=== PATIENT | male | born 1965 | race Caucasian/White ===

== ENCOUNTER 2017-04-18 09:23 | Emergency (ER) | payer MEDICARE, MEDICAID ==
--- NOTE | 2017-04-18 09:51 | EDM.PDOC ---
ED HPI GENERAL MEDICAL PROBLEM - General Chief Complaint: Back Pain or Injury Stated Complaint: BACK PAIN,CHILLS Time Seen by Provider: 04/18/17 09:51 Source of Information: Reports: Patient History Limitations: Reports: No Limitations - History of Present Illness INITIAL COMMENTS - FREE TEXT/NARRATIVE: 51-year-old male presents to the ED with a 2 day history of illness with fever chills and diffuse abdominal and low back pain. No injuries to his low back. Associated intermittent nausea and vomiting. He had 3 emesis was yesterday which contain no blood. He has not vomited today he is experiencing more dry heaves. No diarrhea. Has a history of recurrent pancreatitis since having his gallbladder out. Does not drink alcohol. Certain fatty foods seem to produce pancreatitis. He has fever chills and some rigors especially last night. Hasn't been able to eat for 24 hours as nothing would stay down. He is an insulin- dependent diabetic. He does feel some slight dysuria with voiding. No history of urinary tract infection. Blood sugar this morning was 177 and he did take his Levemir 38 units subcutaneous. Onset: Gradual Onset Date: 04/17/17 (Started to feel unwell last night and has progressed overnight to fever chills) Duration: Hour(s): Location: Reports: Abdomen (Diffuse low back pain, pain.), Back Quality: Reports: Ache Severity: Moderate Improves with: Reports: None Worsens with: Reports: Other (Trying to drink fluids) Associated Symptoms: Reports: Fever/Chills, Loss of Appetite, Malaise, Nausea/ Vomiting, Weakness. Denies: Confusion, Chest Pain, Cough, cough w sputum, Diaphoresis, Headaches, Rash, Seizure, Shortness of Breath, Syncope Treatments ACETYLENE CUTTER: Reports: Other (see below) (Has taking nothing for fever. As he can keep it down) Lower Back Pain Score (Numeric/FACES): 10 Right Upper Abdominal Pain Score (Numeric/FACES): 10 - Related Data Allergies Allergy/AdvReac Type Severity Reaction Status Date / Time ketorolac tromethamine Allergy Anxiety Verified 04/18/17 11:05 [From Toradol] methylphenidate HCl Allergy Anxiety Verified 04/18/17 11:05 [From Ritalin] metoclopramide HCl Allergy Anxiety Verified 04/18/17 11:05 [From Reglan] Home Meds: Home Meds Insulin Detemir [Levemir] 38 unit SUBCUT DAILY 07/28/14 [History] metFORMIN [Glucophage] 2,000 mg PO BID 07/28/14 [History] Metoprolol Succinate [Toprol XL] 25 mg PO DAILY 08/18/14 [History] risperiDONE [Risperdal] 0.5 mg PO DAILY 12/17/14 [History] Sertraline [Zoloft] 150 mg PO BEDTIME 05/25/15 [History] ClonazePAM [KlonoPIN] 0.5 mg PO BEDTIME 07/24/16 [History] Lisinopril [Zestril] 10 mg PO DAILY 07/24/16 [History] Dicyclomine [Bentyl] 20 mg PO Q6H PRN #5 tablet 04/18/17 [Rx] Ezetimibe [Zetia] 10 mg PO DAILY 04/18/17 [History] Fenofibrate Nanocrystallized [Tricor] 0 mg PO DAILY 04/18/17 [History] Ondansetron [Zofran ODT] 4 mg PO Q6H #5 tab.dis 04/18/17 [Rx] risperiDONE [Risperdal] 1.5 mg PO BEDTIME 04/18/17 [History] Past Medical History HEENT History: Reports: Impaired Vision Cardiovascular History: Reports: High Cholesterol, Hypertension Gastrointestinal History: Reports: GERD Musculoskeletal History: Reports: Back Pain, Chronic, RA Other Musculoskeletal History: knee pain and shoulder pain, Psychiatric History: Reports: Anxiety, Bipolar, Depression, Schizophrenia Endocrine/Metabolic History: Reports: Diabetes, Type II - Past Surgical History Musculoskeletal Surgical History: Reports: Shoulder Surgery Social & Family History - Tobacco Use Smoking Status *Q: Current Every Day Smoker Years of Tobacco use: 12 Packs/Tins Daily: 0.2 Used Tobacco, but Quit: Yes Month Tobacco Last Used: july Second Hand Smoke Exposure: Yes - Caffeine Use Caffeine Use: Reports: Soda Other Caffeine Use: 2-3 pop daily - Alcohol Use Days Per Week of Alcohol Use: 0 Number of Drinks Per Day: 2 Total Drinks Per Week: 0 - Recreational Drug Use Recreational Drug Use: No Drug Use in Last 12 Months: No Recreational Drug Type: Reports: Marijuana/Hashish - Living Situation & Occupation Living situation: Reports: Single, Other Occupation: Disabled ED ROS GENERAL - Review of Systems Review Of Systems: See Below Constitutional: Reports: Fever, Chills, Malaise, Weakness, Fatigue HEENT: Reports: No Symptoms Respiratory: Reports: Cough Cardiovascular: Reports: No Symptoms Endocrine: Reports: Fatigue GI/Abdominal: Reports: Abdominal Pain, Diarrhea, Nausea, Vomiting : Reports: No Symptoms Musculoskeletal: Reports: Back Pain (Complains of marked increase in type low back pain.) Skin: Reports: No Symptoms Neurological: Reports: Dizziness, Headache Psychiatric: Reports: No Symptoms Hematologic/Lymphatic: Reports: No Symptoms Immunologic: Reports: No Symptoms ED EXAM,LOWER BACK PAIN/INJURY - Physical Exam Exam: See Below Exam Limited By: No Limitations General Appearance: Alert, Mild Distress, Other (He is very warm to palpation indicating fever even though nurses got temperature 36.1. He definitely is febrile.) Eye Exam: Bilateral Eye: Normal Inspection Ears: Normal TMs Nose: Normal Inspection Throat/Mouth: Normal Inspection, Normal Lips, Normal Oropharynx, Other Head: Atraumatic, Normocephalic Neck: Normal Inspection (Tongue is mildly dry and coated), Supple, Non-Tender, Full Range of Motion. No: Lymphadenopathy (L), Lymphadenopathy (R) Respiratory/Chest: No Respiratory Distress, Lungs Clear, Normal Breath Sounds, No Accessory Muscle Use Cardiovascular: Normal Peripheral Pulses, Regular Rate, Rhythm, No Edema, No Murmur, Bradycardia GI/Abdominal: Normal Bowel Sounds, Soft, Non-Tender, No Organomegaly, Abnormal Bowel Sounds (Hyperactive bowel sounds) Back Exam: Normal Inspection, Full Range of Motion. No: CVA Tenderness (L), CVA Tenderness (R) Extremities: Normal Inspection, Normal Range of Motion, Non-Tender, Normal Capillary Refill Neurological: Alert, Normal Mood/Affect, Normal Dorsiflexion, CN II-XII Intact Psychiatric: Normal Affect, Normal Mood Skin Exam: Warm, Dry, Intact, Normal Color, No Rash EKG INTERPRETATION EKG Date: 04/18/17 Time: 09:55 Rhythm: Other (Sinus bradycardia) Rate (Beats/Min): 46 B[place]roft: LAD-Left Bancroft Deviation (-35) P-Wave: Present QRS: Normal ST-T: Normal QT: Prolonged (Moderately prolonged) Course - Vital Signs Last Recorded V/S: Last Vital Signs Temp 37.1 C 04/18/17 11:02 Pulse 51 L 04/18/17 13:00 Resp 18 04/18/17 13:00 BP 130/95 H 04/18/17 13:00 Pulse Ox 100 04/18/17 13:00 - Orders/Labs/Meds Orders: Active Orders 24 hr Category Date Time Status EKG Documentation Completion [RC] STAT Care 04/18/17 10:11 Active CULTURE BLOOD [BC] Stat Lab 04/18/17 10:35 Received CULTURE BLOOD [BC] Stat Lab 04/18/17 10:45 Received Blood Culture x2 Reflex Set [OM.PC] Stat Oth 04/18/17 10:11 Ordered Labs: Laboratory Tests 04/18/17 04/18/17 04/18/17 Range/Units 09:30 10:00 10:00 WBC 6.33 (4.23-9.07) K/mm3 RBC 5.22 (4.63-6.08) M/mm3 Hgb 16.4 (13.7-17.5) gm/L Hct 45.6 (40.1-51.0) % MCV 87.4 (79.0-92.2) fl MCH 31.4 (25.7-32.2) pg MCHC 36.0 H (32.2-35.5) g/dl RDW Std Deviation 40.3 (35.1-43.9) fL Plt Count 271 (163-337) K/mm3 MPV 10.4 (9.4-12.3) fl Neutrophils % (Manual) 52 (40-60) % Band Neutrophils % 0 (0-10) % Lymphocytes % (Manual) 39 (20-40) % Atypical Lymphs % 0 % Monocytes % (Manual) 6 (2-10) % Eosinophils % (Manual) 2 (0.8-7.0) % Basophils % (Manual) 1 (0.2-1.2) Platelet Estimate Adequate Plt Morphology Comment Normal RBC Morph Comment Normal PT 11.9 (8.0-13.0) SECONDS INR 1.09 APTT 27 (22-36) SECONDS Sodium (136-145) mEq/L Potassium (3.5-5.1) mEq/L Chloride (98-107) mEq/L Carbon Dioxide (21-32) mEq/L Anion Gap (5-15) BUN (7-18) mg/dL Creatinine (0.7-1.3) mg/dL Est Cr Clr Drug Dosing mL/min Estimated GFR (MDRD) (>60) mL/min BUN/Creatinine Ratio (14-18) Glucose (74-106) mg/dL POC Glucose (70-105) mg/dL Lactic Acid (0.4-2.0) mmol/L Calcium (8.5-10.1) mg/dL Total Bilirubin (0.2-1.0) mg/dL GGT (15-85) U/L AST (15-37) U/L ALT (16-63) U/L Alkaline Phosphatase (46-116) U/L Troponin I (0.00-0.056) ng/mL C-Reactive Protein (<1.0) mg/dL Total Protein (6.4-8.2) g/dl Albumin (3.4-5.0) g/dl Globulin gm/dL Albumin/Globulin Ratio (1-2) Triglycerides (<150) mg/dL Lipase (73-393) U/L Urine Color Light yellow (Yellow) Urine Appearance Clear (Clear) Urine pH 6.5 (5.0-8.0) Ur Specific Franklin 1.010 (1.005-1.030) Urine Protein Negative (Negative) Urine Glucose (UA) Negative (Negative) Urine Ketones Negative (Negative) Urine Occult Blood Negative (Negative) Urine Nitrite Negative (Negative) Urine Bilirubin Negative (Negative) Urine Urobilinogen 0.2 (0.2-1.0) Ur Leukocyte Esterase Negative (Negative) Urine RBC Not seen (0-5) /hpf Urine WBC 0-5 (0-5) /hpf Ur Epithelial Cells Not seen (0-5) /hpf Urine Bacteria Not seen (FEW) /hpf Urine Mucus Few (FEW) /hpf 04/18/17 04/18/17 04/18/17 Range/Units 10:00 10:04 10:35 WBC (4.23-9.07) K/mm3 RBC (4.63-6.08) M/mm3 Hgb (13.7-17.5) gm/L Hct (40.1-51.0) % MCV (79.0-92.2) fl MCH (25.7-32.2) pg MCHC (32.2-35.5) g/dl RDW Std Deviation (35.1-43.9) fL Plt Count (163-337) K/mm3 MPV (9.4-12.3) fl Neutrophils % (Manual) (40-60) % Band Neutrophils % (0-10) % Lymphocytes % (Manual) (20-40) % Atypical Lymphs % % Monocytes % (Manual) (2-10) % Eosinophils % (Manual) (0.8-7.0) % Basophils % (Manual) (0.2-1.2) Platelet Estimate Plt Morphology Comment RBC Morph Comment PT (8.0-13.0) SECONDS INR APTT (22-36) SECONDS Sodium 126 L (136-145) mEq/L Potassium 4.6 (3.5-5.1) mEq/L Chloride 92 L (98-107) mEq/L Carbon Dioxide 27 (21-32) mEq/L Anion Gap 11.6 (5-15) BUN 8 (7-18) mg/dL Creatinine 1.1 (0.7-1.3) mg/dL Est Cr Clr Drug Dosing 63.94 mL/min Estimated GFR (MDRD) > 60 (>60) mL/min BUN/Creatinine Ratio 7.3 L (14-18) Glucose 121 H (74-106) mg/dL POC Glucose 126 H (70-105) mg/dL Lactic Acid 1.1 (0.4-2.0) mmol/L Calcium 9.2 (8.5-10.1) mg/dL Total Bilirubin 0.5 (0.2-1.0) mg/dL GGT 32 (15-85) U/L AST 27 (15-37) U/L ALT 44 (16-63) U/L Alkaline Phosphatase 71 (46-116) U/L Troponin I < 0.017 (0.00-0.056) ng/mL C-Reactive Protein < 0.2 (<1.0) mg/dL Total Protein 8.0 (6.4-8.2) g/dl Albumin 4.8 (3.4-5.0) g/dl Globulin 3.2 gm/dL Albumin/Globulin Ratio 1.5 (1-2) Triglycerides 99 (<150) mg/dL Lipase 258 (73-393) U/L Urine Color (Yellow) Urine Appearance (Clear) Urine pH (5.0-8.0) Ur Specific Franklin (1.005-1.030) Urine Protein (Negative) Urine Glucose (UA) (Negative) Urine Ketones (Negative) Urine Occult Blood (Negative) Urine Nitrite (Negative) Urine Bilirubin (Negative) Urine Urobilinogen (0.2-1.0) Ur Leukocyte Esterase (Negative) Urine RBC (0-5) /hpf Urine WBC (0-5) /hpf Ur Epithelial Cells (0-5) /hpf Urine Bacteria (FEW) /hpf Urine Mucus (FEW) /hpf Meds: Medications Discontinued Medications Generic Name Dose Route Start Last Admin Trade Name Andrew PRN Reason Stop Dose Admin Acetaminophen 975 mg 04/18/17 10:07 04/18/17 10:51 Tylenol PO 04/18/17 10:08 975 mg NOW ONE Administration Hydromorphone HCl 0.5 mg 04/18/17 10:09 04/18/17 10:48 Dilaudid IVPUSH 04/18/17 10:10 0.5 mg ONETIME ONE Administration Sodium Chloride 1,000 mls @ 999 mls/hr 04/18/17 10:07 04/18/17 10:13 Normal Saline IV 04/18/17 11:07 999 mls/hr ONETIME ONE Administration Ondansetron HCl 4 mg 04/18/17 10:07 04/18/17 10:46 Zofran IVPUSH 04/18/17 10:08 4 mg ONETIME ONE Administration - Radiology Interpretation Free Text/Narrative:: 51-year-old male arrives in the ED with history of nausea vomiting and severe low back pain. Of note he is not insulin-dependent diabetic and did take his insulin this morning. Sugar was slightly elevated at 177 compared to his norm. His chief complaint is recurrent nausea vomiting and inability to keep down fluids. Use low back pain of unclear etiology with no known trauma. History of recurrent pancreatitis since having his gallbladder removed. Plan IV fluid resuscitation. Given Dilaudid 0.5 mg IV with Zofran 4mg mg IV for pain relief. Routine labs to be done as well as blood cultures 2 as he is febrile on exam. Chest x-ray to be done as well as a KUB. L-spine AP and lateral to be done as well. - Re-Assessments/Exams Free Text/Narrative Re-Assessment/Exam: 04/18/17 11:00 labs reveal a white count of 6.33. Differential pending hemoglobin is slightly elevated at 16.4 hematocrit 45.6. Platelets 271,000. Sodium was quite low at 126. Potassium is 4.6. Chloride 92 bicarbonate 27. Anion gap is 11.6. Glucose is 121 lipase is 258 normal. Urinalysis is pending. 04/18/17 11:06 chest x-ray is essentially within normal limits per portable technique. He is slightly underinflated. Visualized lung donahue appear clear however. X-ray of the abdomen shows nonspecific loops of small bowel in the mid left lower quadrant. There is some mildly increased stool throughout the right hemicolon and transverse colon on the right side. No obstruction is evident. 04/18/17 11:47 L-spine x-rays reveal no other maladies within the lumbar spine. They do show degenerative disc disease between T11 and T12 and T10 and T11 with near absence of the disc spaces. 04/18/17 12:26 still feels a little warm to palpation. He does still appreciate some right upper quadrant abdominal tenderness. Repeat abdominal examination shows benign abdomen. He's had previous cholecystectomy and his lab tests regarding liver function do not suggest any biliary tree obstruction. As increased stool in that area on x-ray in his colon. I'm going to discharge him home on clear fluids such as Gatorade Powerade to restore his sodium sodium levels. He is advised to limit his water intake for the next few days. No apple juice or grape juice until the stools are formed backup or dairy products. Then under the tongue 4 mg every 4-6 hours for nausea relief. Continue Motrin 600 mg every 6 hours for fever relief. If not better or still running a fever in the next 24-36 hours he is to return to medical Departure - Departure Time of Disposition: 12:28 Disposition: Home, Self-Care 01 Condition: Fair Clinical Impression: Gastroenteritis, Hyponatremia Degenerative joint disease of thoracic spine Qualifiers: Spinal osteoarthritis complication: without myelopathy or radiculopathy Qualified Code(s): M47.814 - Spondylosis without myelopathy or radiculopathy, thoracic region - Discharge Information Prescriptions: Dicyclomine [Bentyl] 20 mg PO Q6H PRN #5 tablet PRN Reason: Abdominal cramps/diarrhea Ondansetron [Zofran ODT] 4 mg PO Q6H #5 tab.dis Instructions: Viral Gastroenteritis, Adult, [id number], Hyponatremia, Degenerative Disk Disease Referrals: Bontia Patterson, HEADER OPERATOR [Primary Care Provider] - Forms: ED Department Discharge Additional Instructions: Evaluation the emergency room today in regards to development of fever chills and associated nausea vomiting and diarrhea over the last day and a half. Possibility of foodborne illness exists. White count was normal at 6.3 suggesting a viral etiology or perhaps a toxin causing your diarrhea and vomiting. No evidence of pancreatitis or liver dysfunction today. Serum sodium level was low in your blood and 126 and this is from drinking just pure water over the last day or 2 without adequate salt intake. Therefore you should only drink juices and/or Gatorade Powerade over the next few days to restore your sodium level back to normal. Suggest clear fluid diet and when hungry try soda crackers and advance to soup off or turkey rice turkey noodle soup etc. Stay away from all dairy products and no apple juice or grape juice until stools are formed back up. Continue Motrin 600 mg every 6 hours as needed for relief of fever or chills. Zofran 4 mg under the tongue every 4-6 hours necessary for nausea or vomiting relief. If still running a fever in 24-36 hours time you need to return to the hospital for further investigations. In regards to low back pain think is aggravated by the fever. X-rays show the true lumbar spine to be normal. There is evidence of previous trauma to the lower thoracic spine with degenerative disc disease particularly between number T10 and T11 and T11- T12 vertebra. Negative this is arthritis in the spine - My Orders Last 24 Hours: My Active Orders 04/18/17 10:11 EKG Documentation Completion [RC] STAT Blood Culture x2 Reflex Set [OM.PC] Stat 04/18/17 10:35 CULTURE BLOOD [BC] Stat 04/18/17 10:45 CULTURE BLOOD [BC] Stat - Assessment/Plan Last 24 Hours: My Active Orders 04/18/17 10:11 EKG Documentation Completion [RC] STAT Blood Culture x2 Reflex Set [OM.PC] Stat 04/18/17 10:35 CULTURE BLOOD [BC] Stat 04/18/17 10:45 CULTURE BLOOD [BC] Stat
[2017-04-18] MEDS ORDERED: Sodium Chloride 0.9% 1,000 ML IV ONE (10:07)
[2017-04-18] MEDS ORDERED: Acetaminophen 325 MG Tab PO ONE (10:07)
[2017-04-18] MEDS ORDERED: Ondansetron 4 MG/2 ML SDV IVPUSH ONE (10:07)
[2017-04-18] MEDS ORDERED: HYDROmorphone 0.5 MG/0.5 ML Syringe IVPUSH ONE (10:09)
--- NOTE | 2017-04-18 12:57 | CR ---
Abdomen: Supine view of the abdomen was obtained. Comparison: Previous abdominal x-ray of 04/11/14. Surgical clips are seen within the upper right abdomen. Scattered gas within small bowel and colon is seen which appears unremarkable. Calcification within the left side of the pelvis most likely due to phlebolith. Bony structures are within normal limits for the patient's age. Impression: 1. Incidental findings as noted above. No significant change from previous exam. Diagnostic code #2
--- NOTE | 2017-04-18 12:57 | CR ---
Lumbar spine: AP and lateral views of the lumbar spine were obtained. Comparison: Previous lumbar spine exam of 10/14/12. Slight posterior disc space narrowing noted at T12-L1 and L1-L2. Other discs are maintained. Vertebral body heights are maintained. Minimal scattered endplate osteophytes are seen. Pedicles as well as transverse and spinous processes are intact. No subluxation or fracture is seen. Sacroiliac joints are within normal limits. Impression: 1. Slight scattered endplate osteophytes. Minimal disc space narrowing. 2. Two-view lumbar spine study is otherwise unremarkable. No significant change is seen from prior lumbar spine exam. Diagnostic code #2
--- NOTE | 2017-04-18 12:57 | CR ---
Chest: Frontal view of the chest was obtained. Comparison: Previous chest x-ray of 08/18/14. Heart size and mediastinum are normal. Lungs are clear. Bony structures are grossly intact. Surgical clips seen from previous cholecystectomy. Impression: 1. Nothing acute is appreciated on frontal chest x-ray. Diagnostic code #2
[2017-04-18 13:15] VITALS: BP 130/95
== END 2017-04-18 13:00 | disposition home or self-care (01) ==
LOC: JD.ED 09:23
DX: K52.9 Noninfective gastroenteritis and colitis, unspecified (principal); E87.1 Hypo-osmolality and hyponatremia; M47.814 Spondylosis without myelopathy or radiculopathy, thoracic region; F17.210 Nicotine dependence, cigarettes, uncomplicated; I10 Essential (primary) hypertension; E78.00 Pure hypercholesterolemia, unspecified; K21.9 Gastro-esophageal reflux disease without esophagitis; F31.9 Bipolar disorder, unspecified; E11.9 Type 2 diabetes mellitus without complications; Z98.890 Other specified postprocedural states; Z79.4 Long term (current) use of insulin; Z79.899 Other long term (current) drug therapy; Z88.6 Allergy status to analgesic agent; Z88.8 Allergy status to other drugs, medicaments and biological substances
CPT/HCPCS: 36415; 71010; 72100; 74000; 80053; 81001; 82962; 82977; 83605; 83690; 84478; 84484; 85025; 85610; 85730; 86140; 87040; 93005; 96361; 96374; 96375; 99284; A9270; J1170; J2405; J7040

== ENCOUNTER 2017-05-26 16:49 | Emergency (ER) | payer MEDICARE, MEDICAID ==
[2017-05-26] MEDS ORDERED: HYDROmorphone 1 MG/ML Syringe IM ONE (18:20)
--- NOTE | 2017-05-26 18:21 | EDM.PDOC ---
ED HPI GENERAL MEDICAL PROBLEM - General Chief Complaint: Lower Extremity Injury/Pain Stated Complaint: Foot pain Time Seen by Provider: 05/26/17 17:45 Source of Information: Reports: Patient, RN Notes Reviewed History Limitations: Reports: No Limitations - History of Present Illness INITIAL COMMENTS - FREE TEXT/NARRATIVE: 51 year old male presents to the ED with with right great toe pain. He had surgery a few weeks ago with Dr. Philip. He was doing well until the last few day. He reports running out of his Idalou about 1 week ago. He is on antibiotics prescribed by Dr. Philip but cannot tell me the name of it. He has been elevating the foot with minimal relief. He is here for pain management today. He has a dressing in place that was applied by Dr. Philip 2-3 days ago. The patient is not driving. He denies fever, chills, or sweats. Treatments AGRONOMY MANAGER: Reports: Acetaminophen, NSAIDS Right Feet Pain Score (Numeric/FACES): 9 - Related Data Allergies Allergy/AdvReac Type Severity Reaction Status Date / Time ketorolac tromethamine Allergy Anxiety Verified 05/26/17 17:10 [From Toradol] methylphenidate HCl Allergy Anxiety Verified 05/26/17 17:10 [From Ritalin] metoclopramide HCl Allergy Anxiety Verified 05/26/17 17:10 [From Reglan] Home Meds: Home Meds Insulin Detemir [Levemir] 38 unit SUBCUT DAILY 07/28/14 [History] metFORMIN [Glucophage] 2,000 mg PO BID 07/28/14 [History] Metoprolol Succinate [Toprol XL] 25 mg PO DAILY 08/18/14 [History] risperiDONE [Risperdal] 0.5 mg PO DAILY 12/17/14 [History] Sertraline [Zoloft] 150 mg PO BEDTIME 05/25/15 [History] ClonazePAM [KlonoPIN] 0.5 mg PO BEDTIME 07/24/16 [History] Lisinopril [Zestril] 10 mg PO DAILY 07/24/16 [History] Ezetimibe [Zetia] 10 mg PO DAILY 04/18/17 [History] Fenofibrate Nanocrystallized [Tricor] 48 mg PO DAILY 04/18/17 [History] Ondansetron [Zofran ODT] 4 mg PO Q6H #5 tab.dis 04/18/17 [Rx] risperiDONE [Risperdal] 1.5 mg PO BEDTIME 04/18/17 [History] Acetaminophen/HYDROcodone [Idalou 325-5 MG] 1 - 2 tab PO Q6H PRN #10 tablet 05/26 [Rx] Past Medical History HEENT History: Reports: Impaired Vision Other HEENT History: wears eyeglasses Cardiovascular History: Reports: High Cholesterol, Hypertension Gastrointestinal History: Reports: GERD Musculoskeletal History: Reports: Back Pain, Chronic, RA Other Musculoskeletal History: knee pain and shoulder pain, Psychiatric History: Reports: Anxiety, Bipolar, Depression, Schizophrenia Endocrine/Metabolic History: Reports: Diabetes, Type II Hematologic History: Reports: Anemia, Iron Deficiency - Infectious Disease History Infectious Disease History: Reports: Chicken Pox, Measles - Past Surgical History Musculoskeletal Surgical History: Reports: Shoulder Surgery Social & Family History - Tobacco Use Smoking Status *Q: Current Every Day Smoker Years of Tobacco use: 34 Packs/Tins Daily: 0.2 Used Tobacco, but Quit: Yes Month Tobacco Last Used: july Second Hand Smoke Exposure: Yes - Caffeine Use Caffeine Use: Reports: None Other Caffeine Use: 2-3 pop daily - Alcohol Use Days Per Week of Alcohol Use: 0 Number of Drinks Per Day: 2 Total Drinks Per Week: 0 - Recreational Drug Use Recreational Drug Use: No Drug Use in Last 12 Months: No Recreational Drug Type: Reports: Marijuana/Hashish - Living Situation & Occupation Living situation: Reports: Single, Other Occupation: Disabled Review of Systems - Review of Systems Review Of Systems: See Below Constitutional: Reports: No Symptoms. Denies: Chills, Fever Musculoskeletal: Reports: Foot Pain Skin: Reports: Wound Neurological: Reports: No Symptoms. Denies: Numbness, Tingling, Weakness ED EXAM, GENERAL - Physical Exam Exam: See Below Exam Limited By: No Limitations General Appearance: Alert, WD/WN, No Apparent Distress Respiratory/Chest: No Respiratory Distress, Lungs Clear Cardiovascular: Regular Rate, Rhythm Extremities: Other (Dressing removed from right foot. Patient has an open wound to the right great toe with pin visible. There is yellow drainage from the wound. The great toe is red and edematous. ) Neurological: Alert, Oriented, Normal Cognition Skin Exam: Warm, Dry, Other (see musculoskeletal exam ) Course - Vital Signs Last Recorded V/S: Last Vital Signs Temp 96.5 F 09/17/17 17:15 Pulse 71 05/26/17 17:15 Resp 18 05/26/17 17:15 BP 125/86 05/26/17 17:15 Pulse Ox 99 05/26/17 17:15 - Orders/Labs/Meds Meds: Medications Discontinued Medications Generic Name Dose Route Start Last Admin Trade Name Rejiq PRN Reason Stop Dose Admin Hydromorphone HCl 1 mg 05/26/17 18:20 05/26/17 18:27 Dilaudid IM 05/26/17 18:21 1 mg ONETIME ONE Administration - Re-Assessments/Exams Free Text/Narrative Re-Assessment/Exam: Wound was re-dressed with non-adherent dressing, gauze, and coban. Patients pain was managed and he was discharged home to f/u with his surgeon tomorrow. Departure - Departure Time of Disposition: 18:50 Disposition: Home, Self-Care 01 Condition: Fair Clinical Impression: Post-operative pain - Discharge Information Prescriptions: Acetaminophen/HYDROcodone [Idalou 325-5 MG] 1 - 2 tab PO Q6H PRN #10 tablet PRN Reason: Pain Referrals: PCP,None [Primary Care Provider] - Forms: ED Department Discharge Additional Instructions: Rest, ice and elevate Continue with your post-operative instructions Call Dr. Goodman's clinic tomorrow to update him and to get a refill of your pain medication Idalou 1-2 tabs every 6 hours as needed forpain
[2017-05-26 19:01] VITALS: BP 116/78
== END 2017-05-26 19:15 | disposition home or self-care (01) ==
LOC: JD.ED 16:49
DX: G89.18 Other acute postprocedural pain (principal); M79.674 Pain in right toe(s); E78.00 Pure hypercholesterolemia, unspecified; I10 Essential (primary) hypertension; F17.210 Nicotine dependence, cigarettes, uncomplicated; K21.9 Gastro-esophageal reflux disease without esophagitis; E11.9 Type 2 diabetes mellitus without complications; Z88.6 Allergy status to analgesic agent; Z88.8 Allergy status to other drugs, medicaments and biological substances; Z79.4 Long term (current) use of insulin; Z79.84 Long term (current) use of oral hypoglycemic drugs; Z79.899 Other long term (current) drug therapy; Z86.2 Personal history of diseases of the blood and blood-forming organs and certain disorders involving the immune mechanism
CPT/HCPCS: 96372; 99283; J1170

== ENCOUNTER 2017-07-11 13:16 | Emergency (ER) | payer MEDICARE, MEDICAID ==
[2017-07-11 13:45] VITALS: BP 161/99
[2017-07-11] MEDS ORDERED: LORazepam 1 MG Tab PO ONE (14:00)
--- NOTE | 2017-07-11 14:02 | EDM.PDOCBH ---
ED HPI GENERAL MEDICAL PROBLEM - General Chief Complaint: Behavioral/Psych Stated Complaint: Suicidal ideation Time Seen by Provider: 07/11/17 13:45 Source of Information: Reports: Patient, RN Notes Reviewed History Limitations: Reports: No Limitations - History of Present Illness INITIAL COMMENTS - FREE TEXT/NARRATIVE: 52 year old male presents to the ED with complaints of auditory hallucinations and suicidal ideation. He say she has been off his psych meds for about two weeks because his primary care provider is no longer willing to fill his medications. He was told to see his Psychiatrist Dr. Herring. He has been unable to reach his psychiatrist and now realizes he may have had the wrong number. He says he is hearing persistent voices and that the voices are telling him to kill himself. He says he has considered killing himself to stop the voices. His plan is to cut his wrists. He's attempted to hang himself in the past, this was several years ago. He has a history of paranoid schizophrenia. He denies alcohol or drug use. He says a friend gave him some Marijuana about two weeks ago. He tried it but says he didn't like how it made him feel. He denies fever, chills, sweats, chest pain, cough, shortness of breath, nausea, vomiting, abdominal pain. Right Abdominal Pain Score (Numeric/FACES): 10 - Related Data Allergies Allergy/AdvReac Type Severity Reaction Status Date / Time ketorolac tromethamine Allergy Anxiety Verified 07/11/17 13:45 [From Toradol] methylphenidate HCl Allergy Anxiety Verified 07/11/17 13:45 [From Ritalin] metoclopramide HCl Allergy Anxiety Verified 07/11/17 13:45 [From Reglan] Home Meds: Home Meds Insulin Detemir [Levemir] 38 unit SUBCUT DAILY 07/28/14 [History] metFORMIN [Glucophage] 2,000 mg PO BID 07/28/14 [History] Metoprolol Succinate [Toprol XL] 25 mg PO DAILY 08/18/14 [History] risperiDONE [Risperdal] 0.5 mg PO DAILY 12/17/14 [History] Sertraline [Zoloft] 150 mg PO BEDTIME 05/25/15 [History] ClonazePAM [KlonoPIN] 0.5 mg PO BEDTIME 07/24/16 [History] Lisinopril [Zestril] 10 mg PO DAILY 07/24/16 [History] Ezetimibe [Zetia] 10 mg PO DAILY 04/18/17 [History] Fenofibrate Nanocrystallized [Tricor] 48 mg PO DAILY 04/18/17 [History] Ondansetron [Zofran ODT] 4 mg PO Q6H #5 tab.dis 04/18/17 [Rx] risperiDONE [Risperdal] 1.5 mg PO BEDTIME 04/18/17 [History] Acetaminophen/HYDROcodone [[place] 325-5 MG] 1 - 2 tab PO Q6H PRN #10 tablet 05/26 [Rx] Past Medical History HEENT History: Reports: Impaired Vision Other HEENT History: wears eyeglasses Cardiovascular History: Reports: High Cholesterol, Hypertension Gastrointestinal History: Reports: GERD Musculoskeletal History: Reports: Back Pain, Chronic, RA Other Musculoskeletal History: knee pain and shoulder pain, Psychiatric History: Reports: Anxiety, Bipolar, Depression, Schizophrenia Endocrine/Metabolic History: Reports: Diabetes, Type II Hematologic History: Reports: Anemia, Iron Deficiency - Infectious Disease History Infectious Disease History: Reports: Chicken Pox, Measles - Past Surgical History Musculoskeletal Surgical History: Reports: Shoulder Surgery, Other (See Below) Other Musculoskeletal Surgeries/Procedures:: bunionectomy Social & Family History - Tobacco Use Smoking Status *Q: Current Some Day Smoker Years of Tobacco use: 28 Packs/Tins Daily: 0.1 Used Tobacco, but Quit: Yes Month Tobacco Last Used: july Second Hand Smoke Exposure: Yes - Caffeine Use Caffeine Use: Reports: None Other Caffeine Use: 2-3 pop daily - Alcohol Use Days Per Week of Alcohol Use: 0 Number of Drinks Per Day: 2 Total Drinks Per Week: 0 - Recreational Drug Use Recreational Drug Use: Yes Drug Use in Last 12 Months: No Recreational Drug Type: Reports: Marijuana/Hashish Other Recreational Drug Type: unsure if pt has used weed in the past year - Living Situation & Occupation Living situation: Reports: Single, Other Occupation: Disabled ED ROS GENERAL - Review of Systems Review Of Systems: See Below Constitutional: Reports: No Symptoms. Denies: Fever, Chills, Diaphoresis Respiratory: Reports: No Symptoms. Denies: Shortness of Breath Cardiovascular: Reports: No Symptoms. Denies: Chest Pain GI/Abdominal: Reports: No Symptoms. Denies: Abdominal Pain, Diarrhea, Nausea, Vomiting Neurological: Reports: No Symptoms. Denies: Headache Psychiatric: Reports: Anxiety, Hallucinations, Suicidal Ideation ED EXAM, BEHAVIORAL HEALTH - Physical Exam Exam: See Below Exam Limited By: No Limitations General Appearance: Alert, WD/WN, Anxious Respiratory/Chest: No Respiratory Distress, Lungs Clear, Normal Breath Sounds, No Accessory Muscle Use, Chest Non-Tender Cardiovascular: Regular Rate, Rhythm, No Murmur GI/Abdominal: Normal Bowel Sounds, Soft, Non-Tender, No Distention Neurological: Alert, Normal Mood/Affect, Normal Cognition, Oriented x 3 Psychiatric: Alert, Oriented, Tearful, Suicidal Plan, Suicidal Thoughts, Other ( patient is anxious. Openly talks about his symptoms. He makes eye contact and is cooperative. ). No: Grandiose Thoughts, Paranoid Thoughts, Threatening Behavior Skin Exam: Warm, Dry, Intact COURSE, BEHAVIORAL HEALTH COMP - Course Vital Signs: Last Vital Signs Temp 98.6 F 07/11/17 13:39 Pulse 65 07/11/17 13:39 Resp 18 07/11/17 13:39 BP 161/99 H 07/11/17 13:39 Pulse Ox 100 07/11/17 13:39 Orders, Labs, Meds: Laboratory Tests 07/11/17 07/11/17 07/11/17 Range/Units 14:10 14:10 14:28 WBC 7.40 (4.23-9.07) K/mm3 RBC 4.95 (4.63-6.08) M/mm3 Hgb 15.2 (13.7-17.5) gm/L Hct 43.3 (40.1-51.0) % MCV 87.5 (79.0-92.2) fl MCH 30.7 (25.7-32.2) pg MCHC 35.1 (32.2-35.5) g/dl RDW Std Deviation 41.5 (35.1-43.9) fL Plt Count 251 (163-337) K/mm3 MPV 10.5 (9.4-12.3) fl Neut % (Auto) 58.1 (34.0-67.9) % Lymph % (Auto) 32.2 (21.8-53.1) % [place] % (Auto) 7.0 (5.3-12.2) % Eos % (Auto) 1.6 (0.8-7.0) Baso % (Auto) 0.7 (0.1-1.2) % Neut # (Auto) 4.30 (1.78-5.38) K/mm3 Lymph # (Auto) 2.38 (1.32-3.57) K/mm3 [place] # (Auto) 0.52 (0.30-0.82) K/mm3 Eos # (Auto) 0.12 (0.04-0.54) K/mm3 Baso # (Auto) 0.05 (0.01-0.08) K/mm3 Sodium 134 L (136-145) mEq/L Potassium 4.0 (3.5-5.1) mEq/L Chloride 99 (98-107) mEq/L Carbon Dioxide 24 (21-32) mEq/L Anion Gap 15.0 (5-15) BUN 10 (7-18) mg/dL Creatinine 1.0 (0.7-1.3) mg/dL Est Cr Clr Drug Dosing 69.54 mL/min Estimated GFR (MDRD) > 60 (>60) mL/min BUN/Creatinine Ratio 10.0 L (14-18) Glucose 172 H (74-106) mg/dL Calcium 8.8 (8.5-10.1) mg/dL Total Bilirubin 0.5 (0.2-1.0) mg/dL AST 32 (15-37) U/L ALT 56 (16-63) U/L Alkaline Phosphatase 88 (46-116) U/L Total Protein 7.6 (6.4-8.2) g/dl Albumin 4.2 (3.4-5.0) g/dl Globulin 3.4 gm/dL Albumin/Globulin Ratio 1.2 (1-2) TSH 3rd Generation 0.934 (0.358-3.74) uIU/mL Urine Color (Yellow) Urine Appearance (Clear) Urine pH (5.0-8.0) Ur Specific [place] (1.005-1.030) Urine Protein (Negative) Urine Glucose (UA) (Negative) Urine Ketones (Negative) Urine Occult Blood (Negative) Urine Nitrite (Negative) Urine Bilirubin (Negative) Urine Urobilinogen (0.2-1.0) Ur Leukocyte Esterase (Negative) Urine RBC (0-5) /hpf Urine WBC (0-5) /hpf Ur Epithelial Cells (0-5) /hpf Urine Bacteria (FEW) /hpf Urine Mucus (FEW) /hpf Urine Opiates Screen Negative (NEGATIVE) Ur Buprenorphine Scrn Negative (NEGATIVE) Ur Oxycodone Screen Negative (NEGATIVE) Urine Methadone Screen Negative (NEGATIVE) Ur Propoxyphene Screen Negative (NEGATIVE) Ur Barbiturates Screen Negative (NEGATIVE) Ur Tricyclics Screen Negative (NEGATIVE) Ur Phencyclidine Scrn Negative (NEGATIVE) Ur Amphetamine Screen Negative (NEGATIVE) U Methamphetamines Scrn Negative (NEGATIVE) U Benzodiazepines Scrn Negative (NEGATIVE) U Cocaine Metab Screen Negative (NEGATIVE) U Marijuana (THC) Screen Negative (NEGATIVE) Ethyl Alcohol 0.00 (0.00) gm% 07/11/17 Range/Units 14:28 WBC (4.23-9.07) K/mm3 RBC (4.63-6.08) M/mm3 Hgb (13.7-17.5) gm/L Hct (40.1-51.0) % MCV (79.0-92.2) fl MCH (25.7-32.2) pg MCHC (32.2-35.5) g/dl RDW Std Deviation (35.1-43.9) fL Plt Count (163-337) K/mm3 MPV (9.4-12.3) fl Neut % (Auto) (34.0-67.9) % Lymph % (Auto) (21.8-53.1) % [place] % (Auto) (5.3-12.2) % Eos % (Auto) (0.8-7.0) Baso % (Auto) (0.1-1.2) % Neut # (Auto) (1.78-5.38) K/mm3 Lymph # (Auto) (1.32-3.57) K/mm3 [place] # (Auto) (0.30-0.82) K/mm3 Eos # (Auto) (0.04-0.54) K/mm3 Baso # (Auto) (0.01-0.08) K/mm3 Sodium (136-145) mEq/L Potassium (3.5-5.1) mEq/L Chloride (98-107) mEq/L Carbon Dioxide (21-32) mEq/L Anion Gap (5-15) BUN (7-18) mg/dL Creatinine (0.7-1.3) mg/dL Est Cr Clr Drug Dosing mL/min Estimated GFR (MDRD) (>60) mL/min BUN/Creatinine Ratio (14-18) Glucose (74-106) mg/dL Calcium (8.5-10.1) mg/dL Total Bilirubin (0.2-1.0) mg/dL AST (15-37) U/L ALT (16-63) U/L Alkaline Phosphatase (46-116) U/L Total Protein (6.4-8.2) g/dl Albumin (3.4-5.0) g/dl Globulin gm/dL Albumin/Globulin Ratio (1-2) TSH 3rd Generation (0.358-3.74) uIU/mL Urine Color Light yellow (Yellow) Urine Appearance Clear (Clear) Urine pH 6.5 (5.0-8.0) Ur Specific [place] 1.010 (1.005-1.030) Urine Protein Negative (Negative) Urine Glucose (UA) Negative (Negative) Urine Ketones Negative (Negative) Urine Occult Blood Trace-lysed H (Negative) Urine Nitrite Negative (Negative) Urine Bilirubin Negative (Negative) Urine Urobilinogen 0.2 (0.2-1.0) Ur Leukocyte Esterase Negative (Negative) Urine RBC 0-5 (0-5) /hpf Urine WBC 0-5 (0-5) /hpf Ur Epithelial Cells Not seen (0-5) /hpf Urine Bacteria Rare (FEW) /hpf Urine Mucus Not seen (FEW) /hpf Urine Opiates Screen (NEGATIVE) Ur Buprenorphine Scrn (NEGATIVE) Ur Oxycodone Screen (NEGATIVE) Urine Methadone Screen (NEGATIVE) Ur Propoxyphene Screen (NEGATIVE) Ur Barbiturates Screen (NEGATIVE) Ur Tricyclics Screen (NEGATIVE) Ur Phencyclidine Scrn (NEGATIVE) Ur Amphetamine Screen (NEGATIVE) U Methamphetamines Scrn (NEGATIVE) U Benzodiazepines Scrn (NEGATIVE) U Cocaine Metab Screen (NEGATIVE) U Marijuana (THC) Screen (NEGATIVE) Ethyl Alcohol (0.00) gm% Medications Discontinued Medications Generic Name Dose Route Start Last Admin Trade Name Freq PRN Reason Stop Dose Admin Lorazepam 1 mg 07/11/17 14:00 07/11/17 14:25 Ativan PO 11/02/17 14:01 1 mg ONETIME ONE Administration Re-Assessment/Re-Exam: Workup today is normal. Patient is medically cleared. He was given Ativan 1mg PO x1 which helped alleviate his anxiety symptoms. He has remained calm and cooperative. 1530 Myself and nursing staff attempted to call several inpatient psych facilities within the [facility]. [facility], [facility] and [facility] are all at capacity and are unable to accept Vincrosalio. I spoke to [facility] and was connected to Psychiatry environmental professional, Dr. Mireles who has accepted care of the patient. He will be transported via law enforcement. [facility]30 [facility]. Patient was notified of plan of care. Departure - Departure Time of Disposition: 16:41 Disposition: DC/Tfer to Psych Hosp/Unit 65 Condition: Good Clinical Impression: Suicidal ideation, Paranoid schizophrenia - Discharge Information Referrals: Bonita Patterson, PANTOGRAPHER [Primary Care Provider] - Forms: ED Department Discharge
[2017-07-11] MEDS ORDERED: LORazepam 1 MG Tab ONE (14:26)
== END 2017-07-11 17:09 ==
LOC: JD.ED 13:16
DX: F20.0 Paranoid schizophrenia (principal); R45.851 Suicidal ideations; F17.210 Nicotine dependence, cigarettes, uncomplicated; Z88.6 Allergy status to analgesic agent; Z88.8 Allergy status to other drugs, medicaments and biological substances; Z79.4 Long term (current) use of insulin; Z79.84 Long term (current) use of oral hypoglycemic drugs; Z79.899 Other long term (current) drug therapy
CPT/HCPCS: 36415; 80053; 80306; 81001; 84443; 85025; 93005; 99285; A9270; G0480

== ENCOUNTER 2017-10-12 15:51 | Emergency (ER) | payer MEDICARE, MEDICAID ==
[2017-10-12 16:06] VITALS: BP 154/92
--- NOTE | 2017-10-12 16:19 | EDM.PDOC ---
ED HPI GENERAL MEDICAL PROBLEM - General Chief Complaint: Back Pain or Injury Stated Complaint: LOWER BACK PAIN Time Seen by Provider: 10/12/17 16:18 - History of Present Illness INITIAL COMMENTS - FREE TEXT/NARRATIVE: 52-year-old male presents emergency room with worsening low back pain. This is been getting worse over the last several days. Patient denies any recent trauma. Patient has not had any loss of bowel or bladder control. He has no pain extending into his legs no weakness or numbness going into his legs. His pain seems to be localized to his low back. He has no burning or frequency with urination Treatments LUMP MAKER: Reports: Other (see below) Other Treatments LUMP MAKER: motrin 600 mg Back Pain Score (Numeric/FACES): 10 - Related Data Allergies Allergy/AdvReac Type Severity Reaction Status Date / Time ketorolac tromethamine AdvReac Anxiety Verified 07/12/17 11:07 [From Toradol] methylphenidate HCl AdvReac Anxiety Verified 07/12/17 11:07 [From Ritalin] metoclopramide HCl AdvReac Anxiety Verified 07/12/17 11:07 [From Reglan] Home Meds: Home Meds Insulin Detemir [Levemir] 38 unit SUBCUT DAILY 07/28/14 [History] metFORMIN [Glucophage] 2,000 mg PO BID 07/28/14 [History] Metoprolol Succinate [Toprol XL] 25 mg PO DAILY 08/18/14 [History] risperiDONE [Risperdal] 0.5 mg PO DAILY 12/17/14 [History] Sertraline [Zoloft] 150 mg PO BEDTIME 05/25/15 [History] ClonazePAM [KlonoPIN] 0.5 mg PO BEDTIME PRN 07/24/16 [History] Lisinopril [Zestril] 10 mg PO DAILY 07/24/16 [History] Ezetimibe [Zetia] 10 mg PO DAILY 04/18/17 [History] Fenofibrate Nanocrystallized [Tricor] 48 mg PO DAILY 04/18/17 [History] risperiDONE [Risperdal] 1.5 mg PO BEDTIME 04/18/17 [History] Cyclobenzaprine [Flexeril] 10 mg PO BEDTIME #7 tab 10/12/17 [Rx] Past Medical History HEENT History: Reports: Impaired Vision Other HEENT History: wears eyeglasses Cardiovascular History: Reports: High Cholesterol, Hypertension Gastrointestinal History: Reports: GERD Musculoskeletal History: Reports: Back Pain, Chronic, RA Other Musculoskeletal History: knee pain and shoulder pain, Psychiatric History: Reports: Anxiety, Bipolar, Depression, Schizophrenia Endocrine/Metabolic History: Reports: Diabetes, Type II Hematologic History: Reports: Anemia, Iron Deficiency - Infectious Disease History Infectious Disease History: Reports: Chicken Pox, Measles - Past Surgical History Musculoskeletal Surgical History: Reports: Shoulder Surgery, Other (See Below) Other Musculoskeletal Surgeries/Procedures:: bunionectomy Social & Family History - Tobacco Use Smoking Status *Q: Current Every Day Smoker Years of Tobacco use: 30 Packs/Tins Daily: 0.2 Used Tobacco, but Quit: Yes Month Tobacco Last Used: july Second Hand Smoke Exposure: Yes - Caffeine Use Caffeine Use: Reports: Coffee, Soda, Tea Other Caffeine Use: 2-3 pop daily - Alcohol Use Days Per Week of Alcohol Use: 0 Number of Drinks Per Day: 2 Total Drinks Per Week: 0 - Recreational Drug Use Recreational Drug Use: No Drug Use in Last 12 Months: No Recreational Drug Type: Reports: Marijuana/Hashish Other Recreational Drug Type: unsure if pt has used weed in the past year - Living Situation & Occupation Living situation: Reports: Single, Other Occupation: Disabled ED ROS GENERAL - Review of Systems Review Of Systems: See Below Constitutional: Reports: No Symptoms Respiratory: Reports: No Symptoms Cardiovascular: Reports: No Symptoms GI/Abdominal: Reports: No Symptoms : Reports: No Symptoms Neurological: Reports: No Symptoms ED EXAM,LOWER BACK PAIN/INJURY - Physical Exam Exam: See Below Exam Limited By: No Limitations General Appearance: Alert, No Apparent Distress Head: Atraumatic, Normocephalic Neck: Normal Inspection, Supple, Non-Tender, Full Range of Motion Respiratory/Chest: No Respiratory Distress, Lungs Clear, Normal Breath Sounds Cardiovascular: Regular Rate, Rhythm, No Edema, No Murmur GI/Abdominal: Normal Bowel Sounds, Soft, Non-Tender Back Exam: Normal Inspection, Muscle Spasm (She seems to have bilateral muscle spasm in the lumbar region this improves in the lower thoracic area. He has no bony discomfort no spinous process discomfort), Other (Distracted straight leg raises are entirely normal. ). No: Vertebral Tenderness Psychiatric: Normal Affect, Normal Mood Course - Vital Signs Last Recorded V/S: Last Vital Signs Temp 36.6 C 10/12/17 16:05 Pulse 59 L 10/12/17 16:05 Resp 20 10/12/17 16:05 BP 154/92 H 10/12/17 16:05 Pulse Ox 98 10/12/17 16:05 Departure - Departure Time of Disposition: 17:07 Disposition: Home, Self-Care 01 Clinical Impression: Low back strain - Discharge Information Prescriptions: Cyclobenzaprine [Flexeril] 10 mg PO BEDTIME #7 tab Referrals: PCP,None [Primary Care Provider] - Forms: ED Department Discharge Additional Instructions: Return to emergency room if any questions problems worsening symptoms. Follow-up with your regular provider early this next week. You been started on Flexeril this is a muscle relaxant take it one at bedtime. Use your ibuprofen 600 mg every 6-8 hours as needed take with food
== END 2017-10-12 17:42 | disposition home or self-care (01) ==
LOC: JD.ED 15:51
DX: S39.012A Strain of muscle, fascia and tendon of lower back, initial encounter (principal); I10 Essential (primary) hypertension; E78.00 Pure hypercholesterolemia, unspecified; K21.9 Gastro-esophageal reflux disease without esophagitis; F31.9 Bipolar disorder, unspecified; E11.9 Type 2 diabetes mellitus without complications; F17.210 Nicotine dependence, cigarettes, uncomplicated; Z79.899 Other long term (current) drug therapy; Z79.4 Long term (current) use of insulin; Z88.6 Allergy status to analgesic agent; Z88.8 Allergy status to other drugs, medicaments and biological substances; X58.XXXA Exposure to other specified factors, initial encounter
CPT/HCPCS: 99283

== ENCOUNTER 2018-04-14 12:42 | Emergency (ER) | payer MEDICARE, MEDICAID ==
[2018-04-14 12:54] VITALS: BP 160/104
[2018-04-14] MEDS ORDERED: Ondansetron 4 MG/2 ML SDV IVPUSH ONE (13:28)
[2018-04-14] MEDS ORDERED: HYDROmorphone 0.5 MG/0.5 ML SYRINGE IVPUSH ONE (13:28)
[2018-04-14] MEDS ORDERED: Sodium Chloride 0.9% 10 ML Syringe FLUSH PRN (13:28)
[2018-04-14] MEDS ORDERED: Sodium Chloride 0.9% 1,000 ML IV ONE (13:28)
--- NOTE | 2018-04-14 14:03 | CR ---
Chest: Portable view of the chest was obtained. Comparison: Chest x-ray of 04/18/17. Heart size and mediastinum are normal. Lungs are clear. Bony structures are grossly intact. Impression: 1. Nothing acute is seen on portable chest x-ray. Diagnostic code #1
--- NOTE | 2018-04-14 15:19 | EDM.PDOC ---
ED HPI GENERAL MEDICAL PROBLEM - General Chief Complaint: Abdominal Pain Stated Complaint: STAPPING PAIN IN LIVER AND KIDNEYS Time Seen by Provider: 04/14/18 13:05 Source of Information: Reports: Patient History Limitations: Reports: No Limitations - History of Present Illness INITIAL COMMENTS - FREE TEXT/NARRATIVE: 52-year-old male presents for evaluation and treatment of pain to the right upper quadrant and back. He states that he is having sharp stabbing pains in his liver and kidneys. Reports that the pain started last night. He reports associated symptoms of nausea, vomiting, chills, diaphoresis, chest pain and shortness of breath. He has a history of pancreatitis, states he was diagnosed with pancreatitis last month. This was managed as an outpatient with pain medication. He was not hospitalized for this. Reports that he ate some fatty food last night. States that this will trigger his abdominal discomfort. He denies any alcohol use. Reports he had a laprascopic cholecystectomy done in [place] a few years ago. Primary care provider was Nancy Patterson. Right Upper Abdomen Pain Score (Numeric/FACES): 8 - Related Data Allergies Allergy/AdvReac Type Severity Reaction Status Date / Time ketorolac tromethamine AdvReac Anxiety Verified 04/14/18 12:54 [From Toradol] methylphenidate HCl AdvReac Anxiety Verified 04/14/18 12:54 [From Ritalin] metoclopramide HCl AdvReac Anxiety Verified 04/14/18 12:54 [From Reglan] Home Meds: Home Meds Insulin Detemir [Levemir] 38 unit SUBCUT DAILY 07/28/14 [History] metFORMIN [Glucophage] 2,000 mg PO BID 07/28/14 [History] Metoprolol Succinate [Toprol XL] 25 mg PO DAILY 08/18/14 [History] risperiDONE [Risperdal] 0.5 mg PO DAILY 12/17/14 [History] Sertraline [Zoloft] 150 mg PO BEDTIME 05/25/15 [History] ClonazePAM [KlonoPIN] 0.5 mg PO BEDTIME PRN 07/24/16 [History] Ezetimibe [Zetia] 10 mg PO DAILY 04/18/17 [History] Fenofibrate Nanocrystallized [Tricor] 48 mg PO DAILY 04/18/17 [History] risperiDONE [Risperdal] 1.5 mg PO BEDTIME 04/18/17 [History] Past Medical History HEENT History: Reports: Impaired Vision Other HEENT History: wears eyeglasses Cardiovascular History: Reports: High Cholesterol, Hypertension Gastrointestinal History: Reports: GERD, Pancreatitis Musculoskeletal History: Reports: Back Pain, Chronic, RA Other Musculoskeletal History: knee pain and shoulder pain, Psychiatric History: Reports: Anxiety, Bipolar, Depression, Schizophrenia Endocrine/Metabolic History: Reports: Diabetes, Type II Hematologic History: Reports: Anemia, Iron Deficiency - Infectious Disease History Infectious Disease History: Reports: Chicken Pox, Measles - Past Surgical History GI Surgical History: Reports: Cholecystectomy Musculoskeletal Surgical History: Reports: Shoulder Surgery, Other (See Below) Other Musculoskeletal Surgeries/Procedures:: bunionectomy Social & Family History - Tobacco Use Smoking Status *Q: Current Some Day Smoker Years of Tobacco use: 25 Packs/Tins Daily: 0.1 - Caffeine Use Caffeine Use: Reports: Soda Other Caffeine Use: 2-3 pop daily - Recreational Drug Use Recreational Drug Use: No - Living Situation & Occupation Living situation: Reports: Single, Other Occupation: Disabled ED ROS GENERAL - Review of Systems Review Of Systems: See Below Constitutional: Reports: Chills, Malaise, Diaphoresis. Denies: Fever GI/Abdominal: Reports: Abdominal Pain, Nausea, Vomiting : Reports: No Symptoms Musculoskeletal: Reports: Back Pain ED EXAM, GI/ABD - Physical Exam Exam: See Below Exam Limited By: No Limitations General Appearance: Alert, WD/WN, No Apparent Distress Respiratory/Chest: No Respiratory Distress, Lungs Clear, Normal Breath Sounds Cardiovascular: Normal Peripheral Pulses, Regular Rate, Rhythm, No Murmur GI/Abdominal Exam: Normal Bowel Sounds, Soft, No Organomegaly, No Distention, Tender (RUQ) Back Exam: Normal Inspection. No: CVA Tenderness (L), CVA Tenderness (R) Neurological: Alert, Oriented, Normal Cognition Psychiatric: Normal Affect, Normal Mood Skin Exam: Warm, Dry, Normal Color EKG INTERPRETATION EKG Date: 04/14/18 Time: 13:40 Rhythm: NSR Rate (Beats/Min): 59 [place]: Normal P-Wave: Present QRS: Normal ST-T: Normal QT: Normal EKG Interpretation Comments: NSR at 59 bpm. No signs of ischemia. Reviewed by myself and Dr. Alda Varela. Course - Vital Signs Last Recorded V/S: Last Vital Signs Temp 97.1 F 04/14/18 12:51 Pulse 66 04/14/18 12:51 Resp 16 04/14/18 12:51 BP 160/104 H 04/14/18 12:51 Pulse Ox 99 04/14/18 12:51 - Orders/Labs/Meds Labs: Laboratory Tests 04/14/18 04/14/18 04/14/18 Range/Units 13:25 13:25 13:25 WBC 9.61 H (4.23-9.07) K/mm3 RBC 5.50 (4.63-6.08) M/mm3 Hgb 16.5 (13.7-17.5) gm/L Hct 47.4 (40.1-51.0) % MCV 86.2 (79.0-92.2) fl MCH 30.0 (25.7-32.2) pg MCHC 34.8 (32.2-35.5) g/dl RDW Std Deviation 43.0 (35.1-43.9) fL Plt Count 289 (163-337) K/mm3 MPV 9.8 (9.4-12.3) fl Neutrophils % (Manual) 60 (40-60) % Band Neutrophils % 3 (0-10) % Lymphocytes % (Manual) 33 (20-40) % Atypical Lymphs % 0 % Monocytes % (Manual) 3 (2-10) % Eosinophils % (Manual) 1 (0.8-7.0) % Basophils % (Manual) 0 L (0.2-1.2) Hypersegmented Neuts Rare Platelet Estimate Adequate RBC Morph Comment Normal Sodium 129 L (136-145) mEq/L Potassium 3.8 (3.5-5.1) mEq/L Chloride 96 L (98-107) mEq/L Carbon Dioxide 21 (21-32) mEq/L Anion Gap 15.8 H (5-15) BUN 10 (7-18) mg/dL Creatinine 1.0 (0.7-1.3) mg/dL Est Cr Clr Drug Dosing 69.54 mL/min Estimated GFR (MDRD) > 60 (>60) mL/min BUN/Creatinine Ratio 10.0 L (14-18) Glucose 149 H (74-106) mg/dL Calcium 8.5 (8.5-10.1) mg/dL Total Bilirubin 0.2 (0.2-1.0) mg/dL AST 12 L (15-37) U/L ALT 32 (16-63) U/L Alkaline Phosphatase 86 (46-116) U/L Troponin I < 0.017 (0.00-0.056) ng/mL C-Reactive Protein 0.3 (<1.0) mg/dL Total Protein 7.8 (6.4-8.2) g/dl Albumin 4.0 (3.4-5.0) g/dl Globulin 3.8 gm/dL Albumin/Globulin Ratio 1.1 (1-2) Lipase 332 (73-393) U/L Urine Color Light yellow (Yellow) Urine Appearance Clear (Clear) Urine pH 6.5 (5.0-8.0) Ur Specific [place] 1.010 (1.005-1.030) Urine Protein Negative (Negative) Urine Glucose (UA) 2+ H (Negative) Urine Ketones Negative (Negative) Urine Occult Blood Negative (Negative) Urine Nitrite Negative (Negative) Urine Bilirubin Negative (Negative) Urine Urobilinogen 0.2 (0.2-1.0) Ur Leukocyte Esterase Negative (Negative) Urine RBC 0-5 (0-5) /hpf Urine WBC 0-5 (0-5) /hpf Ur Epithelial Cells 0-5 (0-5) /hpf Urine Bacteria Rare (FEW) /hpf Urine Mucus Not seen (FEW) /hpf Meds: Medications Discontinued Medications Generic Name Dose Route Start Last Admin Trade Name Freq PRN Reason Stop Dose Admin Hydromorphone HCl 0.5 mg 04/14/18 13:28 04/14/18 13:53 Dilaudid IVPUSH 04/14/18 13:29 0.5 mg ONETIME ONE Administration Sodium Chloride 1,000 mls @ 999 mls/hr 04/14/18 13:28 04/14/18 13:55 Normal Saline IV 04/14/18 14:28 999 mls/hr ONETIME ONE Administration Ondansetron HCl 4 mg 04/14/18 13:28 04/14/18 13:50 Zofran IVPUSH 04/14/18 13:29 4 mg ONETIME ONE Administration Sodium Chloride 10 ml 04/14/18 13:28 04/14/18 13:53 Saline Flush FLUSH 10 ml ASDIRECTED PRN Administration Keep Vein Open - Radiology Interpretation Free Text/Narrative:: Chest: Portable view of the chest was obtained. Comparison: Chest x-ray of 04/18/17. Heart size and mediastinum are normal. Lungs are clear. Bony structures are grossly intact. Impression: 1. Nothing acute is seen on portable chest x-ray. - Re-Assessments/Exams Free Text/Narrative Re-Assessment/Exam: 04/14/18 15:13 I reviewed the labs, ekg and imaging with the patient. Feels greatly improved after pain medication. No indication for further imaging at this time. Will have him follow-up in the clinic. Patient is requesting pain medication to go home with. Recommend OTC medications , contact PCP if needing pain management. Recommend increasing salt intake as sodium and chloride were slightly low today. Discharge instructions as documented. Departure - Departure Time of Disposition: 15:15 Disposition: Home, Self-Care 01 Condition: Good Clinical Impression: Abdominal pain - Discharge Information *PRESCRIPTION DRUG MONITORING PROGRAM REVIEWED*: Yes *COPY OF PRESCRIPTION DRUG MONITORING REPORT IN PATIENT HIMA: No Instructions: Abdominal Pain, Adult Referrals: PCP,None [Primary Care Provider] - Morena Tinajero PA-C [Ordering Only Provider] - Forms: ED Department Discharge Additional Instructions: you were given medication in the ER that can affect your ability to drive and operate machinery. Do not drive or operate machinery within 12 hours of receiving perception narcotic pain medication. Rest. Drink plenty of fluids, gatorade and powerade. May increase your salt intake. Follow-up with PCP within 1 week for a recheck of your symptoms. Please return to the ER should your symptoms change or worsen.
== END 2018-04-14 15:35 | disposition home or self-care (01) ==
LOC: JD.ED 12:42
DX: R10.11 Right upper quadrant pain (principal); F17.210 Nicotine dependence, cigarettes, uncomplicated; E11.9 Type 2 diabetes mellitus without complications; I10 Essential (primary) hypertension; E78.00 Pure hypercholesterolemia, unspecified; K21.9 Gastro-esophageal reflux disease without esophagitis; F31.9 Bipolar disorder, unspecified; F32.9 Major depressive disorder, single episode, unspecified; Z79.4 Long term (current) use of insulin; Z79.899 Other long term (current) drug therapy; Z88.8 Allergy status to other drugs, medicaments and biological substances; Z88.6 Allergy status to analgesic agent
CPT/HCPCS: 36415; 71045; 80053; 81001; 83690; 84484; 85007; 85027; 86140; 87086; 93005; 96361; 96374; 96375; 99284; J1170; J2405; J7040; J7050

== ENCOUNTER 2018-04-28 19:07 | Emergency (ER) | payer MEDICARE, MEDICAID ==
[2018-04-28 19:17] VITALS: BP 130/82
--- NOTE | 2018-04-28 20:08 | EDM.PDOC ---
ED HPI GENERAL MEDICAL PROBLEM - General Chief Complaint: Back Pain or Injury Stated Complaint: EXTREME BACK PAIN LOWER AND MIDDLE Time Seen by Provider: 04/28/18 19:16 Source of Information: Reports: Patient History Limitations: Reports: No Limitations - History of Present Illness INITIAL COMMENTS - FREE TEXT/NARRATIVE: The patient states that he developed bilateral lower back/flank pain that radiates around to his bilateral upper abdomen, last night. It is crampy in character. He states that it is always present, but worse with breathing. He states that he has had nausea, but no emesis, since last night. He states that he felt cold this morning. He reports dysuria, urinary frequency, and urinary urgency, since last night. No recent fever, cough, constipation, or diarrhea. The patient states that he has had similar symptoms perhaps 10 times since 1997 , and states that workup so found he has had "increased kidney numbers". He states that he is treated with a shot of something. The patient has diabetes. He states that he Accu-Cheks twice a day, with normal values 90 to 123. He states that over the last 2 days his blood glucoses have been in the range of 140 to 179. The patient's PCP was Nancy Patterson. He has not found a replacement. mid left abdomen/lower back Pain Score (Numeric/FACES): 9 - Related Data Allergies Allergy/AdvReac Type Severity Reaction Status Date / Time ketorolac tromethamine AdvReac Anxiety Verified 04/28/18 19:17 [From Toradol] methylphenidate HCl AdvReac Anxiety Verified 04/28/18 19:17 [From Ritalin] metoclopramide HCl AdvReac Anxiety Verified 04/28/18 19:17 [From Reglan] Home Meds: Home Meds Insulin Detemir [Levemir] 38 unit SUBCUT DAILY 07/28/14 [History] metFORMIN [Glucophage] 2,000 mg PO BID 07/28/14 [History] Metoprolol Succinate [Toprol XL] 25 mg PO DAILY 08/18/14 [History] risperiDONE [Risperdal] 0.5 mg PO DAILY 12/17/14 [History] Sertraline [Zoloft] 150 mg PO BEDTIME 05/25/15 [History] ClonazePAM [KlonoPIN] 0.5 mg PO BEDTIME PRN 07/24/16 [History] Ezetimibe [Zetia] 10 mg PO DAILY 04/18/17 [History] Fenofibrate Nanocrystallized [Tricor] 48 mg PO DAILY 04/18/17 [History] risperiDONE [Risperdal] 1.5 mg PO BEDTIME 04/18/17 [History] Past Medical History HEENT History: Reports: Impaired Vision Other HEENT History: wears eyeglasses Cardiovascular History: Reports: High Cholesterol, Hypertension Gastrointestinal History: Reports: GERD Musculoskeletal History: Reports: Back Pain, Chronic Psychiatric History: Reports: Anxiety, Bipolar, Depression, Schizophrenia Endocrine/Metabolic History: Reports: Diabetes, Type II Hematologic History: Reports: Anemia, Iron Deficiency - Infectious Disease History Infectious Disease History: Reports: Chicken Pox, Measles - Past Surgical History GI Surgical History: Reports: Cholecystectomy (around 2002) Musculoskeletal Surgical History: Reports: Shoulder Surgery (arthroscopic around 2007) Social & Family History - Family History Family Medical History: Noncontributory - Tobacco Use Smoking Status *Q: Current Every Day Smoker Years of Tobacco use: 35 Packs/Tins Daily: 0.1 Packs/Tins Daily Comment: Down from 09/10 ppd - Caffeine Use Caffeine Use: Reports: Soda Other Caffeine Use: 2-3 pop daily - Alcohol Use Alcohol Use History: Yes Date/Time of Last Drink Comment: Former excessive drinker - quit around 1997 - Recreational Drug Use Recreational Drug Use: Yes Drug Use in Last 12 Months: No Recreational Drug Type: Reports: Marijuana/Hashish (last smoked years ago) - Living Situation & Occupation Living situation: Reports: Single, Other (with his landlord) Occupation: Disabled ED ROS GENERAL - Review of Systems Review Of Systems: ROS reveals no pertinent complaints other than HPI. ED EXAM, GENERAL - Physical Exam Exam: See Below Exam Limited By: No Limitations General Appearance: Alert, WD/WN, No Apparent Distress Eye Exam: Bilateral Eye: EOMI, Normal Inspection Ears: Normal External Exam, Hearing Grossly Normal Nose: Normal Inspection, No Blood Throat/Mouth: Normal Inspection, Normal Lips, Normal Voice, No Airway Compromise Head: Atraumatic, Normocephalic Neck: Normal Inspection, Full Range of Motion Respiratory/Chest: No Respiratory Distress, Lungs Clear, Normal Breath Sounds, No Accessory Muscle Use Cardiovascular: Normal Peripheral Pulses, Regular Rate, Rhythm, No Edema, No Gallop, No JVD, No Murmur, No Rub Peripheral Pulses: 4+: Radial (L), Radial (R) GI/Abdominal: Normal Bowel Sounds, Soft, No Organomegaly, No Distention, No Abnormal Bruit, No Mass, Tender (Patient reports considerable tenderness to entire abdomen - non-focal), Other (Obese) (Male) Exam: Deferred Rectal (Males) Exam: Deferred Back Exam: Normal Inspection, Full Range of Motion, CVA Tenderness (L), CVA Tenderness (R) Extremities: Normal Inspection, Normal Range of Motion, No Pedal Edema, Normal Capillary Refill Neurological: Alert, Oriented, Normal Cognition, No Motor/Sensory Deficits Psychiatric: Normal Affect Skin Exam: Warm, Dry, Intact, Normal Color, No Rash Course - Vital Signs Last Recorded V/S: Last Vital Signs Temp 36.5 C 04/28/18 19:14 Pulse 57 L 04/28/18 19:14 Resp 18 04/28/18 19:14 BP 130/82 04/28/18 19:14 Pulse Ox 99 04/28/18 19:14 - Orders/Labs/Meds Orders: Active Orders 24 hr Category Date Time Status Abdomen 1V Upright [CR] Stat Exams 04/28/18 20:37 Taken Ang Chest [CT] Stat Exams 04/28/18 21:05 Taken Chest 2V [CR] Stat Exams 04/28/18 20:23 Taken Sodium Chloride 0.9% [Normal Saline] 1,000 ml Med 04/28/18 21:15 Active IV ASDIRECTED Medication Orders Sodium Chloride (Normal Saline) 1,000 mls @ 150 mls/hr IV ASDIRECTED NAVJOT Last Admin: 04/28/18 21:16 Dose: 150 mls/hr Labs: Laboratory Tests 04/28/18 04/28/18 04/28/18 Range/Units 19:35 20:20 20:20 WBC 9.41 H (4.23-9.07) K/mm3 RBC 5.31 (4.63-6.08) M/mm3 Hgb 16.4 (13.7-17.5) gm/L Hct 45.6 (40.1-51.0) % MCV 85.9 (79.0-92.2) fl MCH 30.9 (25.7-32.2) pg MCHC 36.0 H (32.2-35.5) g/dl RDW Std Deviation 41.5 (35.1-43.9) fL Plt Count 244 (163-337) K/mm3 MPV 10.6 (9.4-12.3) fl Neutrophils % (Manual) 35 L (40-60) % Band Neutrophils % 0 (0-10) % Lymphocytes % (Manual) 52 H (20-40) % Atypical Lymphs % 0 % Monocytes % (Manual) 4 (2-10) % Eosinophils % (Manual) 6 (0.8-7.0) % Basophils % (Manual) 3 H (0.2-1.2) Platelet Estimate Adequate Plt Morphology Comment Normal RBC Morph Comment Normal D-Dimer, Quantitative (0.19-0.50) mg/L Sodium 131 L (136-145) mEq/L Potassium 4.1 (3.5-5.1) mEq/L Chloride 100 (98-107) mEq/L Carbon Dioxide 20 L (21-32) mEq/L Anion Gap 15.1 H (5-15) BUN 11 (7-18) mg/dL Creatinine 1.0 (0.7-1.3) mg/dL Est Cr Clr Drug Dosing 69.54 mL/min Estimated GFR (MDRD) > 60 (>60) mL/min BUN/Creatinine Ratio 11.0 L (14-18) Glucose 241 H (74-106) mg/dL Calcium 8.7 (8.5-10.1) mg/dL Total Bilirubin 0.4 (0.2-1.0) mg/dL AST 28 (15-37) U/L ALT 46 (16-63) U/L Alkaline Phosphatase 87 (46-116) U/L Total Protein 7.5 (6.4-8.2) g/dl Albumin 3.8 (3.4-5.0) g/dl Globulin 3.7 gm/dL Albumin/Globulin Ratio 1.0 (1-2) Lipase 337 (73-393) U/L Urine Color Yellow (Yellow) Urine Appearance Clear (Clear) Urine pH 6.0 (5.0-8.0) Ur Specific [place] <=1.005 (1.005-1.030) Urine Protein Negative (Negative) Urine Glucose (UA) Negative (Negative) Urine Ketones Negative (Negative) Urine Occult Blood Trace-lysed H (Negative) Urine Nitrite Negative (Negative) Urine Bilirubin Negative (Negative) Urine Urobilinogen 0.2 (0.2-1.0) Ur Leukocyte Esterase Trace H (Negative) Urine RBC 0-5 (0-5) /hpf Urine WBC 0-5 (0-5) /hpf Ur Epithelial Cells 0-5 (0-5) /hpf Urine Bacteria Few (FEW) /hpf Urine Mucus Few (FEW) /hpf 04/28/18 Range/Units 20:20 WBC (4.23-9.07) K/mm3 RBC (4.63-6.08) M/mm3 Hgb (13.7-17.5) gm/L Hct (40.1-51.0) % MCV (79.0-92.2) fl MCH (25.7-32.2) pg MCHC (32.2-35.5) g/dl RDW Std Deviation (35.1-43.9) fL Plt Count (163-337) K/mm3 MPV (9.4-12.3) fl Neutrophils % (Manual) (40-60) % Band Neutrophils % (0-10) % Lymphocytes % (Manual) (20-40) % Atypical Lymphs % % Monocytes % (Manual) (2-10) % Eosinophils % (Manual) (0.8-7.0) % Basophils % (Manual) (0.2-1.2) Platelet Estimate Plt Morphology Comment RBC Morph Comment D-Dimer, Quantitative 1.07 H (0.19-0.50) mg/L Sodium (136-145) mEq/L Potassium (3.5-5.1) mEq/L Chloride (98-107) mEq/L Carbon Dioxide (21-32) mEq/L Anion Gap (5-15) BUN (7-18) mg/dL Creatinine (0.7-1.3) mg/dL Est Cr Clr Drug Dosing mL/min Estimated GFR (MDRD) (>60) mL/min BUN/Creatinine Ratio (14-18) Glucose (74-106) mg/dL Calcium (8.5-10.1) mg/dL Total Bilirubin (0.2-1.0) mg/dL AST (15-37) U/L ALT (16-63) U/L Alkaline Phosphatase (46-116) U/L Total Protein (6.4-8.2) g/dl Albumin (3.4-5.0) g/dl Globulin gm/dL Albumin/Globulin Ratio (1-2) Lipase (73-393) U/L Urine Color (Yellow) Urine Appearance (Clear) Urine pH (5.0-8.0) Ur Specific [place] (1.005-1.030) Urine Protein (Negative) Urine Glucose (UA) (Negative) Urine Ketones (Negative) Urine Occult Blood (Negative) Urine Nitrite (Negative) Urine Bilirubin (Negative) Urine Urobilinogen (0.2-1.0) Ur Leukocyte Esterase (Negative) Urine RBC (0-5) /hpf Urine WBC (0-5) /hpf Ur Epithelial Cells (0-5) /hpf Urine Bacteria (FEW) /hpf Urine Mucus (FEW) /hpf Meds: Medications Generic Name Dose Route Start Last Admin Trade Name Freq PRN Reason Stop Dose Admin Sodium Chloride 1,000 mls @ 150 mls/hr 04/28/18 21:15 04/28/18 21:16 Normal Saline IV 150 mls/hr ASDIRECTED NAVOJT Administration Discontinued Medications Generic Name Dose Route Start Last Admin Trade Name Freq PRN Reason Stop Dose Admin Sodium Chloride 100 mls @ 4 mls/sec 04/28/18 21:33 04/28/18 21:55 Normal Saline IV 04/28/18 21:34 4 mls/sec ONETIME ONE Administration Insulin Human Regular 5 unit 04/28/18 21:06 04/28/18 21:15 Humulin R SUBCUT 04/28/18 21:07 5 unit ONETIME STA Administration Iopamidol 100 ml 04/28/18 21:33 04/28/18 21:55 [id number] (76%) IVPUSH 04/28/18 21:34 100 ml ONETIME ONE Administration - Re-Assessments/Exams Free Text/Narrative Re-Assessment/Exam: 04/28/18 20:07 The patient's urinalysis is normal. I have ordered a CBC, CMP, and lipase, D- dimer, CXR and upright abdominal radiograph, however, I will not order a CT scan of the abdomen and pelvis unless lab abnormalities direct such. 04/28/18 20:54 2-view chest radiograph appears to be grossly normal. Cardiac silhouette is within normal limits. No pulmonary vascular congestion. No pleural effusions. No focal infiltrate. No pneumothorax. Formal read per the Radiologist pending. Upright abdominal radiograph reviewed. There appears to be stool throughout the colon, but no other acute findings. Surgical clips in the right upper quadrant, consistent with cholecystectomy, incidentally noted. Formal read per the Radiologist pending. 04/28/18 21:06 Notified that the patient's D-dimer has returned elevated at 1.07. I have ordered a CT angiogram of the chest to evaluate for a PE, along with NS at 150 mL per hour. The patient's blood glucose has returned elevated at 241. I have ordered 5 units of regular insulin SQ. The patient's sodium has returned low at 131, however, it corrects to 133 with the elevated blood glucose. As above, the patient will receive NS. 04/28/18 22:53 CT angiogram of the chest is read by virtual radiology as: 1. No pulmonary embolism. 2. Evidence for reactive airway disease or bronchitis. As above, the patient expressly stated that he has not been coughing, therefore he does not have bronchitis. Cheryle's workup is remarkable for blood glucose elevated at 241, which was treated with 5 units of insulin, and mild hyponatremia, which was treated with IV fluid. His upright abdominal radiograph found constipation, which may be the cause of his symptoms. I will discharge the patient home with recommendation that he increase fluid intake, and consider taking an oral laxative versus enema , versus both. Departure - Departure Time of Disposition: 22:58 Disposition: Home, Self-Care 01 Condition: Good Clinical Impression: Constipation, Hyponatremia, Hyperglycemia due to type 2 diabetes mellitus - Discharge Information *PRESCRIPTION DRUG MONITORING PROGRAM REVIEWED*: Not Applicable *COPY OF PRESCRIPTION DRUG MONITORING REPORT IN PATIENT HIMA: Not Applicable Referrals: Darcie Vaughan MD [Physician] - Forms: ED Department Discharge Additional Instructions: You were seen in the emergency room for lower back pain on both sides wrapping around to your upper abdomen on both sides, along with nausea and discomfort with urination. Workup in the ER included blood work, a urinalysis, a chest x-ray, and upright abdominal x-ray, and a CT angiogram of your chest. Your workup found that you have constipation, that your sodium was slightly low , and your blood sugar elevated at 241. The remainder of her workup was unremarkable. You do not have pneumonia. You do not have a blood clot in your lungs. You do not have pancreatitis. You do not have a urinary tract infection. We recommend that you consider taking an oral laxative, such as magnesium citrate, or an enema, or both, to relieve her constipation. Going forward, make sure that you stay adequately hydrated. Make sure that you check your blood sugar regularly, and keep good control of it. Follow-up with Socorro Beckman in the clinic at the next available appointment. If any other problems, please do not hesitate to return to the ER. - My Orders Last 24 Hours: My Active Orders 04/28/18 20:23 Chest 2V [CR] Stat 04/28/18 20:37 Abdomen 1V Upright [CR] Stat 04/28/18 21:05 Ang Chest [CT] Stat 04/28/18 21:15 Sodium Chloride 0.9% [Normal Saline] 1,000 ml IV ASDIRECTED - Assessment/Plan Last 24 Hours: My Active Orders 04/28/18 20:23 Chest 2V [CR] Stat 04/28/18 20:37 Abdomen 1V Upright [CR] Stat 04/28/18 21:05 Ang Chest [CT] Stat 04/28/18 21:15 Sodium Chloride 0.9% [Normal Saline] 1,000 ml IV ASDIRECTED
[2018-04-28] MEDS ORDERED: Insulin Regular, Human 100 Units/ML 3 ML Vial SUBCUT STA (21:06)
[2018-04-28] MEDS ORDERED: Sodium Chloride 0.9% 1,000 ML IV SCH (21:15)
[2018-04-28] MEDS ORDERED: Sodium Chloride 0.9% 100 ML IV ONE (21:33)
[2018-04-28] MEDS ORDERED: Iopamidol 755 Mg/ML 100 ML Bottle IVPUSH ONE (21:33)
--- NOTE | 2018-04-30 08:24 | CR ---
Abdomen: Upright view of the abdomen was obtained. Comparison: Previous abdominal x-ray dated 04/11/14. Surgical clips are seen from prior cholecystectomy. Bowel gas pattern appears within normal limits. Hemidiaphragms are not completely included on the study. No other evidence of free air is seen. Bony structures appear within normal limits for the patient's age. Impression: 1. Incidental findings as noted above. Diagnostic code #2
--- NOTE | 2018-04-30 09:37 | CR ---
Chest: Two views of the chest were obtained. Comparison: Prior chest x-ray of 04/14/18. Heart size and mediastinum are within normal limits. Lungs are clear without acute parenchymal change. Bony structures show minimal disc space narrowing within the mid and lower thoracic spine. Impression: 1. Nothing acute is seen on two-view chest x-ray. Diagnostic code #2
--- NOTE | 2018-04-30 09:37 | CT ---
CT chest Technique: Multiple axial sections through the chest were obtained. Intravenous contrast was utilized. Study has been performed as a CT pulmonary angiogram protocol. Findings: Pulmonary arteries are well opacified. No filling defects are seen to indicate pulmonary embolism. No pericardial thickening is seen. Mediastinum and hilar regions show no adenopathy or mass. Small portion of the upper abdominal structures show previous cholecystectomy. Several small subpleural blebs are noted within the right upper chest. Minimal parenchymal density is noted within a subpleural location within the right upper lung most likely due to slight atelectasis or scarring. No alveolar densities are seen. Equivocal bronchial wall thickening is noted. Impression: 1. Equivocal findings for mild bronchitis. Please correlate if any correlating clinical symptoms are present. 2. Other incidental findings. No findings of pulmonary embolism are seen. Diagnostic code #3 I agree with preliminary report from [facility], finalized at 04/28/18, 11:20 PM Central Time
== END 2018-04-28 23:11 | disposition home or self-care (01) ==
LOC: JD.ED 19:07
DX: K59.00 Constipation, unspecified (principal); E87.1 Hypo-osmolality and hyponatremia; E11.65 Type 2 diabetes mellitus with hyperglycemia; I10 Essential (primary) hypertension; K21.9 Gastro-esophageal reflux disease without esophagitis; F17.210 Nicotine dependence, cigarettes, uncomplicated; E78.00 Pure hypercholesterolemia, unspecified; Z88.5 Allergy status to narcotic agent; Z79.4 Long term (current) use of insulin; Z79.899 Other long term (current) drug therapy
CPT/HCPCS: 36415; 71046; 71275; 74018; 80053; 81001; 82962; 83690; 85007; 85027; 85379; 96360; 96361; 96372; 99284; J1815; J7030; J7040; Q9967

== ENCOUNTER 2018-06-14 14:40 | Emergency (ER) | payer MEDICARE, MEDICAID ==
[2018-06-14 14:56] VITALS: BP 114/83
[2018-06-14] MEDS ORDERED: Ondansetron 4 MG/2 ML SDV IVPUSH ONE (16:11)
--- NOTE | 2018-06-14 16:13 | EDM.PDOC ---
ED HPI GENERAL MEDICAL PROBLEM - General Chief Complaint: Gastrointestinal Problem Stated Complaint: VOMITING FOR 7 DAYS Time Seen by Provider: 06/14/18 15:56 Source of Information: Reports: Patient, RN Notes Reviewed History Limitations: Reports: No Limitations - History of Present Illness INITIAL COMMENTS - FREE TEXT/NARRATIVE: The patient states that he has had nausea and vomiting for the past 7 days, and abdominal cramps for the past 3-4 days. He states that he had watery diarrhea twice today. No urinary symptoms. No recent cough, dyspnea, or fever. The patient has not tried any home remedies or hpzw-ffl-zcdvjnd medicines to try to treat his symptoms. No prior similar symptoms. The patient denies similarly ill close contacts. He does not recall eating any bad food recently. He states that he was on antibiotics about 2 weeks ago. No recent travel. The patient saw his PCP, Morena Tinajero, yesterday, for medication refills, but states that he forgot about his symptoms, and did not mention them to her. Abdomen Pain Score (Numeric/FACES): 9 - Related Data Allergies Allergy/AdvReac Type Severity Reaction Status Date / Time ketorolac tromethamine AdvReac Anxiety Verified 04/28/18 19:17 [From Toradol] methylphenidate HCl AdvReac Anxiety Verified 04/28/18 19:17 [From Ritalin] metoclopramide HCl AdvReac Anxiety Verified 04/28/18 19:17 [From Reglan] Home Meds: Home Meds Insulin Detemir [Levemir] 38 unit SUBCUT DAILY 07/28/14 [History] metFORMIN [Glucophage] 2,000 mg PO BID 07/28/14 [History] Metoprolol Succinate [Toprol XL] 25 mg PO DAILY 08/18/14 [History] risperiDONE [Risperdal] 0.5 mg PO DAILY 12/17/14 [History] Sertraline [Zoloft] 150 mg PO BEDTIME 05/25/15 [History] ClonazePAM [KlonoPIN] 0.5 mg PO BEDTIME PRN 07/24/16 [History] Ezetimibe [Zetia] 10 mg PO DAILY 04/18/17 [History] Fenofibrate Nanocrystallized [Tricor] 48 mg PO DAILY 04/18/17 [History] risperiDONE [Risperdal] 1.5 mg PO BEDTIME 04/18/17 [History] Dicyclomine [Bentyl] 1 tab PO Q6H PRN #20 tab 06/14/18 [Rx] Ondansetron [Zofran ODT] 1 tab PO Q8H PRN #10 tab.dis 06/14/18 [Rx] Past Medical History HEENT History: Reports: Impaired Vision Other HEENT History: wears eyeglasses Cardiovascular History: Reports: High Cholesterol, Hypertension Gastrointestinal History: Reports: GERD Musculoskeletal History: Reports: Back Pain, Chronic Psychiatric History: Reports: Anxiety, Bipolar, Depression, Schizophrenia Endocrine/Metabolic History: Reports: Diabetes, Type II Hematologic History: Reports: Anemia, Iron Deficiency - Infectious Disease History Infectious Disease History: Reports: Chicken Pox, Measles - Past Surgical History GI Surgical History: Reports: Cholecystectomy (around 2002) Musculoskeletal Surgical History: Reports: Shoulder Surgery (right, arthroscopic , around 2007) Social & Family History - Family History Family Medical History: Noncontributory - Tobacco Use Smoking Status *Q: Current Every Day Smoker Years of Tobacco use: 35 Packs/Tins Daily: 0.3 Packs/Tins Daily Comment: Down from 09/10 ppd - Caffeine Use Caffeine Use: Reports: Soda Other Caffeine Use: 2-3 pop daily - Alcohol Use Date/Time of Last Drink Comment: Alcoholic, in recovery since 1997 - Recreational Drug Use Recreational Drug Use: No - Living Situation & Occupation Living situation: Reports: Single, Other (with his landlord) Occupation: Disabled ED ROS GENERAL - Review of Systems Review Of Systems: ROS reveals no pertinent complaints other than HPI. ED EXAM, GI/ABD - Physical Exam Exam: See Below Exam Limited By: No Limitations General Appearance: Alert, WD/WN, No Apparent Distress Eyes: Bilateral: Normal Appearance, EOMI Ears: Normal External Exam, Hearing Grossly Normal Nose: Normal Inspection Throat/Mouth: Normal Inspection, Normal Lips, Normal Voice, No Airway Compromise Head: Atraumatic, Normocephalic Neck: Normal Inspection, Full Range of Motion Respiratory/Chest: No Respiratory Distress, Lungs Clear, Normal Breath Sounds, No Accessory Muscle Use Cardiovascular: Normal Peripheral Pulses, Regular Rate, Rhythm, No Gallop, No JVD, No Murmur, No Rub GI/Abdominal Exam: Normal Bowel Sounds, Soft, No Organomegaly, No Distention, No Abnormal Bruit, No Mass, Tender (mild, generalized, non-focal) (Male) Exam: Deferred Rectal (Males) Exam: Deferred Back Exam: Normal Inspection, Full Range of Motion. No: CVA Tenderness (L), CVA Tenderness (R) Extremities: Normal Inspection, Normal Range of Motion, No Pedal Edema, Normal Capillary Refill Neurological: Alert, Oriented, Normal Cognition, No Motor/Sensory Deficits Psychiatric: Normal Affect Skin Exam: Warm, Dry, Intact, Normal Color, No Rash Course - Vital Signs Last Recorded V/S: Last Vital Signs Temp 36.4 C 06/14/18 14:54 Pulse 58 L 06/14/18 14:54 Resp 20 06/14/18 14:54 BP 114/83 06/14/18 14:54 Pulse Ox 99 06/14/18 14:54 Orthostatic Blood Pressure [ 110/75 Standing] Orthostatic Blood Pressure [ 110/72 Supine] - Orders/Labs/Meds Orders: Active Orders 24 hr Category Date Time Status Accu Check [Blood Glucose Check, Bedside] [RC] ONETIME Care 06/14/18 16:01 Active Orthostatic Vital Signs [RC] STAT Care 06/14/18 16:11 Active Dicyclomine [Bentyl] Med 06/14/18 17:44 Stat 20 mg PO ONETIME STA Sodium Chloride 0.9% [Normal Saline] 1,000 ml Med 06/14/18 16:15 Active IV ASDIRECTED Medication Orders Sodium Chloride (Normal Saline) 1,000 mls @ 150 mls/hr IV ASDIRECTED NAVJOT Last Admin: 06/14/18 16:24 Dose: 150 mls/hr Labs: Laboratory Tests 06/14/18 06/14/18 06/14/18 Range/Units 16:09 16:24 16:24 WBC 8.52 (4.23-9.07) K/mm3 RBC 5.21 (4.63-6.08) M/mm3 Hgb 15.8 (13.7-17.5) gm/L Hct 45.9 (40.1-51.0) % MCV 88.1 (79.0-92.2) fl MCH 30.3 (25.7-32.2) pg MCHC 34.4 (32.2-35.5) g/dl RDW Std Deviation 46.8 H (35.1-43.9) fL Plt Count 239 (163-337) K/mm3 MPV 9.3 L (9.4-12.3) fl Neutrophils % (Manual) 57 (40-60) % Band Neutrophils % 0 (0-10) % Lymphocytes % (Manual) 40 (20-40) % Atypical Lymphs % 0 % Monocytes % (Manual) 2 (2-10) % Eosinophils % (Manual) 0 L (0.8-7.0) % Basophils % (Manual) 1 (0.2-1.2) Platelet Estimate Adequate Plt Morphology Comment Normal RBC Morph Comment Normal Sodium 132 L (136-145) mEq/L Potassium 3.7 (3.5-5.1) mEq/L Chloride 99 (98-107) mEq/L Carbon Dioxide 21 (21-32) mEq/L Anion Gap 15.7 H (5-15) BUN 9 (7-18) mg/dL Creatinine 0.9 (0.7-1.3) mg/dL Est Cr Clr Drug Dosing 76.39 mL/min Estimated GFR (MDRD) > 60 (>60) mL/min BUN/Creatinine Ratio 10.0 L (14-18) Glucose 112 H (74-106) mg/dL POC Glucose 100 (70-105) mg/dL Calcium 8.5 (8.5-10.1) mg/dL Magnesium 1.8 (1.8-2.4) mg/dl Total Bilirubin 0.3 (0.2-1.0) mg/dL AST 21 (15-37) U/L ALT 33 (16-63) U/L Alkaline Phosphatase 92 (46-116) U/L Total Protein 7.5 (6.4-8.2) g/dl Albumin 3.9 (3.4-5.0) g/dl Globulin 3.6 gm/dL Albumin/Globulin Ratio 1.1 (1-2) Lipase 237 (73-393) U/L Meds: Medications Generic Name Dose Route Start Last Admin Trade Name Freq PRN Reason Stop Dose Admin Sodium Chloride 1,000 mls @ 150 mls/hr 06/14/18 16:15 06/14/18 16:24 Normal Saline IV 150 mls/hr ASDIRECTED NAVJOT Administration Discontinued Medications Generic Name Dose Route Start Last Admin Trade Name Freq PRN Reason Stop Dose Admin Ondansetron HCl 4 mg 06/14/18 16:11 06/14/18 16:24 Zofran IVPUSH 06/14/18 16:12 4 mg ONETIME ONE Administration - Re-Assessments/Exams Free Text/Narrative Re-Assessment/Exam: 06/14/18 16:12 The patient reports 7 days of nausea, vomiting, and 3-4 days of abdominal cramps , but only 2 episodes of watery diarrhea earlier today. Because he was on antibiotics about 2 weeks ago, I would like to check his stool for C. difficile , however, the patient does not feel that he can provide a stool sample for us to evaluate. The patient's Accu-Chek is 100. I have ordered orthostatics, and we will check a CBC, CMP, magnesium level, and lipase level. In the meantime, the patient will receive some IV fluid and IV Zofran. 06/14/18 16:20 The patient is not orthostatic. 06/14/18 17:45 Test results discussed with the patient. Today's workup is grossly unremarkable. He likely has viral gastroenteritis. He does not appear to have suffered any significant fluid oral actually shifts as a result of his nausea and vomiting. The patient is complaining of abdominal bloating. He will receive 29 mg of oral Bentyl prior to discharge home, and I will prescribe Zofran ODT and oral Bentyl. In addition, I am recommending that he take xcgg-sie-pzwaowk loperamide if he redevelops diarrhea, and if his symptoms persist until Saturday, I would like him to follow-up with his PCP. Departure - Departure Time of Disposition: 17:46 Disposition: Home, Self-Care 01 Condition: Fair Clinical Impression: Viral gastroenteritis - Discharge Information *PRESCRIPTION DRUG MONITORING PROGRAM REVIEWED*: Not Applicable *COPY OF PRESCRIPTION DRUG MONITORING REPORT IN PATIENT HIMA: Not Applicable Referrals: Morena Tinajero PA-C [Primary Care Provider] - Forms: ED Department Discharge Additional Instructions: You were seen in the emergency room for 7 days of nausea and vomiting, 3-4 days of abdominal cramps, and 2 episodes of watery diarrhea today. Workup in the ER included an Accu-Chek, bloodwork, and positional blood pressure checks. Your entire workup was unremarkable. You have not suffered any significant fluid or electrolyte shifts as a result of your symptoms. Based on your history, physical examination, and ER workup, you are most likely suffering from viral gastroenteritis. Unfortunately, there are no medicines to get rid of the viral illness - it will have to run its course. You have been started on anti-nausea medicine Zofran, and the anti-cramping medicine Bentyl. Prescriptions for Zofran and Bentyl have been sent to the [facility], located in the [email or web address] store. Dissolve one tablet of Zofran on your tongue up to every 8 hours, as needed for nausea/vomiting. Take one tablet of Bentyl up to every 6 hours, as needed for abdominal cramps. If your diarrhea returns, we recommend that you take bmap-jod-lxwkyxh Imodium ( loperamide). Take 2 tablets upfront, then 1 tablet after each loose bowel movement, to a maximum of 8 tablets within a 24-hour period. Stay adequately hydrated. If your symptoms persist through 06/16/2018, we recommend that you follow -up with your PCP, Morena Tinajero, for further evaluation. If any other problems, please do not hesitate to return to the ER. - My Orders Last 24 Hours: My Active Orders 06/14/18 16:01 Accu Check [Blood Glucose Check, Bedside] [RC] ONETIME 06/14/18 16:11 Orthostatic Vital Signs [RC] STAT 06/14/18 16:15 Sodium Chloride 0.9% [Normal Saline] 1,000 ml IV ASDIRECTED 06/14/18 17:44 Dicyclomine [Bentyl] 20 mg PO ONETIME STA - Assessment/Plan Last 24 Hours: My Active Orders 06/14/18 16:01 Accu Check [Blood Glucose Check, Bedside] [RC] ONETIME 06/14/18 16:11 Orthostatic Vital Signs [RC] STAT 06/14/18 16:15 Sodium Chloride 0.9% [Normal Saline] 1,000 ml IV ASDIRECTED 06/14/18 17:44 Dicyclomine [Bentyl] 20 mg PO ONETIME STA
[2018-06-14] MEDS ORDERED: Sodium Chloride 0.9% 1,000 ML IV SCH (16:15)
[2018-06-14] MEDS ORDERED: Dicyclomine 10 MG Cap PO STA (17:44)
== END 2018-06-14 18:00 | disposition home or self-care (01) ==
LOC: JD.ED 14:40
DX: A08.4 Viral intestinal infection, unspecified (principal); I10 Essential (primary) hypertension; E11.9 Type 2 diabetes mellitus without complications; F17.210 Nicotine dependence, cigarettes, uncomplicated; F31.9 Bipolar disorder, unspecified; Z88.8 Allergy status to other drugs, medicaments and biological substances; Z79.4 Long term (current) use of insulin
CPT/HCPCS: 36415; 80053; 82962; 83690; 83735; 85007; 85027; 96361; 96374; 99284; A9270; J2405; J7040

== ENCOUNTER 2019-02-23 08:33 | Emergency (ER) | payer MEDICARE, MEDICAID ==
--- NOTE | 2019-02-23 09:02 | EDM.PDOC ---
ED HPI GENERAL MEDICAL PROBLEM - General Chief Complaint: Abdominal Pain Stated Complaint: ABD PAIN AND VOMITING X 3 DAYS Time Seen by Provider: 02/23/19 09:02 - History of Present Illness INITIAL COMMENTS - FREE TEXT/NARRATIVE: 53-year-old male presents emergency room with chest pain abdominal pain and nausea and vomiting. This is been going on for the last 3 days. Started out primarily as abdominal discomfort with nausea and vomiting. Denies diarrhea. He's not had any fevers or chills. He's had some a little left-sided associated lower chest pain and pressure. Patient is a diabetic light smoker and has been treated for hyperlipidemia in the past he's currently treated for his diabetes and hypertension. His father of a stroke and [place] at age 75. Patient does not use drugs or alcohol currently. He's never had a history of heart problems in the past no history of lung disease. Abdomen Pain Score (Numeric/FACES): 8 - Related Data Allergies Allergy/AdvReac Type Severity Reaction Status Date / Time ketorolac tromethamine AdvReac Anxiety Verified 02/23/19 08:38 [From Toradol] methylphenidate HCl AdvReac Anxiety Verified 02/23/19 08:38 [From Ritalin] metoclopramide HCl AdvReac Anxiety Verified 02/23/19 08:38 [From Reglan] Home Meds: Home Meds Insulin Detemir [Levemir] 38 unit SUBCUT DAILY 07/28/14 [History] metFORMIN [Glucophage] 2,000 mg PO BID 07/28/14 [History] Metoprolol Succinate [Toprol XL] 25 mg PO DAILY 08/18/14 [History] risperiDONE [Risperdal] 1 mg PO DAILY 12/17/14 [History] Sertraline [Zoloft] 150 mg PO BEDTIME 05/25/15 [History] ClonazePAM [KlonoPIN] 2 tab PO BEDTIME 07/24/16 [History] Ezetimibe [Zetia] 10 mg PO DAILY 04/18/17 [History] Fenofibrate Nanocrystallized [Tricor] 48 mg PO DAILY 04/18/17 [History] risperiDONE [Risperdal] 1.5 mg PO BEDTIME 04/18/17 [History] ClonazePAM [KlonoPIN] 1 tab PO DAILY 07/08/18 [History] Hydrocodone/Acetaminophen [Hydrocodon-Acetaminophen 5-325] 1 - 2 each PO Q6HR PRN #20 tablet 08/15/18 [Rx] Penicillin V Potassium 500 mg PO Q6HR #40 tab 08/15/18 [Rx] Ondansetron [Zofran ODT] 4 mg PO Q6H PRN #6 tab.dis 02/23/19 [Rx] Past Medical History HEENT History: Reports: Impaired Vision Other HEENT History: wears eyeglasses Cardiovascular History: Reports: High Cholesterol, Hypertension Gastrointestinal History: Reports: GERD Other Gastrointestinal History: "liver issues" Musculoskeletal History: Reports: Back Pain, Chronic, Other (See Below) Other Musculoskeletal History: knee pain and shoulder pain, Psychiatric History: Reports: Anxiety, Bipolar, Depression, Schizophrenia Endocrine/Metabolic History: Reports: Diabetes, Type II Hematologic History: Reports: Anemia, Iron Deficiency - Infectious Disease History Infectious Disease History: Reports: Chicken Pox, Measles - Past Surgical History GI Surgical History: Reports: Cholecystectomy Musculoskeletal Surgical History: Reports: Shoulder Surgery Social & Family History - Family History Family Medical History: Noncontributory - Tobacco Use Smoking Status *Q: Current Every Day Smoker Years of Tobacco use: 17 Packs/Tins Daily: 0.1 - Caffeine Use Caffeine Use: Reports: Coffee Other Caffeine Use: 2-3 pop daily - Recreational Drug Use Recreational Drug Use: Yes - Living Situation & Occupation Living situation: Reports: Single, Other (with his landlord) Occupation: Disabled ED ROS GENERAL - Review of Systems Review Of Systems: See Below Constitutional: Reports: No Symptoms HEENT: Reports: No Symptoms Respiratory: Reports: Pleuritic Chest Pain (Discomfort with deep breathing) Cardiovascular: Reports: Chest Pain, Dyspnea on Exertion. Denies: Edema, Palpitations Endocrine: Reports: No Symptoms GI/Abdominal: Reports: Abdominal Pain, Nausea, Vomiting. Denies: Constipation, Diarrhea : Reports: No Symptoms Musculoskeletal: Reports: No Symptoms Skin: Reports: No Symptoms Neurological: Reports: No Symptoms Psychiatric: Reports: No Symptoms ED EXAM, GI/ABD - Physical Exam Exam: See Below Exam Limited By: No Limitations General Appearance: Alert, No Apparent Distress Head: Atraumatic, Normocephalic Neck: Normal Inspection, Supple, Non-Tender, Full Range of Motion Respiratory/Chest: No Respiratory Distress, Lungs Clear, Normal Breath Sounds Cardiovascular: Regular Rate, Rhythm, No Edema, No Murmur GI/Abdominal Exam: Normal Bowel Sounds, Soft, Other (Some vague abdominal discomfort throughout nonlocalizing. No rigidity rebound or guarding appreciated ) Back Exam: Normal Inspection. No: CVA Tenderness (L), CVA Tenderness (R) Extremities: Normal Inspection, No Pedal Edema Neurological: Alert, Oriented, Normal Cognition EKG INTERPRETATION EKG Date: 02/23/19 Rhythm: NSR [place]: LAD-Left [place] Deviation P-Wave: Present QRS: Other (Q waves in leads 2 and 3 undetermined significance) ST-T: Normal QT: Normal Comparison: No Change (EKG is unchanged from June 2018) Course - Vital Signs Text/Narrative:: EKG is unchanged from his last one in June 2018 shows left axis deviation no acute ST-T wave changes borderline Q waves in 2 and 3 unchanged from June 2018 chest x-ray is nondiagnostic laboratory evaluation -3 the patient was given a single nitroglycerin and his chest involvement has completely resolved and his stay gone he still has some mild stomach upset Last Recorded V/S: Last Vital Signs Temp 36.3 C 02/23/19 08:38 Pulse 61 02/23/19 08:38 Resp 19 02/23/19 08:38 BP 106/72 02/23/19 09:15 Pulse Ox 98 02/23/19 08:38 - Orders/Labs/Meds Orders: Active Orders 24 hr Category Date Time Status EKG Documentation Completion [RC] STAT Care 02/23/19 09:13 Active Chest 1V Frontal [CR] Stat Exams 02/23/19 09:12 Taken Nitroglycerin [Nitrostat] Med 02/23/19 09:11 Active 0.4 mg SL Q5M PRN Medication Orders Nitroglycerin (Nitrostat) 0.4 mg SL Q5M PRN PRN Reason: Chest Pain Last Admin: 02/23/19 09:15 Dose: 0.4 mg Labs: Laboratory Tests 02/23/19 02/23/19 02/23/19 Range/Units 07:50 07:50 07:50 WBC 9.89 H (4.23-9.07) K/mm3 RBC 5.07 (4.63-6.08) M/mm3 Hgb 16.1 D (13.7-17.5) gm/L Hct 45.8 (40.1-51.0) % MCV 90.3 (79.0-92.2) fl MCH 31.8 (25.7-32.2) pg MCHC 35.2 (32.2-35.5) g/dl RDW Std Deviation 45.4 H (35.1-43.9) fL Plt Count 258 D (163-337) K/mm3 MPV 9.6 (9.4-12.3) fl Neutrophils % (Manual) 62 H (40-60) % Band Neutrophils % 0 (0-10) % Lymphocytes % (Manual) 28 (20-40) % Atypical Lymphs % 0 % Monocytes % (Manual) 10 (2-10) % Eosinophils % (Manual) 0 L (0.8-7.0) % Basophils % (Manual) 0 L (0.2-1.2) Platelet Estimate Adequate RBC Morph Comment Normal PT 10.9 (9.5-12.1) SECONDS INR 1.00 APTT 30 (24-31) SECONDS Sodium 132 L (136-145) mEq/L Potassium 4.1 (3.5-5.1) mEq/L Chloride 97 L (98-107) mEq/L Carbon Dioxide 26 (21-32) mEq/L Anion Gap 13.1 (5-15) BUN 9 (7-18) mg/dL Creatinine 0.8 (0.7-1.3) mg/dL Est Cr Clr Drug Dosing 82.47 mL/min Estimated GFR (MDRD) > 60 (>60) mL/min BUN/Creatinine Ratio 11.3 L (14-18) Glucose 195 H (74-106) mg/dL Calcium 8.6 (8.5-10.1) mg/dL Total Bilirubin 0.5 (0.2-1.0) mg/dL AST 22 (15-37) U/L ALT 40 (16-63) U/L Alkaline Phosphatase 108 (46-116) U/L Troponin I < 0.017 (0.00-0.056) ng/mL Total Protein 7.5 (6.4-8.2) g/dl Albumin 3.8 (3.4-5.0) g/dl Globulin 3.7 gm/dL Albumin/Globulin Ratio 1.0 (1-2) Meds: Medications Generic Name Dose Route Start Last Admin Trade Name Freq PRN Reason Stop Dose Admin Nitroglycerin 0.4 mg 02/23/19 09:11 02/23/19 09:15 Nitrostat SL 0.4 mg Q5M PRN Administration Chest Pain Discontinued Medications Generic Name Dose Route Start Last Admin Trade Name Andrew PRN Reason Stop Dose Admin Aspirin 324 mg 02/23/19 09:11 02/23/19 09:15 Aspirin PO 02/23/19 09:12 324 mg ONETIME ONE Administration Ondansetron HCl 4 mg 02/23/19 10:27 02/23/19 10:33 Zofran Odt PO 02/23/19 10:28 4 mg ONETIME ONE Administration - Re-Assessments/Exams Free Text/Narrative Re-Assessment/Exam: 02/23/19 11:25 This chest pain stay gone after the single nitroglycerin applied the situation to the heart score he has a heart score of 3, 2 points for risk factors one point for his age his EKG is unchanged from June of this last year and his troponin is negative with 3 days of discomfort. Did discuss the significance of this in the 1.7% chance of major acute coronary event patient would like to go home and agrees to follow-up with his primary provider. Discharge with some Zofran. His abdominal pain is much better with the Zofran nausea gone. He would like to defer any further imaging which is very reasonable and he agrees to return to the emergency room with any questions problems worsening symptoms. Departure - Departure Time of Disposition: 11:27 Disposition: Home, Self-Care 01 Clinical Impression: Chest pain, Nausea & vomiting, Abdominal pain - Discharge Information Prescriptions: Ondansetron [Zofran ODT] 4 mg PO Q6H PRN #6 tab.dis PRN Reason: Nausea/Vomiting Referrals: Jesu Beckford MD [Primary Care Provider] - Forms: ED Department Discharge Additional Instructions: Return to the emergency room with any questions problems worsening symptoms. Start aspirin daily 81 mg enteric-coated. Follow-up with your regular doctor this week and discuss if should have a stress test. You'll be discharged with some Zofran take one every 6 hours as needed for nausea - My Orders Last 24 Hours: My Active Orders 02/23/19 09:11 Nitroglycerin [Nitrostat] 0.4 mg SL Q5M PRN 02/23/19 09:12 Chest 1V Frontal [CR] Stat 02/23/19 09:13 EKG Documentation Completion [RC] STAT - Assessment/Plan Last 24 Hours: My Active Orders 02/23/19 09:11 Nitroglycerin [Nitrostat] 0.4 mg SL Q5M PRN 02/23/19 09:12 Chest 1V Frontal [CR] Stat 02/23/19 09:13 EKG Documentation Completion [RC] STAT
[2019-02-23] MEDS ORDERED: Aspirin 81 MG Tab.Chew PO ONE (09:11)
[2019-02-23] MEDS ORDERED: Nitroglycerin 0.4 MG Tab.SL SL PRN (09:11)
[2019-02-23 09:23] VITALS: BP 106/72
[2019-02-23] MEDS ORDERED: Ondansetron 4 MG Tab.DIS PO ONE (10:27)
--- NOTE | 2019-02-23 11:48 | CR ---
Chest: Portable view of the chest was obtained. Comparison: Prior chest x-ray of 07/08/18. Heart size and mediastinum are normal. Lungs are clear. Bony structures are grossly intact. Impression: 1. Nothing acute is seen on portable chest x-ray. Diagnostic code #1
== END 2019-02-23 11:40 | disposition home or self-care (01) ==
LOC: JD.ED 08:33
DX: R07.89 Other chest pain (principal); R10.9 Unspecified abdominal pain; R11.2 Nausea with vomiting, unspecified; I10 Essential (primary) hypertension; E11.9 Type 2 diabetes mellitus without complications; F41.9 Anxiety disorder, unspecified; F32.9 Major depressive disorder, single episode, unspecified; Z86.2 Personal history of diseases of the blood and blood-forming organs and certain disorders involving the immune mechanism; F17.210 Nicotine dependence, cigarettes, uncomplicated; Z88.6 Allergy status to analgesic agent; Z88.8 Allergy status to other drugs, medicaments and biological substances; Z79.84 Long term (current) use of oral hypoglycemic drugs; Z79.899 Other long term (current) drug therapy; Z90.49 Acquired absence of other specified parts of digestive tract
CPT/HCPCS: 36415; 71045; 80053; 84484; 85007; 85027; 85610; 85730; 93005; 99285; A9270; 93010

== ENCOUNTER 2019-06-23 15:21 | Inpatient (IN) | payer MEDICARE, MEDICAID ==
[2019-06-23] MEDS ORDERED: Sodium Chloride 0.9% 10 ML Syringe FLUSH PRN (15:40)
--- NOTE | 2019-06-23 16:18 | EDM.PDOC ---
<AndraNatalya gilliam - Last Filed: 06/23/19 16:12> ED HPI GENERAL MEDICAL PROBLEM - General Chief Complaint: Chest Pain Stated Complaint: CHEST PAIN Time Seen by Provider: 06/23/19 15:39 Source of Information: Reports: Patient History Limitations: Reports: No Limitations - History of Present Illness INITIAL COMMENTS - FREE TEXT/NARRATIVE: Tripp is a pleasant 54 year old male presenting to the ED today c/o chest pain that is radiating to his back and down his left arm. The chest pain started last night and this morning when he woke up he noticed his arm felt "numb and weak." The pain is described as a sharp shooting pain that is worse with inspiration. He denies any vomiting but states he his nauseous about 2 times a day and that has been going on for as long as he can remember. He is also c/o some RUQ pain. He states his last bowel movement was this morning and everything was normal. He had his gallbladder removed over 10 years ago but still has his appendix. Onset: Gradual Onset Date: 06/22/19 Duration: Hour(s):, Waxing/Waning Location: Reports: Chest, Abdomen, Back, Upper Extremity, Left Quality: Reports: Sharp, Stabbing Severity: Moderate Improves with: Reports: None Worsens with: Reports: None Associated Symptoms: Reports: Chest Pain, Headaches Left Chest Pain Score (Numeric/FACES): 8 - Related Data Allergies Allergy/AdvReac Type Severity Reaction Status Date / Time ketorolac tromethamine AdvReac Anxiety Verified 06/23/19 20:59 [From Toradol] methylphenidate HCl AdvReac Anxiety Verified 06/23/19 20:59 [From Ritalin] metoclopramide HCl AdvReac Anxiety Verified 06/23/19 20:59 [From Reglan] Home Meds: Home Meds Insulin Detemir [Levemir] 40 unit SUBCUT QPM 07/28/14 [History] metFORMIN [Glucophage] 2,000 mg PO BID 07/28/14 [History] Metoprolol Succinate [Toprol XL] 25 mg PO DAILY 08/18/14 [History] Sertraline [Zoloft] 150 mg PO BEDTIME 05/25/15 [History] Ezetimibe [Zetia] 10 mg PO DAILY 04/18/17 [History] ClonazePAM [KlonoPIN] 0.5 mg PO ASDIRECTED PRN 07/08/18 [History] Lansoprazole [Prevacid] 30 mg PO Q24H PRN 06/23/19 [History] Past Medical History HEENT History: Reports: Impaired Vision Other HEENT History: wears eyeglasses Cardiovascular History: Reports: High Cholesterol, Hypertension Gastrointestinal History: Reports: GERD Other Gastrointestinal History: "liver issues" Musculoskeletal History: Reports: Back Pain, Chronic, Other (See Below) Other Musculoskeletal History: knee pain and shoulder pain, Psychiatric History: Reports: Anxiety, Bipolar, Depression, Schizophrenia Endocrine/Metabolic History: Reports: Diabetes, Type II Hematologic History: Reports: Anemia, Iron Deficiency - Infectious Disease History Infectious Disease History: Reports: Chicken Pox, Measles - Past Surgical History GI Surgical History: Reports: Cholecystectomy Musculoskeletal Surgical History: Reports: Shoulder Surgery Social & Family History - Family History Family Medical History: Noncontributory - Tobacco Use Smoking Status *Q: Current Every Day Smoker Years of Tobacco use: 40 Packs/Tins Daily: 0.1 - Caffeine Use Caffeine Use: Reports: Soda Other Caffeine Use: 2-3 pop daily - Recreational Drug Use Recreational Drug Use: No - Living Situation & Occupation Living situation: Reports: Single, Other (with his landlord) Occupation: Disabled ED ROS GENERAL - Review of Systems Review Of Systems: See Below Constitutional: Reports: No Symptoms HEENT: Reports: No Symptoms Respiratory: Reports: Pleuritic Chest Pain Cardiovascular: Reports: Chest Pain Endocrine: Reports: No Symptoms GI/Abdominal: Reports: Abdominal Pain : Reports: No Symptoms Musculoskeletal: Reports: Back Pain Skin: Reports: No Symptoms Neurological: Reports: No Symptoms Psychiatric: Reports: No Symptoms Hematologic/Lymphatic: Reports: No Symptoms Immunologic: Reports: No Symptoms ED EXAM, GENERAL - Physical Exam Exam Limited By: No Limitations General Appearance: Alert, WD/WN, No Apparent Distress Respiratory/Chest: No Respiratory Distress, Lungs Clear, Normal Breath Sounds, No Accessory Muscle Use, Chest Non-Tender Cardiovascular: Normal Peripheral Pulses Back Exam: Normal Inspection, Full Range of Motion, NT Extremities: Normal Inspection, Normal Range of Motion, Non-Tender, No Pedal Edema, Normal Capillary Refill Neurological: Alert, Oriented Psychiatric: Normal Affect Skin Exam: Warm, Dry, Intact, Normal Color, No Rash Course - Vital Signs Last Recorded V/S: Last Vital Signs Temp 98.0 F 06/23/19 15:31 Pulse 70 06/23/19 20:15 Resp 14 06/23/19 20:15 BP 128/83 06/23/19 20:15 Pulse Ox 94 L 06/23/19 20:15 - Orders/Labs/Meds Orders: Active Orders 24 hr Category Date Time Status Admission Status [Patient Status] [ADT] Routine ADT 06/23/19 18:19 Active EKG Documentation Completion [RC] ASDIRECTED Care 06/23/19 15:33 Active Peripheral IV Care [RC] . DIRECTED Care 06/23/19 15:40 Active Chest 1V Frontal [CR] Stat Exams 06/23/19 15:40 Taken KUB [Abdomen 1V Flat] [CR] Stat Exams 06/23/19 16:11 Taken Sodium Chloride 0.9% [Saline Flush] Med 06/23/19 15:40 Active 10 ml FLUSH ASDIRECTED PRN Peripheral IV Insertion Adult [OM.PC] Stat Oth 06/23/19 15:40 Ordered EKG 12 Lead [EK] Stat Ther 06/23/19 15:33 Ordered Medication Orders Clonazepam (Klonopin) 0.5 mg PO ASDIRECTED PRN PRN Reason: Anxiety Ezetimibe (Zetia) 10 mg PO DAILY [facility] Insulin Glargine (Lantus) 30 unit SUBCUT QPM [facility] Insulin Human Lispro (Humalog) 0 unit SUBCUT QIDACANDBED [facility]; Protocol Metoprolol Succinate (Toprol Xl) 25 mg PO DAILY [facility] Pantoprazole Sodium (Protonix) 40 mg PO Q24H PRN PRN Reason: [facility] Sertraline HCl (Zoloft) 150 mg PO BEDTIME [facility] Sodium Chloride (Saline Flush) 10 ml FLUSH ASDIRECTED PRN PRN Reason: Keep Vein Open Last Admin: 06/23/19 17:28 Dose: 10 ml Labs: Laboratory Tests 06/23/19 06/23/19 06/23/19 Range/Units 15:51 15:55 15:55 WBC 14.75 H (4.23-9.07) K/mm3 RBC 4.44 L (4.63-6.08) M/mm3 Hgb 13.8 (13.7-17.5) gm/dl Hct 38.9 L (40.1-51.0) % MCV 87.6 (79.0-92.2) fl MCH 31.1 (25.7-32.2) pg MCHC 35.5 (32.2-35.5) g/dl RDW Std Deviation 39.8 (35.1-43.9) fL Plt Count 247 (163-337) K/mm3 MPV 9.5 (9.4-12.3) fl Neutrophils % (Manual) 65 H (40-60) % Band Neutrophils % 2 (0-10) % Lymphocytes % (Manual) 31 (20-40) % Atypical Lymphs % 0 % Monocytes % (Manual) 1 L (2-10) % Eosinophils % (Manual) 1 (0.8-7.0) % Basophils % (Manual) 0 L (0.2-1.2) Platelet Estimate Adequate RBC Morph Comment Normal PT 10.9 (9.7-12.0) SECONDS INR 1.00 APTT 27 (22-31) SECONDS Sodium (136-145) mEq/L Potassium (3.5-5.1) mEq/L Chloride (98-107) mEq/L Carbon Dioxide (21-32) mEq/L Anion Gap (5-15) BUN (7-18) mg/dL Creatinine (0.7-1.3) mg/dL Est Cr Clr Drug Dosing mL/min Estimated GFR (MDRD) (>60) mL/min BUN/Creatinine Ratio (14-18) Glucose (74-106) mg/dL Serum Osmolality 167 L (280-300) mosm/kg Calcium (8.5-10.1) mg/dL Magnesium (1.8-2.4) mg/dl Total Bilirubin (0.2-1.0) mg/dL AST (15-37) U/L ALT (16-63) U/L Alkaline Phosphatase (46-116) U/L Troponin I (0.00-0.056) ng/mL NT-Pro-B Natriuret Pep (0-125) pg/mL Total Protein (6.4-8.2) g/dl Albumin (3.4-5.0) g/dl Globulin gm/dL Albumin/Globulin Ratio (1-2) 06/23/19 06/23/19 Range/Units 15:55 15:55 WBC (4.23-9.07) K/mm3 RBC (4.63-6.08) M/mm3 Hgb (13.7-17.5) gm/dl Hct (40.1-51.0) % MCV (79.0-92.2) fl MCH (25.7-32.2) pg MCHC (32.2-35.5) g/dl RDW Std Deviation (35.1-43.9) fL Plt Count (163-337) K/mm3 MPV (9.4-12.3) fl Neutrophils % (Manual) (40-60) % Band Neutrophils % (0-10) % Lymphocytes % (Manual) (20-40) % Atypical Lymphs % % Monocytes % (Manual) (2-10) % Eosinophils % (Manual) (0.8-7.0) % Basophils % (Manual) (0.2-1.2) Platelet Estimate RBC Morph Comment PT (9.7-12.0) SECONDS INR APTT (22-31) SECONDS Sodium 122 L (136-145) mEq/L Potassium 3.4 L (3.5-5.1) mEq/L Chloride 91 L (98-107) mEq/L Carbon Dioxide 20 L (21-32) mEq/L Anion Gap 14.4 (5-15) BUN 7 (7-18) mg/dL Creatinine 0.8 (0.7-1.3) mg/dL Est Cr Clr Drug Dosing 81.52 mL/min Estimated GFR (MDRD) > 60 (>60) mL/min BUN/Creatinine Ratio 8.8 L (14-18) Glucose 250 H (74-106) mg/dL Serum Osmolality (280-300) mosm/kg Calcium 7.8 L (8.5-10.1) mg/dL Magnesium 1.1 L (1.8-2.4) mg/dl Total Bilirubin 0.2 (0.2-1.0) mg/dL AST 27 (15-37) U/L ALT 40 (16-63) U/L Alkaline Phosphatase 89 (46-116) U/L Troponin I < 0.017 (0.00-0.056) ng/mL NT-Pro-B Natriuret Pep 8 (0-125) pg/mL Total Protein 6.6 (6.4-8.2) g/dl Albumin 3.2 L (3.4-5.0) g/dl Globulin 3.4 gm/dL Albumin/Globulin Ratio 0.9 L (1-2) Meds: Medications Generic Name Dose Route Start Last Admin Trade Name Freq PRN Reason Stop Dose Admin Clonazepam 0.5 mg 06/23/19 20:11 Klonopin PO ASDIRECTED PRN Anxiety Ezetimibe 10 mg 06/24/19 09:00 Zetia PO DAILY [facility] Insulin Glargine 30 unit 06/23/19 21:00 Lantus SUBCUT QPM [facility] Insulin Human Lispro 0 unit 06/23/19 22:00 Humalog SUBCUT QIDACANDBED [facility] Protocol Metoprolol Succinate 25 mg 06/24/19 09:00 Toprol Xl PO DAILY [facility] Pantoprazole Sodium 40 mg 06/23/19 20:15 Protonix PO Q24H PRN [facility] Sertraline HCl 150 mg 06/23/19 21:00 Zoloft PO BEDTIME [facility] Sodium Chloride 10 ml 06/23/19 15:40 06/23/19 17:28 Saline Flush FLUSH 10 ml ASDIRECTED PRN Administration Keep Vein Open Discontinued Medications Generic Name Dose Route Start Last Admin Trade Name Freq PRN Reason Stop Dose Admin Hydromorphone HCl 0.5 mg 06/23/19 16:37 06/23/19 17:10 Dilaudid IM 06/23/19 16:38 Not Given ONETIME ONE Hydromorphone HCl 0.5 mg 06/23/19 17:09 06/23/19 17:17 Dilaudid IVPUSH 06/23/19 17:10 0.5 mg ONETIME ONE Administration Hydromorphone HCl 0.5 mg 06/23/19 19:45 06/23/19 20:00 Dilaudid IVPUSH 06/23/19 19:46 0.5 mg ONETIME ONE Administration Sodium Chloride 1,000 mls @ 999 mls/hr 06/23/19 16:43 06/23/19 17:22 Normal Saline IV 06/23/19 17:43 999 mls/hr ONETIME ONE Administration Magnesium Sulfate/Dextrose 1 100 mls @ 100 mls/hr 06/23/19 17:15 06/23/19 19: 48 gm/ Premix IV 06/23/19 21:14 100 mls/hr Q1H [facility] Administration Sodium Chloride 1,000 mls @ 250 mls/hr 06/23/19 17:07 06/23/19 18:31 Normal Saline IV 06/23/19 21:06 250 mls/hr ONETIME ONE Administration Departure - Departure Disposition: Admitted As Inpatient 66 Clinical Impression: Hyponatremia with decreased serum osmolality - My Orders Last 24 Hours: My Active Orders 06/23/19 15:33 EKG Documentation Completion [RC] ASDIRECTED EKG 12 Lead [EK] Stat 06/23/19 15:40 Peripheral IV Care [RC] . DIRECTED Chest 1V Frontal [CR] Stat Sodium Chloride 0.9% [Saline Flush] 10 ml FLUSH ASDIRECTED PRN Peripheral IV Insertion Adult [OM.PC] Stat 06/23/19 16:11 KUB [Abdomen 1V Flat] [CR] Stat 06/23/19 18:19 Admission Status [Patient Status] [ADT] Routine - Assessment/Plan Last 24 Hours: My Active Orders 06/23/19 15:33 EKG Documentation Completion [RC] ASDIRECTED EKG 12 Lead [EK] Stat 06/23/19 15:40 Peripheral IV Care [RC] . DIRECTED Chest 1V Frontal [CR] Stat Sodium Chloride 0.9% [Saline Flush] 10 ml FLUSH ASDIRECTED PRN Peripheral IV Insertion Adult [OM.PC] Stat 06/23/19 16:11 KUB [Abdomen 1V Flat] [CR] Stat 06/23/19 18:19 Admission Status [Patient Status] [ADT] Routine <Sandra Scott - Last Filed: 06/23/19 21:35> ED HPI GENERAL MEDICAL PROBLEM - History of Present Illness INITIAL COMMENTS - FREE TEXT/NARRATIVE: I have read and reviewed the student's HPI and examined the patient and agree with CHANDNI Gaspar-student. ED EXAM, GENERAL - Physical Exam Exam: See Below EKG INTERPRETATION EKG Date: 06/23/19 Time: 15:34 Rhythm: NSR Rate (Beats/Min): 67 Coleman: LAD-Left Coleman Deviation (-39) P-Wave: Present QRS: Normal ST-T: Normal QT: Normal Comparison: NA - No Prior EKG EKG Interpretation Comments: Early R-wave transition. Nonspecific intraventricular conduction delay, T-wave flattening in aVF. This was reviewed by Dr. Locke and myself. Course - Radiology Interpretation Free Text/Narrative:: Chest: Portable view of the chest was obtained. Comparison: Prior chest x-ray at 05/11/19. Heart size and mediastinum are within normal limits. Lungs are clear with no acute parenchymal change. Very slight atelectasis is incidentally noted within the mid to lower left lung. Bony structures are grossly intact. Surgical clips are noted from prior cholecystectomy. Impression: 1. Findings which are felt to be incidental. 2. Nothing acute is appreciated. Abdomen: Supine view of the abdomen was obtained. Comparison: Prior CT abdomen and pelvis exam of 04/19/19 and prior abdominal x- ray 04/28/18. Surgical clips are seen from prior cholecystectomy. Bowel gas pattern is normal. No abnormal calcifications or soft tissue abnormality is seen. Bony structures are unremarkable. Impression: 1. Nothing acute is seen on supine abdominal x-ray. - Re-Assessments/Exams Free Text/Narrative Re-Assessment/Exam: 06/23/19 15:45 Patient presents to the ED for evaluation of chest pain, did order EKG, chest x- ray, and cardiac labs to evaluate any possible cardiac etiology that the gentleman may be having. 06/23/19 17:32 Patient's labs have been completed, and her impressive for hyponatremia at 122, hypomagnesemia and 1.1, potassium was mildly low at 3.4, CBC is elevated at 14, 000. Did order IV magnesium to be given, with some IV normal saline for initial management. Patient will need admission to the hospital regarding his electrolyte abnormalities. 06/23/19 18:00 Patient's case was discussed with Dr. Cleary, our hospitalist, and he is going to evaluate the patient, but tentatively agrees to hospital admission at this time. Departure - Departure Time of Disposition: 18:00 Condition: Fair
[2019-06-23] MEDS ORDERED: HYDROmorphone 0.5 MG/0.5 ML Syringe IM ONE (16:37)
[2019-06-23] MEDS ORDERED: Sodium Chloride 0.9% 1,000 ML IV ONE ×2 (16:43→17:07)
[2019-06-23] MEDS ORDERED: HYDROmorphone 0.5 MG/0.5 ML Syringe IVPUSH ONE ×2 (17:09→19:45)
[2019-06-23] MEDS ORDERED: ClonazePAM 1 MG Tab PO PRN (20:11)
[2019-06-23] MEDS ORDERED: Pantoprazole 40 MG Tab.CR PO PRN (20:15)
[2019-06-23] MEDS ORDERED: Sertraline 50 MG Tab PO SCH (21:00)
[2019-06-23] MEDS ORDERED: Insulin Glarg,Human.Rec.Analog 100 UNIT/ML ML SUBCUT SCH (21:00)
[2019-06-23] MEDS ORDERED: Ondansetron 4 MG/2 ML SDV IV PRN (22:05)
[2019-06-23] MEDS ORDERED: Acetaminophen 325 MG Tab PO PRN (22:05)
--- NOTE | 2019-06-23 22:18 | PCM.HP.2 ---
H&P History of Present Illness - General Date of Service: 06/23/19 Admit Problem/Dx: Admission Diagnosis/Problem Admission Diagnosis/Problem Hyponatremia with decreased serum osmolality - History of Present Illness Initial Comments - Free Text/Narative: 54-year-old male who presented to the emergency room complaints of left-sided chest pain that started last night and worsened over the day. He states that the pain is worse with activity, deep breathing, is sharp in nature, is improved when he leans forward, and is associated with left arm numbness. Pain radiates to his back and as stated above down his left arm. Patient complains of nausea without vomiting and right upper quadrant pain. This is long- standing. Last bowel movement was this morning and had a cholecystectomy 10 years ago. Patient also states that he had a respiratory infection approximately 3-4 weeks ago. He required antibiotics and he still has some cough and congestion. Patient also states he drinks 6 - 40 ounce cups of water a day. He has been on Zoloft since 1996 secondary depression after his mother . He has a history of hypertension and diabetes. In the emergency room patient was found to have a sodium of 122. 3 BC 14.75, hemoglobin 13.8, platelets 247, potassium 3.4, carbon dioxide 20, glucose 250, serum osmolality 167, magnesium 1.1. Chest x-ray showed no significant findings. Abdominal films showed normal bowel gas pattern with stool in the left colon. ECG showed sinus rhythm with ventricular rate of 67 bpm. Left axis deviation and poor R-wave progression. Patient was given 1 L bolus of normal saline and another liter over 4 hours. He was given Dilaudid for pain. Left Chest Pain Score (Numeric/FACES): 8 - Related Data Allergies/Adverse Reactions: Allergies Allergy/AdvReac Type Severity Reaction Status Date / Time ketorolac tromethamine AdvReac Anxiety Verified 06/23/19 20:59 [From Toradol] methylphenidate HCl AdvReac Anxiety Verified 06/23/19 20:59 [From Ritalin] metoclopramide HCl AdvReac Anxiety Verified 06/23/19 20:59 [From Reglan] Home Medications: Home Meds Insulin Detemir [Levemir] 40 unit SUBCUT QPM 07/28/14 [History] metFORMIN [Glucophage] 2,000 mg PO BID 11/19/14 [History] Metoprolol Succinate [Toprol XL] 25 mg PO DAILY 08/18/14 [History] Sertraline [Zoloft] 150 mg PO BEDTIME 05/25/15 [History] Ezetimibe [Zetia] 10 mg PO DAILY 04/18/17 [History] ClonazePAM [KlonoPIN] 0.5 mg PO ASDIRECTED PRN 07/08/18 [History] Lansoprazole [Prevacid] 30 mg PO Q24H PRN 06/23/19 [History] Past Medical History HEENT History: Reports: Impaired Vision Other HEENT History: wears eyeglasses Cardiovascular History: Reports: High Cholesterol, Hypertension Gastrointestinal History: Reports: GERD Other Gastrointestinal History: "liver issues" Musculoskeletal History: Reports: Back Pain, Chronic, Other (See Below) Other Musculoskeletal History: knee pain and shoulder pain, Psychiatric History: Reports: Anxiety, Bipolar, Depression, Schizophrenia Endocrine/Metabolic History: Reports: Diabetes, Type II, Obesity/BMI 30+ Hematologic History: Reports: Anemia, Iron Deficiency - Infectious Disease History Infectious Disease History: Reports: Chicken Pox, Measles, Other (See Below) Other Infectious Disease History: questionable hepatitis C - Past Surgical History GI Surgical History: Reports: Cholecystectomy Musculoskeletal Surgical History: Reports: Shoulder Surgery Social & Family History - Family History Family Medical History: Noncontributory - Tobacco Use Smoking Status *Q: Current Some Day Smoker Years of Tobacco use: 35 Packs/Tins Daily: 0 Used Tobacco, but Quit: No Second Hand Smoke Exposure: No - Caffeine Use Caffeine Use: Reports: None Other Caffeine Use: 2-3 pop daily - Recreational Drug Use Recreational Drug Use: No - Living Situation & Occupation Living situation: Reports: Single, Other (with his landlord) Occupation: Disabled H&P Review of Systems - Review of Systems: Review Of Systems: ROS reveals no pertinent complaints other than HPI. Exam - Exam Exam: See Below - Vital Signs Vital Signs: Last Vital Signs Temp 98.0 F 06/23/19 15:31 Pulse 70 06/23/19 20:15 Resp 14 06/23/19 20:15 BP 128/83 06/23/19 20:15 Pulse Ox 94 L 06/23/19 20:15 Weight: 164 lb 12.8 oz - Exam Quality Assessment: No: Supplemental Oxygen General: Alert, Oriented HEENT: Conjunctiva Clear, EOMI, Hearing Intact, Mucosa Moist & [place] Neck: Supple, Trachea Midline, 2 Lungs: Other (regular respiratory rate. Initial breath sounds were obstructed with upper airway until he coughed and breath sounds cleared.) GI/Abdominal Exam: Normal Bowel Sounds, Soft, Non-Tender, No Organomegaly, No Distention, No Abnormal Bruit, No Mass Rectal (Males) Exam: Deferred Back Exam: Normal Inspection Extremities: Normal Inspection, Normal Range of Motion, Non-Tender, No Pedal Edema, Normal Capillary Refill Skin: Warm, Dry, Intact Neuro Extensive - Mental Status: Alert, Oriented x3, Normal Mood/Affect, Normal Cognition Neuro Extensive - Motor, Sensory, Reflexes: CN II-XII Intact Psychiatric: Alert, Normal Affect, Normal Mood - Patient Data Lab Results Last 24 hrs: Laboratory Results - last 24 hr 06/23/19 06/23/19 06/23/19 Range/Units 15:51 15:55 15:55 WBC 14.75 H (4.23-9.07) K/mm3 RBC 4.44 L (4.63-6.08) M/mm3 Hgb 13.8 (13.7-17.5) gm/dl Hct 38.9 L (40.1-51.0) % MCV 87.6 (79.0-92.2) fl MCH 31.1 (25.7-32.2) pg MCHC 35.5 (32.2-35.5) g/dl RDW Std Deviation 39.8 (35.1-43.9) fL Plt Count 247 (163-337) K/mm3 MPV 9.5 (9.4-12.3) fl Neutrophils % (Manual) 65 H (40-60) % Band Neutrophils % 2 (0-10) % Lymphocytes % (Manual) 31 (20-40) % Atypical Lymphs % 0 % Monocytes % (Manual) 1 L (2-10) % Eosinophils % (Manual) 1 (0.8-7.0) % Basophils % (Manual) 0 L (0.2-1.2) Platelet Estimate Adequate RBC Morph Comment Normal PT 10.9 (9.7-12.0) SECONDS INR 1.00 APTT 27 (22-31) SECONDS Sodium (136-145) mEq/L Potassium (3.5-5.1) mEq/L Chloride (98-107) mEq/L Carbon Dioxide (21-32) mEq/L Anion Gap (5-15) BUN (7-18) mg/dL Creatinine (0.7-1.3) mg/dL Est Cr Clr Drug Dosing mL/min Estimated GFR (MDRD) (>60) mL/min BUN/Creatinine Ratio (14-18) Glucose (74-106) mg/dL Serum Osmolality 167 L (280-300) mosm/kg Calcium (8.5-10.1) mg/dL Magnesium (1.8-2.4) mg/dl Total Bilirubin (0.2-1.0) mg/dL AST (15-37) U/L ALT (16-63) U/L Alkaline Phosphatase (46-116) U/L Troponin I (0.00-0.056) ng/mL NT-Pro-B Natriuret Pep (0-125) pg/mL Total Protein (6.4-8.2) g/dl Albumin (3.4-5.0) g/dl Globulin gm/dL Albumin/Globulin Ratio (1-2) Urine Osmolality (400-1100) mosm/kg Ur Random Sodium (40-220) mEq/L 06/23/19 06/23/19 06/23/19 Range/Units 15:55 15:55 20:26 WBC (4.23-9.07) K/mm3 RBC (4.63-6.08) M/mm3 Hgb (13.7-17.5) gm/dl Hct (40.1-51.0) % MCV (79.0-92.2) fl MCH (25.7-32.2) pg MCHC (32.2-35.5) g/dl RDW Std Deviation (35.1-43.9) fL Plt Count (163-337) K/mm3 MPV (9.4-12.3) fl Neutrophils % (Manual) (40-60) % Band Neutrophils % (0-10) % Lymphocytes % (Manual) (20-40) % Atypical Lymphs % % Monocytes % (Manual) (2-10) % Eosinophils % (Manual) (0.8-7.0) % Basophils % (Manual) (0.2-1.2) Platelet Estimate RBC Morph Comment PT (9.7-12.0) SECONDS INR APTT (22-31) SECONDS Sodium 122 L 133 L D (136-145) mEq/L Potassium 3.4 L 4.1 (3.5-5.1) mEq/L Chloride 91 L 101 (98-107) mEq/L Carbon Dioxide 20 L 23 (21-32) mEq/L Anion Gap 14.4 13.1 (5-15) BUN 7 6 L (7-18) mg/dL Creatinine 0.8 0.8 (0.7-1.3) mg/dL Est Cr Clr Drug Dosing 81.52 81.52 mL/min Estimated GFR (MDRD) > 60 > 60 (>60) mL/min BUN/Creatinine Ratio 8.8 L 7.5 L (14-18) Glucose 250 H 227 H (74-106) mg/dL Serum Osmolality (280-300) mosm/kg Calcium 7.8 L 7.5 L (8.5-10.1) mg/dL Magnesium 1.1 L (1.8-2.4) mg/dl Total Bilirubin 0.2 (0.2-1.0) mg/dL AST 27 (15-37) U/L ALT 40 (16-63) U/L Alkaline Phosphatase 89 (46-116) U/L Troponin I < 0.017 (0.00-0.056) ng/mL NT-Pro-B Natriuret Pep 8 (0-125) pg/mL Total Protein 6.6 (6.4-8.2) g/dl Albumin 3.2 L (3.4-5.0) g/dl Globulin 3.4 gm/dL Albumin/Globulin Ratio 0.9 L (1-2) Urine Osmolality (400-1100) mosm/kg Ur Random Sodium (40-220) mEq/L 06/23/19 06/23/19 Range/Units 21:00 21:00 WBC (4.23-9.07) K/mm3 RBC (4.63-6.08) M/mm3 Hgb (13.7-17.5) gm/dl Hct (40.1-51.0) % MCV (79.0-92.2) fl MCH (25.7-32.2) pg MCHC (32.2-35.5) g/dl RDW Std Deviation (35.1-43.9) fL Plt Count (163-337) K/mm3 MPV (9.4-12.3) fl Neutrophils % (Manual) (40-60) % Band Neutrophils % (0-10) % Lymphocytes % (Manual) (20-40) % Atypical Lymphs % % Monocytes % (Manual) (2-10) % Eosinophils % (Manual) (0.8-7.0) % Basophils % (Manual) (0.2-1.2) Platelet Estimate RBC Morph Comment PT (9.7-12.0) SECONDS INR APTT (22-31) SECONDS Sodium (136-145) mEq/L Potassium (3.5-5.1) mEq/L Chloride (98-107) mEq/L Carbon Dioxide (21-32) mEq/L Anion Gap (5-15) BUN (7-18) mg/dL Creatinine (0.7-1.3) mg/dL Est Cr Clr Drug Dosing mL/min Estimated GFR (MDRD) (>60) mL/min BUN/Creatinine Ratio (14-18) Glucose (74-106) mg/dL Serum Osmolality (280-300) mosm/kg Calcium (8.5-10.1) mg/dL Magnesium (1.8-2.4) mg/dl Total Bilirubin (0.2-1.0) mg/dL AST (15-37) U/L ALT (16-63) U/L Alkaline Phosphatase (46-116) U/L Troponin I (0.00-0.056) ng/mL NT-Pro-B Natriuret Pep (0-125) pg/mL Total Protein (6.4-8.2) g/dl Albumin (3.4-5.0) g/dl Globulin gm/dL Albumin/Globulin Ratio (1-2) Urine Osmolality 60 L (400-1100) mosm/kg Ur Random Sodium 20 L (40-220) mEq/L Result Diagrams: 06/23/19 15:55 06/23/19 20:26 Problem List Initiated/Reviewed/Updated: Yes Orders Last 24hrs: Active Orders 24 hr Category Date Time Status Admission Status [Patient Status] [ADT] Routine ADT 06/23/19 18:19 Active Blood Glucose Check, Bedside [RC] QIDACANDBED Care 06/23/19 20:10 Active EKG Documentation Completion [RC] ASDIRECTED Care 06/23/19 15:33 Active Oxygen Therapy [RC] PRN Care 06/23/19 22:05 Ordered Peripheral IV Care [RC] . DIRECTED Care 06/23/19 15:40 Active Up ad Malaika [RC] ASDIRECTED Care 06/23/19 22:05 Ordered VTE/DVT Education [RC] PER UNIT ROUTINE Care 06/23/19 22:05 Ordered Vital Signs [RC] Q4H Care 06/23/19 22:05 Ordered Fluid Restriction [DIET] Diet 06/24/19 Breakfast Active Regular Diet [DIET] Diet 06/24/19 Breakfast Ordered Chest 1V Frontal [CR] Stat Exams 06/23/19 15:40 Taken KUB [Abdomen 1V Flat] [CR] Stat Exams 06/23/19 16:11 Taken CBC WITH AUTO DIFF [HEME] AM Lab 06/24/19 05:11 Ordered COMPREHENSIVE METABOLIC PN,CMP [CHEM] AM Lab 06/24/19 05:11 Ordered MAGNESIUM [CHEM] AM Lab 06/24/19 05:11 Ordered Acetaminophen [Tylenol] Med 06/23/19 22:05 Ordered 650 mg PO Q4H PRN Acetaminophen/HYDROcodone [[place] 325-5 MG] Med 06/23/19 22:05 Ordered 1 tab PO Q4H PRN ClonazePAM [KlonoPIN] Med 06/23/19 20:11 Pending 0.5 mg PO ASDIRECTED PRN Enoxaparin [Lovenox] Med 06/24/19 09:00 Ordered 40 mg SUBCUT DAILY Ezetimibe [Zetia] Med 06/24/19 09:00 Active 10 mg PO DAILY Insulin Glarg,Human.Rec.Analog [LantUS] Med 06/23/19 21:00 Active 30 unit SUBCUT QPM Insulin Lispro [HumaLOG] Med 06/23/19 22:00 Active See Protocol SUBCUT QIDACANDBED Metoprolol Succinate [Toprol XL] Med 06/24/19 09:00 Active 25 mg PO DAILY Ondansetron [Zofran] Med 06/23/19 22:05 Ordered 4 mg IV Q4H PRN Pantoprazole [ProTONIX] Med 06/23/19 20:15 Active 40 mg PO Q24H PRN Sertraline [Zoloft] Med 06/23/19 21:00 Active 150 mg PO BEDTIME Sodium Chloride 0.9% [Saline Flush] Med 06/23/19 15:40 Active 10 ml FLUSH ASDIRECTED PRN Peripheral IV Insertion Adult [OM.PC] Stat Oth 06/23/19 15:40 Ordered Resuscitation Status Routine Resus Stat 06/23/19 22:05 Ordered EKG 12 Lead [EK] Stat Ther 06/23/19 15:33 Ordered Medication Orders Acetaminophen (Tylenol) 650 mg PO Q4H PRN PRN Reason: Pain (Mild 1-3)/fever Hydrocodone Bitart/Acetaminophen ([place] 325-5 Mg) 1 tab PO Q4H PRN PRN Reason: Pain (moderate 4-6) Clonazepam (Klonopin) 0.5 mg PO ASDIRECTED PRN PRN Reason: Anxiety Ezetimibe (Zetia) 10 mg PO DAILY [facility] Enoxaparin Sodium (Lovenox) 40 mg SUBCUT DAILY [facility] Insulin Glargine (Lantus) 30 unit SUBCUT QPM [facility] Insulin Human Lispro (Humalog) 0 unit SUBCUT QIDACANDBED [facility]; Protocol Metoprolol Succinate (Toprol Xl) 25 mg PO DAILY [facility] Ondansetron HCl (Zofran) 4 mg IV Q4H PRN PRN Reason: Nausea/Vomiting Pantoprazole Sodium (Protonix) 40 mg PO Q24H PRN PRN Reason: HEARTBURN Sertraline HCl (Zoloft) 150 mg PO BEDTIME [place] Sodium Chloride (Saline Flush) 10 ml FLUSH ASDIRECTED PRN PRN Reason: Keep Vein Open Last Admin: 06/23/19 17:28 Dose: 10 ml Assessment/Plan Comment:: Assessment * 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 * Repeat sodium 133 * Urine osmolality 60 - unfortunately this was obtained after his first liter of saline * Urine sodium 20 - also obtained after his first liter of saline * Pleuritic chest pain * Hypomagnesemia * Recent respiratory infection likely bronchitis * Depression on Zoloft * Diabetes and hypertension Plan * Refer to medical floor for observation * Fluid restriction of 1500 mL per day * Stop IV fluids * Repeat CBC, CMP, and magnesium the morning * Tylenol and hydrocodone for pain - consider NSAIDs if sodium is corrected in the morning * restart home insulin at 75% of home dose * Sliding-scale insulin * VTE prophylaxis with apparent * CODE STATUS full code - Mortality Measure Prognosis:: Good
[2019-06-23] MEDS: Insulin Lispro 100 Units/ML 3 ML Vial SUBCUT SCH (22:51)
[2019-06-23] MEDS: guaiFENesin 600 MG Tab.ER PO SCH (22:54)
[2019-06-23] MEDS: Acetaminophen/HYDROcodone 325-5 MG Tab PO PRN (23:01)
[2019-06-24] MEDS: Acetaminophen/HYDROcodone 325-5 MG Tab PO PRN ×2 (05:31→10:38)
--- NOTE | 2019-06-24 08:09 | PCM.DCSUM1 ---
Discharge Summary - Hospital Course HPI Initial Comments: 54-year-old male who presented to the emergency room complaints of left-sided chest pain that started last night and worsened over the day. He states that the pain is worse with activity, deep breathing, is sharp in nature, is improved when he leans forward, and is associated with left arm numbness. Pain radiates to his back and as stated above down his left arm. Patient complains of nausea without vomiting and right upper quadrant pain. This is long- standing. Last bowel movement was this morning and had a cholecystectomy 10 years ago. Patient also states that he had a respiratory infection approximately 3-4 weeks ago. He required antibiotics and he still has some cough and congestion. Patient also states he drinks 6 - 40 ounce cups of water a day. He has been on Zoloft since 1996 secondary depression after his mother . He has a history of hypertension and diabetes. In the emergency room patient was found to have a sodium of 122. 3 BC 14.75, hemoglobin 13.8, platelets 247, potassium 3.4, carbon dioxide 20, glucose 250, serum osmolality 167, magnesium 1.1. Chest x-ray showed no significant findings. Abdominal films showed normal bowel gas pattern with stool in the left colon. ECG showed sinus rhythm with ventricular rate of 67 bpm. Left axis deviation and poor R-wave progression. Patient was given 1 L bolus of normal saline and another liter over 4 hours. He was given Dilaudid for pain. - Discharge Data Discharge Date: 06/24/19 Discharge Disposition: Home, Self-Care 01 Condition: Good - Referral to Home Health Primary Care Physician: Jesu Beckford MD - Patient Summary/Data Hospital Course: Patient had a remarkable recovery of his sodium. Within 4 hours of his first sodium level his sodium went from 122-133 (corrected sodium 126-136). He was only given just under 2 L normal saline. I stopped his IV fluids and put him on a fluid restriction and this morning patient's sodium is 140 (corrected 142). Magnesium increased from 1.1 to 2.7 with only 4 g of mag sulfate. Patient's chest pain appears to have improved with the improving sodium level. Review of his old records demonstrates a chronic hyponatremia and it appears it his chest pain be related more to his hyponatremia than anything else. Patient was told to limit his fluid intake to approximately 80-120 ounces a day of water. He'll need a recheck of his sodium with his primary care provider in the next couple of days. - Discharge Plan *PRESCRIPTION DRUG MONITORING PROGRAM REVIEWED*: No *COPY OF PRESCRIPTION DRUG MONITORING REPORT IN PATIENT HIMA: No Home Medications: Home Meds Insulin Detemir [Levemir] 40 unit SUBCUT QPM 07/28/14 [History] metFORMIN [Glucophage] 2,000 mg PO BID 07/28/14 [History] Metoprolol Succinate [Toprol XL] 25 mg PO DAILY 08/18/14 [History] Sertraline [Zoloft] 150 mg PO BEDTIME 05/25/15 [History] Ezetimibe [Zetia] 10 mg PO DAILY 04/18/17 [History] ClonazePAM [KlonoPIN] 0.5 mg PO ASDIRECTED PRN 07/08/18 [History] Lansoprazole [Prevacid] 30 mg PO Q24H PRN 06/23/19 [History] Oxygen Therapy Mode: Room Air Patient Handouts: Hyponatremia, Pleurisy, Steps to Quit Smoking Forms: ED Department Discharge Referrals: Jesu Beckford MD [Primary Care Provider] - - Discharge Summary/Plan Comment DC Time >30 min.: Yes (35 min) Discharge Summary/Plan Comment: Patient be discharged home with instructions to limit total water to no more than 120 ounces a day. Recheck sodium level with primary care provider in the next 2 days. - General Info Date of Service: 06/24/19 Admission Dx/Problem (Free Text: Admission Diagnosis/Problem Admission Diagnosis/Problem Hyponatremia with decreased serum osmolality Subjective Update: patient is doing much better this morning. Currently has no complaints. Functional Status: Reports: Pain Controlled - Review of Systems General: Reports: No Symptoms HEENT: Reports: No Symptoms Pulmonary: Reports: No Symptoms Gastrointestinal: Reports: No Symptoms - Patient Data Vitals - Most Recent: Last Vital Signs Temp 97.9 F 06/23/19 23:07 Pulse 58 L 06/23/19 23:07 Resp 20 06/23/19 23:07 BP 136/95 H 06/23/19 23:07 Pulse Ox 92 L 06/23/19 23:07 Weight - Most Recent: 165 lb 4.8 oz I&O - Last 24 hours: Intake & Output 06/23/19 06/24/19 06/24/19 22:59 06:59 14:59 Intake Total 400 Balance 400 Lab Results - Last 24 hrs: Laboratory Results - last 24 hr 06/23/19 06/23/19 06/23/19 Range/Units 15:51 15:55 15:55 WBC 14.75 H (4.23-9.07) K/mm3 RBC 4.44 L (4.63-6.08) M/mm3 Hgb 13.8 (13.7-17.5) gm/dl Hct 38.9 L (40.1-51.0) % MCV 87.6 (79.0-92.2) fl MCH 31.1 (25.7-32.2) pg MCHC 35.5 (32.2-35.5) g/dl RDW Std Deviation 39.8 (35.1-43.9) fL Plt Count 247 (163-337) K/mm3 MPV 9.5 (9.4-12.3) fl Neut % (Auto) (34.0-67.9) % Lymph % (Auto) (21.8-53.1) % [place] % (Auto) (5.3-12.2) % Eos % (Auto) (0.8-7.0) Baso % (Auto) (0.1-1.2) % Neut # (Auto) (1.78-5.38) K/mm3 Lymph # (Auto) (1.32-3.57) K/mm3 [place] # (Auto) (0.30-0.82) K/mm3 Eos # (Auto) (0.04-0.54) K/mm3 Baso # (Auto) (0.01-0.08) K/mm3 Neutrophils % (Manual) 65 H (40-60) % Band Neutrophils % 2 (0-10) % Lymphocytes % (Manual) 31 (20-40) % Atypical Lymphs % 0 % Monocytes % (Manual) 1 L (2-10) % Eosinophils % (Manual) 1 (0.8-7.0) % Basophils % (Manual) 0 L (0.2-1.2) Platelet Estimate Adequate RBC Morph Comment Normal PT 10.9 (9.7-12.0) SECONDS INR 1.00 APTT 27 (22-31) SECONDS Sodium (136-145) mEq/L Potassium (3.5-5.1) mEq/L Chloride (98-107) mEq/L Carbon Dioxide (21-32) mEq/L Anion Gap (5-15) BUN (7-18) mg/dL Creatinine (0.7-1.3) mg/dL Est Cr Clr Drug Dosing mL/min Estimated GFR (MDRD) (>60) mL/min BUN/Creatinine Ratio (14-18) Glucose (74-106) mg/dL POC Glucose (70-105) mg/dL Serum Osmolality 167 L (280-300) mosm/kg Calcium (8.5-10.1) mg/dL Magnesium (1.8-2.4) mg/dl Total Bilirubin (0.2-1.0) mg/dL AST (15-37) U/L ALT (16-63) U/L Alkaline Phosphatase (46-116) U/L Troponin I (0.00-0.056) ng/mL NT-Pro-B Natriuret Pep (0-125) pg/mL Total Protein (6.4-8.2) g/dl Albumin (3.4-5.0) g/dl Globulin gm/dL Albumin/Globulin Ratio (1-2) Urine Osmolality (400-1100) mosm/kg Ur Random Sodium (40-220) mEq/L 06/23/19 06/23/19 06/23/19 Range/Units 15:55 15:55 20:26 WBC (4.23-9.07) K/mm3 RBC (4.63-6.08) M/mm3 Hgb (13.7-17.5) gm/dl Hct (40.1-51.0) % MCV (79.0-92.2) fl MCH (25.7-32.2) pg MCHC (32.2-35.5) g/dl RDW Std Deviation (35.1-43.9) fL Plt Count (163-337) K/mm3 MPV (9.4-12.3) fl Neut % (Auto) (34.0-67.9) % Lymph % (Auto) (21.8-53.1) % [place] % (Auto) (5.3-12.2) % Eos % (Auto) (0.8-7.0) Baso % (Auto) (0.1-1.2) % Neut # (Auto) (1.78-5.38) K/mm3 Lymph # (Auto) (1.32-3.57) K/mm3 [place] # (Auto) (0.30-0.82) K/mm3 Eos # (Auto) (0.04-0.54) K/mm3 Baso # (Auto) (0.01-0.08) K/mm3 Neutrophils % (Manual) (40-60) % Band Neutrophils % (0-10) % Lymphocytes % (Manual) (20-40) % Atypical Lymphs % % Monocytes % (Manual) (2-10) % Eosinophils % (Manual) (0.8-7.0) % Basophils % (Manual) (0.2-1.2) Platelet Estimate RBC Morph Comment PT (9.7-12.0) SECONDS INR APTT (22-31) SECONDS Sodium 122 L 133 L D (136-145) mEq/L Potassium 3.4 L 4.1 (3.5-5.1) mEq/L Chloride 91 L 101 (98-107) mEq/L Carbon Dioxide 20 L 23 (21-32) mEq/L Anion Gap 14.4 13.1 (5-15) BUN 7 6 L (7-18) mg/dL Creatinine 0.8 0.8 (0.7-1.3) mg/dL Est Cr Clr Drug Dosing 81.52 81.52 mL/min Estimated GFR (MDRD) > 60 > 60 (>60) mL/min BUN/Creatinine Ratio 8.8 L 7.5 L (14-18) Glucose 250 H 227 H (74-106) mg/dL POC Glucose (70-105) mg/dL Serum Osmolality (280-300) mosm/kg Calcium 7.8 L 7.5 L (8.5-10.1) mg/dL Magnesium 1.1 L (1.8-2.4) mg/dl Total Bilirubin 0.2 (0.2-1.0) mg/dL AST 27 (15-37) U/L ALT 40 (16-63) U/L Alkaline Phosphatase 89 (46-116) U/L Troponin I < 0.017 (0.00-0.056) ng/mL NT-Pro-B Natriuret Pep 8 (0-125) pg/mL Total Protein 6.6 (6.4-8.2) g/dl Albumin 3.2 L (3.4-5.0) g/dl Globulin 3.4 gm/dL Albumin/Globulin Ratio 0.9 L (1-2) Urine Osmolality (400-1100) mosm/kg Ur Random Sodium (40-220) mEq/L 06/23/19 06/23/19 06/23/19 Range/Units 21:00 21:00 22:36 WBC (4.23-9.07) K/mm3 RBC (4.63-6.08) M/mm3 Hgb (13.7-17.5) gm/dl Hct (40.1-51.0) % MCV (79.0-92.2) fl MCH (25.7-32.2) pg MCHC (32.2-35.5) g/dl RDW Std Deviation (35.1-43.9) fL Plt Count (163-337) K/mm3 MPV (9.4-12.3) fl Neut % (Auto) (34.0-67.9) % Lymph % (Auto) (21.8-53.1) % [place] % (Auto) (5.3-12.2) % Eos % (Auto) (0.8-7.0) Baso % (Auto) (0.1-1.2) % Neut # (Auto) (1.78-5.38) K/mm3 Lymph # (Auto) (1.32-3.57) K/mm3 [place] # (Auto) (0.30-0.82) K/mm3 Eos # (Auto) (0.04-0.54) K/mm3 Baso # (Auto) (0.01-0.08) K/mm3 Neutrophils % (Manual) (40-60) % Band Neutrophils % (0-10) % Lymphocytes % (Manual) (20-40) % Atypical Lymphs % % Monocytes % (Manual) (2-10) % Eosinophils % (Manual) (0.8-7.0) % Basophils % (Manual) (0.2-1.2) Platelet Estimate RBC Morph Comment PT (9.7-12.0) SECONDS INR APTT (22-31) SECONDS Sodium (136-145) mEq/L Potassium (3.5-5.1) mEq/L Chloride (98-107) mEq/L Carbon Dioxide (21-32) mEq/L Anion Gap (5-15) BUN (7-18) mg/dL Creatinine (0.7-1.3) mg/dL Est Cr Clr Drug Dosing mL/min Estimated GFR (MDRD) (>60) mL/min BUN/Creatinine Ratio (14-18) Glucose (74-106) mg/dL POC Glucose 180 H (70-105) mg/dL Serum Osmolality (280-300) mosm/kg Calcium (8.5-10.1) mg/dL Magnesium (1.8-2.4) mg/dl Total Bilirubin (0.2-1.0) mg/dL AST (15-37) U/L ALT (16-63) U/L Alkaline Phosphatase (46-116) U/L Troponin I (0.00-0.056) ng/mL NT-Pro-B Natriuret Pep (0-125) pg/mL Total Protein (6.4-8.2) g/dl Albumin (3.4-5.0) g/dl Globulin gm/dL Albumin/Globulin Ratio (1-2) Urine Osmolality 60 L (400-1100) mosm/kg Ur Random Sodium 20 L (40-220) mEq/L 06/24/19 06/24/19 06/24/19 Range/Units 05:28 05:28 05:36 WBC 8.05 (4.23-9.07) K/mm3 RBC 4.81 (4.63-6.08) M/mm3 Hgb 14.9 (13.7-17.5) gm/dl Hct 43.3 (40.1-51.0) % MCV 90.0 (79.0-92.2) fl MCH 31.0 (25.7-32.2) pg MCHC 34.4 (32.2-35.5) g/dl RDW Std Deviation 42.7 (35.1-43.9) fL Plt Count 272 (163-337) K/mm3 MPV 10.0 (9.4-12.3) fl Neut % (Auto) 61.3 (34.0-67.9) % Lymph % (Auto) 26.2 (21.8-53.1) % [place] % (Auto) 6.7 (5.3-12.2) % Eos % (Auto) 4.8 (0.8-7.0) Baso % (Auto) 0.5 (0.1-1.2) % Neut # (Auto) 4.93 (1.78-5.38) K/mm3 Lymph # (Auto) 2.11 (1.32-3.57) K/mm3 [place] # (Auto) 0.54 (0.30-0.82) K/mm3 Eos # (Auto) 0.39 (0.04-0.54) K/mm3 Baso # (Auto) 0.04 (0.01-0.08) K/mm3 Neutrophils % (Manual) (40-60) % Band Neutrophils % (0-10) % Lymphocytes % (Manual) (20-40) % Atypical Lymphs % % Monocytes % (Manual) (2-10) % Eosinophils % (Manual) (0.8-7.0) % Basophils % (Manual) (0.2-1.2) Platelet Estimate RBC Morph Comment PT (9.7-12.0) SECONDS INR APTT (22-31) SECONDS Sodium 140 (136-145) mEq/L Potassium 4.4 (3.5-5.1) mEq/L Chloride 107 (98-107) mEq/L Carbon Dioxide 24 (21-32) mEq/L Anion Gap 13.4 (5-15) BUN 7 (7-18) mg/dL Creatinine 0.8 (0.7-1.3) mg/dL Est Cr Clr Drug Dosing 81.52 mL/min Estimated GFR (MDRD) > 60 (>60) mL/min BUN/Creatinine Ratio 8.8 L (14-18) Glucose 170 H (74-106) mg/dL POC Glucose 150 H (70-105) mg/dL Serum Osmolality (280-300) mosm/kg Calcium 8.0 L (8.5-10.1) mg/dL Magnesium 2.7 H (1.8-2.4) mg/dl Total Bilirubin 0.4 (0.2-1.0) mg/dL AST 34 (15-37) U/L ALT 46 (16-63) U/L Alkaline Phosphatase 89 (46-116) U/L Troponin I (0.00-0.056) ng/mL NT-Pro-B Natriuret Pep (0-125) pg/mL Total Protein 6.9 (6.4-8.2) g/dl Albumin 3.3 L (3.4-5.0) g/dl Globulin 3.6 gm/dL Albumin/Globulin Ratio 0.9 L (1-2) Urine Osmolality (400-1100) mosm/kg Ur Random Sodium (40-220) mEq/L Med Orders - Current: Current Medications Acetaminophen (Tylenol) 650 mg PO Q4H PRN PRN Reason: Pain (Mild 1-3)/fever Hydrocodone Bitart/Acetaminophen ([place] 325-5 Mg) 1 tab PO Q4H PRN PRN Reason: Pain (moderate 4-6) Last Admin: 06/24/19 05:31 Dose: 1 tab Clonazepam (Klonopin) 1.5 mg PO BEDTIME PRN PRN Reason: Anxiety Ezetimibe (Zetia) 10 mg PO DAILY [facility] Enoxaparin Sodium (Lovenox) 40 mg SUBCUT DAILY [facility] Guaifenesin (Mucinex) 600 mg PO BID [facility] Last Admin: 06/23/19 22:54 Dose: 600 mg Insulin Glargine (Lantus) 30 unit SUBCUT QPM [facility] [place] Last Admin: 06/23/19 22:52 Dose: 30 units Insulin Human Lispro (Humalog) 0 unit SUBCUT QIDACANDBED [facility]; Protocol Last Admin: 06/23/19 22:51 Dose: 2 units Metoprolol Succinate (Toprol Xl) 25 mg PO DAILY [facility] [place] Ondansetron HCl (Zofran) 4 mg IV Q4H PRN PRN Reason: Nausea/Vomiting Pantoprazole Sodium (Protonix) 40 mg PO Q24H PRN PRN Reason: HEARTBURN Sertraline HCl (Zoloft) 150 mg PO BEDTIME [facility] [place] Last Admin: 06/23/19 22:54 Dose: 150 mg Sodium Chloride (Saline Flush) 10 ml FLUSH ASDIRECTED PRN PRN Reason: Keep Vein Open Last Admin: 06/23/19 17:28 Dose: 10 ml Discontinued Medications Hydromorphone HCl (Dilaudid) 0.5 mg IM ONETIME ONE Stop: 06/23/19 16:38 Last Admin: 06/23/19 17:10 Dose: Not Given Hydromorphone HCl (Dilaudid) 0.5 mg IVPUSH ONETIME ONE Stop: 06/23/19 17:10 Last Admin: 06/23/19 17:17 Dose: 0.5 mg Hydromorphone HCl (Dilaudid) 0.5 mg IVPUSH ONETIME ONE Stop: 06/23/19 19:46 Last Admin: 06/23/19 20:00 Dose: 0.5 mg Sodium Chloride (Normal Saline) 1,000 mls @ 999 mls/hr IV ONETIME ONE Stop: 06/23/19 17:43 Last Admin: 06/23/19 17:22 Dose: 999 mls/hr Magnesium Sulfate/Dextrose 1 (gm/ Premix) 100 mls @ 100 mls/hr IV Q1H NAVJOT Stop: 06/23/19 21:14 Last Admin: 06/23/19 22:55 Dose: 100 mls/hr Sodium Chloride (Normal Saline) 1,000 mls @ 250 mls/hr IV ONETIME ONE Stop: 06/23/19 21:06 Last Admin: 06/23/19 18:31 Dose: 250 mls/hr - Exam General: Reports: Alert, Oriented HEENT: Reports: Pupils Equal, Pupils Reactive, EOMI, Mucous Membr. Moist/[place] Neck: Reports: Supple Lungs: Reports: Clear to Auscultation, Normal Respiratory Effort Cardiovascular: Reports: Regular Rate, Regular Rhythm GI/Abdominal Exam: Normal Bowel Sounds, Soft, Non-Tender, No Organomegaly, No Distention, No Abnormal Bruit, No Mass Extremities: Normal Inspection, Normal Range of Motion, Non-Tender, No Pedal Edema, Normal Capillary Refill Psy/Mental Status: Reports: Alert, Normal Affect, Normal Mood
[2019-06-24] MEDS: guaiFENesin 600 MG Tab.ER PO SCH (08:14)
[2019-06-24 08:15] VITALS: BP 111/87; PULSE 79
[2019-06-24] MEDS: Insulin Lispro 100 Units/ML 3 ML Vial SUBCUT SCH (08:15)
--- NOTE | 2019-06-24 08:24 | CR ---
Chest: Portable view of the chest was obtained. Comparison: Prior chest x-ray of 05/11/19. Heart size and mediastinum are within normal limits. Lungs are clear with no acute parenchymal change. Very slight atelectasis is incidentally noted within the mid to lower left lung. Bony structures are grossly intact. Surgical clips are noted from prior cholecystectomy. Impression: 1. Findings which are felt to be incidental. 2. Nothing acute is appreciated. Diagnostic code #2
--- NOTE | 2019-06-24 08:24 | CR ---
Abdomen: Supine view of the abdomen was obtained. Comparison: Prior CT abdomen and pelvis exam of 04/19/19 and prior abdominal x-ray of 04/28/18. Surgical clips are seen from prior cholecystectomy. Bowel gas pattern is normal. No abnormal calcifications or soft tissue abnormality is seen. Bony structures are unremarkable. Impression: 1. Nothing acute is seen on supine abdominal x-ray. Diagnostic code #2
[2019-06-24] MEDS ORDERED: Enoxaparin 40 MG/0.4 ML Syringe SUBCUT SCH (09:00)
[2019-06-24] MEDS ORDERED: Ezetimibe 10 MG Tab PO SCH (09:00)
[2019-06-24] MEDS ORDERED: Metoprolol Succinate 25 MG Tab.ER PO SCH (09:00)
[2019-06-24] MEDS ORDERED: Insulin Glarg,Human.Rec.Analog 100 UNIT/ML ML SUBCUT SCH (21:00)
== END 2019-06-24 10:55 | disposition home or self-care (01) | DRG 641 ==
LOC: JD.ED 15:21 → JD.MS 18:39
PROVIDERS: ADMIT Family Medicine; ATTEND Family Medicine
DX: E87.1 Hypo-osmolality and hyponatremia (principal); J98.8 Other specified respiratory disorders; R07.89 Other chest pain; R11.0 Nausea; R10.11 Right upper quadrant pain; I10 Essential (primary) hypertension; E11.9 Type 2 diabetes mellitus without complications; G89.29 Other chronic pain; K21.9 Gastro-esophageal reflux disease without esophagitis; M54.9 Dorsalgia, unspecified; F31.9 Bipolar disorder, unspecified; F41.9 Anxiety disorder, unspecified; F20.9 Schizophrenia, unspecified; Z79.84 Long term (current) use of oral hypoglycemic drugs; E66.9 Obesity, unspecified; R63.1 Polydipsia; F17.200 Nicotine dependence, unspecified, uncomplicated; E83.42 Hypomagnesemia; E78.00 Pure hypercholesterolemia, unspecified; D50.9 Iron deficiency anemia, unspecified; Z90.49 Acquired absence of other specified parts of digestive tract; Z88.5 Allergy status to narcotic agent; Z79.4 Long term (current) use of insulin; Z79.899 Other long term (current) drug therapy; Z68.30 Body mass index [BMI] 30.0-30.9, adult
CPT/HCPCS: 36415; 71045; 74018; 80053; 83735; 83880; 83930; 84484; 85007; 85027; 85610; 85730; 93005; 96365; 96375; 99285; J1170; J3475 ×2; J7040 ×2; 80048; 82962; 83935; 84300; 85025; 93010; A9270-GY; J1650; J1815-GY

== ENCOUNTER 2019-07-19 14:41 | Emergency (ER) | payer MEDICARE, MEDICAID ==
[2019-07-19 14:59] VITALS: BP 145/67; PULSE 62
--- NOTE | 2019-07-19 15:07 | EDM.PDOC ---
ED HPI GENERAL MEDICAL PROBLEM - General Chief Complaint: General Stated Complaint: COUGH Time Seen by Provider: 07/19/19 15:01 Source of Information: Reports: Patient History Limitations: Reports: No Limitations - History of Present Illness INITIAL COMMENTS - FREE TEXT/NARRATIVE: 54-year-old male [place] descent presents to the ED with a paroxysmal productive productive cough for the last 3-4 days. Denies any hemoptysis. States sputum is dark green in color. It's one of his sons is sick at home. He had fever chills last evening and diaphoresis. Of note he is a type II diabetic controlled with oral meds. He is a nonsmoker. His upper chest hurts quite badly to cough and even to swallow a bit. Throat is also raw and sore from coughing. Paroxysmal cough to the point of near syncope last night and again this morning. Onset: Gradual Onset Date: 07/16/19 Duration: Day(s):, Getting Worse Location: Reports: Chest Quality: Reports: Ache, Burning (Upper anterior chest worse with coughing), Other Severity: Moderate (Paroxysmal productive cough) Improves with: Reports: Rest Worsens with: Reports: Other Context: Reports: Sick Contact. Denies: Activity (Air outside.), Exercise, Lifting, Trauma, Other (Son.) Associated Symptoms: Reports: Chest Pain, Cough, cough w sputum, Diaphoresis, Fever/Chills, Loss of Appetite, Malaise, Shortness of Breath, Weakness. 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 Generalized Pain Score (Numeric/FACES): 2 - Related Data Allergies Allergy/AdvReac Type Severity Reaction Status Date / Time ketorolac tromethamine AdvReac Anxiety Verified 07/19/19 15:00 [From Toradol] methylphenidate HCl AdvReac Anxiety Verified 07/19/19 15:00 [From Ritalin] metoclopramide HCl AdvReac Anxiety Verified 07/19/19 15:00 [From Reglan] Home Meds: Home Meds Insulin Detemir [Levemir] 40 unit SUBCUT QPM 07/28/14 [History] metFORMIN [Glucophage] 2,000 mg PO BID 11/19/14 [History] Metoprolol Succinate [Toprol XL] 25 mg PO DAILY 08/18/14 [History] Sertraline [Zoloft] 150 mg PO BEDTIME 05/25/15 [History] Ezetimibe [Zetia] 10 mg PO DAILY 04/18/17 [History] ClonazePAM [KlonoPIN] 0.5 mg PO ASDIRECTED PRN 07/08/18 [History] Lansoprazole [Prevacid] 30 mg PO Q24H PRN 06/23/19 [History] Doxycycline [Vibramycin] 100 mg PO BID #20 cap 07/19/19 [Rx] Hydrocodone/Chlorphen P-Stirex [Hydrocodone-Chlorphen ER Susp] 5 ml PO DAILY PRN #50 ml 07/19/19 [Rx] Past Medical History HEENT History: Reports: Impaired Vision Other HEENT History: wears eyeglasses Cardiovascular History: Reports: High Cholesterol, Hypertension Gastrointestinal History: Reports: GERD Other Gastrointestinal History: "liver issues" Musculoskeletal History: Reports: Back Pain, Chronic, Other (See Below) Other Musculoskeletal History: knee pain and shoulder pain, Psychiatric History: Reports: Anxiety, Bipolar, Depression, Schizophrenia Endocrine/Metabolic History: Reports: Diabetes, Type II, Obesity/BMI 30+ Hematologic History: Reports: Anemia, Iron Deficiency - Infectious Disease History Infectious Disease History: Reports: Chicken Pox, Measles, Other (See Below) Other Infectious Disease History: questionable hepatitis C - Past Surgical History GI Surgical History: Reports: Cholecystectomy Musculoskeletal Surgical History: Reports: Shoulder Surgery Social & Family History - Family History Family Medical History: Noncontributory - Caffeine Use Caffeine Use: Reports: None Other Caffeine Use: 2-3 pop daily - Living Situation & Occupation Living situation: Reports: Single, Other (with his landlord) Occupation: Disabled ED [employer] [facility] - Review of Systems Review Of Systems: See Below Constitutional: Reports: Chills, Malaise, Weakness, Fatigue, Decreased Appetite HEENT: Reports: Throat Pain (From coughing.) Respiratory: Reports: Shortness of Breath, Wheezing, Cough, Sputum. Denies: Pleuritic Chest Pain, Hemoptysis (Green in color) Cardiovascular: Reports: Chest Pain (Upper anterior chest pain related to coughing.), Blood Pressure Problem, Dyspnea on Exertion, Lightheadedness. Denies: Claudication, Edema (Near cough syncope 2 today.), Orthopnea Endocrine: Reports: Fatigue GI/Abdominal: Reports: Decreased Appetite : Reports: No Symptoms Musculoskeletal: Reports: No Symptoms Skin: Reports: No Symptoms Neurological: Reports: No Symptoms Psychiatric: Reports: No Symptoms ED EXAM, GENERAL - Physical Exam Exam: See Below Exam Limited By: No Limitations General Appearance: Alert, WD/WN, No Apparent Distress, Other (Temperatures 36.7. Heart rate is 62 and sinus. Respiratory rate is 19 with O2 sats 100% on room air. BP mildly elevated 1 4567.) Eye Exam: Bilateral Eye: Normal Inspection Ears: Normal TMs Throat/Mouth: Normal Inspection, Normal Lips, Normal Oropharynx Head: Atraumatic, Normocephalic Neck: Normal Inspection, Supple, Non-Tender, Full Range of Motion. No: Lymphadenopathy (L), Lymphadenopathy (R) Respiratory/Chest: No Respiratory Distress, No Accessory Muscle Use, Chest Non- Tender, Rhonchi (Rhonchi upper anterior chest.), Wheezing Cardiovascular: Normal Peripheral Pulses, Regular Rate, Rhythm, No Edema, No Gallop, No Murmur, No Rub Peripheral Pulses: 2+: Posterior Tibial (L), Posterior Tibial (R), Dorsalis Pedis (L), Dorsalis Pedis (R) GI/Abdominal: Normal Bowel Sounds, Soft, Non-Tender, No Organomegaly, No Mass, Pelvis Stable, Rebound Extremities: Normal Inspection, Normal Range of Motion, Non-Tender Neurological: Alert, Oriented, CN II-XII Intact, Normal Cognition Psychiatric: Normal Mood, Anxious Skin Exam: Warm, Dry, Intact, Normal Color, No Rash Course - Vital Signs Last Recorded V/S: Last Vital Signs Temp 36.7 C 07/19/19 14:56 Pulse 62 07/19/19 14:56 Resp 19 07/19/19 14:56 BP 145/67 H 07/19/19 14:56 Pulse Ox 100 07/19/19 14:56 - Radiology Interpretation Free Text/Narrative:: 54-year-old male presents to the ED with severe paroxysmal cough for 3-4 days. Sputum is dark green in color. Associated diaphoresis and near cough syncope 2 so far today. Of note he is a type II diabetic controlled with diet and oral medications. Exam reveals occasional wheezing from both lower lung bases. Harsh paroxysmal cough. Plan 1 view chest x-ray will be performed. - Re-Assessments/Exams Free Text/Narrative Re-Assessment/Exam: 07/19/19 15:30 portable chest x-ray reveals no evidence of pneumonia. Does have some mild chronic scarring right upper lobe which was present on previous films. Headache silhouette is otherwise normal. No signs of congestive failure. Patient be treated with doxycycline 100 mg twice daily for the next 10 days to clear up bronchitis. Will receive Pentuss cough syrup 5 mils about an hour before bed to help with his severe paroxysmal cough. Departure - Departure Time of Disposition: 15:33 Disposition: Home, Self-Care 01 Condition: Fair Clinical Impression: Acute bronchitis Qualifiers: Bronchitis organism: other organism Qualified Code(s): J20.8 - Acute bronchitis due to other specified organisms - Discharge Information *PRESCRIPTION DRUG MONITORING PROGRAM REVIEWED*: No *COPY OF PRESCRIPTION DRUG MONITORING REPORT IN PATIENT HIMA: No Prescriptions: Doxycycline [Vibramycin] 100 mg PO BID #20 cap Hydrocodone/Chlorphen P-Stirex [Hydrocodone-Chlorphen ER Susp] 5 ml PO DAILY PRN #50 ml PRN Reason: cough relief Instructions: Acute Bronchitis, Adult, [id number] Referrals: Jesu Beckford MD [Primary Care Provider] - Forms: ED Department Discharge Additional Instructions: Evaluation the emergency room today in regards to severe paroxysmal cough to the point of near syncope or passing out from coughing so hard. Reported sputum to be greenish in color. Chest x-ray does not reveal any signs of pneumonia at this time. Therefore diagnosis is infection of the bronchial tubes call bronchitis. This leads to pneumonia not treated. He is to be antibiotic DrHenri second 100 mg twice daily with food for the next 10 days. Syrup is to be taken about an hour before planning to go to bed. 5 mils once daily at bedtime to help suppress cough overnight to aid sleep. Expect gradual improvement over the next 3 days.
--- NOTE | 2019-07-19 16:00 | CR ---
Chest: Portable view of the chest was obtained. Comparison: Prior chest x-ray of 06/23/19. Slight increasing perihilar change is seen which is felt compatible with bronchitis. Lungs otherwise are clear. No alveolar type densities are seen. Heart size and mediastinum are normal. Bony structures are grossly intact. Impression: 1. Slight increasing interstitial change which is felt compatible with mild bronchitis. 2. No pneumonia or other abnormality is appreciated. Diagnostic code #3
== END 2019-07-19 15:43 | disposition home or self-care (01) ==
LOC: JD.ED 14:41
DX: J20.8 Acute bronchitis due to other specified organisms (principal); I10 Essential (primary) hypertension; E78.00 Pure hypercholesterolemia, unspecified; F31.9 Bipolar disorder, unspecified; F41.9 Anxiety disorder, unspecified; E11.9 Type 2 diabetes mellitus without complications; E66.9 Obesity, unspecified; Z68.30 Body mass index [BMI] 30.0-30.9, adult; Z79.4 Long term (current) use of insulin; Z79.899 Other long term (current) drug therapy; Z88.6 Allergy status to analgesic agent; Z88.8 Allergy status to other drugs, medicaments and biological substances
CPT/HCPCS: 71045; 71045-26; 99283; 99284-25

== ENCOUNTER 2019-07-20 11:03 | Emergency (ER) | payer MEDICARE, MEDICAID ==
[2019-07-20 11:18] VITALS: BP 162/97; PULSE 55
[2019-07-20] MEDS ORDERED: Azithromycin 250 MG Tab PO ONE (11:56)
[2019-07-20] MEDS ORDERED: Albuterol 6.7 GM Inhaler INH ONE (11:57)
[2019-07-20] MEDS ORDERED: Codeine/Promethazine 10-6.25 MG/5 ML Syrup 5 ML UD Cup PO ONE (11:58)
--- NOTE | 2019-07-20 12:05 | EDM.PDOC ---
ED HPI GENERAL MEDICAL PROBLEM - General Chief Complaint: Respiratory Problem Stated Complaint: SOB,COUGH,SORE THROAT Time Seen by Provider: 07/20/19 11:16 Source of Information: Reports: Patient History Limitations: Reports: No Limitations - History of Present Illness INITIAL COMMENTS - FREE TEXT/NARRATIVE: The patient presents with a cough, congestion, runny nose, fever, chills and shortness of breath. He also has some chest pain with deep breathing. He was seen here yesterday and diagnosed with bronchitis. He was given a prescription for doxycycline and something for cough medicine. Onset: Gradual Duration: Day(s): Location: Reports: Chest Quality: Reports: Sharp Severity: Moderate Improves with: Reports: Immobilization Worsens with: Reports: Breathing Associated Symptoms: Reports: No Other Symptoms Chest Pain Score (Numeric/FACES): 10 - Related Data Allergies Allergy/AdvReac Type Severity Reaction Status Date / Time ketorolac tromethamine AdvReac Anxiety Verified 07/20/19 11:18 [From Toradol] methylphenidate HCl AdvReac Anxiety Verified 07/20/19 11:18 [From Ritalin] metoclopramide HCl AdvReac Anxiety Verified 07/20/19 11:18 [From Reglan] Home Meds: Home Meds Insulin Detemir [Levemir] 40 unit SUBCUT QPM 07/28/14 [History] metFORMIN [Glucophage] 2,000 mg PO BID 07/28/14 [History] Metoprolol Succinate [Toprol XL] 25 mg PO DAILY 08/18/14 [History] Sertraline [Zoloft] 150 mg PO BEDTIME 05/25/15 [History] Ezetimibe [Zetia] 10 mg PO DAILY 04/18/17 [History] ClonazePAM [KlonoPIN] 0.5 mg PO ASDIRECTED PRN 07/08/18 [History] Lansoprazole [Prevacid] 30 mg PO Q24H PRN 06/23/19 [History] Azithromycin [Zithromax] 250 mg PO DAILY #4 tab 07/20/19 [Rx] Codeine/Promethazine [Phenergan with Codeine] 5 - 10 ml PO Q6HR PRN #300 ml 07/28 [Rx] Past Medical History HEENT History: Reports: Impaired Vision Other HEENT History: wears eyeglasses Cardiovascular History: Reports: High Cholesterol, Hypertension Gastrointestinal History: Reports: GERD Other Gastrointestinal History: "liver issues" Musculoskeletal History: Reports: Back Pain, Chronic, Other (See Below) Other Musculoskeletal History: knee pain and shoulder pain, Psychiatric History: Reports: Anxiety, Bipolar, Depression, Schizophrenia Endocrine/Metabolic History: Reports: Diabetes, Type II, Obesity/BMI 30+ Hematologic History: Reports: Anemia, Iron Deficiency - Infectious Disease History Infectious Disease History: Reports: Chicken Pox, Measles, Other (See Below) Other Infectious Disease History: questionable hepatitis C - Past Surgical History GI Surgical History: Reports: Cholecystectomy Musculoskeletal Surgical History: Reports: Shoulder Surgery Social & Family History - Family History Family Medical History: Noncontributory - Tobacco Use Smoking Status *Q: Current Every Day Smoker Years of Tobacco use: 25 Packs/Tins Daily: 0.1 - Caffeine Use Caffeine Use: Reports: None Other Caffeine Use: 2-3 pop daily - Living Situation & Occupation Living situation: Reports: Single, Other (with his landlord) Occupation: Disabled ED ROS GENERAL - Review of Systems Review Of Systems: See Below Constitutional: Reports: No Symptoms HEENT: Reports: No Symptoms Respiratory: Reports: Cough. Denies: Shortness of Breath Cardiovascular: Reports: Chest Pain Endocrine: Reports: No Symptoms GI/Abdominal: Reports: No Symptoms : Reports: No Symptoms Musculoskeletal: Reports: No Symptoms ED EXAM, GENERAL - Physical Exam Exam: See Below Exam Limited By: No Limitations General Appearance: Alert, No Apparent Distress Ears: Normal External Exam Nose: Normal Inspection Head: Atraumatic, Normocephalic Neck: Normal Inspection Respiratory/Chest: No Respiratory Distress, Lungs Clear, Normal Breath Sounds Cardiovascular: Regular Rate, Rhythm, No Edema, No Murmur GI/Abdominal: Soft, Non-Tender, No Organomegaly, No Mass Back Exam: Normal Inspection Extremities: Normal Inspection Neurological: Alert, Oriented, No Motor/Sensory Deficits Course - Vital Signs Last Recorded V/S: Last Vital Signs Temp 98.4 F 07/20/19 11:14 Pulse 55 L 07/20/19 11:14 Resp 16 07/20/19 11:14 BP 162/97 H 07/20/19 11:14 Pulse Ox 100 07/20/19 11:14 - Orders/Labs/Meds Orders: Active Orders 24 hr Category Date Time Status RT Post Treatment Assessment [RC] Click to Edit Care 07/20/19 11:58 Ordered RT Pre-Treatment Assessment [RC] Click to Edit Care 07/20/19 11:58 Ordered Albuterol [Proventil HFA] Med 07/20/19 11:57 Once See Dose Instructions INH ONETIME ONE Azithromycin [Zithromax] Med 07/20/19 11:56 Once 500 mg PO ONETIME ONE Codeine/Promethazine [Phenergan with Codeine] Med 07/20/19 11:58 Once 10 ml PO ONETIME ONE - Re-Assessments/Exams Free Text/Narrative Re-Assessment/Exam: 07/20/19 12:02 I ordered azithromycin, albuterol and phenergan with codeine. Departure - Departure Time of Disposition: 12:05 Disposition: Home, Self-Care 01 Condition: Good Clinical Impression: Acute bronchitis Qualifiers: Bronchitis organism: other organism Qualified Code(s): J20.8 - Acute bronchitis due to other specified organisms - Discharge Information *PRESCRIPTION DRUG MONITORING PROGRAM REVIEWED*: No *COPY OF PRESCRIPTION DRUG MONITORING REPORT IN PATIENT HIMA: No Prescriptions: Codeine/Promethazine [Phenergan with Codeine] 5 - 10 ml PO Q6HR PRN #300 ml PRN Reason: Cough Azithromycin [Zithromax] 250 mg PO DAILY #4 tab Referrals: Jesu Beckford MD [Primary Care Provider] - 1 Week Additional Instructions: Take the zithromax daily starting tomorrow. Use the inhaler 2 puffs every 6 hours as needed for shortness of breath. Take the phenergan with codeine every 6 hours as needed for cough. Please return if you are worse. - My Orders Last 24 Hours: My Active Orders 07/20/19 11:56 Azithromycin [Zithromax] 500 mg PO ONETIME ONE 07/20/19 11:57 Albuterol [Proventil HFA] See Dose Instructions INH ONETIME ONE 07/20/19 11:58 RT Post Treatment Assessment [RC] Click to Edit RT Pre-Treatment Assessment [RC] Click to Edit Codeine/Promethazine [Phenergan with Codeine] 10 ml PO ONETIME ONE - Assessment/Plan Last 24 Hours: My Active Orders 07/20/19 11:56 Azithromycin [Zithromax] 500 mg PO ONETIME ONE 07/20/19 11:57 Albuterol [Proventil HFA] See Dose Instructions INH ONETIME ONE 07/20/19 11:58 RT Post Treatment Assessment [RC] Click to Edit RT Pre-Treatment Assessment [RC] Click to Edit Codeine/Promethazine [Phenergan with Codeine] 10 ml PO ONETIME ONE
== END 2019-07-20 12:20 | disposition home or self-care (01) ==
LOC: JD.ED 11:03
DX: J20.8 Acute bronchitis due to other specified organisms (principal); I10 Essential (primary) hypertension; E11.9 Type 2 diabetes mellitus without complications; E66.9 Obesity, unspecified; E78.00 Pure hypercholesterolemia, unspecified; F41.9 Anxiety disorder, unspecified; F32.9 Major depressive disorder, single episode, unspecified; F17.210 Nicotine dependence, cigarettes, uncomplicated; Z68.30 Body mass index [BMI] 30.0-30.9, adult; Z88.8 Allergy status to other drugs, medicaments and biological substances; Z79.4 Long term (current) use of insulin; Z79.899 Other long term (current) drug therapy
CPT/HCPCS: 94640; 99283; A9270; 99282

== ENCOUNTER 2019-09-21 12:07 | Emergency (ER) | payer MEDICARE, MEDICAID ==
[2019-09-21 12:41] VITALS: BP 120/88; PULSE 59
--- NOTE | 2019-09-21 13:04 | EDM.PDOC ---
ED HPI GENERAL MEDICAL PROBLEM - General Chief Complaint: Lower Extremity Injury/Pain Stated Complaint: FALL,SLIPPED ON ICE Time Seen by Provider: 09/21/19 12:57 Source of Information: Reports: Patient History Limitations: Reports: No Limitations - History of Present Illness INITIAL COMMENTS - FREE TEXT/NARRATIVE: Patient is a 54-year-old male who presents with complaints of right hip pain after slipping on the ice approximately 3 hours prior to arrival. He states that he was taking out the garbage and slipped on ice landing directly on his right hip. He did not hit his head. No history of surgery or prosthetics to that hip. He has been able to bear weight since the injury, however he states it is painful. Right Hip Pain Score (Numeric/FACES): 9 - Related Data Allergies Allergy/AdvReac Type Severity Reaction Status Date / Time ketorolac tromethamine AdvReac Anxiety Verified 09/21/19 12:41 [From Toradol] methylphenidate HCl AdvReac Anxiety Verified 09/21/19 12:41 [From Ritalin] metoclopramide HCl AdvReac Anxiety Verified 09/21/19 12:41 [From Reglan] Home Meds: Home Meds Insulin Detemir [Levemir] 40 unit SUBCUT QPM 07/28/14 [History] metFORMIN [Glucophage] 2,000 mg PO BID 07/28/14 [History] Metoprolol Succinate [Toprol XL] 25 mg PO DAILY 08/18/14 [History] Sertraline [Zoloft] 150 mg PO BEDTIME 05/25/15 [History] Ezetimibe [Zetia] 10 mg PO DAILY 04/18/17 [History] ClonazePAM [KlonoPIN] 0.5 mg PO ASDIRECTED PRN 07/08/18 [History] Past Medical History HEENT History: Reports: Impaired Vision Other HEENT History: wears eyeglasses Cardiovascular History: Reports: High Cholesterol, Hypertension Respiratory History: Reports: Bronchitis, Recurrent Gastrointestinal History: Reports: GERD Other Gastrointestinal History: "liver issues" Musculoskeletal History: Reports: Back Pain, Chronic, Other (See Below) Other Musculoskeletal History: knee pain and shoulder pain, Psychiatric History: Reports: Anxiety, Bipolar, Depression, Schizophrenia Endocrine/Metabolic History: Reports: Diabetes, Type II, Obesity/BMI 30+ Hematologic History: Reports: Anemia, Iron Deficiency - Infectious Disease History Infectious Disease History: Reports: Chicken Pox, Measles, Other (See Below) Other Infectious Disease History: questionable hepatitis C - Past Surgical History GI Surgical History: Reports: Cholecystectomy Musculoskeletal Surgical History: Reports: Shoulder Surgery Social & Family History - Family History Family Medical History: Noncontributory - Tobacco Use Smoking Status *Q: Current Every Day Smoker Years of Tobacco use: 28 Packs/Tins Daily: 0.5 - Caffeine Use Caffeine Use: Reports: Tea Other Caffeine Use: 2-3 pop daily - Living Situation & Occupation Living situation: Reports: Single, Other (with his landlord) Occupation: Disabled Review of Systems - Review of Systems Review Of Systems: Comprehensive ROS is negative, except as noted in HPI. ED EXAM, GENERAL - Physical Exam Exam: See Below Exam Limited By: No Limitations General Appearance: Alert, WD/WN, No Apparent Distress Respiratory/Chest: No Respiratory Distress, Lungs Clear, Normal Breath Sounds, No Accessory Muscle Use, Chest Non-Tender Cardiovascular: Normal Peripheral Pulses, Regular Rate, Rhythm, No Edema, No Murmur Extremities: Normal Inspection, Other (tenderness to palpation over the greater trochanter of the right femur. No obvious deformity, ecchymosis, or swelling. Patient is able to stand and ambulate without difficulty.) Psychiatric: Normal Affect, Normal Mood Skin Exam: Warm, Dry, Intact, Normal Color, No Rash Lymphatic: No Adenopathy Course - Vital Signs Last Recorded V/S: Last Vital Signs Temp 97.5 F 09/21/19 12:38 Pulse 59 L 09/21/19 12:38 Resp 18 09/21/19 12:38 BP 120/88 09/21/19 12:38 Pulse Ox 100 09/21/19 12:38 - Orders/Labs/Meds Meds: Medications Discontinued Medications Generic Name Dose Route Start Last Admin Trade Name Freq PRN Reason Stop Dose Admin Acetaminophen 975 mg 09/21/19 13:36 09/21/19 13:46 Tylenol PO 09/21/19 13:37 975 mg NOW ONE Administration - Re-Assessments/Exams Free Text/Narrative Re-Assessment/Exam: 09/21/19 13:36 x-rays of the right hip are negative for any fracture. Discharge instructions as noted. Departure - Departure Time of Disposition: 13:36 Disposition: Home, Self-Care 01 Condition: Fair Clinical Impression: Contusion of hip - Discharge Information *PRESCRIPTION DRUG MONITORING PROGRAM REVIEWED*: No *COPY OF PRESCRIPTION DRUG MONITORING REPORT IN PATIENT HIMA: No Instructions: Contusion, [id number] Referrals: Melissa Uriostegui PA-C [Primary Care Provider] - Forms: ED Department Discharge Additional Instructions: You were seen in the emergency department today for right hip pain after slipping and falling on the ice. There is no fracture to the area of injury. You have a contusion (bruise) of the right hip. Recommend applying ice for 20 minutes every couple hours for the next couple days. You may use over-the- counter Tylenol as needed for any pain. If you experience any new or worsening symptoms, please do not hesitate to return to the emergency department. Sepsis Event Note - Evaluation Sepsis Screening Result: No Definite Risk - Focused Exam Vital Signs: Vital Signs Temp Pulse Resp BP Pulse Ox 09/21/19 12:38 97.5 F 59 L 18 120/88 100 Date Exam was Performed: 09/21/19 Time Exam was Performed: 18:43
[2019-09-21] MEDS ORDERED: Acetaminophen 325 MG Tab PO ONE (13:36)
--- NOTE | 2019-09-21 15:03 | CR ---
Pelvis and right hip: AP view of the pelvis was obtained as well as AP and frog-leg lateral views of the right hip. Comparison: No prior pelvis or hip study is available. Joint spaces within both hips are maintained. Sacroiliac joints are slightly narrowed on the right side. No acute fracture or other abnormality is seen. Impression: 1. Slight joint space narrowing within the right sacroiliac joint. 2. Nothing acute is appreciated on AP pelvis or on two-view right hip exam. Diagnostic code #2 This report was dictated in [place] Standard Time
== END 2019-09-21 13:46 | disposition home or self-care (01) ==
LOC: JD.ED 12:07
DX: S70.01XA Contusion of right hip, initial encounter (principal); I10 Essential (primary) hypertension; E11.9 Type 2 diabetes mellitus without complications; F41.9 Anxiety disorder, unspecified; F32.9 Major depressive disorder, single episode, unspecified; E66.9 Obesity, unspecified; Z68.30 Body mass index [BMI] 30.0-30.9, adult; F17.210 Nicotine dependence, cigarettes, uncomplicated; Z88.8 Allergy status to other drugs, medicaments and biological substances; Z79.4 Long term (current) use of insulin; Z79.899 Other long term (current) drug therapy; W00.0XXA Fall on same level due to ice and snow, initial encounter
CPT/HCPCS: 73502; 99283; A9270; 99282

== ENCOUNTER 2019-09-26 17:22 | Emergency (ER) | payer MEDICARE, MEDICAID ==
[2019-09-26 17:52] VITALS: BP 152/92; PULSE 71
--- NOTE | 2019-09-26 17:58 | EDM.PDOC ---
ED HPI GENERAL MEDICAL PROBLEM - General Chief Complaint: Back Pain or Injury Stated Complaint: R HIP PAIN Time Seen by Provider: 09/26/19 17:48 Source of Information: Reports: Patient History Limitations: Reports: No Limitations - History of Present Illness INITIAL COMMENTS - FREE TEXT/NARRATIVE: Patient's unfortunate 54-year-old male who presents emergent department today with complaint of right hip pain. Patient reports he was in his normal state of health until 5 days ago when he was shoveling snow on a ramp and fell and reports that both his feet went out from under him any landed on his right hip. Patient reports she was seen here in the ER at that time had an x-ray of his hip which was "negative". Patient reports that since that times continued to have pain is right hip pain is worse with ambulation or palpation improves with rest does not alleviate. He reports she's been taking over-the- counter analgesics with no improvement and pains reports again to the emergency Department today for reevaluation Right Hip Pain Score (Numeric/FACES): 10 - Related Data Allergies Allergy/AdvReac Type Severity Reaction Status Date / Time ketorolac tromethamine AdvReac Anxiety Verified 09/21/19 12:41 [From Toradol] methylphenidate HCl AdvReac Anxiety Verified 09/21/19 12:41 [From Ritalin] metoclopramide HCl AdvReac Anxiety Verified 09/21/19 12:41 [From Reglan] Home Meds: Home Meds Insulin Detemir [Levemir] 40 unit SUBCUT QPM 07/28/14 [History] metFORMIN [Glucophage] 2,000 mg PO BID 07/28/14 [History] Metoprolol Succinate [Toprol XL] 25 mg PO DAILY 08/18/14 [History] Sertraline [Zoloft] 150 mg PO BEDTIME 05/25/15 [History] Ezetimibe [Zetia] 10 mg PO DAILY 04/18/17 [History] ClonazePAM [KlonoPIN] 0.5 mg PO ASDIRECTED PRN 07/08/18 [History] Chlorzoxazone [Parafon Forte Dsc] 500 mg PO Q12H PRN #12 tablet 09/26/19 [Rx] Past Medical History HEENT History: Reports: Impaired Vision Other HEENT History: wears eyeglasses Cardiovascular History: Reports: High Cholesterol, Hypertension Respiratory History: Reports: Bronchitis, Recurrent Gastrointestinal History: Reports: GERD Other Gastrointestinal History: "liver issues" Musculoskeletal History: Reports: Back Pain, Chronic, Other (See Below) Other Musculoskeletal History: knee pain and shoulder pain, Psychiatric History: Reports: Anxiety, Bipolar, Depression, Schizophrenia Endocrine/Metabolic History: Reports: Diabetes, Type II, Obesity/BMI 30+ Hematologic History: Reports: Anemia, Iron Deficiency - Infectious Disease History Infectious Disease History: Reports: Chicken Pox, Measles, Other (See Below) Other Infectious Disease History: questionable hepatitis C - Past Surgical History GI Surgical History: Reports: Cholecystectomy Musculoskeletal Surgical History: Reports: Shoulder Surgery Social & Family History - Family History Family Medical History: Noncontributory - Caffeine Use Caffeine Use: Reports: Tea Other Caffeine Use: 2-3 pop daily - Living Situation & Occupation Living situation: Reports: Single, Other (with his landlord) Occupation: Disabled Review of Systems - Review of Systems Review Of Systems: See Below Constitutional: Denies: Chills, Fever Musculoskeletal: Reports: Joint Pain ED EXAM, GENERAL - Physical Exam Exam: See Below Exam Limited By: No Limitations General Appearance: Alert, WD/WN, Mild Distress Neck: Normal Inspection, Supple, Non-Tender, Full Range of Motion Respiratory/Chest: No Respiratory Distress, Lungs Clear, Normal Breath Sounds, No Accessory Muscle Use, Chest Non-Tender Cardiovascular: Normal Peripheral Pulses, Regular Rate, Rhythm, No Edema, No Gallop, No JVD, No Murmur, No Rub GI/Abdominal: Normal Bowel Sounds, Soft, Non-Tender, No Organomegaly, No Distention, No Abnormal Bruit, No Mass Back Exam: Normal Inspection, Full Range of Motion, NT Extremities: Other (Patient was tenderness to right hip to palpation over the lateral aspect of the hip distal neurovascular is intact no evidence of swelling or ecchymosis) Neurological: Alert, Oriented Skin Exam: Warm, Dry, Intact Course - Vital Signs Last Recorded V/S: Last Vital Signs Temp 96.8 F 09/26/19 17:50 Pulse 71 09/26/19 17:50 Resp 20 09/26/19 17:50 BP 152/92 H 09/26/19 17:50 Pulse Ox 97 09/26/19 17:50 - Orders/Labs/Meds Orders: Active Orders 24 hr Category Date Time Status Hip wo Cont Rt [CT] Stat Exams 09/26/19 17:56 Taken Meds: Medications Discontinued Medications Generic Name Dose Route Start Last Admin Trade Name Rejiq PRN Reason Stop Dose Admin Methocarbamol 500 mg 09/26/19 19:11 Robaxin PO 09/26/19 19:12 ONETIME ONE - Re-Assessments/Exams Free Text/Narrative Re-Assessment/Exam: 09/26/19 19:20 The patient was offered analgesic medication and refused said analgesic medication Free Text/Narrative Re-Assessment/Exam: 09/26/19 19:22 The patient has a very disconcerting prescription monitoring program report alludes 62 total prescriptions from 8 different prescribers and 4 different pharmacies he has recently been given clonazepam and has multiple history of oxycodone and hydrocodone in the past Free Text/Narrative Re-Assessment/Exam: 09/26/19 19:27 CT report shows no acute process with the right hip. Discharge patient to home Departure - Departure Time of Disposition: 19:28 Disposition: Home, Self-Care 01 Clinical Impression: Contusion Qualifiers: Encounter type: subsequent encounter Contusion area: hip Laterality: right Qualified Code(s): S70.01XD - Contusion of right hip, subsequent encounter - Discharge Information Prescriptions: Chlorzoxazone [Parafon Forte Dsc] 500 mg PO Q12H PRN #12 tablet PRN Reason: Pain Referrals: Melissa Uriostegui PA-C [Primary Care Provider] - Forms: ED Department Discharge Additional Instructions: Home, rest, ice 20 minutes at a time 3-4 times daily, return as needed for worsening condition Sepsis Event Note - Evaluation Sepsis Screening Result: No Definite Risk - Focused Exam Vital Signs: Vital Signs Temp Pulse Resp BP Pulse Ox 09/26/19 17:50 96.8 F 71 20 152/92 H 97 Date Exam was Performed: 09/26/19 Time Exam was Performed: 19:28 - My Orders Last 24 Hours: My Active Orders 09/26/19 17:56 Hip wo Cont Rt [CT] Stat - Assessment/Plan Last 24 Hours: My Active Orders 09/26/19 17:56 Hip wo Cont Rt [CT] Stat
[2019-09-26] MEDS ORDERED: Methocarbamol 500 MG Tab PO ONE (19:11)
--- NOTE | 2019-09-28 09:58 | CT ---
CT right hip Technique: Multiple axial sections through the right hip were obtained. Reconstructed coronal and sagittal images were obtained. Findings: No fracture is seen within the acetabulum or within the right hip. No adjacent muscle abnormality is appreciated on this noncontrast study. Impression: 1. Nothing acute is seen on CT study of the right hip. Diagnostic code #1 This report was dictated in [place] Standard Time MTDD
== END 2019-09-26 19:36 | disposition home or self-care (01) ==
LOC: JD.ED 17:22
DX: S70.01XD Contusion of right hip, subsequent encounter (principal); I10 Essential (primary) hypertension; F41.9 Anxiety disorder, unspecified; F32.9 Major depressive disorder, single episode, unspecified; E11.9 Type 2 diabetes mellitus without complications; E66.9 Obesity, unspecified; Z79.4 Long term (current) use of insulin; Z90.49 Acquired absence of other specified parts of digestive tract; Z79.899 Other long term (current) drug therapy; W00.0XXD Fall on same level due to ice and snow, subsequent encounter
CPT/HCPCS: 73700-26-RT; 73700-RT; 99283; 99283-25

== ENCOUNTER 2019-11-23 05:17 | Emergency (ER) | payer MEDICARE, MEDICAID ==
[2019-11-23 05:59] VITALS: BP 168/92; PULSE 92
[2019-11-23] MEDS ORDERED: HYDROmorphone 1 MG/ML Syringe IM ONE (07:02)
--- NOTE | 2019-11-23 07:07 | EDM.PDOC ---
ED HPI GENERAL MEDICAL PROBLEM - General Chief Complaint: Back Pain or Injury Stated Complaint: pain shooting in lower disk right leg giving out Time Seen by Provider: 11/23/19 06:53 Source of Information: Reports: Patient History Limitations: Reports: No Limitations - History of Present Illness INITIAL COMMENTS - FREE TEXT/NARRATIVE: The patient presents with low back pain. He fell 4 days ago. He has some numbness and weakness to the right leg. He is scheduled for an MRI today. He has no bowel or bladder problems. Onset: Sudden Duration: Day(s): (4) Location: Reports: Back (lower) Quality: Reports: Sharp Severity: Severe Improves with: Reports: Immobilization Worsens with: Reports: Movement Context: Reports: Trauma (fall) Associated Symptoms: Reports: No Other Symptoms Lower Back Pain Score (Numeric/FACES): 10 - Related Data Allergies Allergy/AdvReac Type Severity Reaction Status Date / Time ketorolac tromethamine AdvReac Anxiety Verified 11/23/19 05:58 [From Toradol] methylphenidate HCl AdvReac Anxiety Verified 11/23/19 05:58 [From Ritalin] metoclopramide HCl AdvReac Anxiety Verified 11/23/19 05:58 [From Reglan] Home Meds: Home Meds Insulin Detemir [Levemir] 40 unit SUBCUT QPM 07/28/14 [History] metFORMIN [Glucophage] 2,000 mg PO BID 07/28/14 [History] Metoprolol Succinate [Toprol XL] 25 mg PO DAILY 08/18/14 [History] Sertraline [Zoloft] 150 mg PO BEDTIME 05/25/15 [History] Ezetimibe [Zetia] 10 mg PO DAILY 04/18/17 [History] ClonazePAM [KlonoPIN] 0.5 mg PO ASDIRECTED PRN 07/08/18 [History] Chlorzoxazone [Parafon Forte Dsc] 500 mg PO Q12H PRN #12 tablet 09/26/19 [Rx] Hydrocodone/Acetaminophen [Hydrocodon-Acetaminophen 5-325] 1 - 2 each PO Q6HR PRN #15 tablet 11/23/19 [Rx] Past Medical History HEENT History: Reports: Impaired Vision Other HEENT History: wears eyeglasses Cardiovascular History: Reports: High Cholesterol, Hypertension Respiratory History: Reports: Bronchitis, Recurrent Gastrointestinal History: Reports: GERD Other Gastrointestinal History: "liver issues" Musculoskeletal History: Reports: Back Pain, Chronic, Other (See Below) Other Musculoskeletal History: knee pain and shoulder pain, Psychiatric History: Reports: Anxiety, Bipolar, Depression, Schizophrenia Endocrine/Metabolic History: Reports: Diabetes, Type II, Obesity/BMI 30+ Hematologic History: Reports: Anemia, Iron Deficiency - Infectious Disease History Infectious Disease History: Reports: Chicken Pox, Measles, Other (See Below) Other Infectious Disease History: questionable hepatitis C - Past Surgical History GI Surgical History: Reports: Cholecystectomy Musculoskeletal Surgical History: Reports: Shoulder Surgery Social & Family History - Family History Family Medical History: Noncontributory - Tobacco Use Smoking Status *Q: Unknown Ever Smoked - Caffeine Use Caffeine Use: Reports: Tea Other Caffeine Use: 2-3 pop daily - Living Situation & Occupation Living situation: Reports: Single, Other (with his landlord) Occupation: Disabled ED ROS GENERAL - Review of Systems Review Of Systems: See Below Constitutional: Reports: No Symptoms HEENT: Reports: No Symptoms Respiratory: Reports: No Symptoms Cardiovascular: Reports: No Symptoms Endocrine: Reports: No Symptoms GI/Abdominal: Reports: No Symptoms : Reports: No Symptoms Musculoskeletal: Reports: Back Pain (low) ED EXAM,LOWER BACK PAIN/INJURY - Physical Exam Exam: See Below Exam Limited By: No Limitations General Appearance: Alert, No Apparent Distress Ears: Normal External Exam Nose: Normal Inspection Head: Atraumatic, Normocephalic Neck: Normal Inspection Respiratory/Chest: No Respiratory Distress, Lungs Clear, Normal Breath Sounds Cardiovascular: Regular Rate, Rhythm, No Edema, No Murmur GI/Abdominal: Soft, Non-Tender, No Organomegaly, No Mass Back Exam: Other (Pain upon palpation to the lower lumbar spine) Extremities: Normal Inspection Neurological: Alert, No Motor/Sensory Deficits, Oriented x 3 Course - Vital Signs Last Recorded V/S: Last Vital Signs Temp 98.2 F 11/23/19 05:56 Pulse 92 11/23/19 05:56 Resp 16 11/23/19 05:56 BP 168/92 H 11/23/19 05:56 Pulse Ox 98 11/23/19 05:56 - Orders/Labs/Meds Orders: Active Orders 24 hr Category Date Time Status Lumbar Spine 2 or 3V [CR] Stat Exams 11/23/19 07:02 Taken Meds: Medications Discontinued Medications Generic Name Dose Route Start Last Admin Trade Name Andrew PRN Reason Stop Dose Admin Hydromorphone HCl 1 mg 11/23/19 07:02 11/23/19 07:32 Dilaudid IM 11/23/19 07:03 1 mg ONETIME ONE Administration - Re-Assessments/Exams Free Text/Narrative Re-Assessment/Exam: 11/23/19 07:06 I ordered an x-ray of his lumbar spine and dilaudid 1mkg IM. 11/23/19 07:35 His x-ray looks good. I will give him a few pain meds until his MRI is back. Departure - Departure Time of Disposition: 07:40 Disposition: Home, Self-Care 01 Condition: Good Clinical Impression: Fall Qualifiers: Encounter type: initial encounter Qualified Code(s): W19.XXXA - Unspecified fall, initial encounter Low back pain Qualifiers: Chronicity: chronic Back pain laterality: right Sciatica presence: with sciatica Sciatica laterality: sciatica of right side Qualified Code(s): M54.41 - Lumbago with sciatica, right side; G89.29 - Other chronic pain - Discharge Information *PRESCRIPTION DRUG MONITORING PROGRAM REVIEWED*: No *COPY OF PRESCRIPTION DRUG MONITORING REPORT IN PATIENT HIMA: No Prescriptions: Hydrocodone/Acetaminophen [Hydrocodon-Acetaminophen 5-325] 1 - 2 each PO Q6HR PRN #15 tablet PRN Reason: Pain Referrals: Melissa Uriostegui PA-C [Primary Care Provider] - 1 Week Forms: ED Department Discharge Additional Instructions: Take your medication as prescribed. Get your MRI done today and follow up with Trudy Uriostegui. Sepsis Event Note - Evaluation Sepsis Screening Result: No Definite Risk - Focused Exam Vital Signs: Vital Signs Temp Pulse Resp BP Pulse Ox 11/23/19 05:56 98.2 F 92 16 168/92 H 98 Date Exam was Performed: 11/23/19 Time Exam was Performed: 07:35 - My Orders Last 24 Hours: My Active Orders 11/23/19 07:02 Lumbar Spine 2 or 3V [CR] Stat - Assessment/Plan Last 24 Hours: My Active Orders 11/23/19 07:02 Lumbar Spine 2 or 3V [CR] Stat
--- NOTE | 2019-11-23 08:39 | CR ---
Lumbar spine: AP and lateral views of the lumbar spine were obtained. Comparison: Prior lumbar spine study of 04/18/17. Moderate disc space narrowing at L5-S1 is seen which has progressed from previous exam. Posterior disc space narrowing is noted throughout other levels of the lumbar spine. Vertebral body heights are maintained. Mild scattered anterior endplate osteophytes are seen. Pedicles are intact. Visualized transverse and spinous processes are intact. Sacroiliac joints appear within normal limits. Surgical clips are seen from prior cholecystectomy. Impression: 1. Degenerative change as noted above. 2. Disc space narrowing at L5-S1 has progressed from previous lumbar spine imaging. 3. Nothing acute is definitely appreciated on two-view lumbar spine study. Diagnostic code #2 This report was dictated in MDT
== END 2019-11-23 07:48 | disposition home or self-care (01) ==
LOC: JD.ED 05:17
DX: M54.41 Lumbago with sciatica, right side (principal); I10 Essential (primary) hypertension; E11.9 Type 2 diabetes mellitus without complications; E78.00 Pure hypercholesterolemia, unspecified; K21.9 Gastro-esophageal reflux disease without esophagitis; F41.9 Anxiety disorder, unspecified; F32.9 Major depressive disorder, single episode, unspecified; E66.9 Obesity, unspecified; Z90.49 Acquired absence of other specified parts of digestive tract; Z79.4 Long term (current) use of insulin; Z79.899 Other long term (current) drug therapy; Z88.8 Allergy status to other drugs, medicaments and biological substances; W19.XXXA Unspecified fall, initial encounter
CPT/HCPCS: 72100; 96372; 99283; J1170

== ENCOUNTER 2019-12-10 05:21 | Emergency (ER) | payer MEDICARE, MEDICAID ==
[2019-12-10 05:35] VITALS: BP 145/92; PULSE 61
[2019-12-10] MEDS ORDERED: HYDROmorphone 1 MG/ML Syringe IM ONE (05:48)
--- NOTE | 2019-12-10 05:50 | EDM.PDOC ---
ED HPI GENERAL MEDICAL PROBLEM - General Chief Complaint: Back Pain or Injury Stated Complaint: fell on ice Time Seen by Provider: 12/10/19 05:42 Source of Information: Reports: Patient History Limitations: Reports: No Limitations - History of Present Illness INITIAL COMMENTS - FREE TEXT/NARRATIVE: The patient presents with low back pain. This has been a chronic issue. He had an MRI and it looked good. He says he is following up with someone in 3 days. He has pain to the right lower back that shoots down his leg. He has no numbness, weakness, bowel or bladder problems. Onset: Gradual Duration: Week(s): Location: Reports: Back Quality: Reports: Sharp Severity: Severe Improves with: Reports: Immobilization Worsens with: Reports: Movement Associated Symptoms: Reports: No Other Symptoms - Related Data Allergies Allergy/AdvReac Type Severity Reaction Status Date / Time ketorolac tromethamine AdvReac Anxiety Verified 12/10/19 05:32 [From Toradol] methylphenidate HCl AdvReac Anxiety Verified 12/10/19 05:32 [From Ritalin] metoclopramide HCl AdvReac Anxiety Verified 12/10/19 05:32 [From Reglan] Home Meds: Home Meds Insulin Detemir [Levemir] 40 unit SUBCUT QPM 07/28/14 [History] metFORMIN [Glucophage] 2,000 mg PO BID 07/28/14 [History] Metoprolol Succinate [Toprol XL] 25 mg PO DAILY 08/18/14 [History] Sertraline [Zoloft] 150 mg PO BEDTIME 05/25/15 [History] Ezetimibe [Zetia] 10 mg PO DAILY 04/18/17 [History] ClonazePAM [KlonoPIN] 0.5 mg PO ASDIRECTED PRN 07/08/18 [History] Chlorzoxazone [Parafon Forte Dsc] 500 mg PO Q12H PRN #12 tablet 09/26/19 [Rx] Hydrocodone/Acetaminophen [Hydrocodon-Acetaminophen 5-325] 1 - 2 each PO Q6HR PRN #15 tablet 11/23/19 [Rx] Past Medical History HEENT History: Reports: Impaired Vision Other HEENT History: wears eyeglasses Cardiovascular History: Reports: High Cholesterol, Hypertension Respiratory History: Reports: Bronchitis, Recurrent Gastrointestinal History: Reports: GERD Other Gastrointestinal History: "liver issues" Musculoskeletal History: Reports: Arthritis, Back Pain, Chronic, Other (See Below) Other Musculoskeletal History: knee pain and shoulder pain, Psychiatric History: Reports: Anxiety, Bipolar, Depression, Schizophrenia Endocrine/Metabolic History: Reports: Diabetes, Type II, Obesity/BMI 30+ Hematologic History: Reports: Anemia, Iron Deficiency - Infectious Disease History Infectious Disease History: Reports: Chicken Pox, Measles, Other (See Below) Other Infectious Disease History: questionable hepatitis C - Past Surgical History GI Surgical History: Reports: Cholecystectomy Musculoskeletal Surgical History: Reports: Shoulder Surgery Social & Family History - Family History Family Medical History: Noncontributory - Tobacco Use Smoking Status *Q: Current Every Day Smoker Years of Tobacco use: 34 Packs/Tins Daily: 0.1 - Caffeine Use Caffeine Use: Reports: Tea Other Caffeine Use: 2-3 pop daily - Recreational Drug Use Recreational Drug Use: No - Living Situation & Occupation Living situation: Reports: Single, Other (with his landlord) Occupation: Disabled ED ROS GENERAL - Review of Systems Review Of Systems: See Below Constitutional: Reports: No Symptoms HEENT: Reports: No Symptoms Respiratory: Reports: No Symptoms Cardiovascular: Reports: No Symptoms Endocrine: Reports: No Symptoms GI/Abdominal: Reports: No Symptoms : Reports: No Symptoms Musculoskeletal: Reports: Back Pain ED EXAM,LOWER BACK PAIN/INJURY - Physical Exam Exam: See Below Exam Limited By: No Limitations General Appearance: Alert, No Apparent Distress Ears: Normal External Exam Nose: Normal Inspection Head: Atraumatic, Normocephalic Neck: Normal Inspection Respiratory/Chest: No Respiratory Distress, Lungs Clear, Normal Breath Sounds Cardiovascular: Regular Rate, Rhythm, No Edema, No Murmur GI/Abdominal: Soft, Non-Tender, No Organomegaly, No Mass Back Exam: Other (Pain upon palpation to the right lower back. ) Neurological: Alert, No Motor/Sensory Deficits, Oriented x 3 Course - Vital Signs Last Recorded V/S: Last Vital Signs Temp 96.7 F L 12/10/19 05:32 Pulse 61 12/10/19 05:32 Resp 19 12/10/19 05:32 BP 145/92 H 12/10/19 05:32 Pulse Ox 98 12/10/19 05:32 - Re-Assessments/Exams Free Text/Narrative Re-Assessment/Exam: 12/10/19 05:49 I will give him a shot of dilaudid and discharge him. Departure - Departure Time of Disposition: 05:50 Disposition: Home, Self-Care 01 Condition: Good Clinical Impression: Low back pain Qualifiers: Chronicity: chronic Back pain laterality: right Sciatica presence: with sciatica Sciatica laterality: sciatica of right side Qualified Code(s): M54.41 - Lumbago with sciatica, right side; G89.29 - Other chronic pain - Discharge Information *PRESCRIPTION DRUG MONITORING PROGRAM REVIEWED*: Not Applicable *COPY OF PRESCRIPTION DRUG MONITORING REPORT IN PATIENT HIMA: Not Applicable Referrals: Melissa Uriostegui PA-C [Primary Care Provider] - 1 Week Additional Instructions: Follow up with your doctor. Sepsis Event Note - Evaluation Sepsis Screening Result: No Definite Risk - Focused Exam Vital Signs: Vital Signs Temp Pulse Resp BP Pulse Ox 12/10/19 05:32 96.7 F L 61 19 145/92 H 98 Date Exam was Performed: 12/10/19 Time Exam was Performed: 05:46
== END 2019-12-10 05:58 | disposition home or self-care (01) ==
LOC: JD.ED 05:21
DX: M54.41 Lumbago with sciatica, right side (principal); G89.29 Other chronic pain; I10 Essential (primary) hypertension; F17.210 Nicotine dependence, cigarettes, uncomplicated; Z88.8 Allergy status to other drugs, medicaments and biological substances; Z79.4 Long term (current) use of insulin
CPT/HCPCS: 96372; 99283; J1170; 99284

== ENCOUNTER 2019-12-10 20:01 | Emergency (ER) | payer MEDICARE, MEDICAID ==
[2019-12-10] MEDS ORDERED: Dexamethasone 10 MG/ML SDV IM ONE (20:20)
[2019-12-10] MEDS ORDERED: HYDROmorphone 1 MG/ML Syringe IM ONE (20:20)
[2019-12-10] MEDS ORDERED: Ondansetron 4 MG Tab.DIS PO ONE (20:22)
--- NOTE | 2019-12-10 20:26 | EDM.PDOC ---
ED HPI GENERAL MEDICAL PROBLEM - General Chief Complaint: Back Pain or Injury Stated Complaint: BACK AND LEG PAIN Time Seen by Provider: 12/10/19 20:14 Source of Information: Reports: Patient, RN Notes Reviewed History Limitations: Reports: No Limitations - History of Present Illness INITIAL COMMENTS - FREE TEXT/NARRATIVE: Patient is a 54-year-old male who presents to the ED for the evaluation of his lower back pain that radiates to his right leg. Patient was seen this morning by Dr. Mccartney, given a shot of Dilaudid, and sent home. Patient has a history of chronic arthritis, with chronic back pain. Patient states that the pain did worsen today again, so he came back to the ER due to the pain. He has nothing at home per his report to take for the pain. Patient notes that he does have an appointment with [facility] in [place] tomorrow for further evaluation of his back pain. Right Lower Back Pain Score (Numeric/FACES): 10 - Related Data Allergies Allergy/AdvReac Type Severity Reaction Status Date / Time ketorolac tromethamine AdvReac Anxiety Verified 12/10/19 20:10 [From Toradol] methylphenidate HCl AdvReac Anxiety Verified 12/10/19 20:10 [From Ritalin] metoclopramide HCl AdvReac Anxiety Verified 12/10/19 20:10 [From Reglan] Home Meds: Home Meds Insulin Detemir [Levemir] 40 unit SUBCUT QPM 07/28/14 [History] metFORMIN [Glucophage] 2,000 mg PO BID 07/28/14 [History] Metoprolol Succinate [Toprol XL] 25 mg PO DAILY 08/18/14 [History] Sertraline [Zoloft] 150 mg PO BEDTIME 05/25/15 [History] Ezetimibe [Zetia] 10 mg PO DAILY 04/18/17 [History] ClonazePAM [KlonoPIN] 0.5 mg PO ASDIRECTED PRN 07/08/18 [History] Chlorzoxazone [Parafon Forte Dsc] 500 mg PO Q12H PRN #12 tablet 09/26/19 [Rx] Hydrocodone/Acetaminophen [Hydrocodon-Acetaminophen 5-325] 1 - 2 each PO Q6HR PRN #15 tablet 11/23/19 [Rx] Past Medical History HEENT History: Reports: Impaired Vision Other HEENT History: wears eyeglasses Cardiovascular History: Reports: High Cholesterol, Hypertension Respiratory History: Reports: Bronchitis, Recurrent Gastrointestinal History: Reports: GERD Other Gastrointestinal History: "liver issues" Genitourinary History: Reports: None Musculoskeletal History: Reports: Arthritis, Back Pain, Chronic, Other (See Below) Other Musculoskeletal History: knee pain and shoulder pain, Neurological History: Reports: None Psychiatric History: Reports: Anxiety, Bipolar, Depression, Schizophrenia Endocrine/Metabolic History: Reports: Diabetes, Type II, Obesity/BMI 30+ Hematologic History: Reports: Anemia, Iron Deficiency Immunologic History: Reports: None Oncologic (Cancer) History: Reports: None Dermatologic History: Reports: None - Infectious Disease History Infectious Disease History: Reports: Chicken Pox, Measles, Other (See Below) Other Infectious Disease History: questionable hepatitis C - Past Surgical History GI Surgical History: Reports: Cholecystectomy Musculoskeletal Surgical History: Reports: Shoulder Surgery Social & Family History - Family History Family Medical History: Noncontributory - Tobacco Use Smoking Status *Q: Current Every Day Smoker Years of Tobacco use: 24 Packs/Tins Daily: 0.2 - Caffeine Use Caffeine Use: Reports: None Other Caffeine Use: 2-3 pop daily - Recreational Drug Use Recreational Drug Use: No - Living Situation & Occupation Living situation: Reports: Single, Other (with his landlord) Occupation: Disabled ED ROS GENERAL - Review of Systems Review Of Systems: See Below Constitutional: Denies: Fever, Chills Respiratory: Denies: Shortness of Breath, Cough Cardiovascular: Denies: Chest Pain GI/Abdominal: Reports: Nausea. Denies: Abdominal Pain, Constipation, Diarrhea, Vomiting Musculoskeletal: Reports: Back Pain (with radiation to R leg) ED EXAM,LOWER BACK PAIN/INJURY - Physical Exam Exam: See Below Exam Limited By: No Limitations General Appearance: Alert, WD/WN, No Apparent Distress Eye Exam: Bilateral Eye: EOMI, Normal Inspection, PERRL Ears: Normal External Exam Nose: Normal Inspection Throat/Mouth: Normal Inspection, Normal Lips, Normal Teeth, Normal Gums, Normal Oropharynx, Normal Voice, No Airway Compromise Head: Atraumatic, Normocephalic Neck: Normal Inspection Respiratory/Chest: No Respiratory Distress, Lungs Clear, Normal Breath Sounds, No Accessory Muscle Use, Chest Non-Tender Cardiovascular: Normal Peripheral Pulses, Regular Rate, Rhythm, No Murmur GI/Abdominal: Normal Bowel Sounds, Soft, Non-Tender, No Distention, No Mass Extremities: Normal Inspection, Normal Capillary Refill Neurological: Alert, Normal Mood/Affect, Normal Dorsiflexion, CN II-XII Intact ( grossly), Normal Plantar Flexion, No Motor/Sensory Deficits, Straight Leg Raise (R). No: Straight Leg Raise (L), Saddle Anesthesia Psychiatric: Normal Affect, Normal Mood Skin Exam: Warm, Dry, Intact, Normal Color, No Rash Course - Vital Signs Last Recorded V/S: Last Vital Signs Temp 96.4 F L 12/10/19 20:07 Pulse 74 12/10/19 20:07 Resp 16 12/10/19 20:07 BP 163/100 H 12/10/19 20:07 Pulse Ox 100 12/10/19 20:07 - Orders/Labs/Meds Meds: Medications Discontinued Medications Generic Name Dose Route Start Last Admin Trade Name Andrew PRN Reason Stop Dose Admin Dexamethasone 10 mg 12/10/19 20:20 12/10/19 20:30 Dexamethasone IM 12/10/19 20:21 10 mg ONETIME ONE Administration Hydromorphone HCl 1 mg 12/10/19 20:20 12/10/19 20:30 Dilaudid IM 12/10/19 20:21 1 mg ONETIME ONE Administration Ondansetron HCl 4 mg 12/10/19 20:22 12/10/19 20:29 Zofran Odt PO 12/10/19 20:23 4 mg ONETIME ONE Administration - Re-Assessments/Exams Free Text/Narrative Re-Assessment/Exam: 12/10/19 20:27 Patient presents to the ED for his ongoing back pain I have ordered 1mg Dilaudid and 10mg IM dexamethasone for management and will discharge the patient home at this time. Departure - Departure Time of Disposition: 20:52 Disposition: Home, Self-Care 01 Condition: Fair Clinical Impression: Right sciatic nerve pain - Discharge Information *PRESCRIPTION DRUG MONITORING PROGRAM REVIEWED*: No *COPY OF PRESCRIPTION DRUG MONITORING REPORT IN PATIENT HIMA: No Instructions: Sciatica, [id number] Referrals: Melissa Uriostegui PA-C [Primary Care Provider] - Forms: ED Department Discharge Additional Instructions: You were evaluated in the ER today regarding your chronic back pain. You were given 1 mg Dilaudid, and a 10 mg dose of dexamethasone, The dexamethasone is a steroid, and should provide an anti-inflammatory effect, and around 4 to 6 hours. Please keep your appointment with [facility], tomorrow or the next day for further evaluation of your back pain. Please return to the ER at any time if symptoms change or worsen. Sepsis Event Note - Evaluation Sepsis Screening Result: No Definite Risk - Focused Exam Vital Signs: Vital Signs Temp Pulse Resp BP Pulse Ox 12/10/19 20:07 96.4 F L 74 16 163/100 H 100 Date Exam was Performed: 12/10/19 Time Exam was Performed: 20:52
[2019-12-10 22:01] VITALS: BP 152/102; PULSE 85
== END 2019-12-10 21:01 | disposition home or self-care (01) ==
LOC: JD.ED 20:01
DX: M54.41 Lumbago with sciatica, right side (principal); E11.9 Type 2 diabetes mellitus without complications; I10 Essential (primary) hypertension; F17.210 Nicotine dependence, cigarettes, uncomplicated; Z88.8 Allergy status to other drugs, medicaments and biological substances; Z79.84 Long term (current) use of oral hypoglycemic drugs; G89.29 Other chronic pain
CPT/HCPCS: 96372; 99283; A9270; J1100; J1170; 99284

== ENCOUNTER 2019-12-11 11:28 | Emergency (ER) | payer MEDICARE, MEDICAID ==
[2019-12-11 11:41] VITALS: PULSE 84
[2019-12-11 11:42] VITALS: BP 161/96
--- NOTE | 2019-12-11 11:57 | EDM.PDOC ---
ED HPI GENERAL MEDICAL PROBLEM - General Chief Complaint: Back Pain or Injury Stated Complaint: BACK PAIN Time Seen by Provider: 12/11/19 11:38 Source of Information: Reports: Patient History Limitations: Reports: No Limitations - History of Present Illness INITIAL COMMENTS - FREE TEXT/NARRATIVE: Patient is a 54 year old male who presents to the emergency department with complaints of chronic low back pain. He was seen in the ER 2 times yesterday for similar complaints. Patient states he had an appointment with [facility] today and was told that he needs to see a pain specialist. They are in the process of referring him to his pain specialist. He states that the bone and joint physician told him to come to ER for pain management as needed. He has not scheduled a follow-up appointment with his primary care provider, Trudy Sewell. He denies any acute injury to his low back and has had no bowel or bladder dysfunction. - Related Data Allergies Allergy/AdvReac Type Severity Reaction Status Date / Time ketorolac tromethamine AdvReac Anxiety Verified 12/11/19 11:40 [From Toradol] methylphenidate HCl AdvReac Anxiety Verified 12/11/19 11:40 [From Ritalin] metoclopramide HCl AdvReac Anxiety Verified 12/11/19 11:40 [From Reglan] Home Meds: Home Meds Insulin Detemir [Levemir] 40 unit SUBCUT QPM 07/28/14 [History] metFORMIN [Glucophage] 2,000 mg PO BID 07/28/14 [History] Metoprolol Succinate [Toprol XL] 25 mg PO DAILY 08/18/14 [History] Sertraline [Zoloft] 150 mg PO BEDTIME 05/25/15 [History] Ezetimibe [Zetia] 10 mg PO DAILY 04/18/17 [History] ClonazePAM [KlonoPIN] 0.5 mg PO ASDIRECTED PRN 07/08/18 [History] Chlorzoxazone [Parafon Forte Dsc] 500 mg PO Q12H PRN #12 tablet 09/26/19 [Rx] Hydrocodone/Acetaminophen [Hydrocodon-Acetaminophen 5-325] 1 - 2 each PO Q6HR PRN #15 tablet 11/23/19 [Rx] Acetaminophen/HYDROcodone [[place] 325-5 MG] 1 tab PO Q4H PRN #10 tablet 12/11/19 [Rx] Past Medical History HEENT History: Reports: Impaired Vision Other HEENT History: wears eyeglasses Cardiovascular History: Reports: High Cholesterol, Hypertension Respiratory History: Reports: Bronchitis, Recurrent Gastrointestinal History: Reports: GERD Other Gastrointestinal History: "liver issues" Genitourinary History: Reports: None Musculoskeletal History: Reports: Arthritis, Back Pain, Chronic, Other (See Below) Other Musculoskeletal History: knee pain and shoulder pain, Neurological History: Reports: None Psychiatric History: Reports: Anxiety, Bipolar, Depression, Schizophrenia Endocrine/Metabolic History: Reports: Diabetes, Type II, Obesity/BMI 30+ Hematologic History: Reports: Anemia, Iron Deficiency Immunologic History: Reports: None Oncologic (Cancer) History: Reports: None Dermatologic History: Reports: None - Infectious Disease History Infectious Disease History: Reports: Chicken Pox, Measles, Other (See Below) Other Infectious Disease History: questionable hepatitis C - Past Surgical History GI Surgical History: Reports: Cholecystectomy Musculoskeletal Surgical History: Reports: Shoulder Surgery Social & Family History - Family History Family Medical History: Noncontributory - Tobacco Use Smoking Status *Q: Current Every Day Smoker Years of Tobacco use: 1 Packs/Tins Daily: 0.2 - Caffeine Use Caffeine Use: Reports: None Other Caffeine Use: 2-3 pop daily - Recreational Drug Use Recreational Drug Use: No - Living Situation & Occupation Living situation: Reports: Single, Other (with his landlord) Occupation: Disabled ED ROS GENERAL - Review of Systems Review Of Systems: Comprehensive ROS is negative, except as noted in HPI. ED EXAM,LOWER BACK PAIN/INJURY - Physical Exam Exam: See Below Exam Limited By: No Limitations General Appearance: Alert, WD/WN, No Apparent Distress Respiratory/Chest: No Respiratory Distress, Lungs Clear, Normal Breath Sounds, No Accessory Muscle Use, Chest Non-Tender Cardiovascular: Normal Peripheral Pulses, Regular Rate, Rhythm, No Edema, No Gallop, No JVD, No Murmur, No Rub Back Exam: Normal Inspection, Paraspinal Tenderness (right low back) Neurological: Alert, Normal Mood/Affect, Normal Dorsiflexion, CN II-XII Intact, Normal Plantar Flexion, Normal Gait, Normal Reflexes, No Motor/Sensory Deficits , Oriented x 3 Psychiatric: Normal Affect, Normal Mood Skin Exam: Warm, Dry, Intact, Normal Color, No Rash Course - Vital Signs Last Recorded V/S: Last Vital Signs Temp 97.8 F 12/11/19 11:36 Pulse 84 12/11/19 11:36 Resp 16 12/11/19 11:36 BP 161/96 H 12/11/19 11:41 Pulse Ox 96 12/11/19 11:36 - Re-Assessments/Exams Free Text/Narrative Re-Assessment/Exam: 12/11/19 11:59 I had a discussion with the patient that the emergency department does not manage chronic pain. We did call and try to schedule an appoint with his primary care provider, however she is out of the office until Saturday. He does have an appointment scheduled for Saturday at 2:15 PM with Trudy Sewell. I will provide him with 10 [place] to get him to his appointment on Saturday. Discharge instructions as documented. Departure - Departure Time of Disposition: 11:52 Disposition: Home, Self-Care 01 Condition: Fair Clinical Impression: Low back pain Qualifiers: Chronicity: chronic Back pain laterality: unspecified Sciatica presence: with sciatica Sciatica laterality: sciatica laterality unspecified Qualified Code(s) : M54.40 - Lumbago with sciatica, unspecified side - Discharge Information *PRESCRIPTION DRUG MONITORING PROGRAM REVIEWED*: Yes *COPY OF PRESCRIPTION DRUG MONITORING REPORT IN PATIENT HIMA: No Prescriptions: Acetaminophen/HYDROcodone [[place] 325-5 MG] 1 tab PO Q4H PRN #10 tablet PRN Reason: Pain Instructions: What You Need to Know About Chronic Back Pain, Chronic Back Pain , [id number] Referrals: Melissa Uriostegui PA-C [Primary Care Provider] - Forms: ED Department Discharge Additional Instructions: You were seen in the emergency department today for chronic low back pain. As we discussed, the emergency department does not manage chronic pain. An appointment has been scheduled for you with your primary care provider, Trudy Sewell, on SaturdayDecember 13 at 215pm. I have provided you with 10 tablets of [place] to get you until your appointment on Saturday. It is important that you keep this appointment for further management of you chronic pain. Return to ER as needed. Sepsis Event Note - Evaluation Sepsis Screening Result: No Definite Risk - Focused Exam Vital Signs: Vital Signs Temp Pulse Resp BP Pulse Ox 12/11/19 11:41 161/96 H 12/11/19 11:36 97.8 F 84 16 96 Date Exam was Performed: 12/11/19 Time Exam was Performed: 12:04
== END 2019-12-11 12:26 | disposition home or self-care (01) ==
LOC: JD.ED 11:28
DX: M54.41 Lumbago with sciatica, right side (principal); F17.210 Nicotine dependence, cigarettes, uncomplicated; I10 Essential (primary) hypertension; E78.00 Pure hypercholesterolemia, unspecified; K21.9 Gastro-esophageal reflux disease without esophagitis; F31.9 Bipolar disorder, unspecified; F41.9 Anxiety disorder, unspecified; E11.9 Type 2 diabetes mellitus without complications; E66.9 Obesity, unspecified; Z79.899 Other long term (current) drug therapy; Z79.4 Long term (current) use of insulin; Z88.6 Allergy status to analgesic agent
CPT/HCPCS: 99283

== ENCOUNTER 2020-01-14 10:27 | Emergency (ER) | payer MEDICARE, MEDICAID ==
[2020-01-14 10:38] VITALS: PULSE 58
[2020-01-14] MEDS ORDERED: Methocarbamol 500 MG Tab PO ONE (11:17)
--- NOTE | 2020-01-14 11:25 | EDM.PDOC ---
ED HPI GENERAL MEDICAL PROBLEM - General Chief Complaint: Back Pain or Injury Stated Complaint: BACK PAIN Time Seen by Provider: 01/14/20 10:53 Source of Information: Reports: Patient History Limitations: Reports: No Limitations - History of Present Illness INITIAL COMMENTS - FREE TEXT/NARRATIVE: Tripp Wright is a 54 y/o male who presents the emergency room with chief complaints of lower back pain. 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 He reports that he is "scheduled to see a surgeon on the to have his back repaired." He has not taken anything for pain. Reviewing patient's records he was been here multiple times and had a appointment scheduled yesterday but did not go to his PCP CHANDNI Brush. He denies any fever, chills, chest pain, shortness of breath, incontinence of bowel or bladder. No apparent distress at this time. Onset: Today Duration: Getting Worse Location: Reports: Back Quality: Reports: Ache, Dull, Throbbing Severity: Mild Improves with: Reports: None Worsens with: Reports: None Associated Symptoms: Reports: Other (Denies any incontinence of bowel or bladder ). Denies: Chest Pain, Fever/Chills, Nausea/Vomiting, Shortness of Breath, Weakness Lower Back Pain Score (Numeric/FACES): 8 - Related Data Allergies Allergy/AdvReac Type Severity Reaction Status Date / Time ketorolac tromethamine AdvReac Anxiety Verified 12/11/19 11:40 [From Toradol] methylphenidate HCl AdvReac Anxiety Verified 12/11/19 11:40 [From Ritalin] metoclopramide HCl AdvReac Anxiety Verified 12/11/19 11:40 [From Reglan] Home Meds: Home Meds Insulin Detemir [Levemir] 40 unit SUBCUT QPM 07/28/14 [History] metFORMIN [Glucophage] 2,000 mg PO BID 07/28/14 [History] Metoprolol Succinate [Toprol XL] 25 mg PO DAILY 08/18/14 [History] Sertraline [Zoloft] 150 mg PO BEDTIME 05/25/15 [History] Ezetimibe [Zetia] 10 mg PO DAILY 04/18/17 [History] ClonazePAM [KlonoPIN] 0.5 mg PO ASDIRECTED PRN 07/08/18 [History] Etodolac [Lodine] 400 mg PO Q8HR #30 tablet 01/14/20 [Rx] Past Medical History HEENT History: Reports: Impaired Vision Other HEENT History: wears eyeglasses Cardiovascular History: Reports: High Cholesterol, Hypertension Respiratory History: Reports: Bronchitis, Recurrent Gastrointestinal History: Reports: GERD Other Gastrointestinal History: "liver issues" Genitourinary History: Reports: None Musculoskeletal History: Reports: Arthritis, Back Pain, Chronic, Other (See Below) Other Musculoskeletal History: knee pain and shoulder pain, Neurological History: Reports: None Psychiatric History: Reports: Anxiety, Bipolar, Depression, Schizophrenia Endocrine/Metabolic History: Reports: Diabetes, Type II, Obesity/BMI 30+ Hematologic History: Reports: Anemia, Iron Deficiency Immunologic History: Reports: None Oncologic (Cancer) History: Reports: None Dermatologic History: Reports: None - Infectious Disease History Infectious Disease History: Reports: Chicken Pox, Measles, Other (See Below) Other Infectious Disease History: questionable hepatitis C - Past Surgical History GI Surgical History: Reports: Cholecystectomy Musculoskeletal Surgical History: Reports: Shoulder Surgery Social & Family History - Family History Family Medical History: Noncontributory - Tobacco Use Smoking Status *Q: Current Every Day Smoker Years of Tobacco use: 10 Packs/Tins Daily: 0.5 - Caffeine Use Caffeine Use: Reports: None Other Caffeine Use: 2-3 pop daily - Recreational Drug Use Recreational Drug Use: No - Living Situation & Occupation Living situation: Reports: Single, Other (with his landlord) Occupation: Disabled ED ROS GENERAL - Review of Systems Review Of Systems: See Below Constitutional: Denies: Fever, Chills Respiratory: Denies: Shortness of Breath Cardiovascular: Denies: Chest Pain Endocrine: Reports: Fatigue GI/Abdominal: Denies: Abdominal Pain : Reports: No Symptoms Musculoskeletal: Reports: Back Pain (chronic back pain) Skin: Reports: No Symptoms Neurological: Denies: Headache, Weakness Psychiatric: Reports: Other (Paranoid schizophrenia) Hematologic/Lymphatic: Reports: No Symptoms Immunologic: Reports: No Symptoms ED EXAM,LOWER BACK PAIN/INJURY - Physical Exam Exam: See Below Exam Limited By: No Limitations General Appearance: Alert, WD/WN, No Apparent Distress Respiratory/Chest: No Respiratory Distress, Lungs Clear, Normal Breath Sounds, No Accessory Muscle Use, Chest Non-Tender Cardiovascular: Normal Peripheral Pulses, Regular Rate, Rhythm, No Edema, No Gallop, No JVD, No Murmur, No Rub GI/Abdominal: Normal Bowel Sounds, Soft, Non-Tender, No Organomegaly, No Distention, No Abnormal Bruit, No Mass, Pelvis Stable Back Exam: Normal Inspection, Decreased Range of Motion, Other (Patient has decreased range of motion due to pain. Patient is able to bend, stoop, twist and dorsiflex his toes. His skin is intact with normal temperature and sensation.) Extremities: Normal Inspection, Normal Range of Motion, Non-Tender, No Pedal Edema, Normal Capillary Refill Neurological: Alert, Normal Mood/Affect, Normal Dorsiflexion, CN II-XII Intact, Normal Plantar Flexion, Normal Gait, Normal Reflexes, No Motor/Sensory Deficits , Oriented x 3 Course - Vital Signs Text/Narrative:: Tripp Wright a 4-year-old male who presents emergency room chief complaints of lower back pain. Patient has a chronic history of lower back pain, aminal pain , nausea, noncardiac chest pain, gastritis pain, rheumatoid arthritis, degenerative joint disease of thoracic spine, paranoid schizophrenic and right sciatica. Any fever, chills, chest pain, shortness of breath, abdominal pain, incontinence of bowel or bladder. He has not taken anything for symptoms. Patient did have an appointment scheduled yesterday with his PCP which he "did not go to because he was not aware that he had an appointment. He was seen in the emergency room multiple x3 times last month for the same symptoms. Patient received Robaxin for muscle spasms. I will discharge home with [facility] for pain. I instructed patient not to take Motrin, Aleve, ibuprofen or naproxen while taking this medication. I will also sent home with lidocaine patches. I instructed the patient to follow-up with his primary care doctor. Instructed patient to follow-up with "his surgeon as scheduled on January 18." I educated the patient on TENS unit and recommended that he try this for his chronic pain. Patient verbalized understanding this, plan for discharge. Patient is stable at time of discharge. Last Recorded V/S: Last Vital Signs Temp 97.5 F 01/14/20 10:34 Pulse 58 L 01/14/20 10:34 Resp 16 01/14/20 10:34 BP 152/88 H 01/14/20 10:34 Pulse Ox 100 01/14/20 10:34 - Orders/Labs/Meds Meds: Medications Discontinued Medications Generic Name Dose Route Start Last Admin Trade Name Andrew PRN Reason Stop Dose Admin Methocarbamol 1,000 mg 01/14/20 11:17 Robaxin PO 01/14/20 11:18 ONETIME ONE Departure - Departure Time of Disposition: 11:39 Disposition: Home, Self-Care 01 Condition: Good Clinical Impression: Chronic lower back pain Qualifiers: Back pain laterality: midline Sciatica presence: without sciatica Qualified Code(s): M54.5 - Low back pain; G89.29 - Other chronic pain - Discharge Information Prescriptions: Etodolac [Lodine] 400 mg PO Q8HR #30 tablet Instructions: Muscle Strain, [id number], Radicular Pain, Chronic Back Pain, [id number] Referrals: Melissa Uriostegui PA-C [Primary Care Provider] - Additional Instructions: Seen and evaluated today for chronic lower back pain. You have been prescribed Lodine for pain. Do not take Aleve, naproxen, ibuprofen, or ibuprofen while taking this medication. Prescribed lidocaine patches apply this to the area every 12 hours as needed. You may consider purchasing a TENS unit this will help with the chronic pain that you are experiencing. Keep your appointment with your surgeon as scheduled on January 18. Follow-up with your PCP. Return to the emergency room for any new or acute worsening symptoms. Sepsis Event Note - Evaluation Sepsis Screening Result: No Definite Risk - Focused Exam Vital Signs: Vital Signs Temp Pulse Resp BP Pulse Ox 01/14/20 10:34 97.5 F 58 L 16 152/88 H 100 Date Exam was Performed: 01/14/20 Time Exam was Performed: 11:20
[2020-01-14 14:05] VITALS: BP 126/84
== END 2020-01-14 12:00 | disposition home or self-care (01) ==
LOC: JD.ED 10:27
DX: G89.29 Other chronic pain (principal); M54.5 Low back pain; I10 Essential (primary) hypertension; E11.9 Type 2 diabetes mellitus without complications; E66.9 Obesity, unspecified; Z68.28 Body mass index [BMI] 28.0-28.9, adult; F17.210 Nicotine dependence, cigarettes, uncomplicated; F32.9 Major depressive disorder, single episode, unspecified; Z79.4 Long term (current) use of insulin; Z88.6 Allergy status to analgesic agent; Z88.8 Allergy status to other drugs, medicaments and biological substances; Z79.899 Other long term (current) drug therapy
CPT/HCPCS: 99283; A9270

== ENCOUNTER 2020-03-03 18:45 | Emergency (ER) | payer MEDICARE, MEDICAID ==
[2020-03-03] MEDS ORDERED: Sodium Chloride 0.9% 1,000 ML IV ONE (19:07)
[2020-03-03] MEDS ORDERED: Ondansetron 4 MG/2 ML SDV IVPUSH ONE ×2 (19:07→21:10)
[2020-03-03 19:08] VITALS: BP 200/102; PULSE 58
[2020-03-03] MEDS ORDERED: Sodium Chloride 0.9% 10 ML Syringe FLUSH PRN (19:10)
--- NOTE | 2020-03-03 19:10 | EDM.PDOC ---
ED HPI GENERAL MEDICAL PROBLEM - General Chief Complaint: Abdominal Pain Stated Complaint: TEMP 99.3 ABDOMINAL PAIN VOMITING Time Seen by Provider: 03/03/20 19:03 Source of Information: Reports: Patient, RN Notes Reviewed History Limitations: Reports: No Limitations - History of Present Illness INITIAL COMMENTS - FREE TEXT/NARRATIVE: Patient is a 54-year-old male who presents to the ED for the evaluation of his stomach pain, nausea vomiting, and low-grade temperature. Patient notes that he was recently down in [place] for a wedding, and was hospitalized for 3 days for a urinary tract infection. Patient notes that he was discharged yesterday, and made his way home and got back at around 2 AM this morning. He states that everything was going fairly well, but he noted that as the day went on, he began to get increasingly nauseous, is not able to keep anything down for food or fluids. He notes he was on 3 days of antibiotics, and he has finished these now, he cannot recall the name. Patient is having pain in his back and in his mid abdomen. Patient denies any dysuria, or any frequency or urgency. Patient states he does get lightheaded, and has chills at home as well, but denies any cough/shortness of breath, or chest pain. Patient stated he had a diarrhea-like stool yesterday, but has not had a stool today. Patient's primary care provider is Trudy Uriostegui. Upper Abdomen Pain Score (Numeric/FACES): 10 - Related Data Allergies Allergy/AdvReac Type Severity Reaction Status Date / Time ketorolac tromethamine AdvReac Severe Anxiety Verified 03/03/20 19:09 [From Toradol] methylphenidate HCl AdvReac Severe Anxiety Verified 03/03/20 19:09 [From Ritalin] metoclopramide HCl AdvReac Severe Anxiety Verified 03/03/20 19:09 [From Reglan] Home Meds: Home Meds Insulin Detemir [Levemir] 40 unit SUBCUT QPM 07/28/14 [History] metFORMIN [Glucophage] 2,000 mg PO BID 07/28/14 [History] Metoprolol Succinate [Toprol XL] 25 mg PO DAILY 08/18/14 [History] Sertraline [Zoloft] 150 mg PO BEDTIME 05/25/15 [History] Ezetimibe [Zetia] 10 mg PO DAILY 04/18/17 [History] ClonazePAM [KlonoPIN] 0.5 mg PO ASDIRECTED PRN 07/08/18 [History] Etodolac [Lodine] 400 mg PO Q8HR #30 tablet 01/14/20 [Rx] Ondansetron [Zofran Odt] 8 mg PO Q6H PRN #15 tab.rapdis 03/03/20 [Rx] Past Medical History HEENT History: Reports: Impaired Vision Other HEENT History: wears eyeglasses Cardiovascular History: Reports: High Cholesterol, Hypertension Respiratory History: Reports: Bronchitis, Recurrent Gastrointestinal History: Reports: GERD, Other (See Below) Other Gastrointestinal History: "liver issues" Musculoskeletal History: Reports: Arthritis, Back Pain, Chronic, Other (See Below) Other Musculoskeletal History: knee pain and shoulder pain, Psychiatric History: Reports: Anxiety, Bipolar, Depression, Schizophrenia Endocrine/Metabolic History: Reports: Diabetes, Type II, Obesity/BMI 30+ Hematologic History: Reports: Anemia, Iron Deficiency - Infectious Disease History Infectious Disease History: Reports: Chicken Pox, Measles, Other (See Below) Other Infectious Disease History: questionable hepatitis C - Past Surgical History GI Surgical History: Reports: Cholecystectomy Musculoskeletal Surgical History: Reports: Shoulder Surgery Social & Family History - Family History Family Medical History: Noncontributory - Caffeine Use Caffeine Use: Reports: None Other Caffeine Use: 2-3 pop daily - Living Situation & Occupation Living situation: Reports: Single, Other (with his landlord) Occupation: Disabled ED ROS GENERAL - Review of Systems Review Of Systems: Comprehensive ROS is negative, except as noted in HPI. ED EXAM, RENAL/ - Physical Exam Exam: See Below Exam Limited By: No Limitations General Appearance: Alert, WD/WN, No Apparent Distress (pt appears to be in mild amount of pain) Eye Exam: Bilateral Eye: EOMI, Normal Inspection Head: Atraumatic, Normocephalic Neck: Normal Inspection Respiratory/Chest: No Respiratory Distress, Lungs Clear, Normal Breath Sounds, No Accessory Muscle Use, Chest Non-Tender Cardiovascular: Normal Peripheral Pulses, Regular Rate, Rhythm, No Murmur GI/Abdominal: Normal Bowel Sounds, Soft, No Distention, No Mass, Tender (generalized, but also over epigastrium and suprapubic mainly) Extremities: Normal Inspection, Normal Capillary Refill Neurological: Alert, Oriented, Normal Cognition, No Motor/Sensory Deficits Psychiatric: Normal Affect, Normal Mood, Anxious Skin Exam: Warm, Dry, Intact, Normal Color, No Rash Course - Vital Signs Last Recorded V/S: Last Vital Signs Temp 99.3 F 03/03/20 19:06 Pulse 58 L 03/03/20 19:06 Resp 20 03/03/20 19:06 BP 200/102 H 03/03/20 19:06 Pulse Ox 98 03/03/20 19:06 - Orders/Labs/Meds Orders: Active Orders 24 hr Category Date Time Status Oral Fluid Challenge [RC] ASDIRECTED Care 03/03/20 21:07 Ordered Peripheral IV Care [RC] . DIRECTED Care 03/03/20 19:10 Ordered Strain Urine [RC] ASDIRECTED Care 03/03/20 19:07 Ordered Sodium Chloride 0.9% [Saline Flush] Med 03/03/20 19:10 Active 10 ml FLUSH ASDIRECTED PRN Peripheral IV Insertion Adult [OM.PC] Stat Oth 03/03/20 19:10 Ordered Medication Orders Sodium Chloride (Saline Flush) 10 ml FLUSH ASDIRECTED PRN PRN Reason: Keep Vein Open Last Admin: 03/03/20 19:23 Dose: 10 ml Documented by: CRISTINO Labs: Laboratory Tests 03/03/20 03/03/20 03/03/20 Range/Units 19:10 19:10 20:40 WBC 10.20 H (4.23-9.07) K/mm3 RBC 4.46 L (4.63-6.08) M/mm3 Hgb 14.0 (13.7-17.5) gm/dl Hct 40.2 (40.1-51.0) % MCV 90.1 (79.0-92.2) fl MCH 31.4 (25.7-32.2) pg MCHC 34.8 (32.2-35.5) g/dl RDW Std Deviation 42.9 (35.1-43.9) fL Plt Count 281 (163-337) K/mm3 MPV 9.0 L (9.4-12.3) fl Neutrophils % (Manual) 85 H (40-60) % Band Neutrophils % 0 (0-10) % Lymphocytes % (Manual) 12 L (20-40) % Atypical Lymphs % 0 % Monocytes % (Manual) 3 (2-10) % Eosinophils % (Manual) 0 L (0.8-7.0) % Basophils % (Manual) 0 L (0.2-1.2) Platelet Estimate Adequate RBC Morph Comment Normal Sodium 135 L (136-145) mEq/L Potassium 3.8 (3.5-5.1) mEq/L Chloride 101 (98-107) mEq/L Carbon Dioxide 22 (21-32) mEq/L Anion Gap 15.8 H (5-15) BUN 5 L (7-18) mg/dL Creatinine 0.7 (0.7-1.3) mg/dL Est Cr Clr Drug Dosing 93.17 mL/min Estimated GFR (MDRD) > 60 (>60) mL/min BUN/Creatinine Ratio 7.1 L (14-18) Glucose 189 H (74-106) mg/dL Calcium 8.8 (8.5-10.1) mg/dL Magnesium 1.6 L (1.8-2.4) mg/dl Total Bilirubin 0.4 (0.2-1.0) mg/dL AST 12 L (15-37) U/L ALT 22 (16-63) U/L Alkaline Phosphatase 82 (46-116) U/L Total Protein 7.0 (6.4-8.2) g/dl Albumin 3.7 (3.4-5.0) g/dl Globulin 3.3 gm/dL Albumin/Globulin Ratio 1.1 (1-2) Urine Color Light yellow (Yellow) Urine Appearance Clear (Clear) Urine pH 7.0 (5.0-8.0) Ur Specific [place] 1.015 (1.005-1.030) Urine Protein Negative (Negative) Urine Glucose (UA) Negative (Negative) Urine Ketones Negative (Negative) Urine Occult Blood Trace-lysed H (Negative) Urine Nitrite Negative (Negative) Urine Bilirubin Negative (Negative) Urine Urobilinogen 0.2 (0.2-1.0) Ur Leukocyte Esterase Negative (Negative) Urine RBC 0-5 (0-5) /hpf Urine WBC Not seen (0-5) /hpf Ur Squamous Epith Cells 0-5 (0-5) /hpf Urine Bacteria Not seen (FEW) /hpf Urine Mucus Not seen (FEW) /hpf Meds: Medications Generic Name Dose Route Start Last Admin Trade Name Freq PRN Reason Stop Dose Admin Sodium Chloride 10 ml 03/03/20 19:10 03/03/20 19:23 Saline Flush FLUSH 10 ml ASDIRECTED PRN Administration Keep Vein Open Discontinued Medications Generic Name Dose Route Start Last Admin Trade Name Rejiq PRN Reason Stop Dose Admin Al Hydroxide/Mg Hydroxide 30 0 ml 03/03/20 19:26 03/03/20 20:11 ml/ Lidocaine HCl 15 ml PO 03/03/20 19:27 45 ml ONETIME ONE Administration Famotidine 20 mg 03/03/20 21:06 Pepcid IVPUSH 03/03/20 21:07 ONETIME ONE Hydromorphone HCl 1 mg 03/03/20 19:19 03/03/20 19:24 Dilaudid IVPUSH 03/03/20 19:20 1 mg ONETIME ONE Administration Sodium Chloride 1,000 mls @ 999 mls/hr 03/03/20 19:07 03/03/20 19:21 Normal Saline IV 03/03/20 20:07 999 mls/hr ASDIRECTED ONE Administration Ondansetron HCl 4 mg 03/03/20 19:07 03/03/20 19:22 Zofran IVPUSH 03/03/20 19:08 4 mg ONETIME ONE Administration Ondansetron HCl 4 mg 03/03/20 21:10 Zofran IVPUSH 03/03/20 21:11 ONETIME ONE - Re-Assessments/Exams Free Text/Narrative Re-Assessment/Exam: 03/03/20 19:30 Patient presents to the ED for his nausea/vomiting, and abdominal pain. IV will be placed with 4 mg Zofran, 1 mg Dilaudid, GI cocktail when he is not longer nauseous. Urinalysis, CBC, CMP, abdomen pelvis CT without contrast for further evaluation. 03/03/20 20:40 Patient's lab demonstrated mildly elevated white count of 10.20, with 85% neutrophils and no bands. Metabolic panel demonstrates a mildly low sodium at 135, and a mildly low magnesium at 1.6. He is getting a bag of IV fluids so this should help with the sodium, magnesium can likely be supplemented through dietary intake. Patient was able to provide us with a urine sample will await those results before disposition is complete. 03/03/20 21:11 Patient was reassessed at bedside, states that his stomach pain is better, but he is still feeling quite nauseous. He did receive 1 bag of fluids, 4 mg Zofran for initial management he states that the GI cocktail also helped some. I have ordered on 20 mg famotidine, and another 4 mg of Zofran for nausea management. Urine does not show any sign of acute infection as well. There is a trace of lysed blood cells, otherwise unremarkable. I am not entirely sure as to what is causing his nausea. Review of the patient's history, does demonstrate that he has been having some diarrhea with this as well. He could be suffering from more of a viral gastroenteritis in nature. Departure - Departure Time of Disposition: 21:14 Disposition: Home, Self-Care 01 Condition: Good Clinical Impression: Nausea and vomiting in adult patient Abdominal pain Qualifiers: Abdominal location: epigastric Qualified Code(s): R10.13 - Epigastric pain - Discharge Information *PRESCRIPTION DRUG MONITORING PROGRAM REVIEWED*: No *COPY OF PRESCRIPTION DRUG MONITORING REPORT IN PATIENT HIMA: No Prescriptions: Ondansetron [Zofran Odt] 8 mg PO Q6H PRN #15 tab.rapdis PRN Reason: Nausea Instructions: Viral Gastroenteritis, Adult, [id number] Referrals: Melissa Uriostegui PA-C [Primary Care Provider] - Forms: ED Department Discharge Additional Instructions: You have been evaluated in the ED for nausea/vomiting/diarrhea. It is likely that this is caused from a viral gastroenteritis. You have received IV fluid in the ED to help with the dehydration from the vomiting and diarrhea. Laboratory evaluation today demonstrates no acute focal abnormalities. Urinalysis demonstrates no sign of ongoing infection. Your magnesium level is somewhat low, but this can be resolved as you begin to become less nauseous and can eat some green leafy vegetables. Over the next 24-48 hours please try to limit diet to clear liquids and advance as tolerate to a bland diet to alleviate symptoms of nausea/vomiting/diarrhea. Please use the Zofran every 8 hours as needed for nausea. Please return to the ED if your symptoms should change or worsen. Sepsis Event Note (ED) - Evaluation Sepsis Screening Result: No Definite Risk - Focused Exam Vital Signs: Vital Signs Temp Pulse Resp BP Pulse Ox 03/03/20 19:06 99.3 F 58 L 20 200/102 H 98 - My Orders Last 24 Hours: My Active Orders 03/03/20 19:07 Strain Urine [RC] ASDIRECTED 03/03/20 19:10 Peripheral IV Care [RC] . DIRECTED Sodium Chloride 0.9% [Saline Flush] 10 ml FLUSH ASDIRECTED PRN Peripheral IV Insertion Adult [OM.PC] Stat 03/03/20 21:07 Oral Fluid Challenge [RC] ASDIRECTED - Assessment/Plan Last 24 Hours: My Active Orders 03/03/20 19:07 Strain Urine [RC] ASDIRECTED 03/03/20 19:10 Peripheral IV Care [RC] . DIRECTED Sodium Chloride 0.9% [Saline Flush] 10 ml FLUSH ASDIRECTED PRN Peripheral IV Insertion Adult [OM.PC] Stat 03/03/20 21:07 Oral Fluid Challenge [RC] ASDIRECTED
[2020-03-03] MEDS ORDERED: HYDROmorphone 1 MG/ML Syringe IVPUSH ONE (19:19)
[2020-03-03] MEDS ORDERED: Alum Hydrox/Mag Hydrox/Simeth 30 ML, Lidocaine 2% 15 ML PO ONE ×2 (19:26)
--- NOTE | 2020-03-03 20:24 | CT ---
CT abdomen and pelvis Technique: Multiple axial sections were obtained from above the dome of the diaphragm inferiorly through the pubic symphysis. Intravenous and oral contrast was not utilized. Comparison: Prior CT abdomen and pelvis study of 04/19/19. Findings: Kidneys show no abnormal calcifications. No hydronephrosis is seen. No abnormal calcifications are seen along the course of the ureters. No bladder calculi are seen. Visualized lung bases show nothing acute. Liver shows no discrete abnormality. Surgical clips are seen from prior cholecystectomy. Spleen appears within normal limits. Adrenal glands show no nodule. Pancreas shows no discrete abnormality. Aorta shows atherosclerotic calcification which continues into the iliac vessels with no aneurysm. No retroperitoneal adenopathy or mesenteric abnormalities are seen. No pelvic mass or adenopathy is identified. No free fluid or inflammatory change is seen. Appendix is seen which is normal in size. Bone window settings were reviewed which shows no acute osseous finding. Impression: 1. No renal calculi, ureteral dilatation or ureteral stone is seen. 2. Other findings which are believed to be chronic. Nothing acute is identified. Diagnostic code #2 This report was dictated in MDT
[2020-03-03] MEDS ORDERED: Famotidine 20 MG/2 ML SDV IVPUSH ONE (21:06)
== END 2020-03-03 21:45 | disposition home or self-care (01) ==
LOC: JD.ED 18:45
DX: R10.13 Epigastric pain (principal); R11.2 Nausea with vomiting, unspecified; I10 Essential (primary) hypertension; E11.9 Type 2 diabetes mellitus without complications; F41.9 Anxiety disorder, unspecified; F31.9 Bipolar disorder, unspecified; E66.9 Obesity, unspecified; Z68.26 Body mass index [BMI] 26.0-26.9, adult; Z88.8 Allergy status to other drugs, medicaments and biological substances; Z90.49 Acquired absence of other specified parts of digestive tract; Z79.899 Other long term (current) drug therapy; Z79.4 Long term (current) use of insulin
CPT/HCPCS: 36415; 74176; 80053; 81001; 83735; 85007; 85027; 96361; 96374; 96375; 96376; 99284; A9270; J1170; J2405; J3490; J7030

== ENCOUNTER 2020-05-16 12:40 | Emergency (ER) | payer MEDICARE, MEDICAID ==
[2020-05-16 12:52] VITALS: BP 188/90; PULSE 61
[2020-05-16] MEDS ORDERED: HYDROmorphone 1 MG/ML Syringe IM ONE (13:03)
--- NOTE | 2020-05-16 13:31 | EDM.PDOC ---
ED HPI GENERAL MEDICAL PROBLEM - General Chief Complaint: Back Pain or Injury Stated Complaint: BACK PAIN Time Seen by Provider: 05/16/20 12:48 Source of Information: Reports: Patient History Limitations: Reports: No Limitations - History of Present Illness INITIAL COMMENTS - FREE TEXT/NARRATIVE: Patient is a 54-year-old male presenting to the emergency department with complaints of low back pain as well as numbness and weakness in his left lower extremity. This is a chronic problem for this patient. He has been seen in this emergency department numerous times with the same complaints. On previous visits, he had stated that he was due to have surgery on his low back, however he states that he missed the appointment because he was double scheduled for appointments back in January and has not followed up with his neurosurgeon since that time. Review of his primary care provider notes, patient is to follow-up with pain management and neurosurgery for further management. His primary care provider is Trudy Sewell. He is being prescribed tramadol with Tylenol for management of his pain, however he states this is not helping. Patient denies any bowel or bladder dysfunction, however does state that since yesterday he has had some burning with urination and frequency. Denies any urinary or bowel incontinence. Lower Back Pain Score (Numeric/FACES): 10 - Related Data Allergies Allergy/AdvReac Type Severity Reaction Status Date / Time ketorolac tromethamine AdvReac Severe Anxiety Verified 05/16/20 12:50 [From Toradol] methylphenidate HCl AdvReac Severe Anxiety Verified 05/16/20 12:50 [From Ritalin] metoclopramide HCl AdvReac Severe Anxiety Verified 05/16/20 12:50 [From Reglan] Home Meds: Home Meds Insulin Detemir [Levemir] 40 unit SUBCUT QPM 07/28/14 [History] metFORMIN [Glucophage] 2,000 mg PO BID 07/28/14 [History] Metoprolol Succinate [Toprol XL] 25 mg PO DAILY 08/18/14 [History] Sertraline [Zoloft] 150 mg PO BEDTIME 05/25/15 [History] Ezetimibe [Zetia] 10 mg PO DAILY 04/18/17 [History] ClonazePAM [KlonoPIN] 0.5 mg PO ASDIRECTED PRN 07/08/18 [History] Etodolac [Lodine] 400 mg PO Q8HR #30 tablet 01/14/20 [Rx] traMADol [Ultram] 50 mg PO ASDIRECTED PRN 05/16/20 [History] Past Medical History HEENT History: Reports: Impaired Vision Other HEENT History: wears eyeglasses Cardiovascular History: Reports: High Cholesterol, Hypertension Respiratory History: Reports: Bronchitis, Recurrent Gastrointestinal History: Reports: GERD, Other (See Below) Other Gastrointestinal History: "liver issues" Genitourinary History: Reports: None Musculoskeletal History: Reports: Arthritis, Back Pain, Chronic, Other (See Below) Other Musculoskeletal History: knee pain and shoulder pain, Neurological History: Reports: None Psychiatric History: Reports: Anxiety, Bipolar, Depression, Schizophrenia Endocrine/Metabolic History: Reports: Diabetes, Type II, Obesity/BMI 30+ Hematologic History: Reports: Anemia, Iron Deficiency Immunologic History: Reports: None Oncologic (Cancer) History: Reports: None Dermatologic History: Reports: None - Infectious Disease History Infectious Disease History: Reports: Chicken Pox, Measles, Other (See Below) Other Infectious Disease History: questionable hepatitis C - Past Surgical History GI Surgical History: Reports: Cholecystectomy Musculoskeletal Surgical History: Reports: Shoulder Surgery Social & Family History - Family History Family Medical History: Noncontributory - Tobacco Use Smoking Status *Q: Current Every Day Smoker Years of Tobacco use: 1 Packs/Tins Daily: 0.1 - Caffeine Use Caffeine Use: Reports: None Other Caffeine Use: 2-3 pop daily - Recreational Drug Use Recreational Drug Use: No - Living Situation & Occupation Living situation: Reports: Single, Other (with his landlord) Occupation: Disabled ED ROS GENERAL - Review of Systems Review Of Systems: See Below Constitutional: Reports: No Symptoms HEENT: Reports: No Symptoms Respiratory: Reports: No Symptoms Cardiovascular: Reports: No Symptoms Endocrine: Reports: No Symptoms GI/Abdominal: Reports: No Symptoms : Reports: Dysuria, Frequency Musculoskeletal: Reports: Back Pain Skin: Reports: No Symptoms Neurological: Reports: Paresthesia (Right leg) Psychiatric: Reports: No Symptoms Hematologic/Lymphatic: Reports: No Symptoms Immunologic: Reports: No Symptoms ED EXAM,LOWER BACK PAIN/INJURY - Physical Exam Exam: See Below Exam Limited By: No Limitations General Appearance: Alert, WD/WN, No Apparent Distress Respiratory/Chest: No Respiratory Distress, Lungs Clear, Normal Breath Sounds, No Accessory Muscle Use, Chest Non-Tender Cardiovascular: Normal Peripheral Pulses, Regular Rate, Rhythm, No Edema, No Gallop, No JVD, No Murmur, No Rub Back Exam: Normal Inspection, Paraspinal Tenderness (Right lateral to L3 into the right SI joint), Vertebral Tenderness (L3-S1) Extremities: Normal Inspection, Normal Range of Motion, Non-Tender, No Pedal Edema, Normal Capillary Refill Neurological: Alert, Normal Mood/Affect, Normal Dorsiflexion, CN II-XII Intact, Normal Plantar Flexion, Normal Gait, Normal Reflexes, No Motor/Sensory Deficits, Oriented x 3 Psychiatric: Normal Affect, Normal Mood Skin Exam: Warm, Dry, Intact, Normal Color, No Rash Course - Vital Signs Last Recorded V/S: Last Vital Signs Temp 98 F 05/16/20 12:48 Pulse 61 05/16/20 12:48 Resp 16 05/16/20 12:48 BP 188/90 H 05/16/20 12:48 Pulse Ox 99 05/16/20 12:48 - Orders/Labs/Meds Labs: Laboratory Tests 05/16/20 Range/Units 13:08 Urine Color Yellow (Yellow) Urine Appearance Clear (Clear) Urine pH 6.5 (5.0-8.0) Ur Specific [place] 1.015 (1.005-1.030) Urine Protein Negative (Negative) Urine Glucose (UA) Negative (Negative) Urine Ketones Negative (Negative) Urine Occult Blood Negative (Negative) Urine Nitrite Negative (Negative) Urine Bilirubin Negative (Negative) Urine Urobilinogen 0.2 (0.2-1.0) Ur Leukocyte Esterase Negative (Negative) Urine RBC 0-5 (0-5) /hpf Urine WBC 0-5 (0-5) /hpf Ur Squamous Epith Cells 0-5 (0-5) /hpf Urine Bacteria Few (FEW) /hpf Urine Mucus Few (FEW) /hpf Meds: Medications Discontinued Medications Generic Name Dose Route Start Last Admin Trade Name Freq PRN Reason Stop Dose Admin Hydromorphone HCl 1 mg 05/16/20 13:03 05/16/20 13:19 Dilaudid IM 05/16/20 13:04 1 mg ONETIME ONE Administration - Re-Assessments/Exams Free Text/Narrative Re-Assessment/Exam: Patient is a 54-year-old male presenting to the emergency department with complaints of low back pain and numbness and tingling to his right leg. This is a chronic problem for this patient. Discussed with the patient that while it is generally not the policy of the emergency department to treat chronic pain, I would be willing to treat his pain with an injection of Dilaudid 1 mg in the ER; however, I will not be able to change his treatment regimen as prescribed by his primary care provider. He verbalizes understanding of this. I have ordered 1 mg of Dilaudid IM as well as a urinalysis. 05/16/20 13:32 Patient is feeling better. Urinalysis was negative for infection. We will discharge him home with instructions to continue his treatment regimen as prescribed by his primary care provider. Recommend follow-up with primary care provider as well as pain management and neurosurgery. Discharge instructions as documented. Departure - Departure Time of Disposition: 13:32 Disposition: Home, Self-Care 01 Condition: Good Clinical Impression: Chronic lower back pain Qualifiers: Back pain laterality: midline Sciatica presence: without sciatica Qualified Code(s): M54.5 - Low back pain - Discharge Information *PRESCRIPTION DRUG MONITORING PROGRAM REVIEWED*: No *COPY OF PRESCRIPTION DRUG MONITORING REPORT IN PATIENT HIMA: No Instructions: Chronic Back Pain, [id number] Referrals: Melissa Uriostegui PA-C [Primary Care Provider] - Forms: ED Department Discharge Additional Instructions: You were seen in the emergency department today for chronic low back pain with numbness, tingling, weakness of your right leg. While in the ER you received a one-time injection of Dilaudid for pain. This did improve your symptoms. Urinalysis was completed in the ER was negative for infection. Recommend that you contact your primary care provider tomorrow to arrange for follow-up. It is also imperative that you follow-up with pain management and neurosurgery. Return to ER as needed. Sepsis Event Note (ED) - Evaluation Sepsis Screening Result: No Definite Risk - Focused Exam Vital Signs: Vital Signs Temp Pulse Resp BP Pulse Ox 05/16/20 12:48 98 F 61 16 188/90 H 99
== END 2020-05-16 13:42 | disposition home or self-care (01) ==
LOC: JD.ED 12:40
DX: M54.5 Low back pain (principal); I10 Essential (primary) hypertension; E11.9 Type 2 diabetes mellitus without complications; E66.9 Obesity, unspecified; Z68.26 Body mass index [BMI] 26.0-26.9, adult; F32.9 Major depressive disorder, single episode, unspecified; Z88.6 Allergy status to analgesic agent; Z88.8 Allergy status to other drugs, medicaments and biological substances; Z79.4 Long term (current) use of insulin; Z79.899 Other long term (current) drug therapy
CPT/HCPCS: 81001; 96372; 99284; J1170; 99283

== ENCOUNTER 2020-06-04 12:41 | Emergency (ER) | payer MEDICARE, MEDICAID ==
[2020-06-04] MEDS ORDERED: fentaNYL 100 MCG/2 ML SDV IVPUSH ONE (12:47)
[2020-06-04] MEDS ORDERED: Ondansetron 4 MG/2 ML SDV IVPUSH ONE (12:48)
--- NOTE | 2020-06-04 12:58 | EDM.PDOC ---
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 from pain medications. Sepsis Event Note (ED) - Focused Exam Vital Signs: Vital Signs Temp Pulse Resp BP Pulse Ox 06/04/20 14:19 87 16 167/101 H 100 06/04/20 12:58 36.1 C 58 L 20 204/103 H 99 - My Orders Last 24 Hours: My Active Orders 06/04/20 15:46 DME for Discharge [COMM] Stat - Assessment/Plan Last 24 Hours: My Active Orders 06/04/20 15:46 DME for Discharge [COMM] Stat
[2020-06-04] MEDS ORDERED: Sodium Chloride 0.9% 1,000 ML IV SCH (13:00)
[2020-06-04] MEDS ORDERED: Sodium Chloride 0.9% 10 ML Syringe FLUSH PRN (13:13)
[2020-06-04] MEDS ORDERED: Iopamidol 612 MG/ML 50 ML SDV IVPUSH ONE (13:13)
[2020-06-04] MEDS ORDERED: Iopamidol 612 MG/ML 100 ML Bottle IVPUSH ONE (13:13)
--- NOTE | 2020-06-04 13:54 | CT ---
Head CT Technique: Multiple axial sections through the brain were obtained. Intravenous contrast was not utilized. Comparison: Prior head CT study of 07/08/18. Findings: Ventricles along with basal cisterns and sulci over convexities are within normal limits for the patient's age. No abnormal parenchymal densities are seen. No evidence of intracranial hemorrhage. No midline shift or mass-effect is seen. Bone window settings were reviewed. No acute calvarial finding is seen. Visualized mastoid sinuses and visualized paranasal sinuses show nothing acute. Impression: 1. Nothing acute is appreciated on noncontrast head CT exam. Diagnostic code #1 This report was dictated in MDT
--- NOTE | 2020-06-04 13:56 | CR ---
Left femur: AP and lateral views of the left femur were obtained. Comparison: No previous femur exam. No discrete fracture or other bony abnormality is appreciated. Impression: 1. No abnormality is identified on 2 view left femur study. Diagnostic code #1 This report was dictated in MDT
--- NOTE | 2020-06-04 13:59 | CR ---
Left tibia and fibula: AP and lateral views of the left tibia and fibula were obtained. Subcutaneous soft tissue swelling is seen. Equivocal cortical disruption on the lateral view within the distal fibula. This may simply be projectional but if patient has ankle symptoms, recommend formal ankle exam. No acute fracture or other bony abnormality is appreciated. Impression: 1. Soft tissue edema. 2. Equivocal abnormality posteriorly within the distal fibula as noted above. If patient is symptomatic to the ankle, recommend formal ankle exam. 3. No additional bony abnormality is appreciated. Diagnostic code #3 This report was dictated in MDT
[2020-06-04] MEDS ORDERED: HYDROmorphone 0.5 MG/0.5 ML Syringe IVPUSH ONE ×2 (14:17→14:30)
[2020-06-04 14:20] VITALS: BP 167/101; PULSE 87
--- NOTE | 2020-06-04 14:24 | CT ---
CT chest Technique: Multiple axial sections of the chest were obtained. Intravenous contrast was utilized. Comparison: Prior chest CT study of 04/28/18. Aorta shows no abnormality. Minimal coronary artery calcification is seen. No pericardial thickening is noted. Lungs are clear. No pulmonary contusion or pleural effusion is seen. No pneumothorax is appreciated. Equivocal nondisplaced fractures within the anterolateral second and third ribs. No displaced rib fractures are appreciated. Degenerative change is noted within the thoracic spine which appears stable. Lateral reconstructed images of the sternum shows no discrete fracture. Impression: 1. Equivocal nondisplaced fractures within the anterolateral right second and third ribs. Please correlate if patient is symptomatic to this area. 2. Other findings as noted above. Nothing acute is otherwise seen on CT study of the chest. Diagnostic code #3 CT abdomen and pelvis Technique: Multiple axial sections were obtained from above the dome of the diaphragm inferiorly through the pubic symphysis. Intravenous contrast was utilized. No oral contrast has been given. Delayed images were obtained through the bladder. Reconstructed coronal and sagittal images were obtained. [place]: Previous CT abdomen and pelvis study of 03/03/20. Findings: Liver contains no focal abnormality. Spleen appears within normal limits. Adrenal glands show no nodule. Surgical clips are noted from prior cholecystectomy. Kidneys show symmetric contrast enhancement without abnormality. Pancreas shows no focal abnormality. Aorta shows atherosclerotic change without aneurysm. No retroperitoneal adenopathy or mesenteric abnormalities are seen. No pelvic mass or adenopathy is seen. No free fluid or inflammatory change is appreciated. Appendix is not visualized with certainty. Bone window settings were reviewed. Disc space narrowing at L5-S1 with vacuum disc phenomena. No acute osseous finding is seen within the visualized osseous structures. Delayed images shows contrast within both distal ureters and bladder. No contrast extravasation is seen. Impression: 1. Findings as noted above. 2. Nothing acute is appreciated on CT study of the abdomen and pelvis. Diagnostic code #2 This report was dictated in MDT
--- NOTE | 2020-06-04 14:24 | CT ---
CT cervical spine Technique: Multiple axial sections through the cervical spine were obtained from above C1 inferiorly from above C1 inferiorly to the top of T2. Reconstructed sagittal and coronal images were reviewed. Findings: Degenerative change is noted between the dens and anterior arch of C1. Moderate to severe disc space narrowing at C5-6 with posterior osteophytes and anterior osteophytes at C5-6. Degenerative change is noted within the apophyseal joints which is scattered throughout the cervical spine. Fairly severe left-sided neural foraminal stenosis is noted at C5-6. Moderate to severe left-sided neural foraminal stenosis is noted at C3-4. Other neural foramina are patent. No discrete bony central canal stenosis is noted. No fracture is identified. No abnormal subluxation is seen. Impression: 1. Degenerative change as noted above. 2. No acute fracture or abnormal subluxation is appreciated. Diagnostic code #2 This report was dictated in MDT
--- NOTE | 2020-06-04 14:29 | CT ---
CT lumbar spine Technique: Multiple axial sections were obtained through the lumbar spine. Reconstructed sagittal and coronal images were obtained. Findings: T10-11: Disc space narrowing and vacuum phenomena is noted. Minimal posterior osteophyte is noted to the left of midline. No central canal stenosis or neural foraminal stenosis is seen. T11-12: Posterior disc space narrowing is seen. T12-L1: Posterior disc space narrowing is seen. L1-2: Posterior disc space narrowing noted. L2-3: Posterior disc space narrowing is seen. Very slight circumferential disc bulge is seen. No central canal stenosis or neural foraminal stenosis is seen. L3-4: Posterior disc space narrowing is noted. Mild circumferential disc bulge is seen. Posterior disc maintains a minimally concave margin. No central canal stenosis or neural foraminal stenosis is seen. L4-5: Slight circumferential disc bulge is seen. Posterior disc maintains a plantar margin. No central canal stenosis or neural foraminal stenosis is seen. L5-S1: Moderate disc space narrowing is noted with circumferential disc bulge. Neural foramina is slightly narrowed on the right side causing minimal compromise of the exiting right L5 nerve root. Left L5 nerve root appears to exit without definite compromise. No fracture is seen. No abnormal subluxation is appreciated. Impression: 1. Degenerative change as noted above. No acute abnormality is appreciated on CT study of the lumbar spine. Diagnostic code #2 This report was dictated in MDT
== END 2020-06-04 16:09 | disposition home or self-care (01) ==
LOC: JD.ED 12:41
DX: S80.12XA Contusion of left lower leg, initial encounter (principal); M54.5 Low back pain; R00.1 Bradycardia, unspecified; I10 Essential (primary) hypertension; F41.9 Anxiety disorder, unspecified; F31.9 Bipolar disorder, unspecified; E11.9 Type 2 diabetes mellitus without complications; E66.9 Obesity, unspecified; Z68.30 Body mass index [BMI] 30.0-30.9, adult; Z88.8 Allergy status to other drugs, medicaments and biological substances; Z79.4 Long term (current) use of insulin; Z79.899 Other long term (current) drug therapy; W23.0XXA Caught, crushed, jammed, or pinched between moving objects, initial encounter; M54.2 Cervicalgia
CPT/HCPCS: 36415; 70450; 71260; 72125; 72131; 73552; 73590; 74177; 80053; 80306; 80307; 82550; 83735; 85025; 85610; 85730; 86850; 86900; 86901; 93005; 96361; 96374; 96375; 99285; J1170; J2405; J3010; J7030; Q9967; 93010

== ENCOUNTER 2020-06-18 10:37 | Emergency (ER) | payer MEDICARE, MEDICAID ==
[2020-06-18 10:55] VITALS: BP 191/93; PULSE 76
[2020-06-18] MEDS ORDERED: HYDROmorphone 1 MG/ML Syringe IM ONE (11:32)
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
== END 2020-06-18 12:10 | disposition home or self-care (01) ==
LOC: JD.ED 10:37
DX: G89.29 Other chronic pain (principal); M54.5 Low back pain; I10 Essential (primary) hypertension; F41.9 Anxiety disorder, unspecified; F32.9 Major depressive disorder, single episode, unspecified; E11.9 Type 2 diabetes mellitus without complications; F17.210 Nicotine dependence, cigarettes, uncomplicated; E66.9 Obesity, unspecified; Z68.27 Body mass index [BMI] 27.0-27.9, adult; Z88.6 Allergy status to analgesic agent; Z88.8 Allergy status to other drugs, medicaments and biological substances; Z79.4 Long term (current) use of insulin; Z79.899 Other long term (current) drug therapy
CPT/HCPCS: 96372; 99283; J1170

== ENCOUNTER 2020-07-31 05:39 | Emergency (ER) | payer MEDICARE, MEDICAID ==
[2020-07-31 05:48] VITALS: BP 204/110; PULSE 84
[2020-07-31] MEDS ORDERED: HYDROmorphone 0.5 MG/0.5 ML Syringe IM ONE (06:20)
--- NOTE | 2020-07-31 06:21 | EDM.PDOC ---
ED HPI GENERAL MEDICAL PROBLEM - General Chief Complaint: Back Pain or Injury Stated Complaint: LOWER BACK PAIN Time Seen by Provider: 07/31/20 05:59 Source of Information: Reports: Patient History Limitations: Reports: No Limitations - History of Present Illness INITIAL COMMENTS - FREE TEXT/NARRATIVE: Is a 55-year-old male. Apparently he is supposed to have surgery on August 10 in [place] but he does not know who the surgeon is. He has been receiving narcotics for pain control by his local PCP and he got 20 Vicodin on July 26 and he does not have them anymore. He comes to the ER because he wants something for pain. When I indicated we do not provide narcotics for pain he got rather upset and says he is not here for pain medicines. What he wants is a shot. He is allergic to Toradol. He says he has a problem with his lower back disc and that is whether doing the surgery. Indicates occasionally has pain down his leg from his lower back. Lower Back Pain Score (Numeric/FACES): 10 - Related Data Allergies Allergy/AdvReac Type Severity Reaction Status Date / Time ketorolac tromethamine AdvReac Severe Anxiety Verified 07/31/20 05:45 [From Toradol] methylphenidate HCl AdvReac Mild Anxiety Verified 07/31/20 05:45 [From Ritalin] metoclopramide HCl AdvReac Mild Anxiety Verified 07/31/20 05:45 [From Reglan] Home Meds: Home Meds Insulin Detemir [Levemir] 40 unit SUBCUT QPM 07/28/14 [History] metFORMIN [Glucophage] 2,000 mg PO BID 07/28/14 [History] Metoprolol Succinate [Toprol XL] 25 mg PO DAILY 08/18/14 [History] Sertraline [Zoloft] 150 mg PO BEDTIME 05/25/15 [History] Ezetimibe [Zetia] 10 mg PO DAILY 04/18/17 [History] ClonazePAM [KlonoPIN] 0.5 mg PO ASDIRECTED PRN 07/08/18 [History] Etodolac [Lodine] 400 mg PO Q8HR #30 tablet 01/14/20 [Rx] traMADol [Ultram] 50 mg PO ASDIRECTED PRN 05/16/20 [History] oxyCODONE HCl/Acetaminophen [Percocet 5-325 mg Tablet] 1 - 2 each PO Q4H PRN #20 tablet 06/04/20 [Rx] Past Medical History HEENT History: Reports: Impaired Vision Other HEENT History: wears eyeglasses Cardiovascular History: Reports: High Cholesterol, Hypertension Respiratory History: Reports: Bronchitis, Recurrent Gastrointestinal History: Reports: GERD, Other (See Below) Other Gastrointestinal History: "liver issues" Genitourinary History: Reports: None Musculoskeletal History: Reports: Arthritis, Back Pain, Chronic, Other (See Below) Other Musculoskeletal History: knee pain and shoulder pain, Neurological History: Reports: None Psychiatric History: Reports: Anxiety, Bipolar, Depression, Schizophrenia Endocrine/Metabolic History: Reports: Diabetes, Type II, Obesity/BMI 30+ Hematologic History: Reports: Anemia, Iron Deficiency Immunologic History: Reports: None Oncologic (Cancer) History: Reports: None Dermatologic History: Reports: None - Infectious Disease History Infectious Disease History: Reports: Chicken Pox, Measles, Other (See Below) Other Infectious Disease History: questionable hepatitis C - Past Surgical History GI Surgical History: Reports: Cholecystectomy Musculoskeletal Surgical History: Reports: Shoulder Surgery Other Musculoskeletal Surgeries/Procedures:: bunionectomy Social & Family History - Family History Family Medical History: No Pertinent Family History - Tobacco Use Tobacco Use Status *Q: Unknown Ever Used Tobacco - Caffeine Use Caffeine Use: Reports: None Other Caffeine Use: 2-3 pop daily - Living Situation & Occupation Living situation: Reports: Single, Other (with his landlord) Occupation: Disabled ED ROS GENERAL - Review of Systems Review Of Systems: See Below Constitutional: Denies: Fever, Chills HEENT: Reports: No Symptoms Respiratory: Denies: Shortness of Breath, Cough Cardiovascular: Denies: Chest Pain Endocrine: Reports: No Symptoms GI/Abdominal: Reports: No Symptoms : Reports: No Symptoms Musculoskeletal: Reports: Back Pain Skin: Reports: No Symptoms Neurological: Reports: Other (Sciatica) Psychiatric: Reports: No Symptoms Hematologic/Lymphatic: Reports: No Symptoms ED EXAM,LOWER BACK PAIN/INJURY - Physical Exam Exam: See Below Exam Limited By: No Limitations General Appearance: Alert, WD/WN, No Apparent Distress Ears: Normal External Exam Nose: Normal Inspection Throat/Mouth: Normal Lips, Normal Voice, No Airway Compromise Head: Normocephalic Neck: Supple Respiratory/Chest: No Respiratory Distress, Lungs Clear, Normal Breath Sounds Cardiovascular: Regular Rate, Rhythm, No Murmur GI/Abdominal: Other (He denies any tenderness) Back Exam: Normal Inspection, Other (Patient is sitting upright in the bed and when I asked him to show me what was wrong with his back he sat up and leaned forward and twisted to the right side and showed me his left lower back area where he has the pain. He does not appear to be in any discomfort with his movements.) Extremities: Normal Inspection, Normal Range of Motion Neurological: Alert, Oriented x 3 Psychiatric: Normal Affect, Normal Mood Skin Exam: Warm, Dry Course - Vital Signs Last Recorded V/S: Last Vital Signs Temp 98.2 F 07/31/20 05:46 Pulse 84 07/31/20 05:46 Resp 16 07/31/20 05:46 BP 204/110 H 07/31/20 05:46 Pulse Ox 99 07/31/20 05:46 Departure - Departure Time of Disposition: 06:19 Disposition: Home, Self-Care 01 Condition: Fair Clinical Impression: Chronic low back pain Qualifiers: Back pain laterality: unspecified Sciatica presence: with sciatica Sciatica laterality: sciatica laterality unspecified Qualified Code(s): M54.40 - Lumbago with sciatica, unspecified side; G89.29 - Other chronic pain - Discharge Information *PRESCRIPTION DRUG MONITORING PROGRAM REVIEWED*: Not Applicable *COPY OF PRESCRIPTION DRUG MONITORING REPORT IN PATIENT HIMA: Not Applicable Instructions: Chronic Back Pain, [id number] Referrals: Melissa Uriostegui PA-C [Primary Care Provider] - Additional Instructions: Consider heat or ice to your back frequently to help with the pain, follow-up with your PCP here in town for additional Vicodin, gentle activity and do not do anything aggravate your lower back, return to the ER if needed Sepsis Event Note (ED) - Evaluation Sepsis Screening Result: No Definite Risk - Focused Exam Vital Signs: Vital Signs Temp Pulse Resp BP Pulse Ox 07/31/20 05:46 98.2 F 84 16 204/110 H 99
== END 2020-07-31 06:43 | disposition home or self-care (01) ==
LOC: JD.ED 05:39
DX: M54.40 Lumbago with sciatica, unspecified side (principal); I10 Essential (primary) hypertension; Z79.4 Long term (current) use of insulin; Z79.899 Other long term (current) drug therapy; E11.9 Type 2 diabetes mellitus without complications; F32.9 Major depressive disorder, single episode, unspecified; F41.9 Anxiety disorder, unspecified; E66.9 Obesity, unspecified; Z88.6 Allergy status to analgesic agent; Z88.8 Allergy status to other drugs, medicaments and biological substances
CPT/HCPCS: 96372; 99283; J1170

== ENCOUNTER 2020-08-13 13:14 | Emergency (ER) | payer MEDICARE, MEDICAID ==
[2020-08-13 13:58] VITALS: BP 167/99; PULSE 72
--- NOTE | 2020-08-13 14:38 | EDM.PDOC ---
ED HPI GENERAL MEDICAL PROBLEM - General Chief Complaint: Back Pain or Injury Stated Complaint: BACK PAIN Time Seen by Provider: 08/13/20 14:16 Source of Information: Reports: Patient History Limitations: Reports: No Limitations - History of Present Illness INITIAL COMMENTS - FREE TEXT/NARRATIVE: Mr. Wright is a 55-year-old man with chronic lower back pain, frequent visitor to this ED, last seen here on 07/31/2020, requesting a shot of pain medication. The emergency physician explained to the patient that we do not give opioids for chronic pain, and that he would need to see his PCP. The patient now returns to the ED stating that he was supposed to get lower back surgery last week, but that it was canceled for some reason by his PCP. He states that he followed up with her since then, and that she prescribed some pain medication, but that he is out of them, and he is requesting a shot of an opioid. He states that he is allergic to Toradol. Review of the [place] [employer] finds that the patient has 109 prescriptions for opioids over the past 3 years, most recently by his PCP, with his most recent prescription for 20 tablets of Jefferson 5/325 on 08/08/2020. When I explained to the patient that the ED does not provide opioids for chronic pain, and that he will need to get his opioids from his PCP, who is his single provider, the patient got up and left the ED without answering any further questions, allowing a physical exam, or waiting for discharge instructions. The patient's PCP is CHANDNI Urbano. He states that he does not recall the name of his Neurosurgeon. Back Pain Score (Numeric/FACES): 9 - Related Data Allergies Allergy/AdvReac Type Severity Reaction Status Date / Time ketorolac tromethamine AdvReac Severe Anxiety Verified 08/13/20 13:58 [From Toradol] methylphenidate HCl AdvReac Mild Anxiety Verified 08/13/20 13:58 [From Ritalin] metoclopramide HCl AdvReac Mild Anxiety Verified 08/13/20 13:58 [From Reglan] Home Meds: Home Meds Insulin Detemir [Levemir] 40 unit SUBCUT QPM 07/28/14 [History] metFORMIN [Glucophage] 2,000 mg PO BID 07/28/14 [History] Metoprolol Succinate [Toprol XL] 25 mg PO DAILY 08/18/14 [History] Sertraline [Zoloft] 150 mg PO BEDTIME 05/25/15 [History] Ezetimibe [Zetia] 10 mg PO DAILY 04/18/17 [History] ClonazePAM [KlonoPIN] 0.5 mg PO ASDIRECTED PRN 07/08/18 [History] Etodolac [Lodine] 400 mg PO Q8HR #30 tablet 01/14/20 [Rx] traMADol [Ultram] 50 mg PO ASDIRECTED PRN 05/16/20 [History] oxyCODONE HCl/Acetaminophen [Percocet 5-325 mg Tablet] 1 - 2 each PO Q4H PRN #20 tablet 06/04/20 [Rx] Past Medical History HEENT History: Reports: Impaired Vision Other HEENT History: wears eyeglasses Cardiovascular History: Reports: High Cholesterol, Hypertension Respiratory History: Reports: Bronchitis, Recurrent Gastrointestinal History: Reports: GERD, Other (See Below) Other Gastrointestinal History: "liver issues" Genitourinary History: Reports: None Musculoskeletal History: Reports: Arthritis, Back Pain, Chronic, Other (See Below) Other Musculoskeletal History: knee pain and shoulder pain, Neurological History: Reports: None Psychiatric History: Reports: Anxiety, Bipolar, Depression, Schizophrenia Endocrine/Metabolic History: Reports: Diabetes, Type II, Obesity/BMI 30+ Hematologic History: Reports: Anemia, Iron Deficiency Immunologic History: Reports: None Oncologic (Cancer) History: Reports: None Dermatologic History: Reports: None - Infectious Disease History Infectious Disease History: Reports: Chicken Pox, Measles, Other (See Below) Other Infectious Disease History: questionable hepatitis C - Past Surgical History GI Surgical History: Reports: Cholecystectomy Musculoskeletal Surgical History: Reports: Shoulder Surgery Other Musculoskeletal Surgeries/Procedures:: bunionectomy Social & Family History - Family History Family Medical History: No Pertinent Family History - Tobacco Use Tobacco Use Status *Q: Current Some Day Tobacco User Years of Tobacco use: 14 Packs/Tins Daily: 0.1 - Caffeine Use Caffeine Use: Reports: None Other Caffeine Use: 2-3 pop daily - Recreational Drug Use Recreational Drug Use: No - Living Situation & Occupation Living situation: Reports: Single, Other (with his landlord) Occupation: Disabled ED ROS GENERAL - Review of Systems Review Of Systems: Unable To Obtain Reason Not Obtained: Patient refused to answer ED EXAM,LOWER BACK PAIN/INJURY - Physical Exam Exam: Not Obtained Reason Not Obtained: Patient refused Course - Vital Signs Last Recorded V/S: Last Vital Signs Temp 36.8 C 08/13/20 13:55 Pulse 72 08/13/20 13:55 Resp 16 08/13/20 13:55 BP 167/99 H 08/13/20 13:55 Pulse Ox 96 08/13/20 13:55 Departure - Departure Time of Disposition: 14:32 Disposition: Eloped 07 Condition: Good Clinical Impression: Drug-seeking behavior - Discharge Information *PRESCRIPTION DRUG MONITORING PROGRAM REVIEWED*: Not Applicable *COPY OF PRESCRIPTION DRUG MONITORING REPORT IN PATIENT HIMA: Not Applicable Referrals: Melissa Uriostegui PA-C [Primary Care Provider] - Sepsis Event Note (ED) - Evaluation Sepsis Screening Result: No Definite Risk - Focused Exam Vital Signs: Vital Signs Temp Pulse Resp BP Pulse Ox 08/13/20 13:55 36.8 C 72 16 167/99 H 96
== END 2020-08-13 14:41 | disposition left against medical advice (07) ==
LOC: JD.ED 13:14
DX: Z76.5 Malingerer [conscious simulation] (principal); E11.9 Type 2 diabetes mellitus without complications; I10 Essential (primary) hypertension; E66.9 Obesity, unspecified; F41.9 Anxiety disorder, unspecified; F32.9 Major depressive disorder, single episode, unspecified; F17.210 Nicotine dependence, cigarettes, uncomplicated; Z68.28 Body mass index [BMI] 28.0-28.9, adult; Z79.4 Long term (current) use of insulin; Z79.899 Other long term (current) drug therapy; Z88.6 Allergy status to analgesic agent; Z88.8 Allergy status to other drugs, medicaments and biological substances
CPT/HCPCS: 99283

== ENCOUNTER 2021-03-14 12:43 | Emergency (ER) | payer MEDICARE, MEDICAID ==
[2021-03-14 12:56] VITALS: BP 135/85; PULSE 54
[2021-03-14] MEDS ORDERED: Sodium Chloride 0.9% 10 ML Syringe FLUSH PRN ×2 (12:57→14:59)
[2021-03-14] MEDS ORDERED: Sodium Chloride 0.9% 1,000 ML IV STA (13:22)
[2021-03-14] MEDS ORDERED: HYDROmorphone 0.5 MG/0.5 ML Syringe IVPUSH ONE (13:22)
[2021-03-14] MEDS ORDERED: Ondansetron 4 MG/2 ML SDV IVPUSH ONE (13:22)
[2021-03-14] MEDS ORDERED: Iopamidol 612 MG/ML 100 ML Bottle IVPUSH ONE (14:59)
[2021-03-14] MEDS ORDERED: Diatrizoate Meglumine/Diatrizoate Sodium 37% 120 ML Bottle PO ONE (14:59)
--- NOTE | 2021-03-14 15:34 | EDM.PDOC ---
ED HPI GENERAL MEDICAL PROBLEM - General Chief Complaint: Flank Pain Stated Complaint: KIDNEY PAIN Time Seen by Provider: 03/14/21 12:49 Source of Information: Reports: Patient, RN Notes Reviewed History Limitations: Reports: No Limitations - History of Present Illness INITIAL COMMENTS - FREE TEXT/NARRATIVE: Patient is a 55-year-old male presenting to the emergency department with complaints of right-sided abdominal pain as well as bilateral flank pain for the last 4 days. Pain has been progressively worsening over the last 2 days. He denies any blood in his urine but states he does have burning with urination. Denies any fever or chills. He reports vomiting up to 3 times daily but he is able to keep down liquids. Denies diarrhea. He has chronic back pain and had b ack surgery 2-1/2 months ago and reports having ongoing discomfort related to this. He has been using ibuprofen for discomfort with little relief. Primary care provider is Kristy Doan NP. Treatments RETAIL SALESPERSON: Reports: Other Medication(s) Other Treatments RETAIL SALESPERSON: motrin Flank Pain Score (Numeric/FACES): 9 - Related Data Allergies Allergy/AdvReac Type Severity Reaction Status Date / Time ketorolac tromethamine AdvReac Severe Anxiety Verified 08/13/20 13:58 [From Toradol] methylphenidate HCl AdvReac Mild Anxiety Verified 08/13/20 13:58 [From Ritalin] metoclopramide HCl AdvReac Mild Anxiety Verified 08/13/20 13:58 [From Reglan] Home Meds: Home Meds Insulin Detemir [Levemir] 44 unit SUBCUT QPM 07/28/14 [History] metFORMIN [Glucophage] 2,000 mg PO BID 07/28/14 [History] Metoprolol Succinate [Toprol XL] 25 mg PO DAILY 08/18/14 [History] Sertraline [Zoloft] 150 mg PO BEDTIME 05/25/15 [History] ClonazePAM [KlonoPIN] 0.5 mg PO ASDIRECTED PRN 07/08/18 [History] Past Medical History HEENT History: Reports: Impaired Vision Other HEENT History: wears eyeglasses Cardiovascular History: Reports: High Cholesterol, Hypertension Respiratory History: Reports: Bronchitis, Recurrent Gastrointestinal History: Reports: GERD, Other (See Below) Other Gastrointestinal History: "liver issues" Genitourinary History: Reports: None Musculoskeletal History: Reports: Arthritis, Back Pain, Chronic, Other (See Below) Other Musculoskeletal History: knee pain and shoulder pain, Neurological History: Reports: None Psychiatric History: Reports: Anxiety, Bipolar, Depression, Schizophrenia Endocrine/Metabolic History: Reports: Diabetes, Type II Hematologic History: Reports: Anemia, Iron Deficiency Immunologic History: Reports: None Oncologic (Cancer) History: Reports: None Dermatologic History: Reports: None - Infectious Disease History Infectious Disease History: Reports: Chicken Pox, Measles, Other (See Below) Other Infectious Disease History: questionable hepatitis C - Past Surgical History GI Surgical History: Reports: Cholecystectomy Musculoskeletal Surgical History: Reports: Shoulder Surgery, Other (See Below) Other Musculoskeletal Surgeries/Procedures:: bunionectomy. back surgery 2.5 months ago. Social & Family History - Family History Family Medical History: No Pertinent Family History - Tobacco Use Tobacco Use Status *Q: Current Every Day Tobacco User Years of Tobacco use: 40 Packs/Tins Daily: 1 - Caffeine Use Caffeine Use: Reports: Tea Other Caffeine Use: 2-3 pop daily - Recreational Drug Use Recreational Drug Use: No - Living Situation & Occupation Living situation: Reports: Single, Other (with his landlord) Occupation: Disabled ED ROS GENERAL - Review of Systems Review Of Systems: See Below Constitutional: Reports: No Symptoms. Denies: Fever, Chills HEENT: Reports: No Symptoms Respiratory: Reports: No Symptoms Cardiovascular: Reports: No Symptoms Endocrine: Reports: No Symptoms GI/Abdominal: Reports: Abdominal Pain, Nausea, Vomiting : Reports: Dysuria, Flank Pain. Denies: Frequency, Hematuria Musculoskeletal: Reports: Back Pain Skin: Reports: No Symptoms Neurological: Reports: No Symptoms. Denies: Confusion, Dizziness Psychiatric: Reports: No Symptoms Hematologic/Lymphatic: Reports: No Symptoms Immunologic: Reports: No Symptoms ED EXAM, GI/ABD - Physical Exam Exam: See Below Exam Limited By: No Limitations General Appearance: Alert, WD/WN, No Apparent Distress Eyes: Bilateral: Normal Appearance Respiratory/Chest: No Respiratory Distress, Lungs Clear, Normal Breath Sounds, No Accessory Muscle Use, Chest Non-Tender Cardiovascular: Normal Peripheral Pulses, Regular Rate, Rhythm, No Edema, No Gallop, No JVD, No Murmur, No Rub GI/Abdominal Exam: Normal Bowel Sounds, Soft, No Organomegaly, No Distention, No Abnormal Bruit, No Mass, Pelvis Stable, Tender (Right sided abdominal pain. Right lower quadrant worse than right upper quadrant.). No: Guarding, Rigid, Rebound Back Exam: Normal Inspection, Full Range of Motion, CVA Tenderness (L), CVA Tenderness (R) Neurological: Alert, Oriented, CN II-XII Intact, Normal Cognition, Normal Gait, Normal Reflexes, No Motor/Sensory Deficits Psychiatric: Normal Affect, Normal Mood Skin Exam: Warm, Dry, Intact, Normal Color, No Rash Course - Vital Signs Last Recorded V/S: Last Vital Signs Temp 97.4 F 03/14/21 12:54 Pulse 54 L 03/14/21 12:54 Resp 18 03/14/21 12:54 BP 135/85 03/14/21 12:54 Pulse Ox 99 03/14/21 12:54 - Orders/Labs/Meds Orders: Active Orders 24 hr Category Date Time Status Peripheral IV Care [RC] . DIRECTED Care 03/14/21 12:58 Active Abdomen Pelvis w Cont [CT] Stat Exams 03/14/21 13:43 Taken Sodium Chloride 0.9% [Normal Saline] 1,000 ml Med 03/14/21 13:22 Active IV NOW Sodium Chloride 0.9% [Saline Flush] Med 03/14/21 12:57 Active 10 ml FLUSH ASDIRECTED PRN Sodium Chloride 0.9% [Saline Flush] Med 03/14/21 14:59 Active 10 ml FLUSH ONETIME PRN Peripheral IV Insertion Adult [OM.PC] Stat Oth 03/14/21 12:58 Ordered Medication Orders Sodium Chloride (Normal Saline) 1,000 mls @ 150 mls/hr IV NOW STA Stop: 03/14/21 20:01 Last Admin: 03/14/21 13:36 Dose: 150 mls/hr Documented by: MOMOTCON Sodium Chloride (Sodium Chloride 0.9% 10 Ml Syringe) 10 ml FLUSH ASDIRECTED PRN PRN Reason: Keep Vein Open Last Admin: 03/14/21 13:23 Dose: 10 ml Documented by: MOMOTCON Sodium Chloride (Sodium Chloride 0.9% 10 Ml Syringe) 10 ml FLUSH ONETIME PRN PRN Reason: Keep Vein Open Last Admin: 03/14/21 15:03 Dose: 10 ml Documented by: GALLO Labs: Laboratory Tests 03/14/21 03/14/21 03/14/21 Range/Units 12:57 13:00 13:16 WBC 10.65 H (4.23-9.07) K/mm3 RBC 4.56 L (4.63-6.08) M/mm3 Hgb 14.1 (13.7-17.5) gm/dl Hct 40.4 (40.1-51.0) % MCV 88.6 (79.0-92.2) fl MCH 30.9 (25.7-32.2) pg MCHC 34.9 (32.2-35.5) g/dl RDW Std Deviation 41.4 (35.1-43.9) fL Plt Count 265 (163-337) K/mm3 MPV 9.4 (9.4-12.3) fl Neut % (Auto) 68.1 H (34.0-67.9) % Lymph % (Auto) 22.7 (21.8-53.1) % [place] % (Auto) 6.3 (5.3-12.2) % Eos % (Auto) 2.1 (0.8-7.0) Baso % (Auto) 0.3 (0.1-1.2) % Neut # (Auto) 7.26 H (1.78-5.38) K/mm3 Lymph # (Auto) 2.42 (1.32-3.57) K/mm3 [place] # (Auto) 0.67 (0.30-0.82) K/mm3 Eos # (Auto) 0.22 (0.04-0.54) K/mm3 Baso # (Auto) 0.03 (0.01-0.08) K/mm3 Sodium 128 L (136-145) mEq/L Potassium 4.0 (3.5-5.1) mEq/L Chloride 94 L (98-107) mEq/L Carbon Dioxide 23 (21-32) mEq/L Anion Gap 15.0 (5-15) BUN 4 L (7-18) mg/dL Creatinine 0.7 (0.7-1.3) mg/dL Est Cr Clr Drug Dosing 95.96 mL/min Estimated GFR (MDRD) > 60 (>60) mL/min BUN/Creatinine Ratio 5.7 L (14-18) Glucose 107 H (70-99) mg/dL Calcium 8.4 L (8.5-10.1) mg/dL Total Bilirubin 0.4 (0.2-1.0) mg/dL AST 26 (15-37) U/L ALT 34 (16-63) U/L Alkaline Phosphatase 111 (46-116) U/L C-Reactive Protein <0.2 (<1.0) mg/dL Total Protein 6.8 (6.4-8.2) g/dl Albumin 3.6 (3.4-5.0) g/dl Globulin 3.2 gm/dL Albumin/Globulin Ratio 1.1 (1-2) Urine Color Light yellow (Yellow) Urine Appearance Clear (Clear) Urine pH 6.5 (5.0-8.0) Ur Specific Kite 1.010 (1.005-1.030) Urine Protein Negative (Negative) Urine Glucose (UA) Negative (Negative) Urine Ketones Negative (Negative) Urine Occult Blood Negative (Negative) Urine Nitrite Negative (Negative) Urine Bilirubin Negative (Negative) Urine Urobilinogen 0.2 (0.2-1.0) Ur Leukocyte Esterase Negative (Negative) Urine RBC Not seen (0-5) /hpf Urine WBC Not seen (0-5) /hpf Ur Squamous Epith Cells Not seen (0-5) /hpf Urine Bacteria Not seen (FEW) /hpf Urine Mucus Rare (FEW) /hpf Meds: Medications Generic Name Dose Route Start Last Admin Trade Name Freq PRN Reason Stop Dose Admin Sodium Chloride 1,000 mls @ 150 mls/hr 03/14/21 13:22 03/14/21 13:36 Normal Saline IV 03/14/21 20:01 150 mls/hr NOW STA Administration Sodium Chloride 10 ml 03/14/21 12:57 03/14/21 13:23 Sodium Chloride 0.9% 10 Ml Syringe FLUSH 10 ml ASDIRECTED PRN Administration Keep Vein Open Sodium Chloride 10 ml 03/14/21 14:59 03/14/21 15:03 Sodium Chloride 0.9% 10 Ml Syringe FLUSH 10 ml ONETIME PRN Administration Keep Vein Open Discontinued Medications Generic Name Dose Route Start Last Admin Trade Name Freq PRN Reason Stop Dose Admin Diatrizoate Meglum/Diatrizoate Sod 40 ml 03/14/21 14:59 03/14/21 15:03 Diatrizoate Meglumine/Diatrizoate Sodium 37% 120 Ml Bottle PO 03/14/21 15:00 90 ml ONETIME ONE Administration Hydromorphone HCl 0.5 mg 03/14/21 13:22 03/14/21 13:35 Hydromorphone 0.5 Mg/0.5 Ml Syringe IVPUSH 03/14/21 13:23 0.5 mg ONETIME ONE Administration Iopamidol 100 ml 03/14/21 14:59 03/14/21 15:03 Iopamidol 612 Mg/Ml 100 Ml Bottle IVPUSH 03/14/21 15:00 100 ml ONETIME ONE Administration Ondansetron HCl 4 mg 03/14/21 13:22 03/14/21 13:33 Ondansetron 4 Mg/2 Ml Sdv IVPUSH 03/14/21 13:23 4 mg ONETIME ONE Administration - Re-Assessments/Exams Free Text/Narrative Re-Assessment/Exam: Patient is a 55-year-old male presenting to the emergency department with complaints of right-sided abdominal pain for the last 4 days with worsening of symptoms of the last 2 days. Reports pain moves into his back. On exam, patient does have diffuse tenderness of the right lower and right upper quadrants with the right lower quadrant being worse. Bilateral CVA tenderness. Possible that his back pain is related to his chronic low back pain. Vital signs are stable in triage. I have ordered blood work, urinalysis, CT scan of the abdomen pelvis with contrast. I will give IV fluids of NS at 150, Zofran for nausea, and Dilaudid for pain. 03/14/21 15:32 Hematology shows a WBC minimally elevated at 10.65, sodium low at 128. Urinalysis is negative for blood or infection. Review of patient's previous visits, he is chronically hyponatremic. He has no symptoms of hyponatremia including no dizziness or confusion. CT scan of the abdomen pelvis shows a distended urinary bladder as well as a large amount of stool in the colon. There is no other acute findings. Results discussed with patient. I will send him home with a bottle of magnesium citrate, however he may have a bowel movement related to the oral contrast to drink. Advised that if he does not have a large bowel movement by 8 PM this evening, he should drink the bottle of mag citrate. Also discussed that he should decrease his intake of plain water. He reports that he drinks a lot of water. Discussed fluids electrolyte such as Gatorade, Powerade, or propel will help correct his low sodium. He verbalized understanding. Discharge instructions as documented. Departure - Departure Time of Disposition: 15:33 Disposition: Home, Self-Care 01 Condition: Good Clinical Impression: Abdominal pain Qualifiers: Abdominal location: unspecified location Qualified Code(s): R10.9 - Unspecified abdominal pain - Discharge Information *PRESCRIPTION DRUG MONITORING PROGRAM REVIEWED*: No *COPY OF PRESCRIPTION DRUG MONITORING REPORT IN PATIENT HIMA: No Instructions: Abdominal Pain, Adult, [id number] Referrals: Odette Doan NP [Primary Care Provider] - Forms: ED Department Discharge Additional Instructions: You were seen in the emergency department today for right-sided abdominal pain and back pain. Work-up included blood work, urinalysis, and a CT scan the abdomen pelvis. Results of your work-up show that your sodium is low. Recommend that you try to drink less plain water and incorporate fluids rich in electrolytes such as Gatorade, Powerade, or propel into your diet. CT scan of the abdomen pelvis showed a large amount of stool in your colon which is likely the cause of your abdominal pain. You have been sent home with a bottle of magnesium citrate. If you do not have a large bowel movement by 8 PM this evening, recommend drinking this bottle in its entirety. Follow-up with your primary care provider as scheduled. Return to ER for any new or worsening symptoms. Sepsis Event Note (ED) - Evaluation Sepsis Screening Result: No Definite Risk - Focused Exam Vital Signs: Vital Signs Temp Pulse Resp BP Pulse Ox 03/14/21 12:54 97.4 F 54 L 18 135/85 99 - My Orders Last 24 Hours: My Active Orders 03/14/21 12:57 Sodium Chloride 0.9% [Saline Flush] 10 ml FLUSH ASDIRECTED PRN 03/14/21 12:58 Peripheral IV Care [RC] . DIRECTED Peripheral IV Insertion Adult [OM.PC] Stat 03/14/21 13:22 Sodium Chloride 0.9% [Normal Saline] 1,000 ml IV NOW 03/14/21 13:43 Abdomen Pelvis w Cont [CT] Stat 03/14/21 14:59 Sodium Chloride 0.9% [Saline Flush] 10 ml FLUSH ONETIME PRN - Assessment/Plan Last 24 Hours: My Active Orders 03/14/21 12:57 Sodium Chloride 0.9% [Saline Flush] 10 ml FLUSH ASDIRECTED PRN 03/14/21 12:58 Peripheral IV Care [RC] . DIRECTED Peripheral IV Insertion Adult [OM.PC] Stat 03/14/21 13:22 Sodium Chloride 0.9% [Normal Saline] 1,000 ml IV NOW 03/14/21 13:43 Abdomen Pelvis w Cont [CT] Stat 03/14/21 14:59 Sodium Chloride 0.9% [Saline Flush] 10 ml FLUSH ONETIME PRN
[2021-03-14] MEDS ORDERED: Magnesium Citrate Solution 296 ML Bottle ONE (15:49)
[2021-03-14] MEDS ORDERED: Magnesium Citrate Solution 296 ML Bottle PO ONE (15:51)
--- NOTE | 2021-03-14 15:57 | CT ---
CT abdomen and pelvis Technique: Multiple axial sections were obtained from above the dome of the diaphragm inferiorly through the pubic symphysis. Intravenous and oral contrast was utilized. Delayed images were also obtained through the bladder. Reconstructed coronal and sagittal images were obtained. Comparison: Prior CT abdomen and pelvis study of 06/04/20 is available. Findings: Mild increased density within the right lung base is seen. Findings could represent prominent atelectasis as well as an early area of pneumonia. Liver contains no focal parenchymal abnormality. Surgical clips are noted from prior cholecystectomy. Spleen appears within normal limits. Adrenal glands show no nodule. Pancreas shows no discrete abnormality. Kidneys show symmetric contrast enhancement with no hydronephrosis or mass being seen. Abdominal aorta shows mild atherosclerotic change with no aneurysm. No retroperitoneal adenopathy or mesenteric abnormalities are seen. Appendix is seen which is normal in size. Small fat-containing umbilical hernia is noted. No pelvic mass or adenopathy is seen. Delayed images show contrast within the ureters and bladder. Bone window settings were reviewed which show previous surgery at L5-S1. Mild degenerative change is scattered throughout the visualized thoracic lumbar spine. Bladder is somewhat dilated with urine. Impression: 1. Parenchymal density within the right lung base either due to prominent atelectasis or early area of pneumonia. 2. No findings of appendicitis. 3. Slightly dilated bladder with urine. 4. Other findings as noted above which are felt to be incidental. Diagnostic code #3
== END 2021-03-14 15:56 | disposition home or self-care (01) ==
LOC: JD.ED 12:43
DX: R10.31 Right lower quadrant pain (principal); R10.11 Right upper quadrant pain; D72.829 Elevated white blood cell count, unspecified; I10 Essential (primary) hypertension; E11.9 Type 2 diabetes mellitus without complications; M19.90 Unspecified osteoarthritis, unspecified site; Z72.0 Tobacco use; Z88.8 Allergy status to other drugs, medicaments and biological substances; Z88.5 Allergy status to narcotic agent; Z79.4 Long term (current) use of insulin; Z79.899 Other long term (current) drug therapy
CPT/HCPCS: 36415; 74177; 80053; 81001; 85025; 86140; 96374; 96375; 99284; A9270; J1170; J2405; J7030; Q9963; Q9967

== ENCOUNTER 2021-03-15 13:55 | Emergency (ER) | payer MEDICARE, MEDICAID ==
[2021-03-15 14:06] VITALS: BP 156/94; PULSE 58
[2021-03-15] MEDS ORDERED: Sodium Chloride 0.9% 1,000 ML IV STA (14:56)
[2021-03-15] MEDS ORDERED: Ondansetron 4 MG/2 ML SDV IVPUSH ONE (14:56)
[2021-03-15] MEDS ORDERED: HYDROmorphone 0.5 MG/0.5 ML Syringe IVPUSH ONE (14:56)
--- NOTE | 2021-03-15 15:39 | EDM.PDOC ---
ED HPI GENERAL MEDICAL PROBLEM - General Chief Complaint: Abdominal Pain Stated Complaint: THROWING UP AND SPINE PAIN Time Seen by Provider: 03/15/21 14:22 Source of Information: Reports: Patient, RN Notes Reviewed History Limitations: Reports: No Limitations - History of Present Illness INITIAL COMMENTS - FREE TEXT/NARRATIVE: Patient is a 55-year-old male presenting to the emergency department with complaints of back pain as well as nausea with a single episode of vomiting last evening. He was seen in this emergency department yesterday for similar complaints, additionally he had significant right-sided abdominal pain. Work-up was done at that time he was found to have increased stool throughout his colon on CT of the abdomen and pelvis. He was sent home with magnesium citrate which he did take. He reports that he has had a number of bowel movements, some of which have been loose. He has some intermittent abdominal cramping since taking the magnesium citrate. The right-sided abdominal pain that he had complained about previously has resolved. He now reports low back pain as well as some nausea. He states that he had 1 episode of vomiting last evening. He does have a history of chronic back pain and had spinal fusion surgery a number of months back. Denies any new injuries to his back. Denies any fever or chills. Urinalysis completed yesterday was normal. Kidneys on CT were also found to be normal. Abdomen Pain Score (Numeric/FACES): 7 - Related Data Allergies Allergy/AdvReac Type Severity Reaction Status Date / Time ketorolac tromethamine AdvReac Severe Anxiety Verified 03/15/21 14:06 [From Toradol] methylphenidate HCl AdvReac Severe Anxiety Verified 03/15/21 14:06 [From Ritalin] metoclopramide HCl AdvReac Severe Anxiety Verified 03/15/21 14:06 [From Reglan] Home Meds: Home Meds Insulin Detemir [Levemir] 44 unit SUBCUT QPM 07/28/14 [History] metFORMIN [Glucophage] 2,000 mg PO BID 07/28/14 [History] Metoprolol Succinate [Toprol XL] 25 mg PO DAILY 08/18/14 [History] Sertraline [Zoloft] 150 mg PO BEDTIME 05/25/15 [History] ClonazePAM [KlonoPIN] 0.5 mg PO ASDIRECTED PRN 07/08/18 [History] Acetaminophen/oxyCODONE [Percocet 325-5 MG] 1 each PO Q4H PRN #12 tab 03/15/21 [Rx] Ondansetron [Zofran ODT] 4 mg PO Q6H PRN #10 tab.dis 03/15/21 [Rx] Past Medical History HEENT History: Reports: Impaired Vision Other HEENT History: wears eyeglasses Cardiovascular History: Reports: High Cholesterol, Hypertension Respiratory History: Reports: Bronchitis, Recurrent Gastrointestinal History: Reports: GERD, Other (See Below) Other Gastrointestinal History: "liver issues" Genitourinary History: Reports: None Musculoskeletal History: Reports: Arthritis, Back Pain, Chronic, Other (See Below) Other Musculoskeletal History: knee pain and shoulder pain, Neurological History: Reports: None Psychiatric History: Reports: Anxiety, Bipolar, Depression, Schizophrenia Endocrine/Metabolic History: Reports: Diabetes, Type II Hematologic History: Reports: Anemia, Iron Deficiency Immunologic History: Reports: None Oncologic (Cancer) History: Reports: None Dermatologic History: Reports: None - Infectious Disease History Infectious Disease History: Reports: Chicken Pox, Measles, Other (See Below) Other Infectious Disease History: questionable hepatitis C - Past Surgical History GI Surgical History: Reports: Cholecystectomy Musculoskeletal Surgical History: Reports: Shoulder Surgery Other Musculoskeletal Surgeries/Procedures:: bunionectomy Social & Family History - Family History Family Medical History: No Pertinent Family History - Tobacco Use Tobacco Use Status *Q: Current Every Day Tobacco User Years of Tobacco use: 30 Packs/Tins Daily: 0.2 - Caffeine Use Caffeine Use: Reports: None Other Caffeine Use: 2-3 pop daily - Recreational Drug Use Recreational Drug Use: No - Living Situation & Occupation Living situation: Reports: Single, Other (with his landlord) Occupation: Disabled ED ROS GENERAL - Review of Systems Review Of Systems: See Below Constitutional: Reports: No Symptoms. Denies: Fever, Chills HEENT: Reports: No Symptoms Respiratory: Reports: No Symptoms Cardiovascular: Reports: No Symptoms Endocrine: Reports: No Symptoms GI/Abdominal: Reports: Abdominal Pain (Intermittent generalized cramping), Diarrhea, Nausea, Vomiting : Reports: No Symptoms Musculoskeletal: Reports: Back Pain Skin: Reports: No Symptoms Neurological: Reports: No Symptoms Psychiatric: Reports: No Symptoms Hematologic/Lymphatic: Reports: No Symptoms Immunologic: Reports: No Symptoms ED EXAM,LOWER BACK PAIN/INJURY - Physical Exam Exam: See Below General Appearance: Alert, WD/WN, No Apparent Distress Respiratory/Chest: No Respiratory Distress, Lungs Clear, Normal Breath Sounds, No Accessory Muscle Use, Chest Non-Tender Cardiovascular: Normal Peripheral Pulses, Regular Rate, Rhythm, No Edema, No Gallop, No JVD, No Murmur, No Rub GI/Abdominal: Normal Bowel Sounds, Soft, Non-Tender, No Organomegaly, No Distention, No Abnormal Bruit, No Mass Back Exam: Normal Inspection, Other (Generalized tenderness throughout the lower back. No visible injuries.) Neurological: Alert, Normal Mood/Affect, Normal Dorsiflexion, CN II-XII Intact, Normal Plantar Flexion, Normal Gait, Normal Reflexes, No Motor/Sensory Deficits, Oriented x 3 Psychiatric: Normal Affect, Normal Mood Skin Exam: Warm, Dry, Intact, Normal Color, No Rash Course - Vital Signs Last Recorded V/S: Last Vital Signs Temp 96.7 F L 03/15/21 14:04 Pulse 58 L 03/15/21 14:04 Resp 16 03/15/21 14:04 BP 156/94 H 03/15/21 14:04 Pulse Ox 98 03/15/21 14:04 - Orders/Labs/Meds Labs: Laboratory Tests 03/15/21 03/15/21 Range/Units 15:10 15:10 WBC 9.38 H (4.23-9.07) K/mm3 RBC 4.74 (4.63-6.08) M/mm3 Hgb 14.7 (13.7-17.5) gm/dl Hct 41.5 (40.1-51.0) % MCV 87.6 (79.0-92.2) fl MCH 31.0 (25.7-32.2) pg MCHC 35.4 (32.2-35.5) g/dl RDW Std Deviation 40.3 (35.1-43.9) fL Plt Count 272 (163-337) K/mm3 MPV 9.0 L (9.4-12.3) fl Neut % (Auto) 58.9 (34.0-67.9) % Lymph % (Auto) 30.6 (21.8-53.1) % [place] % (Auto) 6.9 (5.3-12.2) % Eos % (Auto) 2.3 (0.8-7.0) Baso % (Auto) 0.4 (0.1-1.2) % Neut # (Auto) 5.52 H (1.78-5.38) K/mm3 Lymph # (Auto) 2.87 (1.32-3.57) K/mm3 [place] # (Auto) 0.65 (0.30-0.82) K/mm3 Eos # (Auto) 0.22 (0.04-0.54) K/mm3 Baso # (Auto) 0.04 (0.01-0.08) K/mm3 Sodium 125 L (136-145) mEq/L Potassium 3.7 (3.5-5.1) mEq/L Chloride 90 L (98-107) mEq/L Carbon Dioxide 25 (21-32) mEq/L Anion Gap 13.7 (5-15) BUN 3 L (7-18) mg/dL Creatinine 0.8 (0.7-1.3) mg/dL Est Cr Clr Drug Dosing 83.97 mL/min Estimated GFR (MDRD) > 60 (>60) mL/min BUN/Creatinine Ratio 3.8 L (14-18) Glucose 97 (70-99) mg/dL Calcium 8.0 L (8.5-10.1) mg/dL Total Bilirubin 0.3 (0.2-1.0) mg/dL AST 28 (15-37) U/L ALT 38 (16-63) U/L Alkaline Phosphatase 117 H (46-116) U/L Total Protein 7.2 (6.4-8.2) g/dl Albumin 3.8 (3.4-5.0) g/dl Globulin 3.4 gm/dL Albumin/Globulin Ratio 1.1 (1-2) Meds: Medications Discontinued Medications Generic Name Dose Route Start Last Admin Trade Name Freq PRN Reason Stop Dose Admin Hydromorphone HCl 0.5 mg 03/15/21 14:56 03/15/21 15:20 Hydromorphone 0.5 Mg/0.5 Ml Syringe IVPUSH 03/15/21 14:57 0.5 mg ONETIME ONE Administration Sodium Chloride 1,000 mls @ 999 mls/hr 03/15/21 14:56 03/15/21 15:20 Normal Saline IV 03/15/21 15:56 999 mls/hr NOW STA Administration Ondansetron HCl 4 mg 03/15/21 14:56 03/15/21 15:20 Ondansetron 4 Mg/2 Ml Sdv IVPUSH 03/15/21 14:57 4 mg ONETIME ONE Administration - Re-Assessments/Exams Free Text/Narrative Re-Assessment/Exam: Patient is a 55-year-old male presenting to the emergency department with complaints of back pain as well as nausea with one episode of vomiting. He was s een here yesterday for abdominal pain. He did use his magnesium citrate that he was sent home with and states that he has had a number of bowel movements, some have been loose. His abdominal pain has resolved. He does have some intermittent cramping however. Exam is overall unremarkable with exception of tenderness throughout the lower back. He does have a history of chronic hyponatremia but denies any headache, dizziness, or confusion. We will repeat blood work today. I have also ordered a lumbar x-ray. 03/15/21 16:58 Hematology significant for sodium low at 125, chloride 90. This is down from 128 yesterday. Today, I had discussed with the patient that he should limit water intake, however he states since yesterday all within he has been drinking of water. He should stop drinking plain water completely for at least the next 3 days. Recommend that he drinks only Gatorade, Powerade, or Pedialyte. Also recommend that he applies additional salt to his foods. His hyponatremia is chronic and he is not currently having any symptoms including no dizziness, headache, vision changes, or confusion. We will discharge him home with prescription for Percocet for pain as well as Zofran for nausea. Discussed return precautions. He does have follow-up scheduled in the clinic next week. Discharge instructions as documented. Departure - Departure Time of Disposition: 16:58 Disposition: Home, Self-Care 01 Condition: Good Clinical Impression: Nausea and vomiting in adult patient, Chronic hyponatremia Chronic lower back pain Qualifiers: Back pain laterality: unspecified Sciatica presence: with sciatica Sciatica laterality: sciatica laterality unspecified Qualified Code(s): M54.40 - Lumbago with sciatica, unspecified side - Discharge Information *PRESCRIPTION DRUG MONITORING PROGRAM REVIEWED*: Yes *COPY OF PRESCRIPTION DRUG MONITORING REPORT IN PATIENT HIMA: No Prescriptions: Acetaminophen/oxyCODONE [Percocet 325-5 MG] 1 each PO Q4H PRN #12 tab PRN Reason: Pain Ondansetron [Zofran ODT] 4 mg PO Q6H PRN #10 tab.dis PRN Reason: Nausea/Vomiting Instructions: Hyponatremia, Chronic Back Pain, [id number] Referrals: Odette Doan TELEPATHIST [Primary Care Provider] - Forms: ED Department Discharge Additional Instructions: You were seen in the emergency department today for back pain as well as nausea and vomiting. Work-up included blood work and x-ray of your lumbar spine. Lumbar spine did show previous surgery but was otherwise normal. Your blood work did show that your sodium was low, slightly lower than it was yesterday; ever, review of your previous visits show that this is chronic for you. I recommend that you completely stop drinking plain water for the next 3 days. You should be drinking only Gatorade, Powerade, or Pedialyte. Also recommend that you add additional salt to your foods. If you should develop headache, dizziness, confusion, or any other concerning symptoms, you should be reevaluated in the emergency department. Recommend routine ibuprofen for your pain. For pain not relieved by this, short prescription for Percocet has been provided. You have also been provided Zofran for nausea. Uses medications only as prescribed. Keep your follow-up appointment as scheduled with Kristy Doan. Return to ER as needed. Sepsis Event Note (ED) - Evaluation Sepsis Screening Result: No Definite Risk - Focused Exam Vital Signs: Vital Signs Temp Pulse Resp BP Pulse Ox 03/15/21 14:04 96.7 F L 58 L 16 156/94 H 98
--- NOTE | 2021-03-15 15:47 | CR ---
Lumbar spine: AP, lateral and coned-down lateral view centered to the lumbosacral junction were obtained. Comparison: Prior CT lumbar spine study of 06/04/20. Trans-pedicle screws are identified at L5-S1 with intervertebral disc fixation. Other disc spaces are fairly well preserved. Vertebral body heights are maintained. Minimal endplate osteophytes are noted within the spine. Pedicles are intact. Transverse and spinous processes are intact. Impression: 1. Prior surgery at L5-S1. 2. Very minimal scattered endplate plates are seen. Diagnostic code #2
== END 2021-03-15 17:09 | disposition home or self-care (01) ==
LOC: JD.ED 13:55
DX: E87.1 Hypo-osmolality and hyponatremia (principal); M54.40 Lumbago with sciatica, unspecified side; E11.9 Type 2 diabetes mellitus without complications; I10 Essential (primary) hypertension; F17.210 Nicotine dependence, cigarettes, uncomplicated; Z88.8 Allergy status to other drugs, medicaments and biological substances; Z90.49 Acquired absence of other specified parts of digestive tract
CPT/HCPCS: 36415; 72100; 80053; 85025; 96374; 96375; 99284; J1170; J2405; J7030

== ENCOUNTER 2021-04-15 13:43 | Emergency (ER) | payer MEDICARE, MEDICAID ==
[2021-04-15 14:08] VITALS: BP 148/88; PULSE 55
--- NOTE | 2021-04-15 14:18 | EDM.PDOC ---
ED HPI GENERAL MEDICAL PROBLEM - General Chief Complaint: Back Pain or Injury Stated Complaint: LT LEG PAIN AND BACK PAIN Time Seen by Provider: 04/15/21 14:00 - History of Present Illness INITIAL COMMENTS - FREE TEXT/NARRATIVE: 55-year-old male presents the emergency room with back pain. By history the patient injured his back yesterday. He was walking down a ramp taking out the trash. His left knee buckled. And he fell landing on his buttocks. Since then he said increased pain in his low back. The patient is on routine hydrocodone twice daily to be taken more or less on an as-needed basis. He has this at home. He has no numbness or tingling down his legs no loss of bowel or bladder control. Just a throbbing sensation in his low back mostly on the left side. Treatments BOOSTER ASSEMBLER: Reports: Heat Therapy, Other (see below) Other Treatments BOOSTER ASSEMBLER: motrin Left Lower Back Pain Score (Numeric/FACES): 9 - Related Data Allergies Allergy/AdvReac Type Severity Reaction Status Date / Time ketorolac tromethamine AdvReac Severe Anxiety Verified 03/15/21 14:06 [From Toradol] methylphenidate HCl AdvReac Severe Anxiety Verified 03/15/21 14:06 [From Ritalin] metoclopramide HCl AdvReac Severe Anxiety Verified 03/15/21 14:06 [From Reglan] Home Meds: Home Meds Insulin Detemir [Levemir] 44 unit SUBCUT QPM 07/28/14 [History] metFORMIN [Glucophage] 2,000 mg PO BID 07/28/14 [History] Metoprolol Succinate [Toprol XL] 25 mg PO DAILY 08/18/14 [History] Sertraline [Zoloft] 150 mg PO BEDTIME 05/25/15 [History] ClonazePAM [KlonoPIN] 1 mg PO ASDIRECTED PRN 07/08/18 [History] Past Medical History HEENT History: Reports: Impaired Vision Other HEENT History: wears eyeglasses Cardiovascular History: Reports: High Cholesterol, Hypertension Respiratory History: Reports: Bronchitis, Recurrent Gastrointestinal History: Reports: GERD, Other (See Below) Other Gastrointestinal History: "liver issues" Genitourinary History: Reports: None Musculoskeletal History: Reports: Arthritis, Back Pain, Chronic, Other (See Below) Other Musculoskeletal History: knee pain and shoulder pain, Neurological History: Reports: None Psychiatric History: Reports: Anxiety, Bipolar, Depression, Schizophrenia Endocrine/Metabolic History: Reports: Diabetes, Type II Hematologic History: Reports: Anemia, Iron Deficiency Immunologic History: Reports: None Oncologic (Cancer) History: Reports: None Dermatologic History: Reports: None - Infectious Disease History Infectious Disease History: Reports: Chicken Pox, Hepatitis C, Measles, Other (See Below) Other Infectious Disease History: questionable hepatitis C - Past Surgical History GI Surgical History: Reports: Cholecystectomy Musculoskeletal Surgical History: Reports: Shoulder Surgery Other Musculoskeletal Surgeries/Procedures:: bunionectomy Social & Family History - Family History Family Medical History: No Pertinent Family History - Tobacco Use Tobacco Use Status *Q: Current Every Day Tobacco User Years of Tobacco use: 7 Packs/Tins Daily: 0.1 - Caffeine Use Caffeine Use: Reports: Soda Other Caffeine Use: 2-3 pop daily - Recreational Drug Use Recreational Drug Use: No - Living Situation & Occupation Living situation: Reports: Single, Other (with his landlord) Occupation: Disabled ED ROS GENERAL - Review of Systems Review Of Systems: See Below Constitutional: Reports: No Symptoms HEENT: Reports: No Symptoms Respiratory: Reports: No Symptoms Cardiovascular: Reports: No Symptoms GI/Abdominal: Reports: No Symptoms : Reports: No Symptoms Musculoskeletal: Reports: Back Pain, Other (His regular healthcare providers are working on getting him into see orthopedics about his knee) Skin: Reports: No Symptoms Neurological: Denies: Weakness ED EXAM, GENERAL - Physical Exam Exam: See Below Exam Limited By: No Limitations General Appearance: Alert, No Apparent Distress Head: Atraumatic, Normocephalic Neck: Normal Inspection, Supple, Non-Tender, Full Range of Motion. No: Tender Lateral, Tender Midline Respiratory/Chest: No Respiratory Distress, Lungs Clear, Normal Breath Sounds Cardiovascular: Regular Rate, Rhythm, No Edema, No Murmur GI/Abdominal: Normal Bowel Sounds, Soft, Non-Tender Back Exam: Normal Inspection, Paraspinal Tenderness (Mostly on the left side down in the lumbosacral region). No: CVA Tenderness (L), CVA Tenderness (R) Extremities: Normal Inspection, No Pedal Edema, Other (Straight leg raises are normal) Neurological: Alert, Oriented, Normal Cognition Course - Vital Signs Last Recorded V/S: Last Vital Signs Temp 36.4 C 04/15/21 14:05 Pulse 55 L 04/15/21 14:05 Resp 20 04/15/21 14:05 BP 148/88 H 04/15/21 14:05 Pulse Ox 100 04/15/21 14:05 - Orders/Labs/Meds Orders: Active Orders 24 hr Category Date Time Status Lumbar Spine 2 or 3V [CR] Stat Exams 04/15/21 14:32 Taken Meds: Medications Discontinued Medications Generic Name Dose Route Start Last Admin Trade Name Andrew PREliz Reason Stop Dose Admin Orphenadrine Citrate 100 mg 04/15/21 14:32 04/15/21 14:45 Orphenadrine 100 Mg Tab.Er PO 04/15/21 14:33 100 mg ONETIME ONE Administration - Re-Assessments/Exams Free Text/Narrative Re-Assessment/Exam: 04/15/21 15:14 Examination of the back shows no acute changes prior surgery looks good. Transpedicle screws in good alignment disc spacing device has not changed at L5- S1. I initially wanted the patient to try Norflex but now is refusing muscle relaxants states it makes his legs too wobbly. At this point he requests more narcotics and I do not believe that is in his best interest. I discussed my concern with the patient and he still does not want to try the Norflex. He does agree to follow-up in the clinic early this next week. Departure - Departure Time of Disposition: 15:17 Disposition: Home, Self-Care 01 Clinical Impression: Low back pain - Discharge Information Referrals: Odette Doan NP [Primary Care Provider] - Forms: ED Department Discharge Additional Instructions: Return to the emergency room with any questions problems or worsening symptoms. Follow-up in the clinic early this next week. Sepsis Event Note (ED) - Evaluation Sepsis Screening Result: No Definite Risk - Focused Exam Vital Signs: Vital Signs Temp Pulse Resp BP Pulse Ox 04/15/21 14:05 36.4 C 55 L 20 148/88 H 100 - My Orders Last 24 Hours: My Active Orders 04/15/21 14:32 Lumbar Spine 2 or 3V [CR] Stat - Assessment/Plan Last 24 Hours: My Active Orders 04/15/21 14:32 Lumbar Spine 2 or 3V [CR] Stat
[2021-04-15] MEDS ORDERED: Orphenadrine 100 MG Tab.ER PO ONE (14:32)
--- NOTE | 2021-04-16 10:54 | CR ---
Lumbar spine: AP and lateral views of the lumbar spine were obtained. Comparison: Prior lumbar spine study of 03/15/21. Previous lumbar spine surgery is noted at L5-S1 with trans-pedicle screws. Intervertebral disc spacer is seen. Mild scattered posterior disc space narrowing is seen. Mild scattered endplate osteophytes are noted. Pedicles as well as visualized transverse and spinous processes are intact. Surgical clips are seen from prior cholecystectomy. No discrete fracture or subluxation is seen. Impression: 1. Stable surgery at L5-S1. 2. Other mild degenerative change as noted above. 3. Prior cholecystectomy. Minimal posterior disc space narrowing is seen. Diagnostic code #2
== END 2021-04-15 15:37 | disposition home or self-care (01) ==
LOC: JD.ED 13:43
DX: M54.5 Low back pain (principal); I10 Essential (primary) hypertension; M19.90 Unspecified osteoarthritis, unspecified site; E11.9 Type 2 diabetes mellitus without complications; Z88.8 Allergy status to other drugs, medicaments and biological substances; Z88.5 Allergy status to narcotic agent; Z72.0 Tobacco use; Z79.4 Long term (current) use of insulin; Z79.899 Other long term (current) drug therapy
CPT/HCPCS: 72100; 99283; A9270

== ENCOUNTER 2021-05-18 08:07 | Emergency (ER) | payer MEDICARE, MEDICAID ==
[2021-05-18 08:23] VITALS: BP 135/94; PULSE 66
--- NOTE | 2021-05-18 08:37 | EDM.PDOC ---
ED HPI GENERAL MEDICAL PROBLEM - General Chief Complaint: Back Pain or Injury Stated Complaint: ALL OVER PAIN Time Seen by Provider: 05/18/21 08:28 - History of Present Illness INITIAL COMMENTS - FREE TEXT/NARRATIVE: 55-year-old male presents the emergency room primarily with back pain. Yesterday the patient slipped on some wet grass. He did not fall and was able to catch himself. Patient does not have any loss of bowel or bladder control. He seems to have aggravation of his chronic pain. The patient is on chronic opioid therapy which is due to be refilled tomorrow but apparently he ran out too soon. He has been taking ibuprofen 4 times a day of the 800 mg tablets. I advised him to decrease it to 3 times daily and supplement with acetaminophen. The patient is somewhat insistent that we do something for his chronic pain. I have informed him that needs to happen with his regular healthcare provider. I suspect he is on a pain contract, and he should not be looking to the emergency room to have his medications refilled. Left Shoulder Pain Score (Numeric/FACES): 9 - Related Data Allergies Allergy/AdvReac Type Severity Reaction Status Date / Time ketorolac tromethamine AdvReac Mild Anxiety Verified 05/18/21 08:23 [From Toradol] methylphenidate HCl AdvReac Mild Anxiety Verified 05/18/21 08:23 [From Ritalin] metoclopramide HCl AdvReac Mild Anxiety Verified 05/18/21 08:23 [From Reglan] Home Meds: Home Meds Insulin Detemir [Levemir] 44 unit SUBCUT QPM 07/28/14 [History] metFORMIN [Glucophage] 2,000 mg PO BID 07/28/14 [History] Metoprolol Succinate [Toprol XL] 25 mg PO DAILY 08/18/14 [History] Sertraline [Zoloft] 150 mg PO BEDTIME 05/25/15 [History] ClonazePAM [KlonoPIN] 1 mg PO ASDIRECTED PRN 07/08/18 [History] Past Medical History HEENT History: Reports: Impaired Vision Other HEENT History: wears eyeglasses Cardiovascular History: Reports: High Cholesterol, Hypertension Respiratory History: Reports: Bronchitis, Recurrent Gastrointestinal History: Reports: GERD, Other (See Below) Other Gastrointestinal History: "liver issues" Genitourinary History: Reports: None Musculoskeletal History: Reports: Arthritis, Back Pain, Chronic, Other (See Below) Other Musculoskeletal History: knee pain and shoulder pain, Neurological History: Reports: None Psychiatric History: Reports: Anxiety, Bipolar, Depression, Schizophrenia Endocrine/Metabolic History: Reports: Diabetes, Type II Hematologic History: Reports: Anemia, Iron Deficiency Immunologic History: Reports: None Oncologic (Cancer) History: Reports: None Dermatologic History: Reports: None - Infectious Disease History Infectious Disease History: Reports: Chicken Pox, Hepatitis C, Measles, Other (See Below) Other Infectious Disease History: questionable hepatitis C - Past Surgical History GI Surgical History: Reports: Cholecystectomy Musculoskeletal Surgical History: Reports: Shoulder Surgery Other Musculoskeletal Surgeries/Procedures:: bunionectomy Social & Family History - Family History Family Medical History: No Pertinent Family History - Tobacco Use Tobacco Use Status *Q: Current Every Day Tobacco User Years of Tobacco use: 23 Packs/Tins Daily: 0.5 - Caffeine Use Caffeine Use: Reports: Soda Other Caffeine Use: 2-3 pop daily - Recreational Drug Use Recreational Drug Use: No - Living Situation & Occupation Living situation: Reports: Single, Other (with his landlord) Occupation: Disabled ED ROS GENERAL - Review of Systems Review Of Systems: See Below Constitutional: Reports: No Symptoms HEENT: Reports: No Symptoms Respiratory: Reports: No Symptoms Cardiovascular: Reports: No Symptoms GI/Abdominal: Reports: No Symptoms Musculoskeletal: Reports: Back Pain, Leg Pain, Other (She has chronic back and leg pain) Neurological: Reports: No Symptoms Psychiatric: Reports: No Symptoms ED EXAM, GENERAL - Physical Exam Exam: See Below Exam Limited By: No Limitations General Appearance: Alert, No Apparent Distress Head: Atraumatic, Normocephalic Neck: Normal Inspection, Supple, Non-Tender, Full Range of Motion Respiratory/Chest: No Respiratory Distress, Lungs Clear, Normal Breath Sounds, Chest Non-Tender Cardiovascular: Normal Peripheral Pulses, Regular Rate, Rhythm, No Edema GI/Abdominal: Normal Bowel Sounds, Soft, Non-Tender, Pelvis Stable Back Exam: Muscle Spasm (He has a little muscle tightness bilateral paraspinous muscles), Other (Distracted straight leg raises are entirely normal.). No: Vertebral Tenderness Extremities: Normal Inspection, Normal Range of Motion Neurological: Alert, Oriented, Normal Cognition Skin Exam: Warm, Dry, Intact Course - Vital Signs Last Recorded V/S: Last Vital Signs Temp 36.1 C 05/18/21 08:20 Pulse 66 05/18/21 08:20 Resp 16 05/18/21 08:20 BP 135/94 H 05/18/21 08:20 Pulse Ox 99 05/18/21 08:20 Departure - Departure Time of Disposition: 08:44 Disposition: Home, Self-Care 01 Clinical Impression: Chronic lower back pain Qualifiers: Back pain laterality: unspecified Sciatica presence: with sciatica Sciatica laterality: sciatica laterality unspecified Qualified Code(s): M54.40 - Lumbago with sciatica, unspecified side - Discharge Information Referrals: Odette Doan NP [Primary Care Provider] - Additional Instructions: Return to the emergency room with any questions problems or worsening symptoms however keep in mind that we do not refill chronic pain meds. Decrease your ibuprofen to 800 mg 3 times a day. Be sure and take with food. You may supplement acetaminophen, or Tylenol up to 1000 mg 4 times a day do not exceed 4000 mg in a 24-hour period. Follow-up with your regular healthcare provider as scheduled. Get your medications filled as scheduled. Sepsis Event Note (ED) - Evaluation Sepsis Screening Result: No Definite Risk - Focused Exam Vital Signs: Vital Signs Temp Pulse Resp BP Pulse Ox 05/18/21 08:20 36.1 C 66 16 135/94 H 99
== END 2021-05-18 08:55 | disposition home or self-care (01) ==
LOC: JD.ED 08:07
DX: M54.40 Lumbago with sciatica, unspecified side (principal); I10 Essential (primary) hypertension; M19.90 Unspecified osteoarthritis, unspecified site; E11.9 Type 2 diabetes mellitus without complications; Z72.0 Tobacco use; Z88.8 Allergy status to other drugs, medicaments and biological substances; Z88.5 Allergy status to narcotic agent; Z79.4 Long term (current) use of insulin; Z79.899 Other long term (current) drug therapy
CPT/HCPCS: 99282; 99283

== ENCOUNTER 2021-09-29 10:32 | Emergency (ER) | payer OTHER, MEDICARE, MEDICAID ==
[2021-09-29 11:12] VITALS: BP 141/85; PULSE 73
== END 2021-09-29 13:07 | disposition home or self-care (01) ==
LOC: JD.ED 10:32
DX: S16.1XXA Strain of muscle, fascia and tendon at neck level, initial encounter (principal); M54.50 Low back pain, unspecified; E78.00 Pure hypercholesterolemia, unspecified; I10 Essential (primary) hypertension; K21.9 Gastro-esophageal reflux disease without esophagitis; E11.9 Type 2 diabetes mellitus without complications; Z88.8 Allergy status to other drugs, medicaments and biological substances; Z79.4 Long term (current) use of insulin; Z72.0 Tobacco use; V49.10XA Passenger injured in collision with unspecified motor vehicles in nontraffic accident, initial encounter; Y92.410 Unspecified street and highway as the place of occurrence of the external cause
CPT/HCPCS: 72125; 72125-26; 81003; 99284-25

== ENCOUNTER 2021-12-27 10:08 | Emergency (ER) | payer MEDICARE, MEDICAID ==
[2021-12-27] MEDS ORDERED: Sodium Chloride 0.9% 10 ML Syringe FLUSH PRN (10:33)
[2021-12-27] MEDS ORDERED: Ondansetron 4 MG/2 ML SDV IVPUSH ONE (10:33)
[2021-12-27] MEDS ORDERED: Sodium Chloride 0.9% 1,000 ML IV STA (10:33)
[2021-12-27] MEDS ORDERED: Alum Hydrox/Mag Hydrox/Simeth 30 ML, Lidocaine 2% 15 ML PO ONE ×2 (11:34)
[2021-12-27] MEDS ORDERED: Famotidine 20 MG/2 ML SDV IVPUSH ONE (11:57)
[2021-12-27 13:01] VITALS: BP 112/87; PULSE 89
== END 2021-12-27 13:01 | disposition home or self-care (01) ==
LOC: JD.ED 10:08
DX: R10.13 Epigastric pain (principal); R10.11 Right upper quadrant pain; R10.31 Right lower quadrant pain; R11.2 Nausea with vomiting, unspecified; R19.7 Diarrhea, unspecified; E87.1 Hypo-osmolality and hyponatremia; I48.91 Unspecified atrial fibrillation; E78.00 Pure hypercholesterolemia, unspecified; I10 Essential (primary) hypertension; K21.9 Gastro-esophageal reflux disease without esophagitis; E11.9 Type 2 diabetes mellitus without complications; Z88.6 Allergy status to analgesic agent; Z88.8 Allergy status to other drugs, medicaments and biological substances; Z79.4 Long term (current) use of insulin; Z72.0 Tobacco use
CPT/HCPCS: 36415; 80053; 81001; 83690; 84484; 85025; 86140; 93005; 96374; 96375; 99284; A9270; J2405; J3490; J7030; 93010

== ENCOUNTER 2022-05-04 12:24 | Emergency (ER) | payer MEDICARE, MEDICAID | END 2022-05-04 13:19 | LOC: JD.ED 12:24 | DX: Z53.21 Procedure and treatment not carried out due to patient leaving prior to being seen by health care provider (principal) ==

== ENCOUNTER 2022-05-09 17:38 | Emergency (ER) | payer MEDICARE, MEDICAID ==
[2022-05-09 18:29] VITALS: BP 120/82; PULSE 74
[2022-05-09] MEDS: fentaNYL 100 MCG/2 ML SDV IVPUSH ONE (19:50)
[2022-05-09] MEDS: Ondansetron 4 MG/2 ML SDV IVPUSH ONE (19:50)
[2022-05-09] MEDS: Pantoprazole 40 MG Vial IVPUSH ONE (19:51)
[2022-05-09] MEDS: Sodium Chloride 0.9% 1,000 ML IV ONE ×2 (19:51→22:01)
[2022-05-09] MEDS: Sucralfate Suspension 1 GM/10 ML Cup PO ONE (21:21)
== END 2022-05-09 22:33 | disposition home or self-care (01) ==
LOC: JD.ED 17:38
DX: K21.00 Gastro-esophageal reflux disease with esophagitis, without bleeding (principal); I48.91 Unspecified atrial fibrillation; E78.00 Pure hypercholesterolemia, unspecified; I10 Essential (primary) hypertension; E11.9 Type 2 diabetes mellitus without complications; F17.210 Nicotine dependence, cigarettes, uncomplicated; Z88.6 Allergy status to analgesic agent; Z88.8 Allergy status to other drugs, medicaments and biological substances; Z79.4 Long term (current) use of insulin
CPT/HCPCS: 36415; 80053; 82009; 83605; 83690; 85007; 85027; 96361; 96374; 96375; 99284; A9270; C9113; J2405; J3010; J7030

== ENCOUNTER 2022-08-10 15:35 | Inpatient (IN) | payer MEDICARE, MEDICAID ==
[2022-08-10] MEDS ORDERED: Famotidine 20 MG/2 ML SDV IVPUSH ONE (16:09)
[2022-08-10] MEDS ORDERED: Sodium Chloride 0.9% 1,000 ML IV STA (16:09)
[2022-08-10] MEDS ORDERED: Ondansetron 4 MG/2 ML SDV IVPUSH ONE ×2 (16:09→17:41)
[2022-08-10] MEDS ORDERED: Sodium Chloride 0.9% 10 ML Syringe FLUSH PRN (16:09)
[2022-08-10] MEDS ORDERED: HYDROmorphone 0.5 MG/0.5 ML Syringe IVPUSH ONE ×2 (16:09→17:41)
[2022-08-10] MEDS ORDERED: Sucralfate 1 GM Tab PO ONE (16:11)
[2022-08-10 16:37] LABS: ESTIMATED GFR 88 mL/min (>60)
[2022-08-10 17:52] LABS: CORONAVIRUS COVID-19 NAA NEGATIVE (NEGATIVE)
[2022-08-10] MEDS ORDERED: HYDROmorphone 0.5 MG/0.5 ML Syringe IVPUSH PRN (21:12)
[2022-08-10] MEDS ORDERED: Sodium Chloride 0.9% 1,000 ML IV ONE (21:13)
[2022-08-10] MEDS ORDERED: Acetaminophen 325 MG Tab PO PRN (21:29)
[2022-08-10] MEDS ORDERED: Magnesium Hydroxide 400 MG/5 ML Susp 30 ML Cup PO PRN (21:29)
[2022-08-10] MEDS: Ondansetron 4 MG/2 ML SDV IV PRN (21:59)
[2022-08-10] MEDS: HYDROmorphone 0.5 MG/0.5 ML Syringe IVPUSH PRN (22:06)
[2022-08-10] MEDS ORDERED: Ondansetron 4 MG Tab.DIS PO PRN (23:30)
[2022-08-10] MEDS: Sodium Chloride 0.9% 1,000 ML IV SCH (23:48)
[2022-08-11] MEDS: HYDROmorphone 0.5 MG/0.5 ML Syringe IVPUSH PRN ×6 (00:12→20:11)
[2022-08-11] MEDS: Insulin Glargine,Human Rec. Analog 100 Units/ML 3 ML Pen SUBCUT SCH ×2 (00:20→18:01)
[2022-08-11] MEDS ORDERED: Sodium Chloride 0.9% 1,000 ML IV ONE (06:14)
[2022-08-11] MEDS: Pantoprazole 40 MG Vial IV SCH ×2 (08:42→20:11)
[2022-08-11] MEDS: Enoxaparin 40 MG/0.4 ML Syringe SUBCUT SCH (08:43)
[2022-08-11] MEDS: Nicotine 7 MG/24 Hr Patch TRDERM SCH (08:44)
[2022-08-11] MEDS ORDERED: Metoprolol Succinate 25 MG Tab.ER PO SCH (09:00)
[2022-08-11] MEDS: Sodium Chloride 0.9% 1,000 ML IV SCH ×2 (09:47→18:45)
[2022-08-11] MEDS ORDERED: Insulin Glargine,Human Rec. Analog 100 Units/ML 3 ML Pen SUBCUT SCH (18:00)
[2022-08-11] MEDS: Metoprolol Succinate 25 MG Tab.ER PO SCH (18:46)
[2022-08-11] MEDS ORDERED: traZODone 50 MG Tab PO ONE (23:35)
[2022-08-12] MEDS: Sodium Chloride 0.9% 1,000 ML IV SCH (03:51)
[2022-08-12] MEDS: HYDROmorphone 0.5 MG/0.5 ML Syringe IVPUSH PRN ×4 (05:19→19:23)
[2022-08-12 06:04] LABS: ESTIMATED GFR 113 mL/min (>60)
[2022-08-12 07:06] LABS: HEMOGLOBIN A1C 7.6 %
[2022-08-12] MEDS: Metoprolol Succinate 25 MG Tab.ER PO SCH (08:11)
[2022-08-12] MEDS: Pantoprazole 40 MG Vial IV SCH ×2 (08:12→20:14)
[2022-08-12] MEDS: Enoxaparin 40 MG/0.4 ML Syringe SUBCUT SCH (08:12)
[2022-08-12] MEDS: Nicotine 7 MG/24 Hr Patch TRDERM SCH (08:13)
[2022-08-12] MEDS ORDERED: Acetaminophen/Codeine 300-30 MG Tab PO PRN (15:36)
[2022-08-12] MEDS ORDERED: ClonazePAM 1 MG Tab PO PRN (15:44)
[2022-08-12] MEDS ORDERED: Sodium Chloride 0.9% 1,000 ML IV SCH (15:45)
[2022-08-12] MEDS: Ondansetron 4 MG/2 ML SDV IV PRN (16:06)
[2022-08-12] MEDS: Insulin Glargine,Human Rec. Analog 100 Units/ML 3 ML Pen SUBCUT SCH (17:04)
[2022-08-12] MEDS ORDERED: Sertraline 50 MG Tab PO SCH (21:00)
[2022-08-13] MEDS: HYDROmorphone 0.5 MG/0.5 ML Syringe IVPUSH PRN ×2 (00:14→04:38)
[2022-08-13 06:53] LABS: ESTIMATED GFR 107 mL/min (>60)
[2022-08-13] MEDS: Enoxaparin 40 MG/0.4 ML Syringe SUBCUT SCH (08:47)
[2022-08-13] MEDS: Metoprolol Succinate 25 MG Tab.ER PO SCH (08:47)
[2022-08-13 08:48] VITALS: BP 105/68; PULSE 62
[2022-08-13] MEDS ORDERED: Insulin Glargine,Human Rec. Analog 100 Units/ML 3 ML Pen SUBCUT SCH (18:00)
== END 2022-08-13 11:16 | disposition home or self-care (01) | DRG 641 ==
LOC: JD.ED 15:35 → JD.MS 20:26
PROVIDERS: ADMIT Pediatrics; ATTEND Internal Medicine
DX: E87.1 Hypo-osmolality and hyponatremia (principal); E86.1 Hypovolemia; R10.9 Unspecified abdominal pain; F31.9 Bipolar disorder, unspecified; I48.91 Unspecified atrial fibrillation; I10 Essential (primary) hypertension; A08.4 Viral intestinal infection, unspecified; E11.9 Type 2 diabetes mellitus without complications; K21.00 Gastro-esophageal reflux disease with esophagitis, without bleeding; M54.50 Low back pain, unspecified; K20.90 Esophagitis, unspecified without bleeding; F25.9 Schizoaffective disorder, unspecified; H54.7 Unspecified visual loss; K76.0 Fatty (change of) liver, not elsewhere classified; E78.00 Pure hypercholesterolemia, unspecified; K21.9 Gastro-esophageal reflux disease without esophagitis; M19.90 Unspecified osteoarthritis, unspecified site; G89.29 Other chronic pain; D50.9 Iron deficiency anemia, unspecified; Z20.822 Contact with and (suspected) exposure to COVID-19; F17.210 Nicotine dependence, cigarettes, uncomplicated; E11.65 Type 2 diabetes mellitus with hyperglycemia; F41.9 Anxiety disorder, unspecified; E86.0 Dehydration; Z79.4 Long term (current) use of insulin; Z76.5 Malingerer [conscious simulation]; Z79.899 Other long term (current) drug therapy; Z88.8 Allergy status to other drugs, medicaments and biological substances; Z90.49 Acquired absence of other specified parts of digestive tract
CPT/HCPCS: 0241U; 36415; 74177; 80053; 81001; 81003; 82947; 83036; 83605; 83690; 83735; 83930; 83935; 84300; 84443; 84484; 85025; 86140; 86704; 86705; 86707; 86803; 87350; 93005; 96361; 96374; 96375; 96376; 99285; A9270-GY; C9113; J1170; J1650; J1815-GY; J2405; J3490; J7030

== ENCOUNTER 2022-09-28 13:16 | Emergency (ER) | payer MEDICARE, MEDICAID ==
[2022-09-28 13:24] VITALS: BP 138/95; PULSE 74
[2022-09-28] MEDS ORDERED: Prochlorperazine 5 MG in Sodium Chloride 0.9% 50 ML IV ONE (14:58)
[2022-09-28] MEDS ORDERED: diphenhydrAMINE 50 MG/ML SDV IVPUSH ONE (14:59)
[2022-09-28] MEDS ORDERED: Dexamethasone 4 MG/ML SDV IVPUSH ONE (14:59)
[2022-09-28] MEDS ORDERED: Sodium Chloride 0.9% 1,000 ML IV ONE (15:27)
== END 2022-09-28 17:46 | disposition home or self-care (01) ==
LOC: JD.ED 13:16
DX: M54.50 Low back pain, unspecified (principal); G89.29 Other chronic pain; I48.91 Unspecified atrial fibrillation; E78.00 Pure hypercholesterolemia, unspecified; I10 Essential (primary) hypertension; K21.9 Gastro-esophageal reflux disease without esophagitis; E11.9 Type 2 diabetes mellitus without complications; F17.210 Nicotine dependence, cigarettes, uncomplicated; Z88.8 Allergy status to other drugs, medicaments and biological substances; Z79.4 Long term (current) use of insulin
CPT/HCPCS: 36415; 72100; 80053; 80306; 80307; 81003; 85025; 96361; 96365; 96375; 99284; J0780; J1100; J1200; J7030

== ENCOUNTER 2022-11-07 18:42 | Emergency (ER) | payer MEDICARE, MEDICAID ==
[2022-11-07 19:03] VITALS: BP 171/88; PULSE 75
[2022-11-07] MEDS ORDERED: Sodium Chloride 0.9% 10 ML Syringe FLUSH PRN (19:35)
[2022-11-07] MEDS ORDERED: Ondansetron 4 MG/2 ML SDV IVPUSH ONE (19:37)
[2022-11-07] MEDS ORDERED: HYDROmorphone 0.5 MG/0.5 ML Syringe IVPUSH ONE (19:37)
[2022-11-07] MEDS ORDERED: Sodium Chloride 0.9% 1,000 ML IV SCH (19:45)
[2022-11-07 21:05] LABS: CORONAVIRUS COVID-19 NAA NEGATIVE (NEGATIVE)
== END 2022-11-07 22:15 | disposition home or self-care (01) ==
LOC: JD.ED 18:42
DX: R10.13 Epigastric pain (principal); R19.7 Diarrhea, unspecified; I48.91 Unspecified atrial fibrillation; I10 Essential (primary) hypertension; M19.90 Unspecified osteoarthritis, unspecified site; E11.9 Type 2 diabetes mellitus without complications; Z88.5 Allergy status to narcotic agent; Z88.8 Allergy status to other drugs, medicaments and biological substances; Z79.4 Long term (current) use of insulin; Z79.899 Other long term (current) drug therapy; Z20.822 Contact with and (suspected) exposure to COVID-19
CPT/HCPCS: 0241U; 36415; 74019; 80053; 81001; 82947; 85025; 93005; 96361; 96374; 96375; 99284; J1170; J2405; J3490; J7030; 93010

== ENCOUNTER 2023-01-01 15:17 | Emergency (ER) | payer MEDICARE, MEDICAID ==
[2023-01-01] MEDS ORDERED: LORazepam 1 MG Tab PO ONE (18:12)
[2023-01-01 20:02] VITALS: BP 124/78; PULSE 63
== END 2023-01-01 19:58 | disposition home or self-care (01) ==
LOC: JD.ED 15:17
DX: F32.A Depression, unspecified (principal); E87.1 Hypo-osmolality and hyponatremia; R45.851 Suicidal ideations; E11.9 Type 2 diabetes mellitus without complications; I48.91 Unspecified atrial fibrillation; I10 Essential (primary) hypertension; Z86.16 Personal history of COVID-19; Z88.8 Allergy status to other drugs, medicaments and biological substances; Z79.4 Long term (current) use of insulin; Z72.0 Tobacco use
CPT/HCPCS: 36415; 80053; 80143; 80179; 80306; 80307; 84443; 85025; 93005; 99285; A9270; 93010; 99284

== ENCOUNTER 2023-03-19 08:22 | Inpatient (IN) | payer MEDICARE, MEDICAID ==
[2023-03-19] MEDS ORDERED: Sodium Chloride 0.9% 10 ML Syringe FLUSH PRN (08:45)
[2023-03-19] MEDS ORDERED: HYDROmorphone 0.5 MG/0.5 ML Syringe IVPUSH ONE ×3 (08:48→13:42)
[2023-03-19 09:01] LABS: BASOPHILS ABSOLUTE AUTO 0.02 K/mm3 (0.01-0.08); BASOPHILS PERCENT AUTO 0.3 % (0.1-1.2); EOSINOPHILS ABSOLUTE AUTO 0.04 K/mm3 (0.04-0.54); EOSINOPHILS PERCENT AUTO 0.6 (0.8-7.0); HEMATOCRIT 43.1 % (40.1-51.0); HEMOGLOBIN 15.5 gm/dl (13.7-17.5); IMMATURE GRAN ABSOLUTE AUTO 0.04 K/mm3 (0.00-0.10); IMMATURE GRAN PERCENT AUTO 0.6 % (<=1.0); LYMPHOCYTES ABSOLUTE AUTO 1.48 K/mm3 (1.32-3.57); LYMPHOCYTES PERCENT AUTO 20.8 % (21.8-53.1); MEAN CORPUSCULAR HEMOGLOBIN 31.7 pg (25.7-32.2); MEAN PLATELET VOLUME 8.2 fl (9.4-12.3); MONOCYTES ABSOLUTE AUTO 0.31 K/mm3 (0.30-0.82); MONOCYTES PERCENT AUTO 4.4 % (5.3-12.2); NEUTROPHILS ABSOLUTE AUTO 5.22 K/mm3 (1.78-5.38); NEUTROPHILS PERCENT AUTO 73.3 % (34.0-67.9); PLATELET COUNT,PLT 396 K/mm3 (163-337); RED BLOOD CELL COUNT 4.89 M/mm3 (4.63-6.08); WHITE BLOOD CELL COUNT,WBC 7.11 K/mm3 (4.23-9.07)
[2023-03-19 09:03] LABS: MEAN CORPUSCULAR VOLUME 88.1 fl (79.0-92.2)
[2023-03-19 09:18] LABS: ALANINE AMINOTRANSFERASE,ALT 22 U/L (16-63); ALBUMIN 4.3 g/dl (3.4-5.0); ALKALINE PHOSPHATASE 110 U/L (46-116); ASPARTATE AMNIOTRANSFERASE,AST 16 U/L (15-37); BILIRUBIN TOTAL 0.5 mg/dL (0.2-1.0); BLOOD UREA NITROGEN,BUN 4 mg/dL (7-18); CALCIUM 9.3 mg/dL (8.5-10.1); CARBON DIOXIDE,CO2 22 mEq/L (21-32); CHLORIDE,CL 78 mEq/L (98-107); CREATININE 0.8 mg/dL (0.7-1.3); EST CRCL DRUG DOSING (CG) 78.68 mL/min; ESTIMATED GFR 103 mL/min (>60); GLUCOSE RANDOM 151 mg/dL (70-99); PROTEIN TOTAL,TP 8.8 g/dl (6.4-8.2)
[2023-03-19 09:25] LABS: TROPONIN I HIGH SENSITIVITY < 4 pg/mL (<=76)
[2023-03-19 09:26] LABS: ANION GAP 18.4 (5-15); POTASSIUM,K 4.4 mEq/L (3.5-5.1); SODIUM,NA 114 mEq/L (136-145)
[2023-03-19 13:44] LABS: APPEARANCE,URINE CLEAR (Clear); BILIRUBIN,URINE NEGATIVE (Negative); COLOR,URINE YELLOW (Yellow); GLUCOSE,URINE NEGATIVE (Negative); KETONES,URINE NEGATIVE (Negative); LEUKOCYTE ESTERASE,URINE NEGATIVE (Negative); NITRITE,URINE NEGATIVE (Negative); OCCULT BLOOD,URINE NEGATIVE (Negative); PH,URINE 6.5 (5.0-8.0); PROTEIN,URINE NEGATIVE (Negative); UROBILINOGEN,URINE 0.2 (0.2-1.0)
[2023-03-19] MEDS ORDERED: Ondansetron 4 MG/2 ML SDV IV PRN (15:08)
[2023-03-19] MEDS ORDERED: Ondansetron 4 MG Tab.DIS PO PRN ×2 (15:08→16:49)
[2023-03-19] MEDS: Heparin Sodium 5,000 Units/ML Vial SUBCUT SCH ×2 (15:36→22:51)
[2023-03-19] MEDS: oxyCODONE 5 MG Tab PO PRN ×2 (15:36→21:25)
[2023-03-19] MEDS: Sodium Chloride 0.9% 1,000 ML IV SCH ×2 (15:40→23:28)
[2023-03-19] MEDS ORDERED: Nicotine 14 MG/24 Hr Patch TRDERM SCH (16:00)
[2023-03-19] MEDS ORDERED: ClonazePAM 0.5 MG Tab PO PRN (16:49)
[2023-03-19] MEDS ORDERED: Cyclobenzaprine 10 MG Tab PO PRN (16:49)
[2023-03-19] MEDS: Insulin Regular, Human 100 Units/ML 3 ML Vial SUBCUT SCH (17:12)
[2023-03-19] MEDS ORDERED: ClonazePAM 1 MG Tab PO PRN (17:51)
[2023-03-19] MEDS: Sucralfate 1 GM Tab PO SCH ×2 (18:02→23:28)
[2023-03-19] MEDS ORDERED: Insulin Regular, Human 100 Units/ML 3 ML Vial SUBCUT SCH (19:00)
[2023-03-19] MEDS ORDERED: Insulin Glarg,Human.Rec.Analog 100 Unit/ML 10 ML Vial SUBCUT SCH (21:00)
[2023-03-19] MEDS ORDERED: Sertraline 50 MG Tab PO SCH (21:00)
[2023-03-19] MEDS: metFORMIN 500 MG Tab PO SCH (21:25)
[2023-03-19] MEDS: risperiDONE 1 MG Tab PO SCH (21:26)
[2023-03-19] MEDS ORDERED: Insulin Glargine,Human Rec. Analog 100 Units/ML 3 ML Pen SUBCUT SCH (22:00)
[2023-03-20] MEDS: oxyCODONE 5 MG Tab PO PRN ×3 (02:22→11:21)
[2023-03-20] MEDS: Sucralfate 1 GM Tab PO SCH ×2 (05:54→11:21)
[2023-03-20 05:55] LABS: A/G RATIO 0.9 (1-2); ALBUMIN 3.2 g/dl (3.4-5.0); ANION GAP 15.1 (5-15); BILIRUBIN TOTAL 0.2 mg/dL (0.2-1.0); CREATININE 0.7 mg/dL (0.7-1.3); EST CRCL DRUG DOSING (CG) 89.92 mL/min; MAGNESIUM 2.1 mg/dL (1.8-2.4); POTASSIUM,K 4.1 mEq/L (3.5-5.1); PROTEIN TOTAL,TP 6.9 g/dl (6.4-8.2)
[2023-03-20 06:04] LABS: BASOPHILS ABSOLUTE AUTO 0.02 K/mm3 (0.01-0.08); BASOPHILS PERCENT AUTO 0.3 % (0.1-1.2); EOSINOPHILS PERCENT AUTO 1.5 (0.8-7.0); HEMATOCRIT 39.8 % (40.1-51.0); IMMATURE GRAN ABSOLUTE AUTO 0.03 K/mm3 (0.00-0.10); IMMATURE GRAN PERCENT AUTO 0.4 % (<=1.0); LYMPHOCYTES ABSOLUTE AUTO 2.47 K/mm3 (1.32-3.57); LYMPHOCYTES PERCENT AUTO 36.4 % (21.8-53.1); MEAN CORPUSCULAR HEMOGLOBIN 32.3 pg (25.7-32.2); MEAN CORPUSCULAR HGB CONC 35.2 g/dl (32.2-35.5); MEAN CORPUSCULAR VOLUME 91.9 fl (79.0-92.2); MEAN PLATELET VOLUME 8.6 fl (9.4-12.3); MONOCYTES PERCENT AUTO 7.4 % (5.3-12.2); NEUTROPHILS ABSOLUTE AUTO 3.66 K/mm3 (1.78-5.38); PLATELET COUNT,PLT 323 K/mm3 (163-337); RED BLOOD CELL COUNT 4.33 M/mm3 (4.63-6.08); WHITE BLOOD CELL COUNT,WBC 6.78 K/mm3 (4.23-9.07)
[2023-03-20 06:28] LABS: CALCIUM 8.7 mg/dL (8.5-10.1)
[2023-03-20] MEDS: Insulin Regular, Human 100 Units/ML 3 ML Vial SUBCUT SCH ×2 (07:28→11:22)
[2023-03-20] MEDS: Heparin Sodium 5,000 Units/ML Vial SUBCUT SCH (07:36)
[2023-03-20] MEDS: Sodium Chloride 0.9% 1,000 ML IV SCH (07:36)
[2023-03-20] MEDS: Acetaminophen 325 MG Tab PO PRN ×2 (07:37→11:21)
[2023-03-20] MEDS: risperiDONE 1 MG Tab PO SCH (08:10)
[2023-03-20] MEDS: metFORMIN 500 MG Tab PO SCH (08:10)
[2023-03-20] MEDS ORDERED: Metoprolol Succinate 25 MG Tab.ER PO SCH (09:00)
[2023-03-20 12:37] VITALS: BP 129/94; PULSE 89
== END 2023-03-20 12:36 | disposition home or self-care (01) | DRG 641 ==
LOC: JD.ED 08:22 → JD.ICU 13:41
PROVIDERS: ADMIT Internal Medicine; ATTEND Internal Medicine
DX: E87.1 Hypo-osmolality and hyponatremia (principal); E11.65 Type 2 diabetes mellitus with hyperglycemia; M54.50 Low back pain, unspecified; E86.0 Dehydration; R07.9 Chest pain, unspecified; R51.9 Headache, unspecified; R11.0 Nausea; I48.91 Unspecified atrial fibrillation; E11.9 Type 2 diabetes mellitus without complications; I10 Essential (primary) hypertension; E78.00 Pure hypercholesterolemia, unspecified; M19.90 Unspecified osteoarthritis, unspecified site; D50.9 Iron deficiency anemia, unspecified; F41.9 Anxiety disorder, unspecified; G89.29 Other chronic pain; Z98.890 Other specified postprocedural states; K21.9 Gastro-esophageal reflux disease without esophagitis; F20.9 Schizophrenia, unspecified; Z88.8 Allergy status to other drugs, medicaments and biological substances; F31.9 Bipolar disorder, unspecified; F17.210 Nicotine dependence, cigarettes, uncomplicated; Z79.4 Long term (current) use of insulin; Z79.01 Long term (current) use of anticoagulants; Z79.899 Other long term (current) drug therapy; Z86.16 Personal history of COVID-19; W19.XXXA Unspecified fall, initial encounter
CPT/HCPCS: 36415; 70450; 70450-26; 71045; 71045-26; 72100; 72100-26; 80053; 81003; 82947; 83735; 84484; 85025; 93005; 93010; 96374; 96376; 99222; 99239; 99285; 99285-25; A9270-GY; J1170; J1644; J1815-GY; J3490; J7030

== ENCOUNTER 2023-03-27 14:15 | Emergency (ER) | payer MEDICARE, MEDICAID ==
[2023-03-27] MEDS ORDERED: HYDROmorphone 0.5 MG/0.5 ML Syringe IVPUSH ONE ×2 (15:53→19:45)
[2023-03-27] MEDS ORDERED: Sodium Chloride 0.9% 1,000 ML IV STA (15:53)
[2023-03-27] MEDS ORDERED: Ondansetron 4 MG/2 ML SDV IVPUSH ONE (15:53)
[2023-03-27 16:22] LABS: BASOPHILS ABSOLUTE AUTO 0.06 K/mm3 (0.01-0.08); BASOPHILS PERCENT AUTO 0.7 % (0.1-1.2); EOSINOPHILS ABSOLUTE AUTO 0.07 K/mm3 (0.04-0.54); EOSINOPHILS PERCENT AUTO 0.8 (0.8-7.0); HEMATOCRIT 38.5 % (40.1-51.0); HEMOGLOBIN 13.4 gm/dl (13.7-17.5); IMMATURE GRAN ABSOLUTE AUTO 0.04 K/mm3 (0.00-0.10); IMMATURE GRAN PERCENT AUTO 0.4 % (<=1.0); LYMPHOCYTES ABSOLUTE AUTO 1.86 K/mm3 (1.32-3.57); LYMPHOCYTES PERCENT AUTO 20.2 % (21.8-53.1); MEAN CORPUSCULAR HEMOGLOBIN 31.8 pg (25.7-32.2); MEAN CORPUSCULAR HGB CONC 34.8 g/dl (32.2-35.5); MEAN CORPUSCULAR VOLUME 91.2 fl (79.0-92.2); MEAN PLATELET VOLUME 8.1 fl (9.4-12.3); MONOCYTES ABSOLUTE AUTO 0.63 K/mm3 (0.30-0.82); MONOCYTES PERCENT AUTO 6.8 % (5.3-12.2); NEUTROPHILS ABSOLUTE AUTO 6.55 K/mm3 (1.78-5.38); NEUTROPHILS PERCENT AUTO 71.1 % (34.0-67.9); PLATELET COUNT,PLT 378 K/mm3 (163-337); RED BLOOD CELL COUNT 4.22 M/mm3 (4.63-6.08); WHITE BLOOD CELL COUNT,WBC 9.21 K/mm3 (4.23-9.07)
[2023-03-27 16:45] LABS: A/G RATIO 0.9 (1-2); ALANINE AMINOTRANSFERASE,ALT 17 U/L (16-63); ALBUMIN 3.3 g/dl (3.4-5.0); ALKALINE PHOSPHATASE 84 U/L (46-116); ANION GAP 14.6 (5-15); ASPARTATE AMNIOTRANSFERASE,AST 11 U/L (15-37); BILIRUBIN TOTAL 0.3 mg/dL (0.2-1.0); BLOOD UREA NITROGEN,BUN 5 mg/dL (7-18); BUN/CREATININE RATIO 6.3 (14-18); C-REACTIVE PROTEIN <0.2 mg/dL (<1.0); CALCIUM 8.7 mg/dL (8.5-10.1); CARBON DIOXIDE,CO2 23 mEq/L (21-32); CHLORIDE,CL 98 mEq/L (98-107); CREATININE 0.8 mg/dL (0.7-1.3); EST CRCL DRUG DOSING (CG) 78.68 mL/min; ESTIMATED GFR 103 mL/min (>60); GLUCOSE RANDOM 171 mg/dL (70-99); POTASSIUM,K 3.6 mEq/L (3.5-5.1); PROTEIN TOTAL,TP 7.1 g/dl (6.4-8.2); SODIUM,NA 132 mEq/L (136-145)
[2023-03-27] MEDS ORDERED: Aluminum Hydroxide/Magnesium Hydroxide/Simethicone Susp 30 ML Cup PO ONE (17:15)
[2023-03-27] MEDS: Sodium Chloride 0.9% 10 ML Syringe FLUSH PRN ×2 (18:07→18:48)
[2023-03-27] MEDS ORDERED: Iopamidol 755 Mg/ML 100 ML Bottle IVPUSH ONE (18:47)
[2023-03-27] MEDS ORDERED: Sodium Chloride 0.9% 100 ML IV SCH (19:00)
[2023-03-27] MEDS ORDERED: Famotidine 20 MG/2 ML SDV IVPUSH ONE (19:45)
[2023-03-27] MEDS ORDERED: Sucralfate Suspension 1 GM/10 ML Cup PO ONE (19:55)
[2023-03-27 23:34] VITALS: BP 120/75; PULSE 58
== END 2023-03-27 21:45 | disposition home or self-care (01) ==
LOC: JD.ED 14:15
DX: R10.84 Generalized abdominal pain (principal); R11.2 Nausea with vomiting, unspecified; R19.7 Diarrhea, unspecified; I48.91 Unspecified atrial fibrillation; I10 Essential (primary) hypertension; M19.90 Unspecified osteoarthritis, unspecified site; E11.9 Type 2 diabetes mellitus without complications; F17.210 Nicotine dependence, cigarettes, uncomplicated; Z86.16 Personal history of COVID-19; Z88.5 Allergy status to narcotic agent; Z88.8 Allergy status to other drugs, medicaments and biological substances; Z79.4 Long term (current) use of insulin; Z79.899 Other long term (current) drug therapy; Z20.822 Contact with and (suspected) exposure to COVID-19
CPT/HCPCS: 36415; 71046; 71275; 80053; 83690; 85025; 85379; 86140; 96361; 96374; 96375; 96376; 99284; A9270; J1170; J2405; J3490; J7030; Q9967; U0002

== ENCOUNTER 2023-04-18 17:54 | Emergency (ER) | payer MEDICARE, MEDICAID ==
[2023-04-18] MEDS ORDERED: Sodium Chloride 0.9% 10 ML Syringe FLUSH PRN (18:24)
[2023-04-18] MEDS ORDERED: Sodium Chloride 0.9% 1,000 ML IV ONE (18:24)
[2023-04-18] MEDS ORDERED: HYDROmorphone 1 MG/ML Syringe IVPUSH STA (18:24)
[2023-04-18] MEDS ORDERED: Ondansetron 4 MG/2 ML SDV IVPUSH ONE (18:24)
[2023-04-18 18:40] LABS: BASOPHILS ABSOLUTE AUTO 0.02 K/mm3 (0.01-0.08); BASOPHILS PERCENT AUTO 0.2 % (0.1-1.2); EOSINOPHILS ABSOLUTE AUTO 0.17 K/mm3 (0.04-0.54); EOSINOPHILS PERCENT AUTO 1.6 (0.8-7.0); HEMATOCRIT 36.7 % (40.1-51.0); HEMOGLOBIN 13.1 gm/dl (13.7-17.5); IMMATURE GRAN ABSOLUTE AUTO 0.04 K/mm3 (0.00-0.10); IMMATURE GRAN PERCENT AUTO 0.4 % (<=1.0); LYMPHOCYTES ABSOLUTE AUTO 2.59 K/mm3 (1.32-3.57); MEAN CORPUSCULAR HGB CONC 35.7 g/dl (32.2-35.5); MEAN CORPUSCULAR VOLUME 89.7 fl (79.0-92.2); MEAN PLATELET VOLUME 8.4 fl (9.4-12.3); MONOCYTES ABSOLUTE AUTO 0.58 K/mm3 (0.30-0.82); MONOCYTES PERCENT AUTO 5.4 % (5.3-12.2); NEUTROPHILS ABSOLUTE AUTO 7.39 K/mm3 (1.78-5.38); NEUTROPHILS PERCENT AUTO 68.4 % (34.0-67.9); PLATELET COUNT,PLT 281 K/mm3 (163-337); RED BLOOD CELL COUNT 4.09 M/mm3 (4.63-6.08); WHITE BLOOD CELL COUNT,WBC 10.79 K/mm3 (4.23-9.07)
[2023-04-18 19:05] LABS: A/G RATIO 0.9 (1-2); ALBUMIN 3.2 g/dl (3.4-5.0); ANION GAP 13.5 (5-15); BILIRUBIN TOTAL 0.2 mg/dL (0.2-1.0); BUN/CREATININE RATIO 4.3 (14-18); C-REACTIVE PROTEIN 0.6 mg/dL (<1.0); CALCIUM 8.8 mg/dL (8.5-10.1); CREATININE 0.7 mg/dL (0.7-1.3); EST CRCL DRUG DOSING (CG) 89.92 mL/min; MAGNESIUM 1.5 mg/dL (1.8-2.4); POTASSIUM,K 3.5 mEq/L (3.5-5.1); PROTEIN TOTAL,TP 6.7 g/dl (6.4-8.2)
[2023-04-18] MEDS ORDERED: Iopamidol 612 MG/ML 100 ML Bottle IVPUSH ONE (19:19)
[2023-04-18 20:31] VITALS: BP 137/79; PULSE 71
== END 2023-04-18 20:29 | disposition home or self-care (01) ==
LOC: JD.ED 17:54
DX: R11.2 Nausea with vomiting, unspecified (principal); E87.1 Hypo-osmolality and hyponatremia; I48.91 Unspecified atrial fibrillation; E78.00 Pure hypercholesterolemia, unspecified; I10 Essential (primary) hypertension; K21.9 Gastro-esophageal reflux disease without esophagitis; E11.9 Type 2 diabetes mellitus without complications; Z88.8 Allergy status to other drugs, medicaments and biological substances; Z86.16 Personal history of COVID-19; Z90.49 Acquired absence of other specified parts of digestive tract; Z72.0 Tobacco use
CPT/HCPCS: 36415; 74177; 80053; 83690; 83735; 84484; 85025; 86140; 93005; 96361; 96374; 96375; 99284; J1170; J2405; J3490; J7030; Q9967; 93010

== ENCOUNTER 2023-04-25 15:23 | Emergency (ER) | payer MEDICARE, MEDICAID ==
[2023-04-25 16:03] LABS: APPEARANCE,URINE CLEAR (Clear); BILIRUBIN,URINE NEGATIVE (Negative); COLOR,URINE LIGHT YELLOW (Yellow); GLUCOSE,URINE NEGATIVE (Negative); KETONES,URINE NEGATIVE (Negative); LEUKOCYTE ESTERASE,URINE NEGATIVE (Negative); NITRITE,URINE NEGATIVE (Negative); OCCULT BLOOD,URINE TRACE-LYSED (Negative); PH,URINE 6.5 (5.0-8.0); PROTEIN,URINE NEGATIVE (Negative); UROBILINOGEN,URINE 0.2 (0.2-1.0)
[2023-04-25] MEDS ORDERED: HYDROmorphone 1 MG/ML Syringe IM ONE (16:11)
[2023-04-25] MEDS ORDERED: Ondansetron 4 MG Tab.DIS PO ONE (16:11)
[2023-04-25] MEDS ORDERED: Ketorolac 60 MG/2 ML SDV IM ONE (16:11)
[2023-04-25 16:12] LABS: BACTERIA,URINE FEW /hpf (FEW); MUCUS,URINE FEW /hpf (FEW); RBC,URINE 0-5 /hpf (0-5); SQUAMOUS EPITHELIAL CELLS,UR 0-5 /hpf (0-5); WBC,URINE 0-5 /hpf (0-5)
[2023-04-25] MEDS ORDERED: Cyclobenzaprine 10 MG Tab PO ONE (16:14)
[2023-04-25 18:20] VITALS: BP 102/66; PULSE 89
== END 2023-04-25 17:55 | disposition home or self-care (01) ==
LOC: JD.ED 15:23
DX: M54.50 Low back pain, unspecified (principal); R11.2 Nausea with vomiting, unspecified; I10 Essential (primary) hypertension; E11.9 Type 2 diabetes mellitus without complications; F17.210 Nicotine dependence, cigarettes, uncomplicated; Z88.1 Allergy status to other antibiotic agents; Z88.8 Allergy status to other drugs, medicaments and biological substances; Z79.899 Other long term (current) drug therapy; Z79.84 Long term (current) use of oral hypoglycemic drugs; Z86.16 Personal history of COVID-19; Z90.49 Acquired absence of other specified parts of digestive tract; W18.39XA Other fall on same level, initial encounter
CPT/HCPCS: 72100; 81001; 96372; 99284; A9270; J1170; J1885

== ENCOUNTER 2023-05-14 18:38 | Emergency (ER) | payer MEDICARE, MEDICAID ==
[2023-05-14] MEDS ORDERED: Ketorolac 60 MG/2 ML SDV IM ONE (19:17)
[2023-05-14] MEDS ORDERED: Orphenadrine 100 MG Tab.ER PO ONE (19:19)
[2023-05-14 19:27] VITALS: BP 131/75; PULSE 58
== END 2023-05-14 19:50 | disposition home or self-care (01) ==
LOC: JD.ED 18:38
DX: M54.50 Low back pain, unspecified (principal); G89.29 Other chronic pain; E11.9 Type 2 diabetes mellitus without complications; E78.00 Pure hypercholesterolemia, unspecified; I10 Essential (primary) hypertension; K21.9 Gastro-esophageal reflux disease without esophagitis; Z88.8 Allergy status to other drugs, medicaments and biological substances; Z79.4 Long term (current) use of insulin; Z86.16 Personal history of COVID-19; Z72.0 Tobacco use
CPT/HCPCS: 96372; 99283; A9270; J1885

== ENCOUNTER 2023-06-19 13:25 | Inpatient (IN) | payer MEDICARE, MEDICAID ==
[2023-06-19] MEDS ORDERED: Ondansetron 4 MG/2 ML SDV IVPUSH ONE (13:59)
[2023-06-19] MEDS ORDERED: HYDROmorphone 1 MG/ML Syringe IVPUSH ONE (13:59)
[2023-06-19] MEDS ORDERED: Dextrose 5%-0.9% NaCl 1,000 ML IV SCH (14:00)
[2023-06-19 14:22] LABS: BASOPHILS ABSOLUTE AUTO 0.1 K/mm3 (0.0-0.2); BASOPHILS PERCENT AUTO 0.6 % (0.0-1.0); EOSINOPHILS ABSOLUTE AUTO 0.1 K/mm3 (0.0-0.4); EOSINOPHILS PERCENT AUTO 1.4 % (0.0-6.0); HEMATOCRIT 38.1 % (42.0-52.0); HEMOGLOBIN 12.8 gm/dl (14.0-18.0); IMMATURE GRAN ABSOLUTE AUTO 0.03 K/mm3 (0.00-0.05); IMMATURE GRAN PERCENT AUTO 0.4 % (0.0-0.4); LYMPHOCYTES ABSOLUTE AUTO 1.8 K/mm3 (1.0-4.8); LYMPHOCYTES PERCENT AUTO 21.9 % (24.0-44.0); MEAN CORPUSCULAR HGB CONC 33.6 g/dl (32.0-36.0); MEAN CORPUSCULAR VOLUME 101.3 fl (83.0-99.0); MEAN PLATELET VOLUME 9.4 fl (9.4-12.4); MONOCYTES ABSOLUTE AUTO 0.6 K/mm3 (0.0-0.8); MONOCYTES PERCENT AUTO 7.5 % (0.0-8.0); NEUTROPHILS ABSOLUTE AUTO 5.7 K/mm3 (1.8-7.7); NEUTROPHILS PERCENT AUTO 68.2 % (41.0-71.0); PLATELET COUNT,PLT 218 K/mm3 (150-400); RED BLOOD CELL COUNT 3.76 M/mm3 (4.52-5.90)
[2023-06-19 14:39] LABS: INR 1.04; PROTHROMBIN TIME 11.1 SECONDS (9.7-12.0)
[2023-06-19 14:40] LABS: PTT,PARTIAL THROMBOPLSTIN TIME 30.8 SECONDS (21.7-31.4)
[2023-06-19 14:53] LABS: A/G RATIO 0.9 (1-2); ALANINE AMINOTRANSFERASE,ALT 18 U/L (16-63); ALBUMIN 3.6 g/dl (3.4-5.0); ALKALINE PHOSPHATASE 118 U/L (46-116); ASPARTATE AMNIOTRANSFERASE,AST 15 U/L (15-37); BILIRUBIN TOTAL 0.3 mg/dL (0.2-1.0); BLOOD UREA NITROGEN,BUN 4 mg/dL (7-18); BUN/CREATININE RATIO 5.7 (14-18); C-REACTIVE PROTEIN 1.9 mg/dL (<1.0); CALCIUM 8.9 mg/dL (8.5-10.1); CARBON DIOXIDE,CO2 21 mEq/L (21-32); CHLORIDE,CL 82 mEq/L (98-107); CREATININE 0.7 mg/dL (0.7-1.3); EST CRCL DRUG DOSING (CG) 88.83 mL/min; ESTIMATED GFR 107 mL/min (>60); GLUCOSE RANDOM 151 mg/dL (70-99); MAGNESIUM 1.3 mg/dL (1.8-2.4); PROTEIN TOTAL,TP 7.8 g/dl (6.4-8.2)
[2023-06-19 14:58] LABS: CORONAVIRUS COVID-19 NAA NEGATIVE (NEGATIVE); INFLUENZA A NAA NEGATIVE (NEGATIVE); RESPIRATORY SYNCYTIAL VIR NAA NEGATIVE (NEGATIVE)
[2023-06-19 15:00] LABS: SODIUM,NA 115 mEq/L (136-145); TROPONIN I HIGH SENSITIVITY < 4 pg/mL (<=76)
[2023-06-19] MEDS ORDERED: Magnesium Sulfate/Water 4 GM in Premix Bag 1 BAG IV ONE (15:19)
[2023-06-19] MEDS ORDERED: Sodium Chloride 0.9% 1,000 ML IV SCH (15:30)
[2023-06-19] MEDS ORDERED: Ondansetron 4 MG/2 ML SDV IV PRN (16:14)
[2023-06-19] MEDS ORDERED: Magnesium Sulfate/Water 2 GM in Premix Bag 1 BAG IV ONE (16:18)
[2023-06-19] MEDS ORDERED: Thiamine 200 MG/2 ML MDV IVPUSH ONE (16:18)
[2023-06-19] MEDS: oxyCODONE 5 MG Tab PO PRN (16:55)
[2023-06-19 17:37] LABS: APPEARANCE,URINE CLEAR (Clear); BILIRUBIN,URINE NEGATIVE (Negative); COLOR,URINE YELLOW (Yellow); GLUCOSE,URINE 1+ (Negative); KETONES,URINE NEGATIVE (Negative); LEUKOCYTE ESTERASE,URINE NEGATIVE (Negative); NITRITE,URINE NEGATIVE (Negative); OCCULT BLOOD,URINE TRACE-INTACT (Negative); PH,URINE 6.5 (5.0-8.0); PROTEIN,URINE NEGATIVE (Negative); UROBILINOGEN,URINE 0.2 (0.2-1.0)
[2023-06-19] MEDS: Insulin Lispro 100 Unit/ML 3 ML KwikPen SUBCUT SCH ×2 (17:49→20:46)
[2023-06-19 18:08] LABS: BACTERIA,URINE OCCASIONAL /hpf (FEW); MUCUS,URINE NOT SEEN /hpf (FEW); RBC,URINE 0-5 /hpf (0-5); SQUAMOUS EPITHELIAL CELLS,UR NOT SEEN /hpf (0-5); WBC,URINE 0-5 /hpf (0-5)
[2023-06-19 18:08] LABS: HEMOGLOBIN A1C 6.4 %
[2023-06-19] MEDS ORDERED: Thiamine 200 MG/2 ML MDV ONE (18:28)
[2023-06-19] MEDS: risperiDONE 1 MG Tab PO SCH (20:46)
[2023-06-19] MEDS: Acetaminophen 325 MG Tab PO PRN (20:46)
[2023-06-19] MEDS ORDERED: Insulin Glargine,Human Rec. Analog 100 Units/ML 3 ML Pen SUBCUT SCH (21:00)
[2023-06-20] MEDS: oxyCODONE 5 MG Tab PO PRN ×2 (02:49→10:13)
[2023-06-20 05:50] LABS: HEMATOCRIT 38.7 % (42.0-52.0); HEMOGLOBIN 13.4 gm/dl (14.0-18.0); MEAN CORPUSCULAR HEMOGLOBIN 31.4 pg (28.0-32.0); MEAN CORPUSCULAR HGB CONC 34.6 g/dl (32.0-36.0); MEAN CORPUSCULAR VOLUME 90.6 fl (83.0-99.0); MEAN PLATELET VOLUME 8.6 fl (9.4-12.4); PLATELET COUNT,PLT 328 K/mm3 (150-400); RED BLOOD CELL COUNT 4.27 M/mm3 (4.52-5.90); WHITE BLOOD CELL COUNT,WBC 7.34 K/mm3 (3.9-11.3)
[2023-06-20 06:13] LABS: A/G RATIO 0.7 (1-2); ALBUMIN 3.1 g/dl (3.4-5.0); ANION GAP 14.5 (5-15); BILIRUBIN TOTAL 0.3 mg/dL (0.2-1.0); BUN/CREATININE RATIO 12.5 (14-18); CALCIUM 8.8 mg/dL (8.5-10.1); CREATININE 0.8 mg/dL (0.7-1.3); EST CRCL DRUG DOSING (CG) 77.73 mL/min; POTASSIUM,K 4.5 mEq/L (3.5-5.1); PROTEIN TOTAL,TP 7.3 g/dl (6.4-8.2); TSH 1.414 uIU/mL (0.358-3.74)
[2023-06-20] MEDS ORDERED: Sodium Chloride 0.9% 1,000 ML IV SCH (06:30)
[2023-06-20] MEDS: Insulin Lispro 100 Unit/ML 3 ML KwikPen SUBCUT SCH (06:37)
[2023-06-20] MEDS: Acetaminophen 325 MG Tab PO PRN (07:56)
[2023-06-20] MEDS: risperiDONE 1 MG Tab PO SCH (08:01)
[2023-06-20] MEDS ORDERED: Metoprolol Succinate 25 MG Tab.ER PO SCH (09:00)
[2023-06-20] MEDS ORDERED: Enoxaparin 40 MG/0.4 ML Syringe SUBCUT SCH (09:00)
[2023-06-20 13:01] VITALS: BP 101/58; PULSE 61
== END 2023-06-20 12:48 | disposition home or self-care (01) | DRG 641 ==
LOC: JD.ED 13:25 → JD.MS 15:22 → OBSVTOIN 16:14
PROVIDERS: ADMIT Emergency Medicine; ATTEND Internal Medicine
DX: J40 Bronchitis, not specified as acute or chronic (principal); E87.1 Hypo-osmolality and hyponatremia; F20.0 Paranoid schizophrenia; E11.65 Type 2 diabetes mellitus with hyperglycemia; J44.89 Other specified chronic obstructive pulmonary disease; E83.42 Hypomagnesemia; E86.0 Dehydration; Z20.822 Contact with and (suspected) exposure to COVID-19; I48.91 Unspecified atrial fibrillation; E13.9 Other specified diabetes mellitus without complications; J44.9 Chronic obstructive pulmonary disease, unspecified; M19.90 Unspecified osteoarthritis, unspecified site; M54.9 Dorsalgia, unspecified; G89.29 Other chronic pain; F41.9 Anxiety disorder, unspecified; F32.A Depression, unspecified; E86.1 Hypovolemia; I10 Essential (primary) hypertension; Z88.8 Allergy status to other drugs, medicaments and biological substances; E78.00 Pure hypercholesterolemia, unspecified; Z79.84 Long term (current) use of oral hypoglycemic drugs; Z98.890 Other specified postprocedural states; Z90.49 Acquired absence of other specified parts of digestive tract; K21.9 Gastro-esophageal reflux disease without esophagitis; F17.210 Nicotine dependence, cigarettes, uncomplicated; F12.10 Cannabis abuse, uncomplicated; Z79.4 Long term (current) use of insulin; Z79.899 Other long term (current) drug therapy; Z86.16 Personal history of COVID-19
CPT/HCPCS: 0241U; 36415; 71045; 80053; 81001; 82009; 82947; 83036; 83605; 83735; 83880; 83930; 84295; 84300; 84443; 84484; 85025; 85027; 85610; 85730; 86140; 93005; 96361; 96365; 96375; 99285; A9270-GY; J1170; J1650; J1815; J1815-GY; J2405; J3411; J3475; J3490; J7030; J7042

== ENCOUNTER 2023-08-03 13:11 | Emergency (ER) | payer MEDICARE, MEDICAID ==
[2023-08-03] MEDS ORDERED: Sodium Chloride 0.9% 10 ML Syringe FLUSH PRN ×2 (15:08→15:36)
[2023-08-03 15:17] LABS: BASOPHILS ABSOLUTE AUTO 0.1 K/mm3 (0.0-0.2); BASOPHILS PERCENT AUTO 0.6 % (0.0-1.0); EOSINOPHILS ABSOLUTE AUTO 0.3 K/mm3 (0.0-0.4); EOSINOPHILS PERCENT AUTO 3.1 % (0.0-6.0); HEMATOCRIT 41.8 % (42.0-52.0); IMMATURE GRAN ABSOLUTE AUTO 0.07 K/mm3 (0.00-0.05); IMMATURE GRAN PERCENT AUTO 0.8 % (0.0-0.4); LYMPHOCYTES ABSOLUTE AUTO 2.4 K/mm3 (1.0-4.8); LYMPHOCYTES PERCENT AUTO 26.1 % (24.0-44.0); MEAN CORPUSCULAR HEMOGLOBIN 31.3 pg (28.0-32.0); MEAN CORPUSCULAR HGB CONC 35.6 g/dl (32.0-36.0); MEAN CORPUSCULAR VOLUME 87.8 fl (83.0-99.0); MEAN PLATELET VOLUME 8.3 fl (9.4-12.4); MONOCYTES ABSOLUTE AUTO 0.5 K/mm3 (0.0-0.8); MONOCYTES PERCENT AUTO 5.5 % (0.0-8.0); NEUTROPHILS ABSOLUTE AUTO 5.8 K/mm3 (1.8-7.7); NEUTROPHILS PERCENT AUTO 63.9 % (41.0-71.0); PLATELET COUNT,PLT 360 K/mm3 (150-400); RED BLOOD CELL COUNT 4.76 M/mm3 (4.52-5.90); WHITE BLOOD CELL COUNT,WBC 9.09 K/mm3 (3.9-11.3)
[2023-08-03 15:25] LABS: HEMOGLOBIN 14.9 gm/dl (14.0-18.0)
[2023-08-03] MEDS ORDERED: HYDROmorphone 0.5 MG/0.5 ML Syringe IVPUSH ONE (15:36)
[2023-08-03] MEDS ORDERED: Ondansetron 4 MG/2 ML SDV IVPUSH ONE (15:36)
[2023-08-03 15:40] LABS: A/G RATIO 0.9 (1-2); ALBUMIN 3.9 g/dl (3.4-5.0); ANION GAP 16.1 (5-15); BILIRUBIN TOTAL 0.3 mg/dL (0.2-1.0); BUN/CREATININE RATIO 5.7 (14-18); CALCIUM 9.4 mg/dL (8.5-10.1); CREATININE 0.7 mg/dL (0.7-1.3); EST CRCL DRUG DOSING (CG) 88.83 mL/min; POTASSIUM,K 4.1 mEq/L (3.5-5.1); PROTEIN TOTAL,TP 8.3 g/dl (6.4-8.2)
[2023-08-03] MEDS ORDERED: Sodium Chloride 0.9% 1,000 ML IV SCH ×2 (15:45→16:30)
[2023-08-03] MEDS ORDERED: Sodium Chloride 0.9% 10 ML Syringe FLUSH ONE (16:03)
[2023-08-03] MEDS ORDERED: Iopamidol 612 MG/ML 100 ML Bottle IVPUSH ONE (16:03)
[2023-08-03 17:10] LABS: APPEARANCE,URINE CLEAR (Clear); BILIRUBIN,URINE NEGATIVE (Negative); COLOR,URINE YELLOW (Yellow); GLUCOSE,URINE NEGATIVE (Negative); KETONES,URINE NEGATIVE (Negative); LEUKOCYTE ESTERASE,URINE NEGATIVE (Negative); NITRITE,URINE NEGATIVE (Negative); OCCULT BLOOD,URINE TRACE-INTACT (Negative); PH,URINE 6.5 (5.0-8.0); PROTEIN,URINE NEGATIVE (Negative); UROBILINOGEN,URINE 0.2 (0.2-1.0)
[2023-08-03 17:16] LABS: BACTERIA,URINE OCCASIONAL /hpf (FEW); MUCUS,URINE NOT SEEN /hpf (FEW); RBC,URINE 0-5 /hpf (0-5); SQUAMOUS EPITHELIAL CELLS,UR NOT SEEN /hpf (0-5); WBC,URINE 0-5 /hpf (0-5)
[2023-08-03 18:26] LABS: CORONAVIRUS COVID-19 NAA NEGATIVE (NEGATIVE); INFLUENZA A NAA NEGATIVE (NEGATIVE); RESPIRATORY SYNCYTIAL VIR NAA NEGATIVE (NEGATIVE)
[2023-08-03 19:08] VITALS: BP 109/68; PULSE 61
[2023-08-03 19:26] LABS: ANION GAP 13.1 (5-15); BUN/CREATININE RATIO 5.7 (14-18); CALCIUM 9.3 mg/dL (8.5-10.1); CREATININE 0.7 mg/dL (0.7-1.3); EST CRCL DRUG DOSING (CG) 88.83 mL/min; POTASSIUM,K 4.1 mEq/L (3.5-5.1)
== END 2023-08-03 19:25 | disposition left against medical advice (07) ==
LOC: JD.ED 13:11
DX: R10.13 Epigastric pain (principal); R19.7 Diarrhea, unspecified; R11.2 Nausea with vomiting, unspecified; E11.9 Type 2 diabetes mellitus without complications; I10 Essential (primary) hypertension; F17.210 Nicotine dependence, cigarettes, uncomplicated; Z79.4 Long term (current) use of insulin; Z20.822 Contact with and (suspected) exposure to COVID-19; Z88.8 Allergy status to other drugs, medicaments and biological substances; Z79.899 Other long term (current) drug therapy; Z79.84 Long term (current) use of oral hypoglycemic drugs; Z86.16 Personal history of COVID-19
CPT/HCPCS: 0241U; 36415; 51701; 51798; 74177; 74177-26; 80048; 80053; 81001; 83690; 83935; 84300; 85025; 86140; 96361; 96374; 96375; 99283; 99284-25; J1170; J2405; J3490; J7030; Q9967

== ENCOUNTER 2023-09-11 19:36 | Emergency (ER) | payer MEDICARE, MEDICAID ==
[2023-09-11] MEDS: Dextrose 5%-0.9% NaCl 1,000 ML IV SCH (20:40)
[2023-09-11 20:45] LABS: BASOPHILS ABSOLUTE AUTO 0.1 K/mm3 (0.0-0.2); BASOPHILS PERCENT AUTO 0.6 % (0.0-1.0); EOSINOPHILS ABSOLUTE AUTO 0.2 K/mm3 (0.0-0.4); EOSINOPHILS PERCENT AUTO 2.3 % (0.0-6.0); HEMATOCRIT 37.3 % (42.0-52.0); HEMOGLOBIN 13.6 gm/dl (14.0-18.0); IMMATURE GRAN ABSOLUTE AUTO 0.05 K/mm3 (0.00-0.05); IMMATURE GRAN PERCENT AUTO 0.6 % (0.0-0.4); LYMPHOCYTES ABSOLUTE AUTO 2.5 K/mm3 (1.0-4.8); LYMPHOCYTES PERCENT AUTO 29.8 % (24.0-44.0); MEAN CORPUSCULAR HEMOGLOBIN 31.8 pg (28.0-32.0); MEAN CORPUSCULAR HGB CONC 36.5 g/dl (32.0-36.0); MEAN CORPUSCULAR VOLUME 87.1 fl (83.0-99.0); MEAN PLATELET VOLUME 8.2 fl (9.4-12.4); MONOCYTES ABSOLUTE AUTO 0.6 K/mm3 (0.0-0.8); MONOCYTES PERCENT AUTO 7.2 % (0.0-8.0); NEUTROPHILS ABSOLUTE AUTO 4.9 K/mm3 (1.8-7.7); NEUTROPHILS PERCENT AUTO 59.5 % (41.0-71.0); PLATELET COUNT,PLT 275 K/mm3 (150-400); RED BLOOD CELL COUNT 4.28 M/mm3 (4.52-5.90); WHITE BLOOD CELL COUNT,WBC 8.23 K/mm3 (3.9-11.3)
[2023-09-11] MEDS: Metoclopramide 10 MG/2 ML SDV IVPUSH ONE (20:46)
[2023-09-11 20:47] LABS: APPEARANCE,URINE CLEAR (Clear); BILIRUBIN,URINE NEGATIVE (Negative); COLOR,URINE LIGHT YELLOW (Yellow); GLUCOSE,URINE NEGATIVE (Negative); KETONES,URINE NEGATIVE (Negative); LEUKOCYTE ESTERASE,URINE NEGATIVE (Negative); NITRITE,URINE NEGATIVE (Negative); OCCULT BLOOD,URINE TRACE-LYSED (Negative); PROTEIN,URINE NEGATIVE (Negative); UROBILINOGEN,URINE 0.2 (0.2-1.0)
[2023-09-11] MEDS: diphenhydrAMINE 50 MG/ML SDV IVPUSH ONE (20:47)
[2023-09-11] MEDS: HYDROmorphone 0.5 MG/0.5 ML Syringe IVPUSH ONE (20:48)
[2023-09-11 20:51] LABS: INR 0.96; PROTHROMBIN TIME 10.3 SECONDS (9.7-12.0)
[2023-09-11 20:53] LABS: PTT,PARTIAL THROMBOPLSTIN TIME 29.7 SECONDS (21.7-31.4)
[2023-09-11 21:01] LABS: RBC,URINE 0-5 /hpf (0-5); WBC,URINE NOT SEEN /hpf (0-5)
[2023-09-11 21:02] LABS: BACTERIA,URINE RARE /hpf (FEW); MUCUS,URINE RARE /hpf (FEW); SQUAMOUS EPITHELIAL CELLS,UR NOT SEEN /hpf (0-5)
[2023-09-11 21:04] LABS: ALANINE AMINOTRANSFERASE,ALT 23 U/L (16-63); ALBUMIN 3.7 g/dl (3.4-5.0); ALKALINE PHOSPHATASE 103 U/L (46-116); ANION GAP 13.8 (5-15); ASPARTATE AMNIOTRANSFERASE,AST 18 U/L (15-37); BILIRUBIN TOTAL 0.3 mg/dL (0.2-1.0); BLOOD UREA NITROGEN,BUN 2 mg/dL (7-18); BUN/CREATININE RATIO 2.9 (14-18); CARBON DIOXIDE,CO2 23 mEq/L (21-32); CHLORIDE,CL 88 mEq/L (98-107); CREATININE 0.7 mg/dL (0.7-1.3); EST CRCL DRUG DOSING (CG) 88.83 mL/min; ESTIMATED GFR 107 mL/min (>60); GLUCOSE RANDOM 106 mg/dL (70-99); LIPASE 68 U/L (16-77); MAGNESIUM 1.6 mg/dL (1.8-2.4); POTASSIUM,K 3.8 mEq/L (3.5-5.1); PROTEIN TOTAL,TP 7.6 g/dl (6.4-8.2); TROPONIN I HIGH SENSITIVITY 4 pg/mL (<=76)
[2023-09-11 21:17] LABS: C-REACTIVE PROTEIN < 0.2 mg/dL (<1.0); SODIUM,NA 121 mEq/L (136-145)
[2023-09-11 21:22] LABS: HEMOGLOBIN A1C 6.6 %
[2023-09-11 22:06] LABS: CORONAVIRUS COVID-19 NAA NEGATIVE (NEGATIVE); INFLUENZA A NAA NEGATIVE (NEGATIVE); RESPIRATORY SYNCYTIAL VIR NAA NEGATIVE (NEGATIVE)
[2023-09-11] MEDS: LORazepam 2 MG/ML SDV IVPUSH ONE (22:20)
[2023-09-11] MEDS: Sodium Chloride 0.9% 1,000 ML IV SCH (22:30)
[2023-09-11] MEDS: Ondansetron 4 MG Tab.DIS PO ONE (23:57)
[2023-09-12] MEDS: HYDROmorphone 0.5 MG/0.5 ML Syringe IVPUSH ONE ×2 (01:41→06:30)
[2023-09-12] MEDS: Dicyclomine 10 MG Cap PO ONE ×2 (01:41→06:32)
[2023-09-12] MEDS: Metoclopramide 10 MG/2 ML SDV IVPUSH ONE (06:29)
[2023-09-12 07:28] VITALS: BP 90/61; PULSE 54
== END 2023-09-12 07:25 | disposition home or self-care (01) ==
LOC: JD.ED 19:36
DX: R11.2 Nausea with vomiting, unspecified (principal); E87.1 Hypo-osmolality and hyponatremia; R10.13 Epigastric pain; I10 Essential (primary) hypertension; E11.9 Type 2 diabetes mellitus without complications; K21.9 Gastro-esophageal reflux disease without esophagitis; Z20.822 Contact with and (suspected) exposure to COVID-19; Z86.16 Personal history of COVID-19; Z79.4 Long term (current) use of insulin; Z79.84 Long term (current) use of oral hypoglycemic drugs; Z88.6 Allergy status to analgesic agent; Z88.8 Allergy status to other drugs, medicaments and biological substances; Z79.899 Other long term (current) drug therapy
CPT/HCPCS: 0241U; 36415; 71045; 71045-26; 74018; 74018-26; 80053; 81001; 83036; 83690; 83735; 83880; 83930; 84484; 85025; 85610; 85730; 86140; 93005; 93010; 96361; 96374; 96375; 96376; 99284; 99284-25; A9270-GY; J1170; J1200; J2060; J2765; J7030; J7042

== ENCOUNTER 2023-09-13 16:46 | Inpatient (IN) | payer MEDICARE, MEDICAID ==
[2023-09-13] MEDS ORDERED: Sodium Chloride 0.9% 10 ML Syringe FLUSH PRN (17:20)
[2023-09-13] MEDS ORDERED: Ondansetron 4 MG/2 ML SDV IVPUSH ONE (17:20)
[2023-09-13] MEDS ORDERED: Sodium Chloride 3% 500 ML IV SCH (17:30)
[2023-09-13] MEDS ORDERED: HYDROmorphone 0.5 MG/0.5 ML Syringe IVPUSH ONE (17:33)
[2023-09-13] MEDS ORDERED: Sodium Chloride 0.9% 10 ML Syringe FLUSH ONE (17:41)
[2023-09-13] MEDS ORDERED: Iopamidol 612 MG/ML 100 ML Bottle IVPUSH ONE (17:41)
[2023-09-13 18:03] LABS: BASOPHILS PERCENT AUTO 0.4 % (0.0-1.0); EOSINOPHILS PERCENT AUTO 0.2 % (0.0-6.0); HEMOGLOBIN 13.8 gm/dl (14.0-18.0); IMMATURE GRAN ABSOLUTE AUTO 0.04 K/mm3 (0.00-0.05); IMMATURE GRAN PERCENT AUTO 0.5 % (0.0-0.4); LYMPHOCYTES ABSOLUTE AUTO 1.5 K/mm3 (1.0-4.8); LYMPHOCYTES PERCENT AUTO 18.7 % (24.0-44.0); MEAN CORPUSCULAR HEMOGLOBIN 31.2 pg (28.0-32.0); MEAN CORPUSCULAR HGB CONC 36.3 g/dl (32.0-36.0); MONOCYTES ABSOLUTE AUTO 0.4 K/mm3 (0.0-0.8); MONOCYTES PERCENT AUTO 5.5 % (0.0-8.0); NEUTROPHILS PERCENT AUTO 74.7 % (41.0-71.0); PLATELET COUNT,PLT 289 K/mm3 (150-400); RED BLOOD CELL COUNT 4.42 M/mm3 (4.52-5.90); WHITE BLOOD CELL COUNT,WBC 8.04 K/mm3 (3.9-11.3)
[2023-09-13 18:23] LABS: ALBUMIN 3.8 g/dl (3.4-5.0); ANION GAP 15.9 (5-15); BILIRUBIN TOTAL 0.4 mg/dL (0.2-1.0); BUN/CREATININE RATIO 3.8 (14-18); CALCIUM 9.1 mg/dL (8.5-10.1); CREATININE 0.8 mg/dL (0.7-1.3); EST CRCL DRUG DOSING (CG) 77.73 mL/min; MAGNESIUM 1.5 mg/dL (1.8-2.4); POTASSIUM,K 3.9 mEq/L (3.5-5.1); PROTEIN TOTAL,TP 7.8 g/dl (6.4-8.2)
[2023-09-13] MEDS ORDERED: Docusate Sodium 100 MG Cap PO PRN (18:44)
[2023-09-13] MEDS ORDERED: Acetaminophen 325 MG Tab PO PRN (18:44)
[2023-09-13] MEDS ORDERED: Ondansetron 4 MG/2 ML SDV IV PRN (18:44)
[2023-09-13] MEDS ORDERED: Dicyclomine 10 MG Cap PO PRN (18:49)
[2023-09-13] MEDS ORDERED: ClonazePAM 0.5 MG Tab PO PRN (18:49)
[2023-09-13] MEDS ORDERED: Magnesium Sulfate (4.06 MEQ/ML) 1 GM/2 ML SDV IM ONE (18:57)
[2023-09-13] MEDS: Acetaminophen/HYDROcodone 325-5 MG Tab PO PRN (19:43)
[2023-09-13] MEDS ORDERED: Magnesium Sulfate (4.06 MEQ/ML) 1 GM/2 ML SDV ONE (22:58)
[2023-09-13] MEDS: Insulin Lispro 100 Unit/ML 3 ML KwikPen SUBCUT SCH (23:04)
[2023-09-13] MEDS: risperiDONE 1 MG Tab PO SCH (23:05)
[2023-09-13] MEDS: Sucralfate Suspension 1 GM/10 ML Cup PO SCH (23:05)
[2023-09-14] MEDS: Acetaminophen/HYDROcodone 325-5 MG Tab PO PRN ×4 (00:14→12:22)
[2023-09-14 05:30] LABS: HEMATOCRIT 38.7 % (42.0-52.0); HEMOGLOBIN 13.8 gm/dl (14.0-18.0); MEAN CORPUSCULAR HEMOGLOBIN 31.5 pg (28.0-32.0); MEAN CORPUSCULAR HGB CONC 35.7 g/dl (32.0-36.0); MEAN CORPUSCULAR VOLUME 88.4 fl (83.0-99.0); PLATELET COUNT,PLT 282 K/mm3 (150-400); RED BLOOD CELL COUNT 4.38 M/mm3 (4.52-5.90); WHITE BLOOD CELL COUNT,WBC 6.74 K/mm3 (3.9-11.3)
[2023-09-14] MEDS ORDERED: Pantoprazole 40 MG Tab.CR PO SCH (06:00)
[2023-09-14 06:13] LABS: ANION GAP 14.7 (5-15); BUN/CREATININE RATIO 5.6 (14-18); CALCIUM 8.6 mg/dL (8.5-10.1); CREATININE 0.9 mg/dL (0.7-1.3); EST CRCL DRUG DOSING (CG) 69.09 mL/min; MAGNESIUM 1.7 mg/dL (1.8-2.4); PHOSPHORUS 4.4 mg/dL (2.6-4.7); POTASSIUM,K 3.7 mEq/L (3.5-5.1)
[2023-09-14] MEDS: Sucralfate Suspension 1 GM/10 ML Cup PO SCH ×2 (06:15→11:11)
[2023-09-14 06:37] LABS: TSH 2.638 uIU/mL (0.358-3.74)
[2023-09-14] MEDS: risperiDONE 1 MG Tab PO SCH (08:14)
[2023-09-14] MEDS: Insulin Lispro 100 Unit/ML 3 ML KwikPen SUBCUT SCH ×2 (08:14→11:11)
[2023-09-14] MEDS ORDERED: amLODIPine 10 MG Tab PO SCH (09:00)
[2023-09-14] MEDS ORDERED: Non-Formulary Medication 1 Each (Omeprazole [Omeprazole] 40 MG Capsule.Dr) PO SCH (09:00)
[2023-09-14] MEDS ORDERED: Metoprolol Succinate 25 MG Tab.ER PO SCH (09:00)
[2023-09-14] MEDS ORDERED: Enoxaparin 40 MG/0.4 ML Syringe SUBCUT SCH (09:00)
[2023-09-14 13:32] LABS: ANION GAP 14.3 (5-15); CALCIUM 8.6 mg/dL (8.5-10.1); CREATININE 0.7 mg/dL (0.7-1.3); EST CRCL DRUG DOSING (CG) 88.83 mL/min; MAGNESIUM 1.9 mg/dL (1.8-2.4); POTASSIUM,K 4.3 mEq/L (3.5-5.1)
[2023-09-14 14:35] VITALS: BP 114/69; PULSE 64
[2023-09-14] MEDS ORDERED: Tamsulosin 0.4 MG Cap.ER PO SCH (18:00)
== END 2023-09-14 15:15 | disposition home or self-care (01) | DRG 641 ==
LOC: JD.ED 16:46 → JD.MS 18:44
PROVIDERS: ADMIT Internal Medicine; ATTEND Internal Medicine
DX: R10.84 Generalized abdominal pain (principal); R11.2 Nausea with vomiting, unspecified; E87.1 Hypo-osmolality and hyponatremia; E78.00 Pure hypercholesterolemia, unspecified; I48.91 Unspecified atrial fibrillation; I10 Essential (primary) hypertension; M19.90 Unspecified osteoarthritis, unspecified site; G89.29 Other chronic pain; M54.9 Dorsalgia, unspecified; F41.9 Anxiety disorder, unspecified; K21.9 Gastro-esophageal reflux disease without esophagitis; E11.9 Type 2 diabetes mellitus without complications; E83.42 Hypomagnesemia; F31.9 Bipolar disorder, unspecified; F20.9 Schizophrenia, unspecified; D50.9 Iron deficiency anemia, unspecified; Z90.49 Acquired absence of other specified parts of digestive tract; Z79.4 Long term (current) use of insulin; Z88.8 Allergy status to other drugs, medicaments and biological substances; Z98.890 Other specified postprocedural states; Z79.1 Long term (current) use of non-steroidal anti-inflammatories (NSAID); Z86.16 Personal history of COVID-19; Z79.84 Long term (current) use of oral hypoglycemic drugs; Z79.899 Other long term (current) drug therapy
CPT/HCPCS: 36415; 74177; 80053; 83735; 83930; 83935; 84300; 85025; J1170; J2405; J3490 ×2; J7131; Q9967; 80048; 80061; 82947; 83605; 84100; 84443; 85027; 99284; A9270-GY; J1650; J1815; J3475

== ENCOUNTER 2023-10-13 17:14 | Emergency (ER) | payer MEDICARE, MEDICAID ==
[2023-10-13 18:27] LABS: BASOPHILS ABSOLUTE AUTO 0.1 K/mm3 (0.0-0.2); BASOPHILS PERCENT AUTO 0.6 % (0.0-1.0); EOSINOPHILS ABSOLUTE AUTO 0.1 K/mm3 (0.0-0.4); EOSINOPHILS PERCENT AUTO 0.9 % (0.0-6.0); HEMATOCRIT 40.9 % (42.0-52.0); HEMOGLOBIN 14.5 gm/dl (14.0-18.0); IMMATURE GRAN ABSOLUTE AUTO 0.06 K/mm3 (0.00-0.05); IMMATURE GRAN PERCENT AUTO 0.7 % (0.0-0.4); LYMPHOCYTES PERCENT AUTO 21.7 % (24.0-44.0); MEAN CORPUSCULAR HEMOGLOBIN 31.7 pg (28.0-32.0); MEAN CORPUSCULAR HGB CONC 35.5 g/dl (32.0-36.0); MEAN CORPUSCULAR VOLUME 89.5 fl (83.0-99.0); MEAN PLATELET VOLUME 8.1 fl (9.4-12.4); MONOCYTES ABSOLUTE AUTO 0.5 K/mm3 (0.0-0.8); MONOCYTES PERCENT AUTO 5.8 % (0.0-8.0); NEUTROPHILS ABSOLUTE AUTO 6.4 K/mm3 (1.8-7.7); NEUTROPHILS PERCENT AUTO 70.3 % (41.0-71.0); PLATELET COUNT,PLT 268 K/mm3 (150-400); RED BLOOD CELL COUNT 4.57 M/mm3 (4.52-5.90); WHITE BLOOD CELL COUNT,WBC 9.09 K/mm3 (3.9-11.3)
[2023-10-13 18:54] LABS: A/G RATIO 1.1 (1-2); ALANINE AMINOTRANSFERASE,ALT 21 U/L (16-63); ALBUMIN 3.9 g/dl (3.4-5.0); ALKALINE PHOSPHATASE 104 U/L (46-116); ANION GAP 15.5 (5-15); ASPARTATE AMNIOTRANSFERASE,AST 15 U/L (15-37); BILIRUBIN TOTAL 0.3 mg/dL (0.2-1.0); BLOOD UREA NITROGEN,BUN 5 mg/dL (7-18); BUN/CREATININE RATIO 5.6 (14-18); CALCIUM 8.7 mg/dL (8.5-10.1); CARBON DIOXIDE,CO2 22 mEq/L (21-32); CHLORIDE,CL 87 mEq/L (98-107); CREATININE 0.9 mg/dL (0.7-1.3); EST CRCL DRUG DOSING (CG) 69.09 mL/min; ESTIMATED GFR 99 mL/min (>60); GLUCOSE RANDOM 139 mg/dL (70-99); LIPASE 48 U/L (16-77); MAGNESIUM 1.6 mg/dL (1.8-2.4); POTASSIUM,K 3.5 mEq/L (3.5-5.1); PROTEIN TOTAL,TP 7.5 g/dl (6.4-8.2); SODIUM,NA 121 mEq/L (136-145)
[2023-10-13] MEDS: Pantoprazole 40 MG Vial IVPUSH ONE (18:54)
[2023-10-13] MEDS: HYDROmorphone 0.5 MG/0.5 ML Syringe IVPUSH ONE (18:54)
[2023-10-13] MEDS: Ondansetron 4 MG/2 ML SDV IVPUSH ONE (18:54)
[2023-10-13] MEDS: Sodium Chloride 0.9% 1,000 ML IV STA (18:54)
[2023-10-13] MEDS: Sodium Chloride 0.9% 10 ML Syringe FLUSH PRN (18:54)
[2023-10-13 18:57] LABS: TROPONIN I HIGH SENSITIVITY < 4 pg/mL (<=76)
[2023-10-13 20:26] VITALS: BP 117/78; PULSE 74
== END 2023-10-13 20:10 | disposition home or self-care (01) ==
LOC: JD.ED 17:14
DX: R07.89 Other chest pain (principal); R10.9 Unspecified abdominal pain; R11.2 Nausea with vomiting, unspecified; E87.1 Hypo-osmolality and hyponatremia; I10 Essential (primary) hypertension; K21.9 Gastro-esophageal reflux disease without esophagitis; E78.00 Pure hypercholesterolemia, unspecified; E11.9 Type 2 diabetes mellitus without complications; F17.210 Nicotine dependence, cigarettes, uncomplicated; Z79.4 Long term (current) use of insulin; Z79.899 Other long term (current) drug therapy; Z86.16 Personal history of COVID-19; Z90.49 Acquired absence of other specified parts of digestive tract; Z88.8 Allergy status to other drugs, medicaments and biological substances
CPT/HCPCS: 36415; 71045; 74018; 80053; 83690; 83735; 84484; 85025; 93005; 96374; 96375; 99285; C9113; J1170; J2405; J3490; J7030; 93010; 99284

== ENCOUNTER 2023-10-17 16:22 | Observation (INO) | payer MEDICARE, MEDICAID ==
[2023-10-17] MEDS: Sodium Chloride 0.9% 10 ML Syringe FLUSH PRN (17:17)
[2023-10-17 17:23] LABS: APPEARANCE,URINE CLEAR (Clear); BILIRUBIN,URINE NEGATIVE (Negative); COLOR,URINE LIGHT YELLOW (Yellow); GLUCOSE,URINE NEGATIVE (Negative); KETONES,URINE TRACE (Negative); LEUKOCYTE ESTERASE,URINE NEGATIVE (Negative); NITRITE,URINE NEGATIVE (Negative); OCCULT BLOOD,URINE TRACE-LYSED (Negative); PH,URINE 6.5 (5.0-8.0); PROTEIN,URINE NEGATIVE (Negative); UROBILINOGEN,URINE 0.2 (0.2-1.0)
[2023-10-17 17:30] LABS: BASOPHILS PERCENT AUTO 0.3 % (0.0-1.0); EOSINOPHILS PERCENT AUTO 0.2 % (0.0-6.0); HEMATOCRIT 40.1 % (42.0-52.0); HEMOGLOBIN 14.3 gm/dl (14.0-18.0); IMMATURE GRAN ABSOLUTE AUTO 0.06 K/mm3 (0.00-0.05); IMMATURE GRAN PERCENT AUTO 0.5 % (0.0-0.4); LYMPHOCYTES ABSOLUTE AUTO 1.4 K/mm3 (1.0-4.8); LYMPHOCYTES PERCENT AUTO 12.3 % (24.0-44.0); MEAN CORPUSCULAR HGB CONC 35.7 g/dl (32.0-36.0); MEAN PLATELET VOLUME 8.4 fl (9.4-12.4); MONOCYTES ABSOLUTE AUTO 0.5 K/mm3 (0.0-0.8); MONOCYTES PERCENT AUTO 4.5 % (0.0-8.0); NEUTROPHILS ABSOLUTE AUTO 9.6 K/mm3 (1.8-7.7); NEUTROPHILS PERCENT AUTO 82.2 % (41.0-71.0); PLATELET COUNT,PLT 311 K/mm3 (150-400); RED BLOOD CELL COUNT 4.61 M/mm3 (4.52-5.90); WHITE BLOOD CELL COUNT,WBC 11.68 K/mm3 (3.9-11.3)
[2023-10-17] MEDS: Sodium Chloride 0.9% 1,000 ML IV SCH (17:35)
[2023-10-17] MEDS: Ondansetron 4 MG/2 ML SDV IVPUSH ONE (17:35)
[2023-10-17 17:44] LABS: A/G RATIO 1.1 (1-2); ALANINE AMINOTRANSFERASE,ALT 21 U/L (16-63); ALKALINE PHOSPHATASE 104 U/L (46-116); ANION GAP 17.6 (5-15); ASPARTATE AMNIOTRANSFERASE,AST 15 U/L (15-37); BILIRUBIN TOTAL 0.6 mg/dL (0.2-1.0); BLOOD UREA NITROGEN,BUN 5 mg/dL (7-18); BUN/CREATININE RATIO 7.1 (14-18); C-REACTIVE PROTEIN <0.2 mg/dL (<1.0); CALCIUM 8.8 mg/dL (8.5-10.1); CARBON DIOXIDE,CO2 20 mEq/L (21-32); CHLORIDE,CL 87 mEq/L (98-107); CREATININE 0.7 mg/dL (0.7-1.3); EST CRCL DRUG DOSING (CG) 88.83 mL/min; ESTIMATED GFR 107 mL/min (>60); GLUCOSE RANDOM 156 mg/dL (70-99); POTASSIUM,K 3.6 mEq/L (3.5-5.1); PROTEIN TOTAL,TP 7.6 g/dl (6.4-8.2); SODIUM,NA 121 mEq/L (136-145)
[2023-10-17 17:48] LABS: RBC,URINE 0-5 /hpf (0-5); WBC,URINE 0-5 /hpf (0-5)
[2023-10-17 17:49] LABS: BACTERIA,URINE RARE /hpf (FEW); EPITHELIAL CELLS,URINE NOT SEEN /hpf (0-5); MUCUS,URINE NOT SEEN /hpf (FEW)
[2023-10-17 17:50] LABS: OSMOLALITY,SERUM 255 mosm/kg (280-300)
[2023-10-17 18:00] LABS: CORONAVIRUS COVID-19 NAA NEGATIVE (NEGATIVE); INFLUENZA A NAA NEGATIVE (NEGATIVE); RESPIRATORY SYNCYTIAL VIR NAA NEGATIVE (NEGATIVE)
[2023-10-17] MEDS: Acetaminophen 325 MG Tab PO ONE (18:55)
[2023-10-17] MEDS: Ibuprofen 600 MG Tab PO ONE (20:04)
[2023-10-17] MEDS: HYDROmorphone 0.5 MG/0.5 ML Syringe IVPUSH ONE (20:54)
[2023-10-17] MEDS: Ondansetron 4 MG/2 ML SDV IVPUSH PRN (22:38)
[2023-10-17] MEDS: Acetaminophen 325 MG Tab PO PRN (22:39)
[2023-10-18] MEDS ORDERED: Ondansetron 4 MG Tab.DIS PO PRN (07:05)
[2023-10-18 07:27] LABS: BASOPHILS ABSOLUTE AUTO 0.1 K/mm3 (0.0-0.2); BASOPHILS PERCENT AUTO 0.8 % (0.0-1.0); EOSINOPHILS ABSOLUTE AUTO 0.1 K/mm3 (0.0-0.4); EOSINOPHILS PERCENT AUTO 1.9 % (0.0-6.0); HEMATOCRIT 38.6 % (42.0-52.0); HEMOGLOBIN 13.9 gm/dl (14.0-18.0); IMMATURE GRAN ABSOLUTE AUTO 0.02 K/mm3 (0.00-0.05); IMMATURE GRAN PERCENT AUTO 0.3 % (0.0-0.4); LYMPHOCYTES ABSOLUTE AUTO 2.1 K/mm3 (1.0-4.8); LYMPHOCYTES PERCENT AUTO 35.5 % (24.0-44.0); MEAN CORPUSCULAR HEMOGLOBIN 31.5 pg (28.0-32.0); MEAN CORPUSCULAR VOLUME 87.5 fl (83.0-99.0); MEAN PLATELET VOLUME 8.3 fl (9.4-12.4); MONOCYTES ABSOLUTE AUTO 0.5 K/mm3 (0.0-0.8); MONOCYTES PERCENT AUTO 8.8 % (0.0-8.0); NEUTROPHILS ABSOLUTE AUTO 3.1 K/mm3 (1.8-7.7); NEUTROPHILS PERCENT AUTO 52.7 % (41.0-71.0); PLATELET COUNT,PLT 273 K/mm3 (150-400); RED BLOOD CELL COUNT 4.41 M/mm3 (4.52-5.90); WHITE BLOOD CELL COUNT,WBC 5.89 K/mm3 (3.9-11.3)
[2023-10-18 07:59] LABS: BUN/CREATININE RATIO 5.7 (14-18); CALCIUM 8.5 mg/dL (8.5-10.1); CREATININE 0.7 mg/dL (0.7-1.3); EST CRCL DRUG DOSING (CG) 88.83 mL/min; POTASSIUM,K 3.6 mEq/L (3.5-5.1)
[2023-10-18] MEDS: Sodium Chloride 1 GM Tab PO SCH (08:09)
[2023-10-18] MEDS: metFORMIN 500 MG Tab PO SCH (08:10)
[2023-10-18] MEDS: risperiDONE 1 MG Tab PO SCH (08:11)
[2023-10-18] MEDS: amLODIPine 10 MG Tab PO SCH (08:11)
[2023-10-18] MEDS: Pantoprazole 40 MG Tab.CR PO SCH (08:11)
[2023-10-18] MEDS: Metoprolol Succinate 25 MG Tab.ER PO SCH (08:11)
[2023-10-18] MEDS: Sucralfate Suspension 1 GM/10 ML Cup PO SCH (08:12)
[2023-10-18 08:30] LABS: ANION GAP 17.6 (5-15)
[2023-10-18] MEDS: Enoxaparin 40 MG/0.4 ML Syringe SUBCUT SCH (09:13)
[2023-10-18] MEDS: Iopamidol 612 MG/ML 100 ML Bottle IVPUSH ONE (09:30)
[2023-10-18] MEDS: Sodium Chloride 0.9% 10 ML Syringe FLUSH PRN (09:30)
[2023-10-18] MEDS: oxyCODONE 5 MG Tab PO PRN (09:52)
[2023-10-18] MEDS: Tamsulosin 0.4 MG Cap.ER PO ONE (10:48)
[2023-10-18 11:13] VITALS: BP 122/82; PULSE 91
[2023-10-18] MEDS ORDERED: Insulin Lispro 100 Unit/ML 3 ML KwikPen SUBCUT SCH (11:30)
[2023-10-18] MEDS ORDERED: Insulin Glargine,Human Rec. Analog 100 Units/ML 3 ML Pen SUBCUT SCH (18:00)
[2023-10-18] MEDS ORDERED: ClonazePAM 0.5 MG Tab PO PRN (21:00)
[2023-10-19] MEDS ORDERED: Tamsulosin 0.4 MG Cap.ER PO SCH (10:00)
== END 2023-10-18 10:30 | disposition home or self-care (01) ==
LOC: JD.ED 16:22 → JD.MS 19:03
PROVIDERS: ADMIT Internal Medicine; ATTEND Internal Medicine
DX: F31.9 Bipolar disorder, unspecified (principal); E87.1 Hypo-osmolality and hyponatremia; F20.9 Schizophrenia, unspecified; F41.9 Anxiety disorder, unspecified; I10 Essential (primary) hypertension; E11.65 Type 2 diabetes mellitus with hyperglycemia; K21.00 Gastro-esophageal reflux disease with esophagitis, without bleeding; K76.0 Fatty (change of) liver, not elsewhere classified; E78.00 Pure hypercholesterolemia, unspecified; D50.8 Other iron deficiency anemias; N40.0 Benign prostatic hyperplasia without lower urinary tract symptoms; M54.50 Low back pain, unspecified; F17.210 Nicotine dependence, cigarettes, uncomplicated; Z20.822 Contact with and (suspected) exposure to COVID-19; Z79.4 Long term (current) use of insulin; Z79.899 Other long term (current) drug therapy; Z88.8 Allergy status to other drugs, medicaments and biological substances
CPT/HCPCS: 0241U; 36415; 74177; 80048; 80053; 81001; 83930; 85025; 86140; A9270; J1170; J1650; J2405; J3490; J7030; Q9967

== ENCOUNTER 2024-02-29 08:45 | Emergency (ER) | payer MEDICARE, MEDICAID ==
[2024-02-29 09:03] VITALS: BP 117/77; PULSE 77
[2024-02-29] MEDS: Ketorolac 15 MG/ML SDV IM ONE (10:16)
== END 2024-02-29 10:24 | disposition home or self-care (01) ==
LOC: JD.ED 08:45
DX: M54.50 Low back pain, unspecified (principal); I10 Essential (primary) hypertension; K21.9 Gastro-esophageal reflux disease without esophagitis; E11.9 Type 2 diabetes mellitus without complications; F17.210 Nicotine dependence, cigarettes, uncomplicated; Z90.49 Acquired absence of other specified parts of digestive tract; Z79.4 Long term (current) use of insulin; Z79.899 Other long term (current) drug therapy; Z88.6 Allergy status to analgesic agent; Z88.8 Allergy status to other drugs, medicaments and biological substances; W01.0XXA Fall on same level from slipping, tripping and stumbling without subsequent striking against object, initial encounter; Y92.000 Kitchen of unspecified non-institutional (private) residence as the place of occurrence of the external cause; Y93.E5 Activity, floor mopping and cleaning
CPT/HCPCS: 72100; 96372; 99283; J1885

== ENCOUNTER 2024-05-28 18:21 | Emergency (ER) | payer MEDICARE, MEDICAID ==
[2024-05-28 18:30] VITALS: BP 132/72; PULSE 68
[2024-05-28] MEDS ORDERED: Ketorolac 30 MG/ML SDV IM ONE (19:13)
[2024-05-28] MEDS: Acetaminophen 325 MG Tab PO ONE (21:04)
[2024-05-28] MEDS: Cyclobenzaprine 10 MG Tab PO ONE (21:04)
== END 2024-05-28 21:07 | disposition home or self-care (01) ==
LOC: JD.ED 18:21
DX: M54.50 Low back pain, unspecified (principal); F17.210 Nicotine dependence, cigarettes, uncomplicated; I10 Essential (primary) hypertension; K21.9 Gastro-esophageal reflux disease without esophagitis; E11.9 Type 2 diabetes mellitus without complications; Z79.4 Long term (current) use of insulin; Z79.84 Long term (current) use of oral hypoglycemic drugs; Z79.899 Other long term (current) drug therapy; Z88.8 Allergy status to other drugs, medicaments and biological substances
CPT/HCPCS: 72110; 72110-26; 99283; 99284; A9270-GY

== ENCOUNTER 2024-07-24 10:52 | Emergency (ER) | payer MEDICARE, MEDICAID ==
[2024-07-24] MEDS: diphenhydrAMINE 50 MG/ML SDV IVPUSH ONE (12:18)
[2024-07-24] MEDS: Sodium Chloride 0.9% 1,000 ML IV STA (12:18)
[2024-07-24] MEDS: Ondansetron 4 MG/2 ML SDV IVPUSH ONE (12:18)
[2024-07-24] MEDS: Ketorolac 30 MG/ML SDV IVPUSH ONE (12:18)
[2024-07-24 12:41] LABS: APPEARANCE,URINE CLEAR (Clear); BILIRUBIN,URINE NEGATIVE (Negative); COLOR,URINE YELLOW (Yellow); GLUCOSE,URINE NEGATIVE (Negative); KETONES,URINE NEGATIVE (Negative); LEUKOCYTE ESTERASE,URINE NEGATIVE (Negative); NITRITE,URINE NEGATIVE (Negative); OCCULT BLOOD,URINE NEGATIVE (Negative); PH,URINE 6.5 (5.0-8.0); PROTEIN,URINE NEGATIVE (Negative); UROBILINOGEN,URINE 0.2 (0.2-1.0)
[2024-07-24 12:54] LABS: BASOPHILS ABSOLUTE AUTO 0.1 K/mm3 (0.0-0.2); BASOPHILS PERCENT AUTO 0.6 % (0.0-1.0); EOSINOPHILS ABSOLUTE AUTO 0.1 K/mm3 (0.0-0.4); HEMATOCRIT 37.9 % (42.0-52.0); HEMOGLOBIN 13.2 gm/dl (14.0-18.0); IMMATURE GRAN ABSOLUTE AUTO 0.05 K/mm3 (0.00-0.05); IMMATURE GRAN PERCENT AUTO 0.5 % (0.0-0.4); LYMPHOCYTES ABSOLUTE AUTO 1.9 K/mm3 (1.0-4.8); LYMPHOCYTES PERCENT AUTO 18.9 % (24.0-44.0); MEAN CORPUSCULAR HEMOGLOBIN 30.4 pg (28.0-32.0); MEAN CORPUSCULAR HGB CONC 34.8 g/dl (32.0-36.0); MEAN CORPUSCULAR VOLUME 87.3 fl (83.0-99.0); MEAN PLATELET VOLUME 8.6 fl (9.4-12.4); MONOCYTES ABSOLUTE AUTO 0.5 K/mm3 (0.0-0.8); MONOCYTES PERCENT AUTO 5.2 % (0.0-8.0); NEUTROPHILS ABSOLUTE AUTO 7.3 K/mm3 (1.8-7.7); NEUTROPHILS PERCENT AUTO 73.8 % (41.0-71.0); PLATELET COUNT,PLT 309 K/mm3 (150-400); RED BLOOD CELL COUNT 4.34 M/mm3 (4.52-5.90); WHITE BLOOD CELL COUNT,WBC 9.87 K/mm3 (3.9-11.3)
[2024-07-24 13:10] LABS: A/G RATIO 1.1 (1-2); ALBUMIN 3.6 g/dl (3.4-5.0); ANION GAP 13.2 (5-15); BILIRUBIN TOTAL 0.3 mg/dL (0.2-1.0); BUN/CREATININE RATIO 3.8 (14-18); C-REACTIVE PROTEIN 0.62 mg/dL (<0.30); CALCIUM 8.4 mg/dL (8.5-10.1); CREATININE 0.8 mg/dL (0.7-1.3); EST CRCL DRUG DOSING (CG) 83.25 mL/min; POTASSIUM,K 3.2 mEq/L (3.5-5.1); PROTEIN TOTAL,TP 6.9 g/dl (6.4-8.2)
[2024-07-24 15:32] VITALS: BP 127/83; PULSE 84
== END 2024-07-24 15:25 | disposition home or self-care (01) ==
LOC: JD.ED 10:52
DX: M54.40 Lumbago with sciatica, unspecified side (principal); R11.2 Nausea with vomiting, unspecified; I48.91 Unspecified atrial fibrillation; I10 Essential (primary) hypertension; K21.9 Gastro-esophageal reflux disease without esophagitis; E11.9 Type 2 diabetes mellitus without complications; Z90.49 Acquired absence of other specified parts of digestive tract; Z79.4 Long term (current) use of insulin; Z79.899 Other long term (current) drug therapy; Z88.6 Allergy status to analgesic agent; Z88.8 Allergy status to other drugs, medicaments and biological substances
CPT/HCPCS: 36415; 80053; 81003; 85025; 86140; 96361; 96374; 96375; 99284-25; J1200; J1885; J2405; J7030

== ENCOUNTER 2024-10-08 14:18 | Emergency (ER) | payer MEDICAID, MEDICARE ==
[2024-10-08 15:01] LABS: BASOPHILS PERCENT AUTO 0.5 % (0.0-1.0); EOSINOPHILS ABSOLUTE AUTO 0.1 K/mm3 (0.0-0.4); EOSINOPHILS PERCENT AUTO 0.7 % (0.0-6.0); HEMOGLOBIN 14.1 gm/dl (14.0-18.0); IMMATURE GRAN ABSOLUTE AUTO 0.02 K/mm3 (0.00-0.05); IMMATURE GRAN PERCENT AUTO 0.2 % (0.0-0.4); LYMPHOCYTES ABSOLUTE AUTO 2.3 K/mm3 (1.0-4.8); MEAN CORPUSCULAR HEMOGLOBIN 31.8 pg (28.0-32.0); MEAN CORPUSCULAR HGB CONC 35.3 g/dl (32.0-36.0); MEAN CORPUSCULAR VOLUME 90.1 fl (83.0-99.0); MEAN PLATELET VOLUME 8.8 fl (9.4-12.4); MONOCYTES ABSOLUTE AUTO 0.6 K/mm3 (0.0-0.8); MONOCYTES PERCENT AUTO 7.1 % (0.0-8.0); NEUTROPHILS ABSOLUTE AUTO 5.7 K/mm3 (1.8-7.7); NEUTROPHILS PERCENT AUTO 65.5 % (41.0-71.0); PLATELET COUNT,PLT 291 K/mm3 (150-400); RED BLOOD CELL COUNT 4.44 M/mm3 (4.52-5.90); WHITE BLOOD CELL COUNT,WBC 8.64 K/mm3 (3.9-11.3)
[2024-10-08 15:25] LABS: A/G RATIO 0.9 (1-2); ALANINE AMINOTRANSFERASE,ALT 23 U/L (16-63); ALBUMIN 3.7 g/dl (3.4-5.0); ALKALINE PHOSPHATASE 150 U/L (46-116); ANION GAP 15.3 (5-15); ASPARTATE AMNIOTRANSFERASE,AST 14 U/L (15-37); BILIRUBIN TOTAL 0.5 mg/dL (0.2-1.0); BLOOD UREA NITROGEN,BUN 6 mg/dL (7-18); BUN/CREATININE RATIO 8.6 (14-18); CALCIUM 8.4 mg/dL (8.5-10.1); CARBON DIOXIDE,CO2 24 mEq/L (21-32); CHLORIDE,CL 95 mEq/L (98-107); CREATININE 0.7 mg/dL (0.7-1.3); EST CRCL DRUG DOSING (CG) 87.75 mL/min; ESTIMATED GFR 106 mL/min (>60); GLUCOSE RANDOM 208 mg/dL (70-99); LIPASE 70 U/L (16-77); POTASSIUM,K 3.3 mEq/L (3.5-5.1); PROTEIN TOTAL,TP 7.7 g/dl (6.4-8.2); SODIUM,NA 131 mEq/L (136-145)
[2024-10-08] MEDS: Ondansetron 4 MG/2 ML SDV IVPUSH ONE (15:27)
[2024-10-08] MEDS: HYDROmorphone 0.5 MG/0.5 ML Syringe IVPUSH ONE (15:29)
[2024-10-08 15:30] LABS: TROPONIN I HIGH SENSITIVITY < 4 pg/mL (<=76)
[2024-10-08] MEDS: Sodium Chloride 0.9% 10 ML Syringe FLUSH PRN (15:31)
[2024-10-08] MEDS: Sodium Chloride 0.9% 1,000 ML IV SCH (15:31)
[2024-10-08 17:57] VITALS: BP 126/77; PULSE 73
== END 2024-10-08 17:45 | disposition home or self-care (01) ==
LOC: JD.ED 14:18
DX: R07.89 Other chest pain (principal); I10 Essential (primary) hypertension; K21.9 Gastro-esophageal reflux disease without esophagitis; I48.91 Unspecified atrial fibrillation; E11.9 Type 2 diabetes mellitus without complications; F17.210 Nicotine dependence, cigarettes, uncomplicated; Z90.49 Acquired absence of other specified parts of digestive tract; Z88.5 Allergy status to narcotic agent; Z88.8 Allergy status to other drugs, medicaments and biological substances; Z79.4 Long term (current) use of insulin; Z79.84 Long term (current) use of oral hypoglycemic drugs; Z79.899 Other long term (current) drug therapy
CPT/HCPCS: 36415; 71045; 80053; 83690; 84484; 85025; 93005; 96361; 96374; 96375; 99285; J2405; J7030; 93010; 99284

== ENCOUNTER 2025-01-26 14:06 | Emergency (ER) | payer MEDICAID ==
[2025-01-26] MEDS: HYDROmorphone 0.5 MG/0.5 ML Syringe IVPUSH ONE ×2 (15:12→17:22)
[2025-01-26] MEDS: Sodium Chloride 0.9% 10 ML Syringe FLUSH PRN (15:13)
[2025-01-26 15:14] LABS: BASOPHILS ABSOLUTE AUTO 0.1 K/mm3 (0.0-0.2); BASOPHILS PERCENT AUTO 0.7 % (0.0-1.0); EOSINOPHILS PERCENT AUTO 0.5 % (0.0-6.0); HEMATOCRIT 42.1 % (42.0-52.0); IMMATURE GRAN ABSOLUTE AUTO 0.04 K/mm3 (0.00-0.05); IMMATURE GRAN PERCENT AUTO 0.5 % (0.0-0.4); LYMPHOCYTES ABSOLUTE AUTO 1.9 K/mm3 (1.0-4.8); MEAN CORPUSCULAR HEMOGLOBIN 31.2 pg (28.0-32.0); MEAN CORPUSCULAR HGB CONC 35.6 g/dl (32.0-36.0); MEAN CORPUSCULAR VOLUME 87.5 fl (83.0-99.0); MEAN PLATELET VOLUME 8.3 fl (9.4-12.4); MONOCYTES ABSOLUTE AUTO 0.4 K/mm3 (0.0-0.8); MONOCYTES PERCENT AUTO 4.9 % (0.0-8.0); NEUTROPHILS ABSOLUTE AUTO 6.2 K/mm3 (1.8-7.7); NEUTROPHILS PERCENT AUTO 71.4 % (41.0-71.0); PLATELET COUNT,PLT 315 K/mm3 (150-400); RED BLOOD CELL COUNT 4.81 M/mm3 (4.52-5.90); WHITE BLOOD CELL COUNT,WBC 8.62 K/mm3 (3.9-11.3)
[2025-01-26 15:22] LABS: APPEARANCE,URINE CLEAR (Clear); BILIRUBIN,URINE NEGATIVE (Negative); COLOR,URINE LIGHT YELLOW (Yellow); GLUCOSE,URINE NEGATIVE (Negative); KETONES,URINE NEGATIVE (Negative); LEUKOCYTE ESTERASE,URINE NEGATIVE (Negative); NITRITE,URINE NEGATIVE (Negative); OCCULT BLOOD,URINE TRACE-LYSED (Negative); PH,URINE 6.5 (5.0-8.0); PROTEIN,URINE NEGATIVE (Negative); UROBILINOGEN,URINE 0.2 (0.2-1.0)
[2025-01-26 15:30] LABS: RBC,URINE 0-5 /hpf (0-5); SQUAMOUS EPITHELIAL CELLS,UR 0-5 /hpf (0-5); WBC,URINE 0-5 /hpf (0-5)
[2025-01-26 15:30] LABS: A/G RATIO 1.1 (1-2); ALBUMIN 3.9 g/dl (3.4-5.0); ANION GAP 18.7 (5-15); BILIRUBIN TOTAL 0.6 mg/dL (0.2-1.0); BUN/CREATININE RATIO 2.5 (14-18); CALCIUM 8.7 mg/dL (8.5-10.1); CREATININE 0.8 mg/dL (0.7-1.3); EST CRCL DRUG DOSING (CG) 76.78 mL/min; MAGNESIUM 1.6 mg/dL (1.8-2.4); POTASSIUM,K 2.7 mEq/L (3.5-5.1); PROTEIN TOTAL,TP 7.5 g/dl (6.4-8.2)
[2025-01-26 15:31] LABS: BACTERIA,URINE OCCASIONAL /hpf (FEW)
[2025-01-26 15:32] LABS: MUCUS,URINE NOT SEEN /hpf (FEW)
[2025-01-26 17:50] VITALS: BP 122/77; PULSE 60
== END 2025-01-26 17:35 | disposition home or self-care (01) ==
LOC: JD.ED 14:06
DX: M54.50 Low back pain, unspecified (principal); E87.6 Hypokalemia; E87.1 Hypo-osmolality and hyponatremia; I10 Essential (primary) hypertension; K21.9 Gastro-esophageal reflux disease without esophagitis; E11.9 Type 2 diabetes mellitus without complications; Z90.49 Acquired absence of other specified parts of digestive tract; Z88.8 Allergy status to other drugs, medicaments and biological substances; Z79.4 Long term (current) use of insulin; Z79.84 Long term (current) use of oral hypoglycemic drugs; Z79.899 Other long term (current) drug therapy
CPT/HCPCS: 36415; 74176; 74176-26; 80053; 81001; 83690; 83735; 85025; 96374; 96376; 99284; 99284-25

== ENCOUNTER 2025-02-07 11:13 | Emergency (ER) | payer MEDICAID ==
[2025-02-07] MEDS: Acetaminophen/HYDROcodone 325-5 MG Tab PO ONE (11:50)
[2025-02-07 13:35] VITALS: BP 118/73; PULSE 88
== END 2025-02-07 13:15 | disposition home or self-care (01) ==
LOC: JD.ED 11:13
DX: S09.90XA Unspecified injury of head, initial encounter (principal); S93.402A Sprain of unspecified ligament of left ankle, initial encounter; M54.50 Low back pain, unspecified; M54.2 Cervicalgia; I10 Essential (primary) hypertension; E78.00 Pure hypercholesterolemia, unspecified; E11.9 Type 2 diabetes mellitus without complications; Z90.49 Acquired absence of other specified parts of digestive tract; F17.200 Nicotine dependence, unspecified, uncomplicated; Z79.899 Other long term (current) drug therapy; Z79.4 Long term (current) use of insulin; Z88.8 Allergy status to other drugs, medicaments and biological substances; W01.0XXA Fall on same level from slipping, tripping and stumbling without subsequent striking against object, initial encounter
CPT/HCPCS: 70450; 72125; 72128; 73610; 99285; A9270; 99283

== ENCOUNTER 2025-02-21 11:57 | Emergency (ER) | payer MEDICAID ==
[2025-02-21 12:36] LABS: BASOPHILS ABSOLUTE AUTO 0.1 K/mm3 (0.0-0.2); BASOPHILS PERCENT AUTO 0.5 % (0.0-1.0); EOSINOPHILS ABSOLUTE AUTO 0.1 K/mm3 (0.0-0.4); EOSINOPHILS PERCENT AUTO 0.6 % (0.0-6.0); HEMATOCRIT 40.4 % (42.0-52.0); HEMOGLOBIN 13.8 gm/dl (14.0-18.0); IMMATURE GRAN ABSOLUTE AUTO 0.05 K/mm3 (0.00-0.05); IMMATURE GRAN PERCENT AUTO 0.5 % (0.0-0.4); LYMPHOCYTES ABSOLUTE AUTO 2.4 K/mm3 (1.0-4.8); LYMPHOCYTES PERCENT AUTO 23.3 % (24.0-44.0); MEAN CORPUSCULAR HEMOGLOBIN 31.1 pg (28.0-32.0); MEAN CORPUSCULAR HGB CONC 34.2 g/dl (32.0-36.0); MONOCYTES ABSOLUTE AUTO 0.6 K/mm3 (0.0-0.8); MONOCYTES PERCENT AUTO 5.8 % (0.0-8.0); NEUTROPHILS ABSOLUTE AUTO 7.1 K/mm3 (1.8-7.7); NEUTROPHILS PERCENT AUTO 69.3 % (41.0-71.0); PLATELET COUNT,PLT 315 K/mm3 (150-400); RED BLOOD CELL COUNT 4.44 M/mm3 (4.52-5.90); WHITE BLOOD CELL COUNT,WBC 10.21 K/mm3 (3.9-11.3)
[2025-02-21 12:53] LABS: A/G RATIO 0.9 (1-2); ALBUMIN 3.4 g/dl (3.4-5.0); ANION GAP 14.7 (5-15); BILIRUBIN TOTAL 0.2 mg/dL (0.2-1.0); BUN/CREATININE RATIO 5.7 (14-18); CALCIUM 9.2 mg/dL (8.5-10.1); CREATININE 0.7 mg/dL (0.7-1.3); EST CRCL DRUG DOSING (CG) 87.75 mL/min; POTASSIUM,K 3.7 mEq/L (3.5-5.1); PROTEIN TOTAL,TP 7.3 g/dl (6.4-8.2)
[2025-02-21] MEDS: Acetaminophen/HYDROcodone 325-5 MG Tab PO ONE (14:29)
[2025-02-21 14:53] VITALS: BP 138/77; PULSE 60
== END 2025-02-21 14:30 | disposition home or self-care (01) ==
LOC: JD.ED 11:57
DX: R51.9 Headache, unspecified (principal); I48.91 Unspecified atrial fibrillation; I10 Essential (primary) hypertension; E78.00 Pure hypercholesterolemia, unspecified; E11.9 Type 2 diabetes mellitus without complications; K21.9 Gastro-esophageal reflux disease without esophagitis; Z86.16 Personal history of COVID-19; Z79.4 Long term (current) use of insulin; Z79.899 Other long term (current) drug therapy; Z79.84 Long term (current) use of oral hypoglycemic drugs; Z88.8 Allergy status to other drugs, medicaments and biological substances; Z88.6 Allergy status to analgesic agent
CPT/HCPCS: 36415; 70450; 80053; 80307; 85025; 99284; A9270

== ENCOUNTER 2025-02-22 14:15 | Emergency (ER) | payer MEDICAID ==
[2025-02-22] MEDS: Cyclobenzaprine 10 MG Tab PO ONE (17:31)
[2025-02-22 17:33] VITALS: BP 135/78; PULSE 50
== END 2025-02-22 17:51 | disposition left against medical advice (07) ==
LOC: JD.ED 14:15
DX: M54.2 Cervicalgia (principal); F17.210 Nicotine dependence, cigarettes, uncomplicated; Z88.5 Allergy status to narcotic agent
CPT/HCPCS: 99283; A9270

== ENCOUNTER 2025-02-24 14:32 | Emergency (ER) | payer MEDICAID ==
[2025-02-24] MEDS ORDERED: Acetaminophen 325 MG Tab PO ONE (16:06)
[2025-02-24 16:48] VITALS: BP 135/89; PULSE 76
== END 2025-02-24 16:48 | disposition home or self-care (01) ==
LOC: JD.ED 14:32
DX: M54.40 Lumbago with sciatica, unspecified side (principal); I10 Essential (primary) hypertension; K21.9 Gastro-esophageal reflux disease without esophagitis; E11.9 Type 2 diabetes mellitus without complications; Z88.8 Allergy status to other drugs, medicaments and biological substances; Z79.4 Long term (current) use of insulin; Z79.84 Long term (current) use of oral hypoglycemic drugs; Z86.16 Personal history of COVID-19; Z90.49 Acquired absence of other specified parts of digestive tract; Z79.899 Other long term (current) drug therapy
CPT/HCPCS: 72100; 72100-26; 99283

== ENCOUNTER 2025-03-05 15:54 | Emergency (ER) | payer MEDICAID, MEDICARE ==
[2025-03-05] MEDS: Ketorolac 60 MG/2 ML SDV IM ONE (16:23)
[2025-03-05] MEDS: Acetaminophen 325 MG Tab PO ONE (16:23)
[2025-03-05 16:41] VITALS: BP 173/89; PULSE 81
== END 2025-03-05 16:26 | disposition home or self-care (01) ==
LOC: JD.ED 15:54
DX: M54.50 Low back pain, unspecified (principal); I10 Essential (primary) hypertension; K21.9 Gastro-esophageal reflux disease without esophagitis; E11.9 Type 2 diabetes mellitus without complications; Z86.16 Personal history of COVID-19; Z90.49 Acquired absence of other specified parts of digestive tract; Z88.8 Allergy status to other drugs, medicaments and biological substances; Z79.4 Long term (current) use of insulin; Z79.84 Long term (current) use of oral hypoglycemic drugs; Z79.899 Other long term (current) drug therapy; Z76.5 Malingerer [conscious simulation]
CPT/HCPCS: 96372; 99284; A9270; J1885

== ENCOUNTER 2025-07-31 08:08 | Emergency (ER) | payer MEDICAID, MEDICARE ==
[2025-07-31] MEDS: Ketorolac 60 MG/2 ML SDV IM ONE (08:51)
[2025-07-31 13:55] VITALS: BP 99/61; PULSE 57
== END 2025-07-31 10:25 | disposition home or self-care (01) ==
LOC: JD.ED 08:08
DX: M54.42 Lumbago with sciatica, left side (principal); I10 Essential (primary) hypertension; E78.00 Pure hypercholesterolemia, unspecified; I48.91 Unspecified atrial fibrillation; F17.200 Nicotine dependence, unspecified, uncomplicated; K21.9 Gastro-esophageal reflux disease without esophagitis; E11.9 Type 2 diabetes mellitus without complications; Z79.899 Other long term (current) drug therapy; Z86.16 Personal history of COVID-19; Z79.4 Long term (current) use of insulin; Z79.84 Long term (current) use of oral hypoglycemic drugs; Z88.8 Allergy status to other drugs, medicaments and biological substances
CPT/HCPCS: 72100; 96372; 99283; J1171; J1885

== ENCOUNTER 2025-08-12 13:00 | Emergency (ER) | payer MEDICARE ==
[2025-08-12 15:22] VITALS: BP 143/88; PULSE 71
== END 2025-08-12 15:19 | disposition home or self-care (01) ==
LOC: JD.ED 13:00
DX: M54.42 Lumbago with sciatica, left side (principal); I10 Essential (primary) hypertension; E78.00 Pure hypercholesterolemia, unspecified; K21.9 Gastro-esophageal reflux disease without esophagitis; E11.9 Type 2 diabetes mellitus without complications; Z86.16 Personal history of COVID-19; Z79.899 Other long term (current) drug therapy; Z79.84 Long term (current) use of oral hypoglycemic drugs; Z88.5 Allergy status to narcotic agent; Z88.8 Allergy status to other drugs, medicaments and biological substances
CPT/HCPCS: 99283